=== PATIENT | female | born 1950 | race Caucasian/White ===

== ENCOUNTER 2018-01-31 18:50 | Emergency (ER) | payer BC, OTHER ==
[2018-01-31] MEDS ORDERED: PANTOPRAZOLE 40 MG INJ ONE (19:49)
[2018-01-31] MEDS ORDERED: ONDANSETRON 4 MG/2 ML VIAL ONE (19:49)
[2018-01-31 20:47] LABS: Absolute Lymphocytes (CBC) 1.8 K/uL (0.7-4.9); Absolute Monocytes 0.5 K/uL (0.1-1.3); Absolute Neutrophil 2.8 K/uL (1.8-8.0); Basophils % 0.5 % (0-1.3); Hematocrit 36.3 % (36.0-45.0); Lymphocytes % 33.2 % (15.3-44.8); MCH 27.3 pg (27.0-35.0); MCV 82.3 fL (80-100); MPV 7.5 fL (7.6-11.3); RBC Red Blood Cell Count 4.41 M/uL (3.86-4.86)
--- NOTE | 2018-01-31 21:05 | RAD REPORT ---
EXAM DESCRIPTION: [facility] Single View01/31/2018 8:58 pm CLINICAL HISTORY: sob COMPARISON: August 2017 FINDINGS: The lungs appear clear of acute infiltrate. The heart is normal size IMPRESSION: No acute abnormalities displayed
--- NOTE | 2018-01-31 21:10 | RAD REPORT ---
EXAM DESCRIPTION: US - Abdomen Exam Limited - 01/31/2018 8:59 pm CLINICAL HISTORY: Abdominal pain. COMPARISON: 2016 FINDINGS: The gallbladder wall is not thickened. A gallstone is not seen. The biliary tree is normal caliber. IMPRESSION: Unremarkable gallbladder ultrasound.
--- NOTE | 2018-01-31 21:14 | RAD REPORT ---
EXAM DESCRIPTION: CT - Head Brain Wo Cont - 01/31/2018 9:01 pm CLINICAL HISTORY: Dizziness for 4 days COMPARISON: October 2017 TECHNIQUE: Computed axial tomography of the head was obtained. IV contrast was not requested. All CT scans are performed using dose optimization technique as appropriate and may include automated exposure control or mA/KV adjustment according to patient size. FINDINGS: An intracranial bleed is not seen . The ventricles are normal in caliber. No extra-axial fluid collection is noted. A small low-density area within genu of the corpus callosum may represent an old small infarction. . Fluid within the sinuses/ mastoids is not seen. IMPRESSION: No acute intracranial abnormality is seen. If patient's symptoms persist MRI of the bra in would be recommended.
[2018-01-31] MEDS ORDERED: MECLIZINE HCL 12.5 MG TAB ONE (21:25)
[2018-01-31 21:46] LABS: Bilirubin Direct 0.1 mg/dL (0-0.2); Bilirubin Total 0.7 mg/dL (0.3-1.2); Magnesium 1.8 mg/dL (1.8-2.5); Potassium 4.6 mEq/L (3.6-5.0); Protein, Total 7.2 g/dL (6.0-8.3)
[2018-01-31 21:53] LABS: Urine Bacteria <20 /HPF (<20); Urine Culture Reflex Order REFLEXED; Urine RBC <5 /HPF (NONE SEEN)
[2018-01-31 21:53] LABS: Urine Blood TRACE (NEG); Urine Glucose NEGATIVE (NEG); Urine Protein NEGATIVE (NEG); Urine pH 5.5 (5.0-7.0)
--- NOTE | 2018-01-31 22:10 | EDPHYS ---
Physician Documentation [facility] Name: Catherine Figueroa Age: 67 yrs Sex: Female : 1950 Arrival Date: 01/31/2018 Time: 18:51 Bed 23 Private MD: ED Physician Alfredo Rosado HPI: 01/31 19:40 This 67 yrs old Female presents to ER via Ambulatory with complaints of cp Dizziness, Nausea/Vomiting, Shortness Of Breath. 19:40 The patient presents with lightheadedness. cp 19:40 Onset: The symptoms/episode began/occurred 3-4 days ago. Associated signs and symptoms: cp Pertinent positives: nausea, shortness of breath, vomiting, Pertinent negatives: abdominal pain, chest pain, focal weakness, headache, near-syncope, syncope. Severity of symptoms: in the emergency department the symptoms are unchanged despite home interventions. Patient's baseline: Neuro: alert and fully oriented, Motor: no deficits, Ambulation: walks without assistance, Speech: normal. Patient reports similar symptoms in past when diagnosed with low magnesemia . Historical: - Allergies: 19:16 Sulfa (Sulfonamide Antibiotics); aj - Home Meds: 19:16 atorvastatin 40 mg Oral tab 1 tab once daily [Active]; levothyroxine 125 mcg tab 1 tab aj once daily for Hypothyroidism [Active]; magnesium oxide 400 mg Oral cap twice a day [Active]; metoprolol tartrate 25 mg Oral tab 1 tab once daily for Hypertension [Active]; omeprazole 20 mg Oral cpDR 1 cap once daily [Active]; sertraline 100 mg Oral tab 1 tab once daily [Active]; valsartan 160 mg Oral tab 1 tab once daily [Active]; - PMHx: 19:16 Anxiety; Depression; GERD; High Cholesterol; Hypertension; Hypothyroidism; aj - PSHx: 19:16 Hysterectomy; Knee surgery; Breast Reduction; aj - Immunization history:: Adult Immunizations up to date. - Social history:: Smoking status: Patient/guardian denies using tobacco. ROS: 19:45 Constitutional: Negative for body aches, chills, fever, poor PO intake. cp 19:45 Eyes: Negative for injury, pain, redness, and discharge. cp 19:45 Cardiovascular: Negative for chest pain, edema, palpitations. 19:45 Respiratory: Positive for shortness of breath, Negative for cough, wheezing. 19:45 Abdomen/GI: Positive for nausea, vomiting, Negative for abdominal pain, diarrhea, constipation, black/tarry stool, rectal bleeding. 19:45 : Negative for urinary symptoms. 19:45 Neuro: Positive for dizziness, Negative for altered mental status, headache, syncope, near syncope, weakness. 19:45 All other systems are negative. Exam: 19:48 Constitutional: The patient appears in no acute distress, alert, awake, cp non-diaphoretic, non-toxic, well developed, well nourished. 19:48 Head/Face: Normocephalic, atraumatic. Eyes: Pupils equal round and reactive to light, cp extra-ocular motions intact. Lids and lashes normal. Conjunctiva and sclera are non-icteric and not injected. Cornea within normal limits. Periorbital areas with no swelling, redness, or edema. ENT: Nares patent. No nasal discharge, no septal abnormalities noted. Tympanic membranes are normal and external auditory canals are clear. Oropharynx with no redness, swelling, or masses, exudates, or evidence of obstruction, uvula midline. Mucous membranes moist. Neck: Trachea midline, no thyromegaly or masses palpated, and no cervical lymphadenopathy. Supple, full range of motion without nuchal rigidity, or vertebral point tenderness. No Meningismus. Chest/axilla: Normal chest wall appearance and motion. Nontender with no deformity. No lesions are appreciated. Cardiovascular: Regular rate and rhythm with a normal S1 and S2. No gallops, murmurs, or rubs. Normal PMI, no JVD. No pulse deficits. Respiratory: Lungs have equal breath sounds bilaterally, clear to auscultation and percussion. No rales, rhonchi or wheezes noted. No increased work of breathing, no retractions or nasal flaring. Abdomen/GI: Soft, non-tender, with normal bowel sounds. No distension or tympany. No guarding or rebound. No evidence of tenderness throughout. Skin: Warm, dry with normal turgor. Normal color with no rashes, no lesions, and no evidence of cellulitis. Neuro: Awake and alert, GCS 15, oriented to person, place, time, and situation. Cranial nerves II-XII grossly intact. Motor strength 5/5 in all extremities. Sensory grossly intact. Cerebellar exam normal. Normal gait. 21:52 ECG was reviewed by the Attending Physician. Vital Signs: 19:16 BP 132 / 81; Pulse 87; Resp 20; Temp 99.0; Pulse Ox 99% on R/A; Weight 83.91 kg; Height aj 5 ft. 1 in. (154.94 cm); Pain 6/10; 20:00 BP 139 / 69; Pulse 74; Resp 16; Pulse Ox 97% on R/A; lk1 21:00 BP 136 / 72; Pulse 77; Resp 16; Pulse Ox 99% on R/A; Pain 0/10; lk1 22:00 BP 129 / 67; Pulse 75; Resp 16; Pulse Ox 99% on R/A; Pain 0/10; lk1 19:16 Body Mass Index 34.96 (83.91 kg, 154.94 cm) aj MDM: 19:21 Patient medically screened. [facility] 22:05 Data reviewed: vital signs, nurses notes, lab test result(s), EKG, radiologic studies, cp CT scan, plain films, and as a result, I will discharge patient. 22:05 Test interpretation: by ED physician or midlevel provider: ECG, plain radiologic cp studies. 01/31 19:39 Order name: Amylase, Serum; Complete Time: 21:53 cp 01/31 19:39 Order name: Basic Metabolic Panel; Complete Time: 21:53 cp 01/31 21:53 Interpretation: Normal except: BUN 32; CRE 1.32; GFR 40. cp 01/31 19:39 Order name: CBC with Diff; Complete Time: 21:04 cp 01/31 21:04 Interpretation: Normal except: MPV 7.5; EOSINOPHIL % 6.0. cp 01/31 19:39 Order name: Creatinine for Radiology; Complete Time: 21:20 cp 01/31 21:21 Interpretation: Abnormal: CRE 1.27; GFR 42. cp 01/31 19:39 Order name: Hepatic Function; Complete Time: 21:53 cp 01/31 21:53 Interpretation: Normal except: ALK 141. cp 01/31 19:39 Order name: Lipase; Complete Time: 21:53 cp 01/31 21:54 Interpretation: Abnormal: LIP 14. cp 01/31 19:39 Order name: Urine Microscopic Only; Complete Time: 21:54 cp 01/31 21:54 Interpretation: Normal except: UWBC 5-10; SQEPI 5-10. cp 01/31 19:39 Order name: Magnesium; Complete Time: 21:53 cp 01/31 19:39 Order name: Troponin I; Complete Time: 21:20 cp 01/31 21:21 Interpretation: Reviewed. cp 01/31 19:41 Order name: US Abdomen Limited; Complete Time: 21:20 cp 01/31 21:21 Interpretation: Report reviewed. 01/31 19:41 Order name: XRAY Chest (1 view); Complete Time: 21:20 cp 01/31 21:56 Interpretation: Report review. 01/31 20:46 Order name: CT Head Brain wo Cont; Complete Time: 21:20 cp 01/31 21:21 Interpretation: Report reviewed. 01/31 21:41 Order name: Urine Dipstick--Ancillary (enter results); Complete Time: 21:54 em1 01/31 21:54 Interpretation: Normal except: UBLD TRACE; UESTR 1+. 01/31 21:55 Order name: Urine Culture [facility] 01/31 19:39 Order name: IV Saline Lock; Complete Time: 21:23 cp 01/31 19:39 Order name: Labs collected and sent; Complete Time: 21:23 cp 01/31 19:39 Order name: Urine Dipstick-Ancillary (obtain specimen); Complete Time: 21:39 cp 01/31 19:39 Order name: EKG; Complete Time: 20:06 01/31 19:39 Order name: EKG - Nurse/Tech; Complete Time: 23:01 cp EC:52 Rate is 74 beats/min. Rhythm is regular. WI interval is normal. QRS interval is normal. cp QT interval is normal. No ST changes noted. Interpreted by me. Reviewed by me. Administered Medications: 20:44 Drug: Zofran 4 mg Route: IVP; Site: left forearm; lk1 21:15 Follow up: Response: No adverse reaction; Marked relief of symptoms lk1 20:45 Drug: ProTONIX 40 mg Route: IVP; Site: left forearm; lk1 21:15 Follow up: Response: No adverse reaction; Marked relief of symptoms lk1 21:10 Drug: Meclizine 25 mg Route: PO; lk1 21:40 Follow up: Response: No adverse reaction; Marked relief of symptoms lk1 Disposition: 02/01 07:58 Co-signature as Attending Physician, Alfredo Rosado MD I agree with the assessment and [facility] plan of care. Disposition: 01/31/18 22:10 Discharged to Home. Impression: Nausea and vomiting, Dizziness. - Condition is Stable. - Discharge Instructions: Dizziness, Nausea and Vomiting. - Prescriptions for Meclizine 25 mg Oral Tablet - take 1 tablet by ORAL route every 8 hours As needed; 30 tablet. Pepcid 20 mg Oral Tablet - take 1 tablet by ORAL route every 12 hours for 10 days; 20 tablet. Zofran 4 mg Oral Tablet - take 1 tablet by ORAL route every 12 hours As needed; 20 tablet. - Medication Reconciliation Form, Thank You Letter, Antibiotic Education, Prescription Opioid Use, Work release form form. - Follow up: Private Physician; When: 1 - 2 days; Reason: Recheck today's complaints. - Problem is new. - Symptoms have improved. Signatures: Dispatcher [employer] Ina Block, RN Alfredo Atkinson MD MD cha Page, Corey, PA PA cp Kluge, Leah, RN RN lk1
--- NOTE | 2018-01-31 22:10 | ER ---
Nurse's Notes [facility] Emergency Department Name: Catherine Figueroa Age: 67 yrs Sex: Female : 1950 Arrival Date: 01/31/2018 Time: 18:51 Bed 23 Private MD: Diagnosis: Nausea and vomiting;Dizziness Presentation: 01/31 19:14 Presenting complaint: Patient states: N/V dizziness for 3-4 days. Patient states, "my aj magnesium is probably low, it usually is." Patient is drinking sprite and eating potato chips in triage. Transition of care: patient was not received from another setting of care. Onset of symptoms was January 28, 2018. Initial Sepsis Screen: Does the patient meet any 2 criteria? No. Patient's initial sepsis screen is negative. Does the patient have a suspected source of infection? No. Patient's initial sepsis screen is negative. Care prior to arrival: None. 19:14 Method Of Arrival: Ambulatory aj 19:14 Acuity: MARCELLA 3 aj Triage Assessment: 19:16 General: Appears in no apparent distress. comfortable, Behavior is calm, cooperative, aj appropriate for age. Pain: Complains of pain in face and scalp Pain currently is 5 out of 10 on a pain scale. Neuro: Level of Consciousness is awake, alert, obeys commands, Oriented to person, place, time, situation, Appropriate for age Reports dizziness, headache. Respiratory: Airway is patent Respiratory effort is even, unlabored, Respiratory pattern is regular, symmetrical. GI: Reports nausea, vomiting. Derm: Skin is intact, is healthy with good turgor, Skin is pink, warm \\T\\ dry. normal. Historical: - Allergies: 19:16 Sulfa (Sulfonamide Antibiotics); aj - Home Meds: 19:16 atorvastatin 40 mg Oral tab 1 tab once daily [Active]; levothyroxine 125 mcg tab 1 tab aj once daily for Hypothyroidism [Active]; magnesium oxide 400 mg Oral cap twice a day [Active]; metoprolol tartrate 25 mg Oral tab 1 tab once daily for Hypertension [Active]; omeprazole 20 mg Oral cpDR 1 cap once daily [Active]; sertraline 100 mg Oral tab 1 tab once daily [Active]; valsartan 160 mg Oral tab 1 tab once daily [Active]; - PMHx: 19:16 Anxiety; Depression; GERD; High Cholesterol; Hypertension; Hypothyroidism; aj - PSHx: 19:16 Hysterectomy; Knee surgery; Breast Reduction; aj - Immunization history:: Adult Immunizations up to date. - Social history:: Smoking status: Patient/guardian denies using tobacco. Screenin:55 Abuse screen: Denies threats or abuse. Denies injuries from another. Nutritional lk1 screening: No deficits noted. Tuberculosis screening: No symptoms or risk factors identified. Fall Risk Total Fernandez Fall Scale indicates High Risk Score (45 or more points). Fall prevention measures have been instituted. Side Rails Up X 2 Placed Close to Nursing Station Frequent Obs/Assessments Occuring As available patient and family educated on Fall Prevention Program and Strategies. Assessment: 20:00 General: Appears in no apparent distress. Behavior is calm, cooperative, appropriate lk1 for age. Pain: Denies pain. Neuro: Level of Consciousness is awake, alert, obeys commands, Oriented to person, place, time, situation, Moves all extremities. Full function Gait is steady, Speech is normal, Facial symmetry appears normal, Pupils are PERRLA. Neuro: Reports dizziness. Cardiovascular: Heart tones S1 S2 present Capillary refill is brisk Patient's skin is warm and dry. Respiratory: Airway is patent Respiratory effort is even, unlabored, Respiratory pattern is regular, symmetrical. GI: Abdomen is non-distended, Bowel sounds present X 4 quads. : No signs and/or symptoms were reported regarding the genitourinary system. EENT: No signs and/or symptoms were reported regarding the EENT system. Derm: No signs and/or symptoms reported regarding the dermatologic system. Musculoskeletal: No signs and/or symptoms reported regarding the musculoskeletal system. Vital Signs: 19:16 BP 132 / 81; Pulse 87; Resp 20; Temp 99.0; Pulse Ox 99% on R/A; Weight 83.91 kg; Height aj 5 ft. 1 in. (154.94 cm); Pain 6/10; 20:00 BP 139 / 69; Pulse 74; Resp 16; Pulse Ox 97% on R/A; lk1 21:00 BP 136 / 72; Pulse 77; Resp 16; Pulse Ox 99% on R/A; Pain 0/10; lk1 22:00 BP 129 / 67; Pulse 75; Resp 16; Pulse Ox 99% on R/A; Pain 0/10; lk1 19:16 Body Mass Index 34.96 (83.91 kg, 154.94 cm) ED Course: 18:51 Patient arrived in ED. as 19:15 Triage completed. aj 19:16 Arm band placed on left wrist. Patient placed in an exam room. aj 19:20 Alfredo Ledezma PA is PHCP. cp 19:20 Alfredo Rosado MD is Attending Physician. cp 19:47 Roseanne Anthony, ABILIO is Primary Nurse. lk1 20:37 Initial lab(s) drawn, by me, sent to lab. Inserted saline lock: 22 gauge in left wrist, dh3 using aseptic technique. Blood collected. 20:[address] via stretcher. vm2 20:58 XRAY Chest (1 view) In Process Unspecified. EDMS 21:00 US Abdomen Limited In Process Unspecified. EDMS 21:01 CT completed. Patient tolerated procedure well. Patient moved back from CT. vm2 21:01 Ultrasound completed. Patient tolerated well. aa4 21:01 CT Head Brain wo Cont In Process Unspecified. EDMS 22:07 EKG done, by ED staff, reviewed by Alfredo NUR. dh3 22:56 Patient has correct armband on for positive identification. Bed in low position. Call lk1 light in reach. Side rails up X 1. 22:59 No provider procedures requiring assistance completed. IV discontinued, intact, lk1 bleeding controlled, No redness/swelling at site. Pressure dressing applied. Administered Medications: 20:44 Drug: Zofran 4 mg Route: IVP; Site: left forearm; lk1 21:15 Follow up: Response: No adverse reaction; Marked relief of symptoms lk1 20:45 Drug: ProTONIX 40 mg Route: IVP; Site: left forearm; lk1 21:15 Follow up: Response: No adverse reaction; Marked relief of symptoms lk1 21:10 Drug: Meclizine 25 mg Route: PO; lk1 21:40 Follow up: Response: No adverse reaction; Marked relief of symptoms lk1 Outcome: 22:10 Discharge ordered by . cp 22:59 Discharged to home ambulatory. lk1 22:59 Condition: good 22:59 Discharge instructions given to patient, Instructed on discharge instructions, follow up and referral plans. medication usage, safety practices, Demonstrated understanding of instructions, follow-up care, medications, Prescriptions given X 3. 23:04 Patient left the ED. lk1 Signatures: Dispatcher [employer] EDIna Gallegos, Andressa Felton RN, Amanda aa4 Alfredo Ledezma PA PA cp Kluge, Leah, RN RN lk1 Freya Owens 2 Sandra Ortega 3
[2018-01-31 23:21] VITALS: TEMP 99
[2018-01-31 23:22] VITALS: O2SAT 99
[2018-01-31 23:24] VITALS: BP 129/67
--- NOTE | 2018-02-01 15:42 | EKG ---
Test Date: 2018-01-31 Test Time: 21:44:19 Conical Mixer: IVÁN MEASUREMENT RESULTS: Intervals: Rate: 74 MT: 158 QRSD: 76 QT: 372 QTc: 412 [place]: P: 57 MT: 158 QRS: 24 T: 19 INTERPRETIVE STATEMENTS: Normal sinus rhythm Normal ECG Compared to ECG 08/24/2017 21:55:08 No significant changes Electronically Signed On 02-01-18 15:37:55 CDT by Keyur Gaffney
== END 2018-01-31 23:04 | disposition home or self-care (01) ==
LOC: ER 18:50
DX: R11.2 Nausea with vomiting, unspecified (principal); I10 Essential (primary) hypertension; E78.00 Pure hypercholesterolemia, unspecified; E03.9 Hypothyroidism, unspecified; F41.9 Anxiety disorder, unspecified; F32.9 Major depressive disorder, single episode, unspecified; Z88.2 Allergy status to sulfonamides
CPT/HCPCS: 36415; 70450; 71045; 76705; 80048; 80076; 81003; 81015; 82150; 83690; 83735; 84484; 85025; 87086; 87088; 93005; 96374; 96375; 99284; C9113; J2405

== ENCOUNTER 2018-04-27 18:08 | Emergency (ER) | payer BC, OTHER ==
--- NOTE | 2018-04-27 20:07 | EDPHYS ---
Physician Documentation [facility] Name: Catherine Figueroa Age: 67 yrs Sex: Female : 1950 Arrival Date: 04/27/2018 Time: 18:11 Bed 6 Private MD: Lubna Solano H ED Physician Benji Godwin HPI: 04/27 19:05 This 67 yrs old Female presents to ER via Ambulatory with complaints of Ankle cp Injury. 19:05 The patient presents with an injury, pain, that is acute, swelling. The complaints cp affect the left ankle. 19:05 Onset: The symptoms/episode began/occurred last week. Context: stepped in hole while cp mowing grass. 19:05 Associated signs and symptoms: Pertinent negatives: calf tenderness, numbness, cp tingling, warmth, weakness. Historical: - Allergies: 18:16 Sulfa (Sulfonamide Antibiotics); jl7 - Home Meds: 18:17 atorvastatin 40 mg Oral tab 1 tab once daily [Active]; levothyroxine 125 mcg tab 1 tab jl7 once daily for Hypothyroidism [Active]; magnesium oxide 400 mg Oral cap twice a day [Active]; metoprolol tartrate 25 mg Oral tab 1 tab once daily for Hypertension [Active]; sertraline 100 mg Oral tab 1 tab once daily [Active]; valsartan 160 mg Oral tab 1 tab once daily [Active]; - PMHx: 18:16 Anxiety; Depression; GERD; High Cholesterol; Hypertension; Hypothyroidism; jl7 hypomagnesium; - PSHx: 18:16 Breast reduction; Hysterectomy; Knee surgery; jl7 - Immunization history:: Adult Immunizations up to date. - Social history:: Smoking status: Patient/guardian denies using tobacco. - Ebola Screening: : No symptoms or risks identified at this time. ROS: 19:08 Constitutional: Negative for body aches, chills, fever, poor PO intake. cp 19:08 MS/extremity: Positive for pain, swelling, tenderness, of the left lateral ankle, cp Negative for decreased range of motion, deformity, paresthesias. 19:08 Skin: Negative for cellulitis, rash. 19:08 All other systems are negative. Exam: 19:12 Constitutional: The patient appears in no acute distress, alert, awake, non-toxic, well cp developed, well nourished. 19:12 Head/Face: Normocephalic, atraumatic. cp 19:12 Eyes: Periorbital structures: appear normal, Conjunctiva: normal, no exudate, no injection, Lids and lashes: appear normal, bilaterally. 19:12 ENT: External ear(s): are unremarkable, Nose: is normal, Mouth: is normal, Posterior pharynx: is normal, airway is patent. 19:12 Chest/axilla: Inspection: normal. 19:12 Cardiovascular: Rate: normal. 19:12 Respiratory: the patient does not display signs of respiratory distress, Respirations: normal. 19:12 Abdomen/GI: Exam negative for discomfort, distension, guarding, Inspection: abdomen appears normal. 19:12 Back: pain, is absent, ROM is normal. 19:12 Musculoskeletal/extremity: ROM: limited passive range of motion due to pain, in the left ankle, Perfusion: the extremity is normally perfused throughout, Sensation intact. Joints: All joints are normal except the left lateral ankle displays painful range of motion, swelling, tenderness, Weight bearing: able to fully bear weight. 19:12 Skin: cellulitis, is not appreciated, no rash present. Vital Signs: 18:17 BP 133 / 60; Pulse 82; Resp 18 S; Temp 98(O); Pulse Ox 95% on R/A; Weight 83.91 kg (R); jl7 Height 5 ft. 1 in. (154.94 cm) (R); Pain 10/10; 19:32 BP 125 / 56; Pulse 77; Resp 18; Pulse Ox 98% on R/A; tl2 20:31 BP 139 / 67; Pulse 71; Resp 18; Pulse Ox 98% on R/A; tl2 18:17 Body Mass Index 34.96 (83.91 kg, 154.94 cm) jl7 Procedures: 20:10 Splinting: Splint applied to left ankle using walking boot. applied by nurse. Patient cp tolerated well. 20:10 Crutch training provided to patient and/or family. Return demonstration given. cp MDM: 18:41 Patient medically screened. cp 20:05 Data reviewed: vital signs, nurses notes, radiologic studies, plain films, and as a cp result, I will discharge patient. 20:05 Test interpretation: by ED physician or midlevel provider: plain radiologic studies. cp Counseling: I had a detailed discussion with the patient and/or guardian regarding: the historical points, exam findings, and any diagnostic results supporting the discharge/admit diagnosis, radiology results, to return to the emergency department if symptoms worsen or persist or if there are any questions or concerns that arise at home. Response to treatment: the patient's symptoms have mildly improved after treatment. 04/27 19:03 Order name: XRAY Ankle RIGHT 3 view cp 04/27 19:41 Order name: Walking boot; Complete Time: 20:18 cp 04/27 19:41 Order name: Crutches; Complete Time: 20:19 cp Administered Medications: No medications were administered Disposition: 21:00 Chart complete. cp 04/28 07:15 Co-signature as Attending Physician, Benji Godwin MD. rn Disposition: 04/27/18 20:06 Discharged to Home. Impression: Sprain of ankle - Left. - Condition is Stable. - Discharge Instructions: Ankle Sprain, Crutch Use. - Prescriptions for Diclofenac Sodium 75 mg Oral Tablet, Delayed Release (E.C.) - take 1 tablet by ORAL route 2 times per day; 20 tablet. - Medication Reconciliation Form, Thank You Letter, Antibiotic Education, Prescription Opioid Use, Work release form form. - Follow up: [facility] Pined[facility] MD; When: 2 - 3 days; Reason: Recheck today's complaints. - Problem is new. - Symptoms have improved. Signatures: Dispatcher [employer] EDBenji Browne MD MD rn Page, Corey, PA PA cp Rupinder Molina RN RN tl2 Aletha Cabrera RN RN jl7 Corrections: (The following items were deleted from the chart) 04/27 20:36 20:06 04/27/2018 20:06 Discharged to Home. Impression: Sprain of ankle - Left. tl2 Condition is Stable. Forms are Medication Reconciliation Form, Thank You Letter, Antibiotic Education, Prescription Opioid Use. Follow up: Vic Pineda; When: 2 - 3 days; Reason: Recheck today's complaints. Problem is new. Symptoms have improved. cp
--- NOTE | 2018-04-27 20:07 | ER ---
Nurse's Notes [facility] Name: Catherine Figueroa Age: 67 yrs Sex: Female : 1950 Arrival Date: 04/27/2018 Time: 18:11 Bed 6 Private MD: Lubna Solano H Diagnosis: Sprain of ankle-Left Presentation: 04/27 18:14 Presenting complaint: Patient states: C/o left ankle pain. "Last week when I was mowing jl7 I stepped in a hole. It's gotten worse and swollen and it's hard to walk on.". Transition of care: patient was not received from another setting of care. Onset of symptoms was April 20, 2018. Risk Assessment: Do you want to hurt yourself or someone else? Patient reports no desire to harm self or others. Initial Sepsis Screen: Does the patient meet any 2 criteria? No. Patient's initial sepsis screen is negative. Does the patient have a suspected source of infection? No. Patient's initial sepsis screen is negative. Care prior to arrival: None. 18:14 Method Of Arrival: Ambulatory [facility] 18:14 Acuity: MARCELLA 4 jl7 Triage Assessment: 18:17 General: Appears in no apparent distress. uncomfortable, Behavior is calm, cooperative, jl7 appropriate for age. Pain: Complains of pain in left lateral ankle and left Achilles Pain does not radiate. Pain currently is 10 out of 10 on a pain scale. Quality of pain is described as throbbing. Musculoskeletal: Range of motion: limited in left ankle. Historical: - Allergies: 18:16 Sulfa (Sulfonamide Antibiotics); jl7 - Home Meds: 18:17 atorvastatin 40 mg Oral tab 1 tab once daily [Active]; levothyroxine 125 mcg tab 1 tab jl7 once daily for Hypothyroidism [Active]; magnesium oxide 400 mg Oral cap twice a day [Active]; metoprolol tartrate 25 mg Oral tab 1 tab once daily for Hypertension [Active]; sertraline 100 mg Oral tab 1 tab once daily [Active]; valsartan 160 mg Oral tab 1 tab once daily [Active]; - PMHx: 18:16 Anxiety; Depression; GERD; High Cholesterol; Hypertension; Hypothyroidism; jl7 hypomagnesium; - PSHx: 18:16 Breast reduction; Hysterectomy; Knee surgery; jl7 - Immunization history:: Adult Immunizations up to date. - Social history:: Smoking status: Patient/guardian denies using tobacco. - Ebola Screening: : No symptoms or risks identified at this time. Screenin:22 Abuse screen: Denies threats or abuse. Nutritional screening: No deficits noted. tw2 Tuberculosis screening: No symptoms or risk factors identified. Fall Risk None identified. Assessment: 18:20 General: Appears in no apparent distress. tw2 18:21 Pain: Complains of pain in left ankle. Neuro: Level of Consciousness is awake, alert, tw2 obeys commands, Oriented to person, place, time, situation. Cardiovascular: Denies chest pain, shortness of breath, Patient's skin is warm and dry. Respiratory: Airway is patent Respiratory effort is even, unlabored, Respiratory pattern is regular, symmetrical. GI: Abdomen is round non-distended, obese. : No signs and/or symptoms were reported regarding the genitourinary system. EENT: No signs and/or symptoms were reported regarding the EENT system. Derm: No signs and/or symptoms reported regarding the dermatologic system. Musculoskeletal: Circulation, motion, and sensation intact. Swelling present in left ankle. 19:01 Reassessment: RECD REPORT FROM LOW KNOX. 67YO WF P/W LEFT ANKLE PAIN. PT REMAINS bp AMBULATORY. ORDERS PENDING. 19:22 Reassessment: PT AMBULATING WITH MINIMAL DIFFICULTY, XRAY COMPLETED, RESULTS AND DISPO bp PENDING. 20:31 Reassessment: Patient appears in no apparent distress at this time. Patient and/or tl2 family updated on plan of care and expected duration. Pain level reassessed. Patient is alert, oriented x 3, equal unlabored respirations, skin warm/dry/pink. Pt verbalized understanding of discharge instructions, need for follow up, prescription usage and crutch walking and walking boot fitting. Pt stated the boot felt comfortable and she was able to demonstrate correct walking technique. Vital Signs: 18:17 BP 133 / 60; Pulse 82; Resp 18 S; Temp 98(O); Pulse Ox 95% on R/A; Weight 83.91 kg (R); jl7 Height 5 ft. 1 in. (154.94 cm) (R); Pain 10/10; 19:32 BP 125 / 56; Pulse 77; Resp 18; Pulse Ox 98% on R/A; tl2 20:31 BP 139 / 67; Pulse 71; Resp 18; Pulse Ox 98% on R/A; tl2 18:17 Body Mass Index 34.96 (83.91 kg, 154.94 cm) jl7 ED Course: 18:11 Patient arrived in ED. mr 18:11 Lubna Solano DO is Private Physician. mr 18:15 Triage completed. jl7 18:17 Arm band placed on left wrist. jl7 18:19 Low Irving, RN is Primary Nurse. tw2 18:22 Bed in low position. Call light in reach. Pulse ox on. NIBP on. tw2 18:22 No provider procedures requiring assistance completed. tw2 18:41 Alfredo Ledezma PA is PHCP. cp 18:41 Benji Godwin MD is Attending Physician. cp 19:00 Report given to ABILIO Almonte. tw2 19:13 X-ray completed. Portable x-ray completed in exam room. Patient tolerated procedure bb2 well. 19:14 XRAY Ankle RIGHT 3 view In Process Unspecified. EDMS 20:06 Vic Pineda MD is Referral Physician. cp 20:31 Patient did not have IV access during this emergency room visit. tl2 Administered Medications: No medications were administered Outcome: 20:06 Discharge ordered by . cp 20:31 Discharged to home via wheelchair. tl2 20:31 Condition: stable 20:31 Discharge instructions given to patient, Instructed on discharge instructions, follow up and referral plans. medication usage, crutch walking, Demonstrated understanding of instructions, follow-up care, medications, crutch walking, Prescriptions given X 1. 20:36 Patient left the ED. tl2 Signatures: Dispatcher [employer] EDTN Nicci Treadwell mr Alfredo Ledezma PA PA cp Low Irving, RN RN tw2 Rupinder Molina RN RN tl2 Aletha Cabrera RN RN jl7 George Leung RN RN bp Bock, Brittany bb2 Corrections: (The following items were deleted from the chart) 18:31 18:14 Presenting complaint: Patient states: "Last week when I was mowing I stepped in a jl7 hole. It's gotten worse and swollen and it's hard to walk on." jl7
[2018-04-27 20:40] VITALS: TEMP 98
[2018-04-27 20:41] VITALS: O2SAT 98
[2018-04-27 20:42] VITALS: BP 139/67
--- NOTE | 2018-04-27 21:06 | RAD REPORT ---
EXAM DESCRIPTION: RAD - Ankle Right 3 View - 04/27/2018 7:17 pm CLINICAL HISTORY: Twisted ankle, persistent ankle pain COMPARISON: None. FINDINGS: No fracture, dislocation or periosteal reaction. No joint effusion seen. Slight narrowing of the tibiotalar joint space is present. Large plantar spur is present. There are small calcificatio ns within the Achilles tendon near the insertion. Marginal spurs are seen at the tibiotalar joint spa ce. Numerous degenerative cystic changes are seen in the distal fibula and medial malleolus. Very sydnee en or soft tissue calcifications are present. Numerous periarticular or intra-articular calcification s are present. This is most notable along the posterior margin of the tibiotalar joint space. Mild soft tissue swelling present. No foreign body. IMPRESSION: No fracture or acute bone process seen. 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 This would be unrelated to the acute event. Large plantar spur.
== END 2018-04-27 20:36 | disposition home or self-care (01) ==
LOC: ER 18:08
DX: S93.402A Sprain of unspecified ligament of left ankle, initial encounter (principal); W17.2XXA Fall into hole, initial encounter; Y93.H2 Activity, gardening and landscaping; Y92.007 Garden or yard of unspecified non-institutional (private) residence as the place of occurrence of the external cause; Z88.2 Allergy status to sulfonamides
CPT/HCPCS: 99284

== ENCOUNTER 2018-05-09 23:24 | Emergency (ER) | payer BC, OTHER ==
--- NOTE | 2018-05-10 00:12 | EDPHYS ---
Physician Documentation [facility] Name: Catherine Figueroa Age: 67 yrs Sex: Female : 1950 Arrival Date: 05/09/2018 Time: 23:32 Bed 5 Private MD: Lubna Solano H ED Physician Lei Reyna HPI: 05/10 00:46 This 67 yrs old Female presents to ER via Ambulatory with complaints of Foot pm1 Pain. 00:46 The patient presents with pain. The complaints affect the left foot. Context: The pm1 problem was sustained at home, resulted from an unknown cause, the patient can fully bear weight, the patient is able to ambulate. Onset: The symptoms/episode began/occurred 2 week(s) ago. Modifying factors: The symptoms are alleviated by nothing, the symptoms are aggravated by weight bearing, touching. Associated signs and symptoms: Pertinent negatives: fever, numbness, tingling. Severity of symptoms: in the emergency department the symptoms are unchanged. 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 Patient followed upon Monday and was diagnosed with possible cyst. Patient prescribed Augmentin and Cipro on Monday., was given a prescription for antibiotics. Historical: - Allergies: 05/09 23:47 Sulfa (Sulfonamide Antibiotics); ao - Home Meds: 23:47 atorvastatin 40 mg Oral tab 1 tab once daily [Active]; levothyroxine 125 mcg tab 1 tab ao once daily for Hypothyroidism [Active]; magnesium oxide 400 mg Oral cap twice a day [Active]; metoprolol tartrate 25 mg Oral tab 1 tab once daily for Hypertension [Active]; omeprazole 20 mg Oral cpDR 1 cap once daily [Active]; sertraline 100 mg Oral tab 1 tab once daily [Active]; valsartan 160 mg Oral tab 1 tab once daily [Active]; - PMHx: 23:47 Anxiety; Depression; GERD; High Cholesterol; Hypertension; hypomagnesium; ao Hypothyroidism; - PSHx: 23:47 None; ao - Immunization history:: Adult Immunizations unknown. - Social history:: Smoking status: Patient/guardian denies using tobacco, Patient/guardian denies using alcohol, street drugs. - Ebola Screening: : Patient negative for fever greater than or equal to 101.5 degrees Fahrenheit, and additional compatible Ebola Virus Disease symptoms Patient denies exposure to infectious person Patient denies travel to an Ebola-affected area in the 21 days before illness onset. ROS: 05/10 00:46 MS/extremity: Positive for pain, swelling, tenderness, of the lateral side of left foot.pm1 Constitutional: Negative for fever, chills, and weight loss, Neck: Negative for injury, pain, and swelling, Cardiovascular: Negative for chest pain, palpitations, and edema, Respiratory: Negative for shortness of breath, cough, wheezing, and pleuritic chest pain, Abdomen/GI: Negative for abdominal pain, nausea, vomiting, diarrhea, and constipation, Back: Negative for injury and pain, Skin: Negative for injury, rash, and discoloration, Neuro: Negative for headache, weakness, numbness, tingling, and seizure. Exam: 00:46 Constitutional: This is a well developed, well nourished patient who is awake, alert, pm1 and in no acute distress. Head/Face: Normocephalic, atraumatic. Neck: Trachea midline, no thyromegaly or masses palpated, and no cervical lymphadenopathy. Supple, full range of motion without nuchal rigidity, or vertebral point tenderness. No Meningismus. Chest/axilla: Normal chest wall appearance and motion. Nontender with no deformity. No lesions are appreciated. Cardiovascular: Regular rate and rhythm with a normal S1 and S2. No gallops, murmurs, or rubs. Normal PMI, no JVD. No pulse deficits. Respiratory: Lungs have equal breath sounds bilaterally, clear to auscultation and percussion. No rales, rhonchi or wheezes noted. No increased work of breathing, no retractions or nasal flaring. Abdomen/GI: Soft, non-tender, with normal bowel sounds. No distension or tympany. No guarding or rebound. No evidence of tenderness throughout. Back: No spinal tenderness. No costovertebral tenderness. Full range of motion. Skin: Warm, dry with normal turgor. Normal color with no rashes, no lesions, and no evidence of cellulitis. 00:46 Musculoskeletal/extremity: Extremities: grossly normal except: noted in the MTP of left fifth toe: swelling, tenderness, ROM: intact in all extremities, Circulation is intact in all extremities. Sensation intact. 00:46 Skin: Appearance: normal except for affected area, appearance of tophaceous gout to left fifth MTP and right first PIP. Vital Signs: 05/09 23:44 BP 155 / 72; Pulse 80; Resp 18; Temp 98.1(O); Pulse Ox 100% on R/A; Weight 82.55 kg ao (R); Height 5 ft. 2 in. (157.48 cm); Pain 8/10; 05/10 00:55 BP 156 / 86; Pulse 82; Resp 16; Pulse Ox 97% on R/A; ao 05/09 23:44 Body Mass Index 33.29 (82.55 kg, 157.48 cm) ao MDM: 05/09 23:39 Patient medically screened. pm1 23:49 Data reviewed: vital signs. Data interpreted: Pulse oximetry: on room air is 100 %. pm1 Interpretation: normal. 05/10 00:10 Counseling: I had a detailed discussion with the patient and/or guardian regarding: the pm1 historical points, exam findings, and any diagnostic results supporting the discharge/admit diagnosis, the need for outpatient follow up, to return to the emergency department if symptoms worsen or persist or if there are any questions or concerns that arise at home. Administered Medications: 00:37 Drug: Phenergan 25 mg Route: IM; Site: right gluteus; ao 00:57 Follow up: Response: No adverse reaction ao 00:38 Drug: [place] 5 mg-325 mg 1 tabs Route: PO; ao 00:56 Follow up: Response: No adverse reaction ao 00:38 Drug: SOLU-Medrol 125 mg Route: IM; Site: right gluteus; ao 00:56 Follow up: Response: No adverse reaction ao Disposition: 04:23 Co-signature as Attending Physician, Lei Reyna MD I agree with the assessment and ps1 plan of care. Disposition: 05/10/18 00:12 Discharged to Home. Impression: Tophaceous gout left foot. - Condition is Stable. - Discharge Instructions: Gout. - Prescriptions for Tylenol- Codeine #3 300-30 mg Oral Tablet - take 2 tablets by ORAL route every 6 hours As needed; 20 tablet. Medrol (Salo) 4 mg Oral Tablets, Dose Pack - take 1 tablet by ORAL route as directed - follow package instructions; 1 packet. promethazine 25 mg Oral Tablet - take 1 tablet by ORAL route every 6 hours As needed; 20 tablet. - Medication Reconciliation Form, Thank You Letter, Antibiotic Education, Prescription Opioid Use form. - Follow up: Emergency Department; When: As needed; Reason: Worsening of condition. Follow up: Private Physician; When: 2 - 3 days; Reason: Recheck today's complaints, Continuance of care, Re-evaluation by your physician. - Problem is new. - Symptoms have improved. - Notes: Continue taking the medication as directed by your doctor. Keep your appointment in two days. Signatures: Darian Johnson RN RN ao Maverick Whitten NP FIELD SERVICES ANALYST pm1 Lei Reyna MD MD ps1 Corrections: (The following items were deleted from the chart) 00:56 00:12 05/10/2018 00:12 Discharged to Home. Impression: Tophaceous gout left foot. ao Condition is Stable. Forms are Medication Reconciliation Form, Thank You Letter, Antibiotic Education, Prescription Opioid Use. Follow up: Emergency Department; When: As needed; Reason: Worsening of condition. Follow up: Private Physician; When: 2 - 3 days; Reason: Recheck today's complaints, Continuance of care, Re-evaluation by your physician. Problem is new. Symptoms have improved. pm1
--- NOTE | 2018-05-10 00:12 | ER ---
Nurse's Notes [facility] Name: Catherine Figueroa Age: 67 yrs Sex: Female : 1950 Arrival Date: 05/09/2018 Time: 23:32 Bed 5 Private MD: uLbna Solano H Diagnosis: Tophaceous gout left foot Presentation: 05/09 23:40 Presenting complaint: Patient states: "I was here two weeks ago with foot pain and was ao discharge home and follow up with the orthopedist. Now, I have a look like abscess in the left foot. The orthopedist thought it's gout then a spider bite." Patient reports pain 8/10 pain scale. Patient also reports nausea and vomiting. Transition of care: patient was not received from another setting of care. Onset of symptoms is unknown. Risk Assessment: Do you want to hurt yourself or someone else? Patient reports no desire to harm self or others. Initial Sepsis Screen: Does the patient meet any 2 criteria? No. Patient's initial sepsis screen is negative. Does the patient have a suspected source of infection? Yes: Skin breakdown/wound. Care prior to arrival: None. 23:40 Method Of Arrival: Ambulatory ao 23:40 Acuity: MARCELLA 3 ao Historical: - Allergies: 23:47 Sulfa (Sulfonamide Antibiotics); ao - Home Meds: 23:47 atorvastatin 40 mg Oral tab 1 tab once daily [Active]; levothyroxine 125 mcg tab 1 tab ao once daily for Hypothyroidism [Active]; magnesium oxide 400 mg Oral cap twice a day [Active]; metoprolol tartrate 25 mg Oral tab 1 tab once daily for Hypertension [Active]; omeprazole 20 mg Oral cpDR 1 cap once daily [Active]; sertraline 100 mg Oral tab 1 tab once daily [Active]; valsartan 160 mg Oral tab 1 tab once daily [Active]; - PMHx: 23:47 Anxiety; Depression; GERD; High Cholesterol; Hypertension; hypomagnesium; ao Hypothyroidism; - PSHx: 23:47 None; ao - Immunization history:: Adult Immunizations unknown. - Social history:: Smoking status: Patient/guardian denies using tobacco, Patient/guardian denies using alcohol, street drugs. - Ebola Screening: : Patient negative for fever greater than or equal to 101.5 degrees Fahrenheit, and additional compatible Ebola Virus Disease symptoms Patient denies exposure to infectious person Patient denies travel to an Ebola-affected area in the 21 days before illness onset. Screenin:48 Abuse screen: Denies threats or abuse. Denies injuries from another. Nutritional ao screening: No deficits noted. Tuberculosis screening: No symptoms or risk factors identified. Fall Risk None identified. Assessment: 23:48 General: Appears in no apparent distress. comfortable, Behavior is calm, cooperative, ao appropriate for age. Pain: Complains of pain in left foot Pain currently is 8 out of 10 on a pain scale. Neuro: Level of Consciousness is awake, alert, obeys commands, Oriented to person, place, time, situation, Appropriate for age Moves all extremities. Full function Speech is normal, Facial symmetry appears normal. Cardiovascular: Capillary refill < 3 seconds Patient's skin is warm and dry. Respiratory: Airway is patent Respiratory effort is even, unlabored, Respiratory pattern is regular, symmetrical. GI: Abdomen is non-distended. : No signs and/or symptoms were reported regarding the genitourinary system. EENT: Derm: Derm: Skin is pink, warm \\T\\ dry. normal, Skin temperature is warm. Musculoskeletal: Swelling present in left foot. Musculoskeletal: Abscess look like int he left foot. 05/10 00:55 Reassessment: DC instructions given to patient. Patient agree with the POC and to ao follow up with PCP. Vital Signs: 05/09 23:44 BP 155 / 72; Pulse 80; Resp 18; Temp 98.1(O); Pulse Ox 100% on R/A; Weight 82.55 kg ao (R); Height 5 ft. 2 in. (157.48 cm); Pain 8/10; 05/10 00:55 BP 156 / 86; Pulse 82; Resp 16; Pulse Ox 97% on R/A; ao 05/09 23:44 Body Mass Index 33.29 (82.55 kg, 157.48 cm) ao ED Course: 05/09 23:32 Patient arrived in ED. es 23:33 Lubna Solano DO is Private Physician. es 23:38 Maverick Whitten NP is PHCP. pm1 23:38 Lei Reyna MD is Attending Physician. pm1 23:40 Johnson, Darian, RN is Primary Nurse. ao 23:44 Triage completed. ao 23:47 Arm band placed on right wrist. Patient placed in an exam room, on a stretcher, on ao pulse oximetry, Patient notified of wait time. 23:50 Patient has correct armband on for positive identification. Placed in gown. Bed in low ao position. 08 00:55 No provider procedures requiring assistance completed. Patient did not have IV access ao during this emergency room visit. Administered Medications: 00:37 Drug: Phenergan 25 mg Route: IM; Site: right gluteus; ao 00:57 Follow up: Response: No adverse reaction ao 00:38 Drug: [place] 5 mg-325 mg 1 tabs Route: PO; ao 00:56 Follow up: Response: No adverse reaction ao 00:38 Drug: SOLU-Medrol 125 mg Route: IM; Site: right gluteus; ao 00:56 Follow up: Response: No adverse reaction ao Outcome: 00:12 Discharge ordered by MD. pm1 00:55 Discharged to home ambulatory. ao 00:55 Condition: stable 00:55 Discharge instructions given to patient, Instructed on discharge instructions, follow up and referral plans. Demonstrated understanding of instructions, follow-up care, medications, Prescriptions given X 3. 00:56 Patient left the ED. ao Signatures: Mia Webster Alex, RN RN Maverick Gibbs NP HOTEL CONTROLLER pm1
[2018-05-10] MEDS ORDERED: METHYLPREDNISOLONE 125 MG INJ ONE (00:29)
[2018-05-10] MEDS ORDERED: HYDROCODONE/APAP 5/325 MG TAB ONE (00:29)
[2018-05-10] MEDS ORDERED: PROMETHAZINE HCL 50 MG/ML AMP IM ONE (00:37)
[2018-05-10 01:01] VITALS: BP 155/72; TEMP 98.1; O2SAT 100
== END 2018-05-10 00:56 | disposition home or self-care (01) ==
LOC: ER 23:24
DX: M1A.9XX1 Chronic gout, unspecified, with tophus (tophi) (principal); M79.672 Pain in left foot; Z88.2 Allergy status to sulfonamides; E78.00 Pure hypercholesterolemia, unspecified; I10 Essential (primary) hypertension; E03.9 Hypothyroidism, unspecified; E83.42 Hypomagnesemia
CPT/HCPCS: 96372; 99283; J2550; J2930

== ENCOUNTER 2018-06-16 12:44 | Observation (INO) | payer BC, OTHER ==
[2018-06-16 15:24] LABS: Absolute Lymphocytes (CBC) 3.4 K/uL (0.7-4.9); Absolute Monocytes 0.9 K/uL (0.1-1.3); Absolute Neutrophil 5.2 K/uL (1.8-8.0); Basophils % 0.5 % (0-1.3); Eosinophils % 1.1 % (0-4.4); Hematocrit 34.8 % (36.0-45.0); Lymphocytes % 35.2 % (15.3-44.8); MCH 27.5 pg (27.0-35.0); MPV 7.6 fL (7.6-11.3); Monocytes % 9.2 % (3.3-12.3); RBC Red Blood Cell Count 4.14 M/uL (3.86-4.86)
[2018-06-16 15:32] LABS: Albumin 3.5 g/dL (3.4-5.0); Bilirubin Total 0.4 mg/dL (0.2-1.0); Protein, Total 7.4 g/dL (6.4-8.2)
--- NOTE | 2018-06-16 15:34 | RAD REPORT ---
EXAM DESCRIPTION: RAD - Foot Left 3 View - 06/16/2018 3:15 pm CLINICAL HISTORY: SWELLING COMPARISON: FOOT W OBLIQUES dated 05/27/2011 FINDINGS: Prominent erosive changes are seen centered at the first MTP joint. Sclerotic margins are noted of the erosions. This pattern is typical of gout. Soft tissue swelling is seen affecting the fo urth toe. Loss of joint space is seen involving the DIP joint of the fourth toe with small areas of e rosions suspected. This is also likely related to underlying gout. Prominent plantar calcaneal spur.
--- NOTE | 2018-06-16 15:59 | ER ---
Nurse's Notes [facility] Name: Catherine Figueroa Age: 68 yrs Sex: Female : 1950 Arrival Date: 06/16/2018 Time: 12:49 Bed 17 Private MD: Lubna Solano H Diagnosis: Cellulitis of left toe Presentation: 06/16 13:41 Presenting complaint: Patient states: Redness and swelling to the left 2nd toe for the aj1 past week. Patient states she was here 2 weeks ago for the same issue on the side of her foot and was diagnosed with gout. Denies fever. Transition of care: patient was not received from another setting of care. Onset of symptoms was June 11, 2018. Risk Assessment: Do you want to hurt yourself or someone else? Patient reports no desire to harm self or others. Initial Sepsis Screen: Does the patient meet any 2 criteria? No. Patient's initial sepsis screen is negative. Does the patient have a suspected source of infection? No. Patient's initial sepsis screen is negative. Care prior to arrival: None. 13:41 Method Of Arrival: Ambulatory aj1 13:41 Acuity: MARCELLA 4 aj1 Triage Assessment: 13:44 General: Appears in no apparent distress. uncomfortable, Behavior is calm, cooperative, aj1 appropriate for age. Pain: Complains of pain in left foot Pain currently is 8 out of 10 on a pain scale. Neuro: Level of Consciousness is awake, alert, obeys commands. Cardiovascular: Patient's skin is warm and dry. Respiratory: Airway is patent Respiratory effort is even, unlabored, Respiratory pattern is regular, symmetrical. Historical: - Allergies: 13:44 Sulfa (Sulfonamide Antibiotics); aj1 - Home Meds: 13:44 atorvastatin 40 mg Oral tab 1 tab once daily [Active]; levothyroxine 125 mcg tab 1 tab aj1 once daily for Hypothyroidism [Active]; magnesium oxide 400 mg Oral cap twice a day [Active]; metoprolol tartrate 25 mg Oral tab 1 tab once daily for Hypertension [Active]; omeprazole 20 mg Oral cpDR 1 cap once daily [Active]; sertraline 100 mg Oral tab 1 tab once daily [Active]; valsartan 160 mg Oral tab 1 tab once daily [Active]; - PMHx: 13:44 Anxiety; Depression; GERD; High Cholesterol; Hypertension; hypomagnesium; aj1 Hypothyroidism; - Immunization history:: Flu vaccine is not up to date. - Social history:: Smoking status: Patient/guardian denies using tobacco. - Ebola Screening: : Patient denies travel to an Ebola-affected area in the 21 days before illness onset. Screenin:06 Abuse screen: Denies threats or abuse. Nutritional screening: No deficits noted. em Tuberculosis screening: No symptoms or risk factors identified. Fall Risk None identified. Assessment: 14:45 General: Appears in no apparent distress. comfortable, Behavior is calm, cooperative. em General: Denies fever. Pain: Complains of pain in left fourth toe Pain currently is 6 out of 10 on a pain scale. Neuro: Level of Consciousness is awake, alert, obeys commands, Oriented to person, place, time, situation. Cardiovascular: Capillary refill < 3 seconds Patient's skin is warm and dry. Respiratory: Airway is patent Respiratory effort is even, unlabored, Respiratory pattern is regular, symmetrical. GI: Abdomen is flat, Patient currently denies nausea, vomiting. : No signs and/or symptoms were reported regarding the genitourinary system. EENT: No signs and/or symptoms were reported regarding the EENT system. Derm: Wound noted left fourth toe. Musculoskeletal: Range of motion: intact in all extremities. 15:50 Reassessment: Patient appears in no apparent distress at this time. Patient and/or em family updated on plan of care and expected duration. Pain level reassessed. Patient is alert, oriented x 3, equal unlabored respirations, skin warm/dry/pink. 16:40 Reassessment: Patient appears in no apparent distress at this time. Patient and/or em family updated on plan of care and expected duration. Pain level reassessed. Patient is alert, oriented x 3, equal unlabored respirations, skin warm/dry/pink. pt request some pain medication, provider notified, new medication orders received. 17:00 Reassessment: Patient appears in no apparent distress at this time. Patient and/or em family updated on plan of care and expected duration. Pain level reassessed. Patient is alert, oriented x 3, equal unlabored respirations, skin warm/dry/pink. called pharmacy to verify dosage of vancomycin, will prepare and deliver to the floor, floor notified of medication change. Vital Signs: 13:44 BP 167 / 70; Pulse 74; Resp 18; Temp 97.8; Pulse Ox 98% on R/A; Weight 81.65 kg (R); aj1 Height 5 ft. 1 in. (154.94 cm) (R); Pain 8/10; 14:43 BP 158 / 65; Pulse 71; Resp 18; Pulse Ox 99% on R/A; Pain 6/10; em 15:39 BP 171 / 82; Pulse 67; Resp 18; Pulse Ox 98% on R/A; em 16:34 BP 194 / 68; Pulse 63; Resp 18; Temp 97.8(O); Pulse Ox 100% on R/A; Pain 7/10; em 13:44 Body Mass Index 34.01 (81.65 kg, 154.94 cm) aj1 ED Course: 12:49 Patient arrived in ED. sb2 12:50 Lubna Solano DO is Private Physician. sb2 13:43 Triage completed. aj1 13:44 Arm band placed on Patient placed in waiting room. aj1 14:19 Hunter Jimenez LVN is Primary Nurse. em 14:33 Parviz Simon PA is PHCP. jmm 14:33 Benji Godwin MD is Attending Physician. jmm 15:07 Patient has correct armband on for positive identification. Bed in low position. Call em light in reach. 15:07 No provider procedures requiring assistance completed. Initial lab(s) drawn, by me, em sent to lab. Inserted saline lock: 20 gauge in right antecubital area, using aseptic technique. Blood collected. 15:15 Foot Left 3 View XRAY In Process Unspecified. EDMS 15:55 Renny Arzate MD is Hospitalizing Provider. jmm 17:05 Patient admitted, IV remains in place. em Administered Medications: 16:34 Drug: [place] 5 mg-325 mg 1 tabs Route: PO; em 17:06 Follow up: Response: No adverse reaction em 17:03 Not Given (will be adminstered by floor nurse): vancoMYCIN 1 grams IVPB once over 2 hrs iw Outcome: 15:58 Decision to Hospitalize by Provider. jmm 17:05 Admitted to Med/surg accompanied by tech, via wheelchair, room 202, with chart, Report em called to ABILIO Kern 17:05 Condition: good 17:05 Instructed on the need for admit, Demonstrated understanding of instructions. 17:09 Patient left the ED. em Signatures: Dispatcher [employer] Keri Tracy RN RN aj1 Parviz Simon PA PA jmm Munoz, Edgar, MANAGER BAR MANAGER BAR em Amalia Dockery sb2 Lory Kilpatrick RN iw
--- NOTE | 2018-06-16 15:59 | EDPHYS ---
Physician Documentation [facility] Name: Catherine Figueroa Age: 68 yrs Sex: Female : 1950 Arrival Date: 06/16/2018 Time: 12:49 Bed 17 Private MD: Lubna Solano H ED Physician Benji Godwin HPI: 06/16 14:42 This 68 yrs old Female presents to ER via Ambulatory with complaints of Foot jmm Pain. 14:42 The patient presents with pain, that is acute. Onset: The symptoms/episode jmm began/occurred gradually, 5 day(s) ago. Modifying factors: The symptoms are alleviated by nothing. the symptoms are aggravated by movement. Associated signs and symptoms: Pertinent negatives fever. This is a 68 year old female with a history of gout that presents to the ED with left 4th toe swelling worsening over the past 5 days denies fever. Complains of drainage. Historical: - Allergies: 13:44 Sulfa (Sulfonamide Antibiotics); aj1 - Home Meds: 13:44 atorvastatin 40 mg Oral tab 1 tab once daily [Active]; levothyroxine 125 mcg tab 1 tab aj1 once daily for Hypothyroidism [Active]; magnesium oxide 400 mg Oral cap twice a day [Active]; metoprolol tartrate 25 mg Oral tab 1 tab once daily for Hypertension [Active]; omeprazole 20 mg Oral cpDR 1 cap once daily [Active]; sertraline 100 mg Oral tab 1 tab once daily [Active]; valsartan 160 mg Oral tab 1 tab once daily [Active]; - PMHx: 13:44 Anxiety; Depression; GERD; High Cholesterol; Hypertension; hypomagnesium; aj1 Hypothyroidism; - Immunization history:: Flu vaccine is not up to date. - Social history:: Smoking status: Patient/guardian denies using tobacco. - Ebola Screening: : Patient denies travel to an Ebola-affected area in the 21 days before illness onset. ROS: 14:42 Constitutional: Negative for fever, chills, and weight loss, Cardiovascular: Negative jmm for chest pain, palpitations, and edema, Respiratory: Negative for shortness of breath, cough, wheezing, and pleuritic chest pain. 14:42 MS/extremity: Positive for pain, swelling. 14:42 Skin: Positive for erythema, swelling. 14:42 All other systems are negative. Exam: 14:51 Constitutional: This is a well developed, well nourished patient who is awake, alert, jmm and in no acute distress. Head/Face: atraumatic. Chest/axilla: Normal chest wall appearance and motion. Cardiovascular: Regular rate and rhythm. No edema appreciated Respiratory: Normal respirations, no respiratory distress appreciated 14:51 Skin: swelling with drainage noted to the left 4th toe. TTP. 14:51 Neuro: Orientation: is normal, Mentation: is normal. 14:51 Psych: Behavior/mood is pleasant, cooperative. Vital Signs: 13:44 BP 167 / 70; Pulse 74; Resp 18; Temp 97.8; Pulse Ox 98% on R/A; Weight 81.65 kg (R); aj1 Height 5 ft. 1 in. (154.94 cm) (R); Pain 8/10; 14:43 BP 158 / 65; Pulse 71; Resp 18; Pulse Ox 99% on R/A; Pain 6/10; em 15:39 BP 171 / 82; Pulse 67; Resp 18; Pulse Ox 98% on R/A; em 16:34 BP 194 / 68; Pulse 63; Resp 18; Temp 97.8(O); Pulse Ox 100% on R/A; Pain 7/10; em 13:44 Body Mass Index 34.01 (81.65 kg, 154.94 cm) aj1 MDM: 14:34 Patient medically screened. [facility] 14:45 Data reviewed: vital signs, nurses notes. [facility] 15:50 ED course: I discussed the patient with Dr. Arzate whom accepted admission. [facility] 15:50 Counseling: I had a detailed discussion with the patient and/or guardian regarding: the [facility] historical points, exam findings, and any diagnostic results supporting the discharge/admit diagnosis, lab results, radiology results, the need for further work-up and treatment in the hospital. 06/16 14:40 Order name: CBC with Diff; Complete Time: 15:38 [facility] 06/16 14:40 Order name: CMP; Complete Time: 15:33 [facility] 06/16 14:40 Order name: ESR; Complete Time: 15:38 [facility] 06/16 14:40 Order name: Foot Left 3 View XRAY; Complete Time: 15:35 [facility] 06/16 14:49 Order name: Wound Culture [facility] 06/16 14:40 Order name: Saline Lock; Complete Time: 15:08 [facility] Administered Medications: 16:34 Drug: [place] 5 mg-325 mg 1 tabs Route: PO; em 17:06 Follow up: Response: No adverse reaction em 17:03 Not Given (will be adminstered by floor nurse): vancoMYCIN 1 grams IVPB once over 2 hrs iw Disposition: 18:25 Co-signature as Attending Physician, Benji Godwin MD. rn Disposition: 06/16/18 15:58 Hospitalization ordered by Renny Arzate for Observation. Preliminary diagnosis is Cellulitis of left toe. - Bed requested for Telemetry/MedSurg (observation). - Status is Observation. em - Condition is Stable. - Problem is new. - Symptoms are unchanged. UTI on Admission? No Signatures: Dispatcher [employer] EDKeri London RN RN aj1 Parviz Simon PA PA [facility] Hunter Jimenez, ONLINE PROJECT MANAGER ONLINE PROJECT MANAGER em Benji Godwin MD MD rn Fitzgerald, Diane, RN RN df Williams, Irene RN iw Corrections: (The following items were deleted from the chart) 16:24 15:58 Hospitalization Ordered by Renny Arzate MD for Observation. Preliminary diagnosis df is Cellulitis of left toe. Bed requested for Telemetry/MedSurg (observation). Status is Observation. Condition is Stable. Problem is new. Symptoms are unchanged. UTI on Admission? No. [facility] 17:09 16:24 06/16/2018 15:58 Hospitalization Ordered by Renny Arzate MD for Observation. em Preliminary diagnosis is Cellulitis of left toe. Bed requested for Telemetry/MedSurg (observation). Status is Observation. Condition is Stable. Problem is new. Symptoms are unchanged. UTI on Admission? No. df
[2018-06-16] MEDS ORDERED: HYDROCODONE/APAP 5/325 MG TAB ONE (16:37)
[2018-06-16] MEDS ORDERED: ACETAMINOPHEN 500 MG TAB PO PRN (17:00)
[2018-06-16] MEDS ORDERED: VANCOMYCIN 0 GM/0 ML BAG ONE (17:01)
--- NOTE | 2018-06-16 17:10 | P.HP ---
Certification for Inpatient Patient admitted to: Observation With expected LOS: <2 Midnights Patient will require the following post-hospital care: None Practitioner: I am a practitioner with admitting privileges, knowledge of patient current condition, hospital course, and medical plan of care. Services: Services provided to patient in accordance with Admission requirements found in Title 42 Section 412.3 of the Code of Federal Regulations Patient History Date of Service: 06/16/18 Reason for admission: 4th toe infected History of Present Illness: 68 y/o female with h/o HTN, HPL, and Gout who presented to ER b/o redness left 4th toe for 5 days. She has no fever chills. She has no DM. She denies any injuries lately. She did have a h/o gout Allergies Sulfa (Sulfonamide Antibiotics) [Sulfa(Sulfonamide Antibiotics)] Allergy (Mild, Verified 04/10/17 00:43) Hives/Rash Home Medications: Levothyroxine [Synthroid*] 0.125 mg PO DAILY 04/17/16 Atorvastatin Calcium 40 mg PO BEDTIME #30 tablet 10/01/16 Magnesium Oxide [Magnesium] 400 mg PO BID 04/10/17 Metoprolol Tartrate 25 mg PO DAILY 04/10/17 Omeprazole 20 mg PO DAILY 04/10/17 Sertraline [Zoloft*] 100 mg PO DAILY 04/10/17 Valsartan 160 mg PO DAILY 04/10/17 Acyclovir Tab [Zovirax*] 400 mg PO Q6H #20 tablet 04/12/17 Pregabalin [Lyrica*] 75 mg PO BID #60 cap 04/12/17 Hydrocodone Bit/Acetaminophen [[place] 10-325 Tablet] 1 each PO Q6HP PRN #30 tablet 04/14/17 predniSONE [Deltasone] 20 mg PO DAILY #5 tab 04/14/17 - Past Medical/Surgical History Diabetic: No -: HTN -: Hypothyroidism -: Nephrolithiasis -: Sciatic nerve -: Heart murmur -: High Cholesterol -: Anxiety -: Depression -: Hysterectomy -: Partial hysterectomy -: Breast reduction -: Left knee scope - Family History Sister -: Diabetes Father -: Cancer Mother -: Heart disease Brother -: Hypertension - Social History Alcohol use: No CD- Drugs: No Caffeine use: Yes Review of Systems 10-point ROS is otherwise unremarkable Physical Examination - Physical Exam General: Alert, In no apparent distress HEENT: Atraumatic, PERRLA, Mucous membr. moist/pink, EOMI, Sclerae nonicteric Neck: Supple, 2+ carotid pulse no bruit, No LAD, Without JVD or thyroid abnormality Respiratory: Clear to auscultation bilaterally, Normal air movement Cardiovascular: Regular rate/rhythm, Normal S1 S2 Gastrointestinal: Normal bowel sounds, No tenderness Musculoskeletal: Swelling, Erythema, Tenderness Integumentary: No rashes Neurological: Normal gait, Normal speech, Normal strength at 5/5 x4 extr, Normal tone, Normal affect Lymphatics: No axilla or inguinal lymphadenopathy - Studies Laboratory Data (last 24 hrs) 06/16/18 15:00: Sodium 143, Potassium 4.0, BUN 31 H, Creatinine 1.50 H, Glucose 104, Total Bilirubin 0.4, AST 16, ALT 24, Alkaline Phosphatase 140 H 06/16/18 15:00: WBC 9.6, Hgb 11.4 L, Hct 34.8 L, Plt Count 256 Assessment and Plan - Problems (Diagnosis) (1) Gout Current Visit: Yes Status: Acute Qualifiers: Gout site: foot Gout etiology: idiopathic Chronicity: acute Laterality : left Qualified Code(s): M10.072 - Idiopathic gout, left ankle and foot (2) HTN (hypertension) Current Visit: No Status: Acute Qualifiers: Hypertension type: essential hypertension Qualified Code(s): I10 - Essential (primary) hypertension - Plan --Start IVF for renal impairm,ent --CT left foot r/o gout --Zosyn --Solu Medrol - Advance Directives Does patient have a Living Will: No Does patient have a Durable POA for Healthcare: No
[2018-06-16] MEDS: PIPER/TAZO/NS 3.375gm 3.375 GM/100 ML BAG IV SCH (17:34)
[2018-06-16] MEDS: NA CHLORIDE 0.9% 1,000 ML IV SCH ×2 (17:34→20:58)
[2018-06-16] MEDS: METHYLPREDNISOLONE 40 MG INJ IV SCH (17:35)
[2018-06-16] MEDS ORDERED: VANCOMYCIN 1.5 GM in NA CHLORIDE 0.9% 500 ML IVPB SCH ×2 (18:00→22:00)
[2018-06-16 18:03] VITALS: BMI 33.7
[2018-06-16] MEDS ORDERED: PNEUMOCOCCAL VACCINE 0.5 ML IMVAC ONE (19:00)
[2018-06-16] MEDS ORDERED: HYDRALAZINE HCL 20 MG/ML VIAL IV PRN (20:21)
[2018-06-16 20:26] LABS: Urine Appearance CLEAR; Urine Bilirubin NEGATIVE (NEG); Urine Blood NEGATIVE (NEG); Urine Color YELLOW; Urine Glucose NEGATIVE (NEG); Urine Protein NEGATIVE (NEG); Urine Urobilinogen 0.2 mg/dL (0.2-1.0)
[2018-06-16 20:31] LABS: Urine Microscopic Reflex NO UMIC
[2018-06-16] MEDS ORDERED: ATORVASTATIN 40 MG TAB PO SCH (21:00)
[2018-06-16] MEDS ORDERED: ENOXAPARIN 30 MG/0.3 ML SQ SCH (21:00)
--- NOTE | 2018-06-16 22:08 | RAD REPORT ---
EXAM DESCRIPTION: CT - Foot Left Wo Con - 06/16/2018 9:38 pm CLINICAL HISTORY: r/o gout Fourth toe infection COMPARISON: Foot Left 3 View dated 06/16/2018 FINDINGS: Soft tissue swelling is seen affecting the fourth toe. There is subcutaneous reticulation involving the tissue surrounding the fourth. Loss of joint space is seen involving the DIP and PIP manuel ints. Subtle erosions probably are present involving the DIP joint of the fourth toe along the planta r surface. A soft tissue tophus is not identified. IMPRESSION: Fourth toe findings are nonspecific, but favored to be related to gout given the small e rosions and loss of joint space at the DIP and PIP joints of the fourth toe. Cellulitis/soft tissue i nfection is a secondary less likely possibility. All CT scans are performed using dose optimization technique as appropriate and may include automated exposure control or mA/KV adjustment according to patient size.
[2018-06-17] MEDS: PIPER/TAZO/NS 3.375gm 3.375 GM/100 ML BAG IV SCH ×2 (01:27→08:38)
[2018-06-17 05:10] LABS: Albumin 3.3 g/dL (3.4-5.0); Bilirubin Total 0.4 mg/dL (0.2-1.0); Potassium 4.7 mmol/L (3.5-5.1); Protein, Total 7.3 g/dL (6.4-8.2)
[2018-06-17] MEDS ORDERED: LEVOTHYROXINE SOD 0.125 MG TAB PO SCH (07:30)
[2018-06-17] MEDS: METHYLPREDNISOLONE 40 MG INJ IV SCH (08:37)
[2018-06-17 08:39] VITALS: BP 168/74
[2018-06-17] MEDS ORDERED: IRBESARTAN 150 MG TAB PO SCH (09:00)
[2018-06-17] MEDS ORDERED: HOME MED 1 EA UNK (Magnesium Oxide [Magnesium] 400 MG) PO SCH (09:00)
[2018-06-17] MEDS ORDERED: SERTRALINE HCL 100 MG TAB PO SCH (09:00)
[2018-06-17 09:48] VITALS: O2SAT 98
[2018-06-17] MEDS ORDERED: MAGNESIUM OXIDE 400 MG TAB PO SCH (10:00)
[2018-06-17] MEDS ORDERED: EZETIMIBE 10 MG TAB PO SCH (10:00)
[2018-06-17 10:12] VITALS: TEMP 98.5
--- NOTE | 2018-06-18 14:12 | P.DS ---
Admission Date: 06/16/18 Discharge Date: 06/17/18 Disposition: ROUTINE DISCHARGE Discharge Condition: FAIR Reason for Admission: 4th toe infected - Problems (1) Gout Onset Date: 06/18/18 Status: Acute Qualifiers: Gout site: foot Gout etiology: idiopathic Chronicity: acute Laterality : left Qualified Code(s): M10.072 - Idiopathic gout, left ankle and foot (2) HTN (hypertension) Onset Date: 06/18/18 Status: Acute Qualifiers: Hypertension type: essential hypertension Qualified Code(s): I10 - Essential (primary) hypertension Brief History of Present Illness: 68 y/o female with h/o HTN, HPL, and Gout who presented to ER b/o redness left 4th toe for 5 days. She has no fever chills. She has no DM. She denies any injuries lately. She did have a h/o gout Hospital Course: she had gout attack based on T. She was given Solu Medrol with improvement. She is discharged on predisone 10 days. Vital Signs/Physical Exam: Temp Pulse Resp BP Pulse Ox 98.5 F 63 20 168/74 H 98 06/17/18 08:00 06/17/18 08:36 06/17/18 08:00 06/17/18 08:36 06/17/18 08:00 General: Alert, In no apparent distress HEENT: Atraumatic, PERRLA, EOMI Neck: Supple, JVD not distended Respiratory: Clear to auscultation bilaterally, Normal air movement Cardiovascular: Regular rate/rhythm, Normal S1 S2 Gastrointestinal: Normal bowel sounds, No tenderness Musculoskeletal: No tenderness Integumentary: No rashes Neurological: Normal speech, Normal tone, Normal affect Lymphatics: No axilla or inguinal lymphadenopathy Laboratory Data at Discharge: WBC 9.6 K/uL (4.3-10.9) 06/16/18 15:00 Hgb 11.4 g/dL (12.0-15.0) L 06/16/18 15:00 Hct 34.8 % (36.0-45.0) L 06/16/18 15:00 Plt Count 256 K/uL (152-406) 06/16/18 15:00 Sodium 139 mmol/L (136-145) 06/17/18 04:40 Potassium 4.7 mmol/L (3.5-5.1) 06/17/18 04:40 BUN 30 mg/dL (7-18) H 06/17/18 04:40 Creatinine 1.40 mg/dL (0.55-1.3) H 06/17/18 04:40 Glucose 163 mg/dL (74-106) H 06/17/18 04:40 Uric Acid 8.2 mg/dL (2.6-6.0) H 06/16/18 19:06 Total Bilirubin 0.4 mg/dL (0.2-1.0) 06/17/18 04:40 AST 14 U/L (15-37) L 06/17/18 04:40 ALT 23 U/L (12-78) 06/17/18 04:40 Alkaline Phosphatase 139 U/L (45-117) H 06/17/18 04:40 Home Medications: Levothyroxine [Synthroid*] 0.125 mg PO DAILY 04/17/16 Magnesium Oxide [Magnesium] 400 mg PO BID 04/10/17 Sertraline [Zoloft*] 100 mg PO DAILY 04/10/17 Atorvastatin Calcium 80 mg PO BEDTIME 06/16/18 Ezetimibe [Zetia] 10 mg PO DAILY 06/16/18 Irbesartan [Avapro] 150 mg PO DAILY 06/16/18 Doxycycline Hyclate 100 mg PO BID #20 capsule 06/17/18 Prednisone [Deltasone] 40 mg PO DAILY #20 tablet 06/17/18 New Medications: Doxycycline Hyclate 100 mg PO BID #20 capsule Prednisone [Deltasone] 40 mg PO DAILY #20 tablet Diet: Regular Activity: Ad liz Time spent managing pt's care (in minutes): 15
== END 2018-06-17 13:08 | disposition home or self-care (01) ==
LOC: ER 12:44 → ERHOLD 16:02 → 2ND 16:52
PROVIDERS: ADMIT Internal Medicine Hematology & Oncology; ATTEND Internal Medicine Hematology & Oncology
DX: M10.072 Idiopathic gout, left ankle and foot (principal); I10 Essential (primary) hypertension; E03.9 Hypothyroidism, unspecified; E78.5 Hyperlipidemia, unspecified; Z88.2 Allergy status to sulfonamides; F41.8 Other specified anxiety disorders; E83.42 Hypomagnesemia
CPT/HCPCS: 36415; 73700; 80053; 81003; 84550; 85025; 85652; 87070; 87077; 87186; 87205; 99285; G0378; J0360; J1650; J2543; J2920; J3370; J7030

== ENCOUNTER 2018-07-14 06:37 | Emergency (ER) | payer BC, OTHER ==
[2018-07-14] MEDS ORDERED: ALBUTEROL 2.5 MG/3 ML NEB SOL ONE (07:14)
[2018-07-14] MEDS ORDERED: IPRATROPIUM BROM 0.5MG/2.5ML ONE (07:14)
[2018-07-14] MEDS ORDERED: predniSONE 20 MG TAB ONE (07:15)
[2018-07-14 07:40] LABS: Absolute Lymphocytes (CBC) 2.1 K/uL (0.7-4.9); Absolute Monocytes 0.7 K/uL (0.1-1.3); Basophils % 0.4 % (0-1.3); Eosinophils % 4.2 % (0-4.4); Hematocrit 31.8 % (36.0-45.0); Lymphocytes % 34.8 % (15.3-44.8); MCV 82.6 fL (80-100); MPV 7.1 fL (7.6-11.3); Monocytes % 11.1 % (3.3-12.3); RBC Red Blood Cell Count 3.85 M/uL (3.86-4.86)
[2018-07-14 08:00] LABS: Albumin 3.5 g/dL (3.4-5.0); Bilirubin Direct 0.2 mg/dL (0-0.2); Bilirubin Total 0.7 mg/dL (0.2-1.0); Magnesium 1.7 mg/dL (1.8-2.4); Potassium 4.1 mmol/L (3.5-5.1); Protein, Total 7.4 g/dL (6.4-8.2)
[2018-07-14] MEDS ORDERED: MAGNESIUM SULFATE 1 gm IVPB 1 GM/100 ML BAG IV ONE (08:59)
--- NOTE | 2018-07-14 09:54 | RAD REPORT ---
EXAM DESCRIPTION: Charity Zavala (2 Views)07/14/2018 8:02 am CLINICAL HISTORY: Cough COMPARISON: January 2018 FINDINGS: The lungs appear clear of acute infiltrate. The heart is normal size IMPRESSION: No acute abnormalities displayed
--- NOTE | 2018-07-14 10:05 | ER ---
Nurse's Notes [facility] Name: Catherine Figueroa Age: 68 yrs Sex: Female : 1950 Arrival Date: 07/14/2018 Time: 06:39 Bed 13 Private MD: Diagnosis: Otitis media, unspecified, bilateral;Bronchitis, not specified as acute or chronic Presentation: 07/14 06:49 Presenting complaint: Patient states: she has had SOB, cough, back pain, wheezing, ear bb pain and a headache x 5 days at work this morning she also had cold sweats. Transition of care: patient was not received from another setting of care. Onset of symptoms was July 09, 2018. Risk Assessment: Do you want to hurt yourself or someone else? Patient reports no desire to harm self or others. Initial Sepsis Screen: Does the patient meet any 2 criteria? No. Patient's initial sepsis screen is negative. Does the patient have a suspected source of infection? No. Patient's initial sepsis screen is negative. Care prior to arrival: None. 06:49 Method Of Arrival: Ambulatory bb 06:49 Acuity: MARCELLA 3 bb Historical: - Allergies: 06:52 Sulfa (Sulfonamide Antibiotics); bb - Home Meds: 06:52 atorvastatin 40 mg Oral tab 1 tab once daily [Active]; levothyroxine 125 mcg tab 1 tab bb once daily for Hypothyroidism [Active]; magnesium oxide 400 mg Oral cap twice a day [Active]; metoprolol tartrate 25 mg Oral tab 1 tab once daily for Hypertension [Active]; omeprazole 20 mg Oral cpDR 1 cap once daily [Active]; sertraline 100 mg Oral tab 1 tab once daily [Active]; valsartan 160 mg Oral tab 1 tab once daily [Active]; - PMHx: 06:52 Anxiety; Depression; GERD; High Cholesterol; Hypertension; hypomagnesium; bb Hypothyroidism; - Immunization history:: Adult Immunizations up to date. - Social history:: Smoking status: Patient/guardian denies using tobacco, Patient/guardian denies using alcohol, street drugs. - Ebola Screening: : No symptoms or risks identified at this time. Screenin:08 Abuse screen: Denies threats or abuse. Nutritional screening: No deficits noted. aa5 Tuberculosis screening: No symptoms or risk factors identified. Fall Risk None identified. Assessment: 07:08 General: Appears uncomfortable, Behavior is calm, cooperative. Pain: Complains of pain aa5 in left subscapular area and right subscapular area, argelia ears, and forehead Pain does not radiate. Pain currently is 8 out of 10 on a pain scale. Quality of pain is described as aching, Pain began 5 days ago Is continuous. Neuro: Level of Consciousness is awake, alert, obeys commands, Oriented to person, place, time, situation. Cardiovascular: Heart tones S1 S2 present Rhythm is regular. Respiratory: Reports shortness of breath cough that is productive, with greenish sputum Airway is patent Respiratory effort is even, unlabored, Respiratory pattern is regular, symmetrical, Breath sounds with wheezes bilaterally. GI: Abdomen is round non-distended, Bowel sounds present X 4 quads. Abd is soft and non tender X 4 quads. : No signs and/or symptoms were reported regarding the genitourinary system. EENT: Reports pain in right ear and left ear. Derm: Skin is pink, warm \T\ dry. Musculoskeletal: Range of motion: intact in all extremities. 08:15 Reassessment: Patient and/or family updated on plan of care and expected duration. Pain aa5 level reassessed. Patient is alert, oriented x 3, equal unlabored respirations, skin warm/dry/pink. Patient states feeling better. Pain: Pain currently is 6 out of 10 on a pain scale. Respiratory: Breath sounds are clear bilaterally. 09:20 Reassessment: Patient and/or family updated on plan of care and expected duration. Pain aa5 level reassessed. Patient is alert, oriented x 3, equal unlabored respirations, skin warm/dry/pink. 09:20 Respiratory: mild wheezing auscultated bilaterally, 93% to 94% RA O2 sat, STEWARD DISHWASHER was aa5 notified. 09:58 Reassessment: Patient is alert, oriented x 3, equal unlabored respirations, skin aa5 warm/dry/pink. Respiratory: Breath sounds are clear bilaterally. 10:08 Reassessment: Patient is finishing magnesium infusion prior to discharge. aj1 10:09 Reassessment: Patient and/or family updated on plan of care and expected duration. Pain aj1 level reassessed. General: Appears in no apparent distress. uncomfortable, Behavior is calm, cooperative, appropriate for age. Neuro: Level of Consciousness is awake, alert, obeys commands. Cardiovascular: Patient's skin is warm and dry. Rhythm is sinus tachycardia. Respiratory: Airway is patent Respiratory effort is even, unlabored, Respiratory pattern is regular, symmetrical. GI: Abdomen is round non-distended. : No signs and/or symptoms were reported regarding the genitourinary system. EENT:. Derm: Skin is pink, warm \T\ dry. normal. Musculoskeletal: Circulation, motion, and sensation intact. Vital Signs: 06:52 BP 136 / 77; Pulse 112; Resp 20 S; Temp 98.5(O); Pulse Ox 99% on R/A; Weight 80.74 kg bb (R); Height 5 ft. 1 in. (154.94 cm) (R); Pain 8/10; 09:20 BP 123 / 52; Pulse 104; Resp 18; Pulse Ox 93% on R/A; aa5 10:00 Resp 16 S; Pulse Ox 97% on R/A; aa5 10:09 BP 136 / 57; Pulse 109; Resp 18; Pulse Ox 97% on R/A; aj1 06:52 Body Mass Index 33.63 (80.74 kg, 154.94 cm) ED Course: 06:39 Patient arrived in ED. ds1 06:51 Triage completed. bb 06:51 Maverick Whitten NP is PHCP. pm1 06:51 Kendrick Maciel MD is Attending Physician. pm1 06:52 Arm band placed on Patient placed in an exam room, on a stretcher, on pulse oximetry. bb 07:05 Yaquelin Langley, RN is Primary Nurse. aa5 07:08 Patient has correct armband on for positive identification. Placed in gown. Bed in low aa5 position. Call light in reach. Side rails up X2. vehicle monitor technician on. Pulse ox on. NIBP on. 07:21 Radiology exam delayed due to patient receiving breathing treatment at this time. 07:21 Initial lab(s) drawn, by me, sent to lab. First set of blood cultures drawn by me. 3 Inserted saline lock: 20 gauge in right antecubital area, using aseptic technique. Blood collected. 07:34 Flu and/or RSV swab sent to lab. Strep swab sent to lab. [facility] 07:57 Chest Pa And Lat (2 Views) XRAY In Process Unspecified. EDMS 08:28 No provider procedures requiring assistance completed. aa5 10:03 Report given to ABILIO Saavedra. aa5 11:04 IV discontinued, intact, bleeding controlled, No redness/swelling at site. Pressure hb dressing applied. Administered Medications: 07:07 Drug: Albuterol - atroVENT (3:1) (2.5 mg - 0.5 mg) 3 ml Route: Nebulizer; aa5 07:20 Follow up: Response: No adverse reaction aa5 07:07 Drug: predniSONE 60 mg Route: PO; aa5 08:15 Follow up: Response: No adverse reaction aa5 09:20 Drug: Magnesium Sulfate 1 grams Route: IVPB; Infused Over: 1 hrs; Site: right aa5 antecubital; 09:32 Drug: Xopenex 1.25 mg Route: Inhalation; aa5 09:58 Follow up: Response: No adverse reaction; Wheezing diminished aa5 10:08 Drug: Rocephin 1 grams Route: IV; Rate: calculated rate; Site: right antecubital; aj1 Outcome: 10:04 Discharge ordered by MD. pm1 11:00 Discharged to home ambulatory. hb 11:00 Condition: stable 11:00 Discharge instructions given to patient, Instructed on discharge instructions, follow up and referral plans. medication usage, Demonstrated understanding of instructions, follow-up care, medications, Prescriptions given X 4. 11:05 Patient left the ED. Signatures: Dispatcher [employer] EDPA Keri Arroyo RN RN aj1 Debbi Cervantes ds1 Yue Arroyo RN RN bb Calderon, Audri, RN RN aa5 Alyce Taveras Patrick, NP STEWARD D[employer]WASHER pm1 Marleen Hearn RN RN Sandra Ortega 3 Corrections: (The following items were deleted from the chart) 10:08 09:20 Reassessment: Patient and/or family updated on plan of care and expected aa5 duration. Pain level reassessed. Patient is alert, oriented x 3, equal unlabored respirations, skin warm/dry/pink. aa5
--- NOTE | 2018-07-14 10:05 | EDPHYS ---
Physician Documentation [facility] Name: Catherine Figueroa Age: 68 yrs Sex: Female : 1950 Arrival Date: 07/14/2018 Time: 06:39 Bed 13 Private MD: ED Physician Kendrick Maciel HPI: 07/14 08:00 This 68 yrs old Female presents to ER via Ambulatory with complaints of Back pm1 Pain, Wheezing > 1 Year, Ear Pain, Cough. 08:00 The patient or guardian reports cough, with productive sputum, that is yellow, pm1 wheezing, bilateral ear pain, and congestion. Onset: The symptoms/episode began/occurred 5 day(s) ago. Severity of symptoms: in the emergency department the symptoms are actually worse. Modifying factors: The symptoms are alleviated by nothing. Associated signs and symptoms: Pertinent positives: earache, rhinorrhea, sore throat, Pertinent negatives: chest pain, diarrhea, fever, nausea, vomiting. The patient has experienced similar episodes in the past, several times. The patient has not recently seen a physician, the patient's primary care provider is Dr. Solano. Historical: - Allergies: 06:52 Sulfa (Sulfonamide Antibiotics); bb - Home Meds: 06:52 atorvastatin 40 mg Oral tab 1 tab once daily [Active]; levothyroxine 125 mcg tab 1 tab bb once daily for Hypothyroidism [Active]; magnesium oxide 400 mg Oral cap twice a day [Active]; metoprolol tartrate 25 mg Oral tab 1 tab once daily for Hypertension [Active]; omeprazole 20 mg Oral cpDR 1 cap once daily [Active]; sertraline 100 mg Oral tab 1 tab once daily [Active]; valsartan 160 mg Oral tab 1 tab once daily [Active]; - PMHx: 06:52 Anxiety; Depression; GERD; High Cholesterol; Hypertension; hypomagnesium; bb Hypothyroidism; - Immunization history:: Adult Immunizations up to date. - Social history:: Smoking status: Patient/guardian denies using tobacco, Patient/guardian denies using alcohol, street drugs. - Ebola Screening: : No symptoms or risks identified at this time. ROS: 08:00 Constitutional: Negative for fever, chills, and weight loss, Eyes: Negative for injury, pm1 pain, redness, and discharge. 08:00 Neck: Negative for injury, pain, and swelling, Cardiovascular: Negative for chest pain, palpitations, and edema. 08:00 Abdomen/GI: Negative for abdominal pain, nausea, vomiting, diarrhea, and constipation, Back: Negative for injury and pain, : Negative for injury, bleeding, discharge, and swelling, MS/Extremity: Negative for injury and deformity, Skin: Negative for injury, rash, and discoloration, Neuro: Negative for headache, weakness, numbness, tingling, and seizure. 08:00 ENT: Positive for ear pain, nasal discharge, rhinorrhea, sinus congestion, sinus pain, sore throat, Negative for drainage from ear(s). 08:00 Respiratory: Positive for cough, shortness of breath, wheezing. Exam: 08:00 Constitutional: This is a well developed, well nourished patient who is awake, alert, pm1 and in no acute distress. Head/Face: Normocephalic, atraumatic. Eyes: Pupils equal round and reactive to light, extra-ocular motions intact. Lids and lashes normal. Conjunctiva and sclera are non-icteric and not injected. Cornea within normal limits. Periorbital areas with no swelling, redness, or edema. Neck: Trachea midline, no thyromegaly or masses palpated, and no cervical lymphadenopathy. Supple, full range of motion without nuchal rigidity, or vertebral point tenderness. No Meningismus. Chest/axilla: Normal chest wall appearance and motion. Nontender with no deformity. No lesions are appreciated. 08:00 Cardiovascular: Regular rate and rhythm with a normal S1 and S2. No gallops, murmurs, or rubs. Normal PMI, no JVD. No pulse deficits. 08:00 Abdomen/GI: Soft, non-tender, with normal bowel sounds. No distension or tympany. No guarding or rebound. No evidence of tenderness throughout. Back: No spinal tenderness. No costovertebral tenderness. Full range of motion. Skin: Warm, dry with normal turgor. Normal color with no rashes, no lesions, and no evidence of cellulitis. MS/ Extremity: Pulses equal, no cyanosis. Neurovascular intact. Full, normal range of motion. 08:00 ENT: External ear(s): are unremarkable, Ear canal(s): are normal, TM's: bulging, bilaterally, erythema, bilaterally, rupture, is not appreciated, bilaterally. 08:00 Respiratory: the patient does not display signs of respiratory distress, Respirations: normal, Breath sounds: rhonchi, are heard diffusely. 08:00 Neuro: Orientation: is normal, Motor: is normal, moves all fours, Sensation: is normal, no obvious gross deficits, Gait: is steady, at a normal pace, without difficulty. Vital Signs: 06:52 BP 136 / 77; Pulse 112; Resp 20 S; Temp 98.5(O); Pulse Ox 99% on R/A; Weight 80.74 kg bb (R); Height 5 ft. 1 in. (154.94 cm) (R); Pain 8/10; 09:20 BP 123 / 52; Pulse 104; Resp 18; Pulse Ox 93% on R/A; aa5 10:00 Resp 16 S; Pulse Ox 97% on R/A; aa5 10:09 BP 136 / 57; Pulse 109; Resp 18; Pulse Ox 97% on R/A; aj1 06:52 Body Mass Index 33.63 (80.74 kg, 154.94 cm) bb MDM: 06:51 Patient medically screened. pm1 10:00 Data interpreted: Pulse oximetry: on room air is 97 %. Interpretation: normal. pm1 10:03 Data reviewed: vital signs. Counseling: I had a detailed discussion with the patient pm1 and/or guardian regarding: the historical points, exam findings, and any diagnostic results supporting the discharge/admit diagnosis, lab results, radiology results, the need for outpatient follow up, to return to the emergency department if symptoms worsen or persist or if there are any questions or concerns that arise at home. 07/14 07:02 Order name: Basic Metabolic Panel; Complete Time: 08:26 pm1 07/14 07:02 Order name: CBC with Diff; Complete Time: 08:26 pm1 07/14 07:02 Order name: LFT's; Complete Time: 08:26 pm1 07/14 07:02 Order name: Magnesium; Complete Time: 08:26 pm1 07/14 07:02 Order name: Procalcitonin; Complete Time: 08:40 pm1 07/14 07:02 Order name: Lactate; Complete Time: 08:26 pm1 07/14 07:02 Order name: Chest Pa And Lat (2 Views) XRAY; Complete Time: 09:55 pm1 07/14 07:02 Order name: Blood Culture Adult (2) pm1 07/14 07:04 Order name: Flu; Complete Time: 08:26 pm1 07/14 07:04 Order name: Strep; Complete Time: 08:26 pm1 07/14 08:14 Order name: Throat Culture EDMS 07/14 09:08 Order name: Urine Dipstick--Ancillary (enter results) hb 07/14 09:09 Order name: Urine Dipstick-Ancillary EDMS 07/14 07:02 Order name: IV Saline Lock; Complete Time: 07:23 pm1 07/14 07:02 Order name: Labs collected and sent; Complete Time: 07:23 pm1 07/14 07:02 Order name: O2 Per Protocol; Complete Time: 07:23 pm1 07/14 07:02 Order name: O2 Sat Monitoring; Complete Time: 07:23 pm1 07/14 07:03 Order name: Urine Dipstick-Ancillary (obtain specimen); Complete Time: 09:09 pm1 Administered Medications: 07:07 Drug: Albuterol - atroVENT (3:1) (2.5 mg - 0.5 mg) 3 ml Route: Nebulizer; aa5 07:20 Follow up: Response: No adverse reaction aa5 07:07 Drug: predniSONE 60 mg Route: PO; aa5 08:15 Follow up: Response: No adverse reaction aa5 09:20 Drug: Magnesium Sulfate 1 grams Route: IVPB; Infused Over: 1 hrs; Site: right aa5 antecubital; 09:32 Drug: Xopenex 1.25 mg Route: Inhalation; aa5 09:58 Follow up: Response: No adverse reaction; Wheezing diminished aa5 10:08 Drug: Rocephin 1 grams Route: IV; Rate: calculated rate; Site: right antecubital; aj1 Disposition: 19:01 Co-signature as Attending Physician, Kendrick Maciel MD. pkl Disposition: 07/14/18 10:04 Discharged to Home. Impression: Bronchitis, not specified as acute or chronic, Otitis media, unspecified, bilateral. - Condition is Stable. - Discharge Instructions: Acute Bronchitis, Adult, Otitis Media, Adult, How to Use an Inhaler. - Prescriptions for Zithromax Z- Salo 250 mg Oral Tablet - take 1 tablet by ORAL route as directed for 5 days Day 1 - take two (2) tablets one time. Day 2, 3, 4 , 5 take one (1) tablet once daily.; 6 tablet. Medrol (Salo) 4 mg Oral Tablets, Dose Pack - take 1 tablet by ORAL route as directed - follow package instructions; 1 packet. Albuterol Sulfate 90 mcg/actuation - inhale 1-2 puff by INHALATION route every 4-6 hours; 1 Inhaler. Guaifenesin AC 10- 100 mg/5 mL Oral Liquid - take 10 milliliter by ORAL route every 4 hours As needed; 240 milliliter. Albuterol Sulfate 2.5 mg /3 mL (0.083 %) Inhalation Solution for Nebulization - inhale 1 unit by NEBULIZATION route every 8 hours As needed; 1 box. - Medication Reconciliation Form, Thank You Letter, Antibiotic Education, Prescription Opioid Use form. - Follow up: Emergency Department; When: As needed; Reason: Worsening of condition. Follow up: Private Physician; When: 2 - 3 days; Reason: Recheck today's complaints, Continuance of care, Re-evaluation by your physician. - Problem is new. - Symptoms have improved. Signatures: Dispatcher [employer] EDMS Keri Arroyo RN RN aj1 Kendrick Maciel MD MD pkl Yue Arroyo RN RN bb Yaquelin Langley RN RN aa5 Maverick Whitten NP DIRECTOR OF OUTSIDE SALES pm1 Marleen Hearn RN RN hb Corrections: (The following items were deleted from the chart) 11:05 10:04 07/14/2018 10:04 Discharged to Home. Impression: Bronchitis, not specified as hb acute or chronicOtitis media, unspecified, bilateral. Condition is Stable. Forms are Medication Reconciliation Form, Thank You Letter, Antibiotic Education, Prescription Opioid Use. Follow up: Emergency Department; When: As needed; Reason: Worsening of condition. Follow up: Private Physician; When: 2 - 3 days; Reason: Recheck today's complaints, Continuance of care, Re-evaluation by your physician. Problem is new. Symptoms have improved. pm1
[2018-07-14] MEDS ORDERED: CEFTRIAXONE/SWI 1gm 1 GM/10 ML SYR ONE (10:11)
[2018-07-14 11:09] VITALS: TEMP 98.5
[2018-07-14 11:11] VITALS: O2SAT 97
[2018-07-14 11:12] VITALS: BP 136/57
[2018-07-14 21:03] LABS: Urine Blood NEGATIVE (NEG); Urine Glucose NEGATIVE (NEG); Urine Protein NEGATIVE (NEG); Urine Specific Gravity 1.025 (1.005-1.030)
== END 2018-07-14 11:05 | disposition home or self-care (01) ==
LOC: ER 06:37
DX: H66.93 Otitis media, unspecified, bilateral (principal); J40 Bronchitis, not specified as acute or chronic; E03.9 Hypothyroidism, unspecified; I10 Essential (primary) hypertension; E78.00 Pure hypercholesterolemia, unspecified; K21.9 Gastro-esophageal reflux disease without esophagitis; F41.9 Anxiety disorder, unspecified; Z88.2 Allergy status to sulfonamides
CPT/HCPCS: 36415; 71046; 80048; 80076; 81003; 83605; 83735; 84145; 85025; 87040; 87070; 87081; 87804; 94640; 96374; 96375; 99285; J0696; J3475; J7512

== ENCOUNTER 2019-01-07 16:38 | Emergency (ER) | payer BC, OTHER ==
--- OUTSIDE RECORDS SUMMARY | 2019-01-07 16:40 | XMS REPORT ---
:1950 [facility] Address [address] [place] [address] Dr. [address] [place] [address] Care Team Providers Name Role Phone Unavailable Unavailable Unavailable Problems This patient has no known problems. Allergies, Adverse Reactions, Alerts This patient has no known allergies or adverse reactions. Medications This patient has no known medications.
--- NOTE | 2019-01-07 18:33 | ER ---
Nurse's Notes [facility] Name: Catherine Figueroa Age: 68 yrs Sex: Female : 1950 Arrival Date: 01/07/2019 Time: 16:41 Bed 26 Private MD: Lubna Solano H Diagnosis: Cellulitis of right lower limb;Cutaneous abscess of right lower limb Presentation: 01/07 16:51 Presenting complaint: Patient states: RLE abscess x 3 days. Denies fever/chills. sv Transition of care: patient was not received from another setting of care. Onset of symptoms was January 04, 2019. Care prior to arrival: None. 16:51 Method Of Arrival: Ambulatory sv 16:51 Acuity: MARCELLA 3 sv 19:05 Risk Assessment: Do you want to hurt yourself or someone else? Patient reports no ca1 desire to harm self or others. Initial Sepsis Screen: Does the patient meet any 2 criteria? No. Patient's initial sepsis screen is negative. Does the patient have a suspected source of infection? No. Patient's initial sepsis screen is negative. Triage Assessment: 16:52 General: Appears in no apparent distress. uncomfortable, well developed, Behavior is sv calm, cooperative, appropriate for age. Pain: Complains of pain in right leg Pain currently is 7 out of 10 on a pain scale. Neuro: Level of Consciousness is awake, alert, obeys commands, Oriented to person, place, time, situation, Gait is steady. Respiratory: Respiratory effort is even, unlabored, Respiratory pattern is regular, symmetrical. Derm: Abscess located on lateral aspect of right calf. Historical: - Allergies: 16:52 Sulfa (Sulfonamide Antibiotics); sv - Home Meds: 19:05 atorvastatin 40 mg Oral tab 1 tab once daily [Active]; levothyroxine 125 mcg tab 1 tab ca1 once daily for Hypothyroidism [Active]; metoprolol tartrate 25 mg Oral tab 1 tab once daily for Hypertension [Active]; magnesium oxide 400 mg Oral cap twice a day [Active]; omeprazole 20 mg Oral cpDR 1 cap once daily [Active]; sertraline 100 mg Oral tab 1 tab once daily [Active]; valsartan 160 mg Oral tab 1 tab once daily [Active]; - PMHx: 16:52 Anxiety; Depression; GERD; High Cholesterol; Hypertension; hypomagnesium; sv Hypothyroidism; - Immunization history:: Flu vaccine status is unknown. - Social history:: The patient lives at home, Smoking status: unknown. - Ebola Screening: : No symptoms or risks identified at this time. Screenin:03 Abuse screen: Denies threats or abuse. Denies injuries from another. Nutritional ca1 screening: No deficits noted. Tuberculosis screening: No symptoms or risk factors identified. Fall Risk None identified. Assessment: 19:01 General: Appears in no apparent distress. comfortable, Behavior is calm, cooperative. ca1 Pain: Complains of pain in lateral aspect of right calf and right leg Pain does not radiate. Pain currently is 2 out of 10 on a pain scale. Quality of pain is described as aching, Pain began gradually, 2-3 days ago. Is intermittent. Neuro: Level of Consciousness is awake, alert, obeys commands, Oriented to person, place, time, situation. Cardiovascular: Capillary refill < 3 seconds Patient's skin is warm and dry. Respiratory: Airway is patent Respiratory effort is even, unlabored, Respiratory pattern is regular, symmetrical. GI: No signs and/or symptoms were reported involving the gastrointestinal system. : No deficits noted. EENT: No signs and/or symptoms were reported regarding the EENT system. Derm: Skin has lesions on right leg Skin is Wound noted right leg Abscess located on right leg. Musculoskeletal: Circulation, motion, and sensation intact. Capillary refill < 3 seconds. Vital Signs: 16:52 BP 148 / 62; Pulse 86; Resp 18; Temp 97.8; Pulse Ox 97% ; Height 5 ft. 1 in. (154.94 sv cm); Pain 7/10; 19:00 BP 144 / 78; Pulse 70; Resp 18; Pulse Ox 100% on R/A; Pain 0/10; ca1 ED Course: 16:41 Patient arrived in ED. mr 16:42 Lubna Solano DO is Private Physician. mr 16:52 Triage completed. sv 16:52 Arm band placed on. sv 18:11 Doni Ruiz MD is Attending Physician. gs 18:35 Fermín Robbins, ABILIO is Primary Nurse. mg2 19:03 No provider procedures requiring assistance completed. Patient did not have IV access ca1 during this emergency room visit. 19:06 Patient has correct armband on for positive identification. ca1 Administered Medications: 18:47 Drug: Clindamycin 600 mg Route: PO; ca1 18:48 Follow up: Response: No adverse reaction; Medication administered at discharge. mg2 Outcome: 18:33 Discharge ordered by . gs 19:04 Discharged to home ambulatory. ca1 19:04 Condition: stable 19:04 Discharge instructions given to patient, Instructed on discharge instructions, follow up and referral plans. medication usage, Demonstrated understanding of instructions, follow-up care, medications, Prescriptions given X 2. 19:06 Patient left the ED. ca1 Signatures: Helena Gerardo, RN RN Lorin Treadwell Gregory, MD MD gs Gardose, Michele, RN RN mg2 Judy Dave RN RN ca1
--- NOTE | 2019-01-07 18:33 | EDPHYS ---
Physician Documentation [facility] Name: Catherine Figueroa Age: 68 yrs Sex: Female : 1950 Arrival Date: 01/07/2019 Time: 16:41 Bed 26 Private MD: Lubna Solano H ED Physician Doni Ruiz HPI: 01/07 18:23 This 68 yrs old Female presents to ER via Ambulatory with complaints of gs Abscess. 18:23 The patient presents with an abscess of the right berg, The patient presents with gs cellulitis of the right berg. Description: The affected area is small, confluent, erythematous. Onset: The symptoms/episode began/occurred 5 day(s) ago. Associated signs and symptoms: Pertinent negatives: fever. Modifying factors: the symptoms are aggravated by touching. Severity of symptoms: At their worst the symptoms were moderate, in the emergency department the symptoms are unchanged. The patient has experienced similar episodes in the past, a few times. Historical: - Allergies: 16:52 Sulfa (Sulfonamide Antibiotics); sv - Home Meds: 19:05 atorvastatin 40 mg Oral tab 1 tab once daily [Active]; levothyroxine 125 mcg tab 1 tab ca1 once daily for Hypothyroidism [Active]; metoprolol tartrate 25 mg Oral tab 1 tab once daily for Hypertension [Active]; magnesium oxide 400 mg Oral cap twice a day [Active]; omeprazole 20 mg Oral cpDR 1 cap once daily [Active]; sertraline 100 mg Oral tab 1 tab once daily [Active]; valsartan 160 mg Oral tab 1 tab once daily [Active]; - PMHx: 16:52 Anxiety; Depression; GERD; High Cholesterol; Hypertension; hypomagnesium; sv Hypothyroidism; - Immunization history:: Flu vaccine status is unknown. - Social history:: The patient lives at home, Smoking status: unknown. - Ebola Screening: : No symptoms or risks identified at this time. ROS: 18:23 All other systems are negative. gs Exam: 18:23 Cardiovascular: Regular rate and rhythm with a normal S1 and S2. No gallops, murmurs, gs or rubs. Normal PMI, no JVD. No pulse deficits. Respiratory: Lungs have equal breath sounds bilaterally, clear to auscultation and percussion. No rales, rhonchi or wheezes noted. No increased work of breathing, no retractions or nasal flaring. Abdomen/GI: Soft, non-tender, with normal bowel sounds. No distension or tympany. No guarding or rebound. No evidence of tenderness throughout. Back: No spinal tenderness. No costovertebral tenderness. Full range of motion. MS/ Extremity: Pulses equal, no cyanosis. Neurovascular intact. Full, normal range of motion. Neuro: Awake and alert, GCS 15, oriented to person, place, time, and situation. Cranial nerves II-XII grossly intact. Motor strength 5/5 in all extremities. Sensory grossly intact. Cerebellar exam normal. Normal gait. 18:23 Constitutional: The patient appears alert, awake. 18:23 Skin: abscess, that is small, with fluctuance, that is mild, with induration, with pointing, that is obvious, cellulitis, that is mild. Vital Signs: 16:52 BP 148 / 62; Pulse 86; Resp 18; Temp 97.8; Pulse Ox 97% ; Height 5 ft. 1 in. (154.94 sv cm); Pain 7/10; 19:00 BP 144 / 78; Pulse 70; Resp 18; Pulse Ox 100% on R/A; Pain 0/10; ca1 Procedures: 18:23 I \T\ D: Incision and drainage was performed for an abscess of the right lateral aspect gs of right calf Prepped with Betadine, Incised with 18gu needle unroofed. Drained small amount the patient tolerated the procedure well. MDM: 18:19 Patient medically screened. gs 18:23 Differential diagnosis: abscess, cellulitis, insect bite. Data reviewed: vital signs, gs nurses notes. Counseling: I had a detailed discussion with the patient and/or guardian regarding: the historical points, exam findings, and any diagnostic results supporting the discharge/admit diagnosis, the need for outpatient follow up. Response to treatment: the patient's symptoms have mildly improved after treatment, and as a result, I will discharge patient. Administered Medications: 18:47 Drug: Clindamycin 600 mg Route: PO; ca1 18:48 Follow up: Response: No adverse reaction; Medication administered at discharge. mg2 Disposition: 01/07/19 18:33 Discharged to Home. Impression: Cellulitis of right lower limb, Cutaneous abscess of right lower limb. - Condition is Stable. - Discharge Instructions: Cellulitis, Adult. - Prescriptions for Bactroban 2 % Topical Ointment - Apply to affected area 1 application by TOPICAL route every 12 hours; 30 gram. Clindamycin HCl 300 mg Oral Capsule - take 1 capsule by ORAL route every 8 hours for 7 days; 21 capsule. - Medication Reconciliation Form, Thank You Letter, Antibiotic Education, Prescription Opioid Use form. - Follow up: Private Physician; When: 2 - 3 days; Reason: Re-evaluation by your physician. Signatures: Helena Gerardo RN RN Doni Ruiz MD MD Acob, ABILIO Kim RN ca1 Fermín Robbins RN mg2 Corrections: (The following items were deleted from the chart) 19:06 18:33 01/07/2019 18:33 Discharged to Home. Impression: Cellulitis of right lower limb; ca1 Cutaneous abscess of right lower limb. Condition is Stable. Forms are Medication Reconciliation Form, Thank You Letter, Antibiotic Education, Prescription Opioid Use. Follow up: Private Physician; When: 2 - 3 days; Reason: Re-evaluation by your physician.
[2019-01-07] MEDS ORDERED: CLINDAMYCIN HCL 150 MG CAP ONE (18:49)
[2019-01-07 19:32] VITALS: TEMP 97.8
[2019-01-07 19:33] VITALS: BP 144/78; O2SAT 100
== END 2019-01-07 19:06 | disposition home or self-care (01) ==
LOC: ER 16:38
PROC: 0J9N0ZZ Drainage of Right Lower Leg Subcutaneous Tissue and Fascia, Open Approach (ICD-10-PCS; principal; 2019-01-07)
DX: L02.415 Cutaneous abscess of right lower limb (principal); L03.115 Cellulitis of right lower limb; F41.9 Anxiety disorder, unspecified; F32.9 Major depressive disorder, single episode, unspecified; K21.9 Gastro-esophageal reflux disease without esophagitis; E78.00 Pure hypercholesterolemia, unspecified; I10 Essential (primary) hypertension; E03.9 Hypothyroidism, unspecified; Z88.2 Allergy status to sulfonamides
CPT/HCPCS: 99283

== ENCOUNTER 2019-07-01 15:18 | Emergency (ER) | payer BC, OTHER ==
--- OUTSIDE RECORDS SUMMARY | 2019-07-01 15:21 | XMS REPORT ---
:1950 [facility] Address [address] [place] [address] [address] [place] [address] Care Team Providers Name Role Phone Unavailable Unavailable Unavailable Problems This patient has no known problems. Allergies, Adverse Reactions, Alerts This patient has no known allergies or adverse reactions. Medications This patient has no known medications.
--- OUTSIDE RECORDS SUMMARY | 2019-07-01 15:22 | XMS REPORT | Summary of Care ---
:1950 Author Organization [facility] Address [address] [place] [address] Care Team Providers Name Role Phone Lubna Solano Primary Care Provider Reason for Referral Radiology Services (Routine) Status Reason Specialty Diagnoses / Referred By Referred To Procedures Contact Contact New Request Diagnostic Diagnoses Right foot pain Steve Duke Radiology Procedures XR FOOT <3 VW RIGHT Amilcar MD [address] [place] [address] Reason for Visit Reason Comments Toe Pain Right toe has a big mass Auth/Cert Status Reason Specialty Diagnoses / Referred By Referred To Procedures Contact Contact Clinical Medical Diagnoses MASS ON RIGHT TOE Adc Lab Laboratory Procedures CBC BMP [address] [place] [address] Encounter Details Date Type Department Care Team Description 05/31/2019 Office Visit [facility] Orthopaedic Steve Duke Right foot pain Surgery- Sang Fitzgerald MD (Primary Dx) [address] [employer] [facility] [place] [address] [place], [place] [phone] [address] Allergies Active Allergy Reactions Severity Noted Date Comments Sulfa (Sulfonamide Antibiotics) Rash 04/26/2017 documented as of this encounter (statuses as of 05/31/2019) Medications Medication Sig Dispensed Refills Start Date End Date Status acetaminophen-codeine TK 1 T PO BID 0 04/07/2017 Active 300-30 mg tablet acyclovir 400 mg tablet TK 1 T PO Q 6 H 1 04/12/2017 Active HYDROcodone-acetaminophe TK 1 T PO Q 6 H 0 04/14/2017 Active n 10-325 mg tablet PRN P MAGOX 400 mg tablet TK 1 T PO BID 5 03/20/2017 Active methocarbamol 500 mg TAKE 2 TABLET PO 0 04/04/2017 Active tablet Q 6 HOURS PRN FOR MUSCLE SPASMS omeprazole 20 mg capsule TK 1 C PO QD AC 3 02/13/2017 Active SERTraline 100 mg tablet TK 1 T PO BID 5 02/13/2017 Active LEVOTHYROXINE SODIUM Take by mouth. 0 Active (LEVOTHYROXINE ORAL) atorvastatin 80 mg TK 1 T PO QD 3 12/23/2017 Active tablet ezetimibe 10 mg tablet TK 1 T PO QD 3 02/06/2018 Active gabapentin 600 mg tablet TK 1 T PO BID 1 02/06/2018 Active valsartan 40 mg tablet TK 1 T PO QD 5 12/31/2017 Active documented as of this encounter (statuses as of 05/31/2019) Active Problems Problem Noted Date Left hip pain 04/26/2017 documented as of this encounter (statuses as of 05/31/2019) Social History Tobacco Use Types Packs/Day Years Used Date Never Smoker Smokeless Tobacco: Never Used Sex Assigned at Date Recorded Not on file Job Start Date Occupation Industry Not on file Not on file Not on file Travel History Travel Start Travel End No recent travel history available. documented as of this encounter Last Filed Vital Signs Vital Sign Reading Time Taken Comments Blood Pressure 152/70 05/31/2019 10:45 AM CDT Pulse 82 05/31/2019 10:45 AM CDT Temperature - - Respiratory Rate 18 05/31/2019 10:45 AM CDT Oxygen Saturation - - Inhaled Oxygen Concentration - - Weight 83.9 kg (185 lb) 05/31/2019 10:45 AM CDT Height 154.9 cm (5' 1") 05/31/2019 10:45 AM CDT Body Mass Index 34.96 05/31/2019 10:45 AM CDT documented in this encounter Progress Notes Steve Duke MD - 05/31/2019 10:30 AM CDT Catherine Figueroa is a 68 year old female Chief Complaint Patient presents with Toe Pain Right toe has a big mass Vitals: 05/31/19 1045 BP: (!) 152/70 BP Location: Left arm Patient Position: Sitting BP CUFF SIZE: Adult Medium Pulse: 82 Resp: 18 Weight: 83.9 kg (185 lb) Height: 61" (154.9 cm) [id number] [place] - [address] [employer] [address] [employer] Patient presents with mass on right big toe All Vitals taken, allergies and all medications reviewed, fall risk assessed. Pain level 05/18. SWEETIE SADLER MA 05/31/2019 10:50 AM Catherine Figueroa is a 68 year old female. Foot Pain This is a chronic problem. The current episode started more than 1 year ago. The problem occurs constantly. The problem has been rapidly worsening. Associated symptoms include joint swelling. The symptoms are aggravated by walking and standing. She has tried immobilization, relaxation, position changes , rest, walking and acetaminophen for the symptoms. The treatment provided no relief. Allergies Catherine is allergic to sulfa (sulfonamide antibiotics). Medications Outpatient Medications Prior to Visit Medication Sig Dispense Refill atorvastatin 80 mg tablet TK 1 T PO QD 3 ezetimibe 10 mg tablet TK 1 T PO QD 3 gabapentin 600 mg tablet TK 1 T PO BID 1 valsartan 40 mg tablet TK 1 T PO QD 5 acetaminophen-codeine 300-30 mg tablet TK 1 T PO BID 0 acyclovir 400 mg tablet TK 1 T PO Q 6 H 1 HYDROcodone-acetaminophen 10-325 mg tablet TK 1 T PO Q 6 H PRN P 0 LEVOTHYROXINE SODIUM (LEVOTHYROXINE ORAL) Take by mouth. MAGOX 400 mg tablet TK 1 T PO BID 5 methocarbamol 500 mg tablet TAKE 2 TABLET PO Q 6 HOURS PRN FOR MUSCLE SPASMS 0 omeprazole 20 mg capsule TK 1 C PO QD AC 3 SERTraline 100 mg tablet TK 1 T PO BID 5 No facility-administered medications prior to visit. Histories Past Medical History: Diagnosis Date Depression Esophageal reflux Hypertension Thyroid disease Past Surgical History: Procedure Laterality Date COSMETIC SURGERY HYSTERECTOMY Social History Socioeconomic History Marital status: Spouse name: Not on file Number of children: Not on file Years of education: Not on file Highest education level: Not on file Occupational History Not on file Social Needs Financial resource strain: Not on file Food insecurity: Worry: Not on file Inability: Not on file Transportation needs: Medical: Not on file Non-medical: Not on file Tobacco Use Smoking status: Never Smoker Smokeless tobacco: Never Used Substance and Sexual Activity Alcohol use: Not on file Drug use: Not on file Sexual activity: Not on file Lifestyle Physical activity: Days per week: Not on file Minutes per session: Not on file Stress: Not on file Relationships Social connections: Talks on phone: Not on file Gets together: Not on file Attends restorationism service: Not on file Active member of club or organization: Not on file Attends meetings of clubs or organizations: Not on file Relationship status: Not on file Intimate partner violence: Fear of current or ex partner: Not on file Emotionally abused: Not on file Physically abused: Not on file Forced sexual activity: Not on file Other Topics Concern Not on file Social History Narrative Not on file Family History Problem Relation Age of Onset Heart Mother Cancer Father Review of Systems Constitutional: Negative. HENT: Negative. Eyes: Negative. Respiratory: Negative. Breasts: Negative. Cardiovascular: Negative. Gastrointestinal: Negative. Genitourinary: Negative. Musculoskeletal: Positive for joint swelling. Skin: Negative. Neurological: Negative. Psychiatric/Behavioral: Negative. Endocrine: Endocrine negative Vital Signs BP (!) 152/70 (BP Location: Left arm, Patient Position: Sitting, BP CUFF SIZE: Adult Medium) | Pulse 82 | Resp 18 | Ht 61" (154.9 cm) | Wt 83.9 kg (185 lb ) | BMI 34.96 kg/m Physical Exam Musculoskeletal: Right foot: There is decreased range of motion, tenderness, bony tenderness , swelling and deformity. Feet: General: Well-developed well-nourished oriented to person place and time HEENT normocephalic atraumatic atraumatic pupils equal round reactive to light extraocular muscles intact Cervical thoracic and lumbar spine without focal deficit normal kyphosis and lordosis Chest clear to auscultation and percussion Cardiovascular regular rate and rhythm without gallop rub or murmur soft without organomegaly Normal bowel sounds Neurologic: Focal myotome or dermatomal deficits Vascular: Intact symmetrical bilateral upper and lower extremities Skin without stasis varicosities or breakdown Extremities without cyanosis clubbing or edema Lymphatics no peripheral lymphedema Psych normal mood and affect. Neurovascular function is intact. To include brisk capillary refill warm pink skin active motor function and sensory function intact. Nursing note and vitals reviewed. Assessment/Plan Diagnosis right great toe gouty atrophie Plan will plane for a Right toe mass [facility] [place] I have discussed the patient's physical exam and reviewed their x-rays/ imaging/results with them in detail. Discussed surgery at great lengths regarding risks and benefits. Explained as with any procedure there may be pain, damage to nerve and vascular structures, fat embolism, need for additional surgery, failure of procedure to relieve pain. We spoke of recovery time, expected outcome, possible restrictions and anticipation return to work date as well as possible rehabilitation if needed or required after the surgery. All questions have been answered. Condition and plans were discussed with patient, who expressed understanding and is agreeable to theplan. documented in this encounter Plan of Treatment Name Type Priority Associated Diagnoses Date/Time XR FOOT <3 VW RIGHT IMAGING Routine Right foot pain 05/31/2019 11:06 AM CDT Name Type Priority Associated Diagnoses Order Schedule XR FOOT <3 VW RIGHT IMAGING Routine Right foot pain Expected: 05/31/2019, Expires: 05/31/2020 Health Maintenance Due Date Last Done Comments HEPATITIS C (HCV) SCREEN 1950 DTaP,Tdap,and Td Vaccines (1 - Tdap) 1968 MAMMOGRAM 1989 COLONOSCOPY 1999 Zoster Recombinant Vaccine (SHINGRIX) (1 of 2) 1999 Medicare Wellness Visit 2014 Osteoporosis Screening 2014 PNEUMOCOCCAL VACCINES 65+ (1 of 2 - PCV13) 2014 INFLUENZA VACCINE (#1) 2019 documented as of this encounter Results Not on filedocumented in this encounter Visit Diagnoses Diagnosis Right foot pain - Primary Pain in limb documented in this encounter Insurance Payer Benefit Plan / Subscriber ID Effective Phone Address Type Group Dates BCBS OF BCBS [id number] 2017-Pres [phone] Medicare [facility] ent [id number] [place] [address] MEDICARE MEDICARE PART A xxxxxxxxxxx 2014-Pres [phone] [address] Medicare & B ent [phone] [id number] LIUDMIL[place] JESUS [phone] documented as of this encounter
--- OUTSIDE RECORDS SUMMARY | 2019-07-01 15:22 | XMS REPORT | Summary of Care ---
:1950 Author Organization [facility] Address [address] [place] [address] Care Team Providers Name Role Phone Lubna Solano Primary Care Provider Reason for Visit Auth/Cert Status Reason Specialty Diagnoses / Referred By Referred To Procedures Contact Contact Clinical Medical Diagnoses MASS ON RIGHT TOE Adc Lab Laboratory Procedures CBC BMP [address] [facility] [address] [place] [address] Encounter Details Date Type Department Care Team Description 05/31/2019 Hospital Encounter [facility] Steve Duke Arrived [place] [facility] [address] [facility] [place] [address] [address] [phone] [place] [address] Allergies Active Allergy Reactions Severity Noted Date Comments Sulfa (Sulfonamide Antibiotics) Rash 04/26/2017 documented as of this encounter (statuses as of 06/01/2019) Medications Medication Sig Dispensed Refills Start Date [...] as of this encounter (statuses as of 06/01/2019) Active Problems Problem Noted Date Mass of right foot, Great Toe 05/31/2019 Left hip pain 04/26/2017 documented as of this encounter (statuses as of 06/01/2019) Social History Tobacco Use Types Packs/Day Years Used Date Never Smoker Smokeless Tobacco: Never Used Sex Assigned at Date Recorded Not on file Job Start Date Occupation Industry Not on file Not on file Not on file Travel History Travel Start Travel End No recent travel history available. documented as of this encounter Last Filed Vital Signs Not on filedocumented in this encounter Plan of Treatment Health Maintenance Due Date Last Done Comments HEPATITIS C (HCV) SCREEN 1950 DTaP,Tdap,and Td Vaccines (1 - Tdap) 1968 MAMMOGRAM 1989 COLONOSCOPY 1999 Zoster Recombinant Vaccine (SHINGRIX) (1 of 2) 1999 Medicare Wellness Visit 2014 Osteoporosis Screening 2014 PNEUMOCOCCAL VACCINES 65+ (1 of 2 - PCV13) 2014 INFLUENZA VACCINE (#1) 2019 documented as of this encounter Procedures Procedure Name Priority Date/Time Associated Diagnosis Comments XR CHEST 2 VW Routine 05/31/2019 12:58 PM Preop examination Results for this CDT procedure are in the results section. documented in this encounter Results XR CHEST 2 VW (05/31/2019 12:58 PM CDT) Specimen Impressions Performed At PACS/VR/DOSE 1.No acute cardiopulmonary abnormality. Narrative Performed At * * * * * * * * ORIGINAL REPORT * * * * * * * * PACS/VR/DOSE EXAM: XR CHEST 2 VW COMPARISON: None available HISTORY: Preop examination FINDINGS: Lines/Tubes: None. Lungs: The lungs are clear. No pleural effusion or pneumothorax is identified. Heart/Mediastinum: The cardiomediastinal silhouette is normal for technique. Bones: No acute osseous abnormality is seen. Procedure Note [facility], Radiant Results Inft User - 05/31/2019 1:24 PM CDT * * * * * * * * ORIGINAL REPORT * * * * * * * * EXAM: XR CHEST 2 VW COMPARISON: None available HISTORY: Preop examination FINDINGS: Lines/Tubes: None. Lungs: The lungs are clear. No pleural effusion or pneumothorax is identified. Heart/Mediastinum: The cardiomediastinal silhouette is normal for technique. Bones: No acute osseous abnormality is seen. IMPRESSION 1. No acute cardiopulmonary abnormality. Performing Organization Address City/State/Zipcode Phone Number PACS/VR/DOSE documented in this encounter Visit Diagnoses Diagnosis Preop examination Preoperative examination, unspecified documented in this encounter Insurance Payer Benefit Plan / Subscriber ID Effective Phone Address Type Group Dates BCBS OF BCBS [id number] 2017-Pres [phone] Medicare [place] [employer] ent [phone] [place] [address] MEDICARE MEDICARE PART A xxxxxxxxxxx 2014-Pres [phone] [address] Medicare & B ent [phone] [id number] [place]AR[place]IL[place] [phone] documented as of this encounter
--- OUTSIDE RECORDS SUMMARY | 2019-07-01 15:22 | XMS REPORT | Summary of Care ---
:1950 Author Organization [facility] Address [address] [place] [address] Care Team Providers Name Role Phone Pcp, Patient Does Not Have A Primary Care Provider Reason for Visit Reason Comments LAB WORK Auth/Cert Status Reason Specialty Diagnoses / Referred By Referred To Procedures Contact Contact Clinical Medical Diagnoses MASS ON RIGHT TOE [facility] Lab Laboratory Procedures [address] [place] [address] Encounter Details Date Type Department Care Team Description 05/31/2019 Engineer Internship Visit [facility] Steve Duke MD [address] [facility] [place] [address] Preop testing Phlebotomy 1, [facility] Lab (Primary Dx) Lab-[address] [place] [address] Allergies Active Allergy Reactions Severity Noted Date [...] filedocumented in this encounter Plan of Treatment Date Type Specialty Care Team Description 05/31/2019 Hospital Encounter Radiology Steve Duke MD Arrived Count [facility] the [facility] [place] [address] Name Type Priority Associated Diagnoses Date/Time CBC WITH DIFF LAB Routine Preop testing 05/31/2019 12:42 PM CDT BASIC METABOLIC PANEL (NA, LAB Routine Preop testing 05/31/2019 12:42 PM CDT K, CL, CO2, GLUCOSE, BUN, CREATININE, CA) CBC WITH DIFFERENTIAL LAB Routine Preop testing 05/31/2019 12:42 PM CDT Health Maintenance Due Date Last Done Comments [...] filedocumented in this encounter Visit Diagnoses Diagnosis Preop testing - Primary Preoperative examination, unspecified documented in this encounter Insurance Payer Benefit Plan / Subscriber ID Effective Phone Address Type Group Dates BCBS OF BCBS [id number] 2017-Pres [phone] Medicare [place] [employer] ent [phone] [place] [address] MEDICARE MEDICARE PART A xxxxxxxxxxx 2014-Pres [phone] [address] Medicare & B ent [phone] [id number] LIUDMIL[place] JESUS [id number] documented as of this encounter
--- OUTSIDE RECORDS SUMMARY | 2019-07-01 15:22 | XMS REPORT | Summary of Care ---
:1950 Author Organization [facility] Address [address] [place] [address] Care Team Providers Name Role Phone Lubna Solano Primary Care Provider Reason for Referral Radiology Services (Routine) Status Reason Specialty Diagnoses / Referred By Referred To Procedures Contact Contact New Request Diagnostic Diagnoses Right foot pain Steve Duke Radiology Procedures XR FOOT <3 VW RIGHT Amilcar MD [address] [place] [address] Reason for Visit Reason Comments Toe Pain Right toe has a big mass Auth/Cert Status Reason Specialty Diagnoses / Referred By Referred To Procedures Contact Contact Clinical Medical Diagnoses MASS ON RIGHT TOE [facility] Lab Laboratory Procedures CBC BMP [address] [facility] [address] [place] [address] Encounter Details Date Type Department Care Team Description 05/31/2019 Office Visit [facility] Orthopaedic Steve Duke Right foot pain Surgery- Sang Fitzgerald MD (Primary Dx) [address] [facility] [facility] [place] [address] [place], [place] [phone] Allergies Active Allergy Reactions Severity Noted [...] kg (185 lb) Height: 61" (154.9 cm) [id number] - [place] - [address] [employer] [address] [employer] Patient presents with mass on right big [...] file Gets together: Not on file Attends sabianism service: Not on file Active member of [...] [facility] [place] I have discussed the patient's physical exam [...] Address Type Group Dates BCBS OF BCBS [id number] 2017-Pres [phone] Medicare [facility] ent [id number] [place] [address] MEDICARE MEDICARE PART A xxxxxxxxxxx 2014-Pres [phone] [address] Medicare & B ent [id number] LIUDMIL[place] JESUS [phone] documented as of this encounter
--- OUTSIDE RECORDS SUMMARY | 2019-07-01 15:22 | XMS REPORT | Summary of Care ---
:1950 Author Organization [facility] Address [address] [place] [address] Care Team Providers Name Role Phone Lubna Solano Primary Care Provider Reason for Referral Radiology Services (Routine) Status Reason Specialty Diagnoses / Referred By Referred To Procedures Contact Contact New Request Diagnostic Diagnoses Right foot pain Steve Duke Radiology Procedures XR FOOT <3 VW RIGHT Amilcar MD [address] [place] [address] Reason for Visit Reason Comments Toe Pain Right toe has a big mass Auth/Cert Status Reason Specialty Diagnoses / Referred By Referred To Procedures Contact Contact Clinical Medical Diagnoses MASS ON RIGHT TOE Adc Lab Laboratory Procedures CBC BMP [address] [facility] [address] [place] [address] Encounter Details Date Type Department Care Team Description 05/31/2019 Office Visit [facility] Orthopaedic Steve Duke Right foot pain Surgery- Sang Fitzgerald MD (Primary Dx) [address] [facility] [place] [address] [place] [phone] [address] Allergies Active Allergy Reactions Severity Noted [...] kg (185 lb) Height: 61" (154.9 cm) [id number] - [place] - [address] [employer] Patient presents with mass on right big [...] file Gets together: Not on file Attends synagogue service: Not on file Active member of [...] reviewed. Assessment/Plan Diagnosis right great toe gouty Tophi Plan will plane for [facility] Right [facility] I have discussed the patient's physical exam [...] Address Type Group Dates BCBS OF BCBS [id number] 2017-Pres [phone] [address] Medicare [place] TRADITIONAL ent [id number] [place] [address] MEDICARE MEDICARE PART A xxxxxxxxxxx 2014-Pres [phone] [address] Medicare & B ent [id number] [id number] LIUDMILA JESUS [phone] documented as of this encounter
--- OUTSIDE RECORDS SUMMARY | 2019-07-01 15:22 | XMS REPORT | Summary of Care ---
:1950 Author Organization [facility] Address [address] [place] [address] Care Team Providers Name Role Phone Lubna Solano Primary Care Provider Reason for Visit Auth/Cert Status Reason Specialty Diagnoses / Referred By Referred To Procedures Contact Contact Clinical Medical Diagnoses MASS ON RIGHT TOE Adc Lab Laboratory Procedures CBC BMP [address] [facility] [address] [place] [address] Encounter Details Date Type Department Care Team Description 05/31/2019 Hospital [facility] Rad[facility] [address] [place] [address] [place] [address] [place] [address] [place], [place] [phone] Allergies Active Allergy Reactions Severity Noted Date [...] filedocumented in this encounter Plan of Treatment Name Type Priority Associated Diagnoses Date/Time XR FOOT <3 VW RIGHT IMAGING Routine Right foot pain 05/31/2019 11:06 AM CDT Name Type Priority Associated Diagnoses Order Schedule XR FOOT <3 VW RIGHT IMAGING Routine Right foot pain 1 Occurrences starting 05/31/2019 until 05/31/2019 Health Maintenance Due Date Last Done Comments [...] Procedure Name Priority Date/Time Associated Diagnosis Comments NOTICE OF PRIVACY Routine 05/31/2019 12:07 PM PRACTICES CDT CONSENT/REFUSAL FOR Routine 05/31/2019 12:07 PM DIAGNOSIS AND TREATMENT CDT ASSIGNMENT OF BENEFITS Routine 05/31/2019 12:06 PM CDT documented in this encounter Results Not on filedocumented in this encounter Visit Diagnoses Diagnosis Right foot pain Pain in limb documented in this encounter Insurance Payer Benefit Plan / Subscriber ID Effective Phone Address Type Group Dates BCBS OF BCBS [id number] 2017-Pres [phone] [address] Medicare [place] TRADITIONAL ent [id number] [id number] [place] [address] MEDICARE MEDICARE PART A xxxxxxxxxxx 2014-Pres [phone] [address] Medicare & B ent [id number] LIUDMIL[place] JESUS [phone] documented as of this encounter
--- OUTSIDE RECORDS SUMMARY | 2019-07-01 15:22 | XMS REPORT | Summary of Care ---
:1950 Author Organization [facility] Address [address] [place] [address] Care Team Providers Name Role Phone Lubna Solano Primary Care Provider Reason for Visit Auth/Cert Status Reason Specialty Diagnoses / Referred By Referred To Procedures Contact Contact Clinical Medical Diagnoses MASS ON RIGHT TOE [facility] Lab Laboratory Procedures CBC [facility] [address] [facility] [address] [place] [address] Encounter Details Date Type Department Care Team Description 05/31/2019 Hospital Encounter [facility] Steve Duke MD [address] [place] [address] [place] [address] [facility] [address] [facility] [address] [place] [address] Allergies Active Allergy Reactions Severity Noted [...] Procedure Name Priority Date/Time Associated Diagnosis Comments EKG-12 LEAD Routine 05/31/2019 1:13 PM CDT documented in this encounter Results Not on filedocumented in this encounter Insurance Payer Benefit Plan / Subscriber ID Effective Phone Address Type Group Dates BCBS OF BCBS [id number] 2017-Pres [phone] Medicare [place] TRADITIONAL ent [id number] [place] [address] MEDICARE MEDICARE PART A xxxxxxxxxxx 2014-Pres [phone] [address] Medicare & B ent [id number] LIUDMILA JESUS [phone] documented as of this encounter
--- OUTSIDE RECORDS SUMMARY | 2019-07-01 15:23 | XMS REPORT | Summary of Care ---
:1950 Author Organization [facility] Address [address] [place] [address] Care Team Providers Name Role Phone Lubna Solano Primary Care Provider Encounter Details Date Type Department Care Team Description 06/19/2019 Letter (Out) [facility] Orthopaedic Issac Acosta, PAC Surgery- [place] [address], [place] [address] [place], [place] [phone] Allergies Active Allergy Reactions Severity Noted Date Comments Sulfa (Sulfonamide Antibiotics) Rash 04/26/2017 documented as of this encounter (statuses as of 06/20/2019) Medications Medication Sig Dispensed Refills Start Date [...] as of this encounter (statuses as of 06/20/2019) Active Problems Problem Noted Date Mass of right foot, Great Toe 05/31/2019 Left hip pain 04/26/2017 documented as of this encounter (statuses as of 06/20/2019) Social History Tobacco Use Types Packs/Day Years [...] ID Effective Phone Address Type Group Dates MEDICARE MEDICARE PART A xxxxxxxxxxx 2014-Pres [phone] [address] Medicare & B ent [id number] LIUDMIL[place] JESUS [id number] BCBS OF BCBS [id number] 2017-Pres [phone] [address] Medicare [place] TRADITIONAL ent [id number] [place] [address] documented as of this encounter
--- OUTSIDE RECORDS SUMMARY | 2019-07-01 15:23 | XMS REPORT | Summary of Care ---
:1950 Author Organization [facility] Address [address] [place] [address] Care Team Providers Name Role Phone Lubna Solano Primary Care Provider Reason for Visit Reason Comments Follow-up Dressing coming apart DOS:06/05/2019 Encounter Details Date Type Department Care Team Description 06/07/2019 Office Visit [facility] Orthopaedic Issac Acosta S, Right foot pain Surgery- [place] PAC (Primary Dx) [address], [address] [place] [address] [place], [place] [phone] Allergies Active Allergy Reactions Severity Noted Date Comments Sulfa (Sulfonamide Antibiotics) Rash 04/26/2017 documented as of this encounter (statuses as of 06/07/2019) Medications Medication Sig Dispensed Refills Start Date [...] as of this encounter (statuses as of 06/07/2019) Active Problems Problem Noted Date Mass of right foot, Great Toe 05/31/2019 Left hip pain 04/26/2017 documented as of this encounter (statuses as of 06/07/2019) Social History Tobacco Use Types Packs/Day Years [...] Sign Reading Time Taken Comments Blood Pressure 145/71 06/07/2019 10:14 AM CDT Pulse 73 06/07/2019 10:14 AM CDT Temperature - - Respiratory Rate 18 06/07/2019 10:14 AM CDT Oxygen Saturation - - Inhaled Oxygen Concentration - - Weight 83.9 kg (185 lb) 06/07/2019 10:14 AM CDT Height 154.9 cm (5' 1") 06/07/2019 10:14 AM CDT Body Mass Index 34.96 06/07/2019 10:14 AM CDT documented in this encounter Patient Instructions Patient InstructionsIssac Acosta PAC - 06/07/2019 10:15 AM CDT documented in this encounter Progress Notes Issac Acosta PAC - 06/07/2019 10:15 AM CDT Catherine Figueroa is a 68 year old female Chief Complaint Patient presents with Follow-up Dressing coming apart DOS:06/05/2019 Vitals: 06/07/19 1014 BP: (!) 145/71 BP Location: Left arm Patient Position: Sitting BP CUFF SIZE: Adult Large Pulse: 73 Resp: 18 Weight: 83.9 kg (185 lb) Height: 61" (154.9 cm) [facility] [id number] [place], [place] - [address] AT [facility] All Vitals taken, allergies and all medications reviewed, fall risk assessed. Pain level 0/10. SWEETIE SADLER MA 06/07/2019 10:20 AM Catherine Figueroa is a 68 year old female. Here for dressing check her Tom wrap was coming undone on her splint Allergies Catherine is allergic to sulfa (sulfonamide [...] file Gets together: Not on file Attends taoism service: Not on file Active member of [...] Psychiatric/Behavioral: Negative. Endocrine: Endocrine negative Vital Signs Ht 61" (154.9 cm) | Wt 83.9 kg (185 lb) | BMI 34.96 kg/m Physical Exam Pulmonary/Chest: Rales: then used to soak tape to hold the Tom wrap's in place so they would not slip she should leave her dressings intact and follow-up at the 2 week postop appointment. Dressings intact the Tom wrap was loosened Assessment/Plan I applied applied a 2 inch Tom wrap to cover her toe reinforcing the dressings that were there documented in this encounter Plan of Treatment Date Type Specialty Care Team Description 06/19/2019 Office Visit Orthopedic Surgery Issac Acosta PAC [address] [place] [address] Health Maintenance Due Date Last Done Comments [...] Address Type Group Dates BCBS OF BCBS [id number] 2017-Pres [phone] [address] Medicare [place] TRADITIONAL ent [id number] [place] [address] MEDICARE MEDICARE PART A xxxxxxxxxxx 2014-Pres [phone] [address] Medicare & B ent [id number] LIUDMILA JESUS [phone] documented as of this encounter
--- OUTSIDE RECORDS SUMMARY | 2019-07-01 15:23 | XMS REPORT | Summary of Care ---
:1950 Author Organization [facility] Address [address] [place] [address] Care Team Providers Name Role Phone Lubna Solano Primary Care Provider Reason for Visit Reason Comments Follow-up surgery right toe Toe Pain right Encounter Details Date Type Department Care Team Description 06/19/2019 Office Visit [facility] Orthopaedic Issac Acosta S, Right foot pain Surgery- [place] PAC (Primary Dx) [address], [address] [place] [address] [place] [phone] Allergies Active Allergy Reactions Severity Noted Date Comments Sulfa (Sulfonamide Antibiotics) Rash 04/26/2017 documented as of this encounter (statuses as of 06/19/2019) Medications Medication Sig Dispensed Refills Start Date [...] as of this encounter (statuses as of 06/19/2019) Active Problems Problem Noted Date Mass of right foot, Great Toe 05/31/2019 Left hip pain 04/26/2017 documented as of this encounter (statuses as of 06/19/2019) Social History Tobacco Use Types Packs/Day Years [...] Sign Reading Time Taken Comments Blood Pressure 128/66 06/19/2019 2:13 PM CDT Pulse 86 06/19/2019 2:13 PM CDT Temperature - - Respiratory Rate 18 06/19/2019 2:13 PM CDT Oxygen Saturation 93% 06/19/2019 2:13 PM CDT Inhaled Oxygen Concentration - - Weight - - Height - - Body Mass Index - - documented in this encounter Progress Notes Issac Acosta S, PAC - 06/19/2019 1:45 PM CDT Cc: Chief Complaint Patient presents with Follow-up surgery right toe Toe Pain right Catherine Figueroa is a 69 year old female. 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 Gastrointestinal: Negative. Genitourinary: Negative. Musculoskeletal: Negative. Skin: Negative. Neurological: Negative. Psychiatric/Behavioral: Negative. 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 Medicare & B ent [id number] LIUDMILA JESUS [phone] documented as of this encounter"
--- OUTSIDE RECORDS SUMMARY | 2019-07-01 15:23 | XMS REPORT | Summary of Care ---
:1950 Author Organization [facility] Address [address] [place] [address] Care Team Providers Name Role Phone Lubna Solano Primary Care Provider Reason for Visit Reason Comments Follow-up surgery right toe Toe Pain right Encounter Details Date Type Department Care Team Description 06/19/2019 Office Visit [facility] Orthopaedic Issac Acosta S, Right foot pain Surgery- [place] PAC (Primary Dx) [address], [address] [place] [address] [place] [phone] Allergies Active Allergy Reactions Severity Noted [...] file Gets together: Not on file Attends anabaptist service: Not on file Active member of [...] Address Type Group Dates BCBS OF BCBS [id number] 2017-Pres [phone] [address] Medicare [place] TRADITIONAL ent [id number] [place] [address] MEDICARE MEDICARE PART A xxxxxxxxxxx 2014-Pres [phone] [address] Medicare & B ent [id number] LIUDMILA JESUS [phone] documented as of this encounter"
--- OUTSIDE RECORDS SUMMARY | 2019-07-01 15:23 | XMS REPORT | Summary of Care ---
:1950 Author Organization [facility] Address [address] [place] [address] Care Team Providers Name Role Phone Lubna Solano Primary Care Provider Reason for Visit Reason Comments Follow-up Dressing coming apart DOS:06/05/2019 Encounter Details Date Type Department Care Team Description 06/07/2019 Office Visit [facility] Orthopaedic Issac Acosta S, Right foot pain Surgery- [place] PAC (Primary Dx) [address], [address] [place] [address] [place], [place] [phone] Allergies Active Allergy Reactions Severity Noted Date [...] kg (185 lb) Height: 61" (154.9 cm) [id number] [place], [place] - [address] [facility] All Vitals taken, allergies and all medications [...] file Gets together: Not on file Attends nondenominational service: Not on file Active member of [...] Office Visit Orthopedic Surgery Issac Acosta PAC [address] [place] [address] Health Maintenance Due Date Last Done [...] Address Type Group Dates BCBS OF BCBS [id number] 2017-Pres [phone] [address] Medicare [place] TRADITIONAL ent [id number] [place] [address] MEDICARE MEDICARE PART A xxxxxxxxxxx 2014-Pres [phone] [address] Medicare & B ent [id number] LIUDMILA JESUS [phone] documented as of this encounter
--- OUTSIDE RECORDS SUMMARY | 2019-07-01 15:23 | XMS REPORT | Summary of Care ---
:1950 Author Organization [facility] Address [address] [place] [address] Care Team Providers Name Role Phone Lubna Solano Primary Care Provider Reason for Visit Reason Comments Follow-up Dressing coming apart DOS:06/05/2019 Encounter Details Date Type Department Care Team Description 06/07/2019 Office Visit [facility] Orthopaedic Issac Acosta S, Right foot pain Surgery- [place] PAC (Primary Dx) [address], [address] [place] [address] [place] [phone] Allergies Active Allergy Reactions Severity Noted Date [...] kg (185 lb) Height: 61" (154.9 cm) [facility] #[id number] [place], [place] - [address] AT [facility] All Vitals taken, allergies and all medications [...] file Gets together: Not on file Attends yazidi service: Not on file Active member of [...] Office Visit Orthopedic Surgery Issac Acosta PAC [address] [place] [phone] Health Maintenance Due Date Last Done [...] Address Type Group Dates BCBS OF BCBS [id number] 2017-Pres [phone] [address] Medicare [place] TRADITIONAL ent [id number] [place] [address] MEDICARE MEDICARE PART A xxxxxxxxxxx 2014-Pres [phone] [address] Medicare & B ent [id number] LIUDMILA JESUS [phone] documented as of this encounter
[2019-07-01] MEDS ORDERED: MORPHINE 4 MG/ML SYR ONE (15:53)
[2019-07-01] MEDS ORDERED: NA CHLORIDE 0.9% 1,000 ML ONE ×2 (15:54→17:46)
[2019-07-01] MEDS ORDERED: ONDANSETRON 4 MG/2 ML VIAL ONE (15:54)
[2019-07-01] MEDS ORDERED: CEFTRIAXONE/SWI 1gm 1 GM/10 ML SYR ONE (15:54)
[2019-07-01] MEDS ORDERED: KETOROLAC 30 MG/ML INJ ONE (15:54)
--- NOTE | 2019-07-01 16:22 | RAD REPORT ---
EXAM DESCRIPTION: CT - Stone Protocol - 07/01/2019 4:00 pm CLINICAL HISTORY: Abdominal pain. Left flank pain COMPARISON: 2015 TECHNIQUE: Computed axial tomography of the abdomen pelvis was obtained without oral or IV contrast. Lack of IV and oral contrast limits evaluation of solid organs, bowel, and vessels. Coronal reformat timothy images were obtained and reviewed. All CT scans are performed using dose optimization technique as appropriate and may include automated exposure control or mA/KV adjustment according to patient size. FINDINGS: Small bilateral renal calculi. Cortical renal thinning. Mild left hydronephrosis with ill- defined fluid in the perirenal space. A 1 millimeter calculus distal left ureter The liver, spleen, and adrenals appear grossly normal. Atrophic pancreas There is no evidence of diverticulitis. The appendix appears normal IMPRESSION: 1 millimeter calculus distal left ureter with mild left hydronephrosis
[2019-07-01 16:25] LABS: Absolute Lymphocytes (CBC) 1.5 K/uL (0.7-4.9); Basophils % 0.4 % (0-1.3); Hematocrit 33.4 % (36.0-45.0); Lymphocytes % 31.5 % (15.3-44.8); MPV 7.8 fL (7.6-11.3); RBC Red Blood Cell Count 3.98 M/uL (3.86-4.86)
[2019-07-01 16:34] LABS: Urine Blood TRACE (NEG); Urine Glucose NEGATIVE (NEG); Urine Protein NEGATIVE (NEG)
[2019-07-01 16:45] LABS: Albumin 3.7 g/dL (3.4-5.0); Bilirubin Direct 0.2 mg/dL (0-0.2); Bilirubin Total 0.5 mg/dL (0.2-1.0); Potassium 4.6 mmol/L (3.5-5.1); Protein, Total 7.3 g/dL (6.4-8.2)
--- NOTE | 2019-07-01 16:53 | ER ---
Nurse's Notes [facility] Name: Catherine Figueroa Age: 69 yrs Sex: Female : 1950 Arrival Date: 07/01/2019 Time: 15:21 Bed 13 Private MD: Lubna Solano H Diagnosis: Dysuria;Hydronephrosis with renal and ureteral calculous obstruction-1 mm left uvj;Urinary tract infection, site not specified Presentation: 07/01 15:29 Presenting complaint: Patient states: LEFT FLANK PAIN RADIATING TO LEFT GROIN. bp Transition of care: patient was not received from another setting of care. Onset of symptoms was July 01, 2019. Risk Assessment: Do you want to hurt yourself or someone else? Patient reports no desire to harm self or others. Initial Sepsis Screen: Does the patient meet any 2 criteria? No. Patient's initial sepsis screen is negative. Does the patient have a suspected source of infection? No. Patient's initial sepsis screen is negative. Care prior to arrival: None. 15:29 Method Of Arrival: Ambulatory bp 15:29 Acuity: MARCELLA 3 bp Historical: - Allergies: 15:31 Sulfa (Sulfonamide Antibiotics); bp - Home Meds: 15:31 atorvastatin 40 mg Oral tab 1 tab once daily [Active]; levothyroxine 125 mcg tab 1 tab bp once daily for Hypothyroidism [Active]; magnesium oxide 400 mg Oral cap twice a day [Active]; metoprolol tartrate 25 mg Oral tab 1 tab once daily for Hypertension [Active]; valsartan 160 mg Oral tab 1 tab once daily [Active]; sertraline 100 mg Oral tab 1 tab once daily [Active]; omeprazole 20 mg Oral cpDR 1 cap once daily [Active]; - PMHx: 15:31 Anxiety; Depression; GERD; High Cholesterol; Hypertension; hypomagnesium; bp Hypothyroidism; Kidney stones; - Immunization history:: Adult Immunizations. - Social history:: Smoking status: Patient uses tobacco products, unknown amount. - Ebola Screening: : No symptoms or risks identified at this time. - Family history:: not pertinent. Screenin:11 Abuse screen: Denies threats or abuse. Denies injuries from another. Nutritional ph screening: No deficits noted. Tuberculosis screening: No symptoms or risk factors identified. Fall Risk None identified. Assessment: 16:12 General: Appears in no apparent distress. uncomfortable, Behavior is cooperative, ph appropriate for age, restless, Denies fever. Pain: Complains of pain in left low back Pain radiates to left lower quadrant and anterior aspect of left lateral abdomen and posterior aspect of left lateral abdomen and suprapubic area. Neuro: Level of Consciousness is awake, alert, obeys commands, Oriented to person, place, time, situation. Cardiovascular: Capillary refill < 3 seconds in bilateral fingers. Respiratory: Airway is patent Respiratory effort is even, unlabored. GI: Bowel sounds present X 4 quads. Abd is soft X 4 quads Reports lower abdominal pain, nausea, vomiting. : Reports pain in left in suprapubic area flank(s), in lower back. Derm: Skin is intact, Skin is pink, warm \T\ dry. Musculoskeletal: Circulation, motion, and sensation intact. Range of motion: intact in all extremities. 17:35 Reassessment: Patient appears in no apparent distress at this time. Patient and/or ph family updated on plan of care and expected duration. Pain level reassessed. Patient is alert, oriented x 3, equal unlabored respirations, skin warm/dry/pink. D/C pending completion of IV fluids, pt resting quietly, denies pain or nausea at this time. 18:39 Reassessment: Patient appears in no apparent distress at this time. Patient and/or ph family updated on plan of care and expected duration. Pain level reassessed. Patient is alert, oriented x 3, equal unlabored respirations, skin warm/dry/pink. Pt resting comfortably, d/c pending completion of IV fluids, approx 300 mL remaining in bag. 19:29 Reassessment: Patient appears in no apparent distress at this time. received awake rr5 conscious and coherent not distress, denies any pain. IV fluid consumed and terminated discharge instruction given and explained without complaints made. Vital Signs: 15:31 BP 191 / 74; Pulse 96; Resp 20; Temp 97.6; Pulse Ox 97% ; Weight 83.91 kg; Height 5 ft. bp 1 in. (154.94 cm); 16:30 BP 150 / 71; Pulse 72; Resp 18; Pulse Ox 96% on R/A; ph 17:58 BP 155 / 69; Pulse 65; Resp 18; Pulse Ox 96% on R/A; ph 18:40 BP 160 / 72; Pulse 68; Resp 18; Pulse Ox 98% on R/A; ph 19:15 BP 139 / 85; Pulse 79; Resp 20; Temp 98; Pulse Ox 100% ; Pain 0/10; rr5 15:31 Body Mass Index 34.96 (83.91 kg, 154.94 cm) bp ED Course: 13:55 Initial lab(s) drawn, by me, sent to lab. Urine collected: clean catch specimen, clear. ph Inserted saline lock: 22 gauge in left antecubital area, using aseptic technique. Blood collected. 15:21 Patient arrived in ED. mr 15:21 Lubna Solano DO is Private Physician. mr 15:29 Triage completed. bp 15:31 Arm band placed on. bp 15:32 Olga Hamilton, RN is Primary Nurse. ph 15:32 Alfredo Rosado MD is Attending Physician. hrariett 16:04 CT Stone Protocol In Process Unspecified. EDMS 16:11 Patient has correct armband on for positive identification. Bed in low position. Call ph light in reach. Side rails up X 1. Pulse ox on. NIBP on. Door closed. Noise minimized. Warm blanket given. 16:52 Lubna Solano DO is Referral Physician. harriett 16:52 Yen العلي MD is Referral Physician. harriett 17:59 No provider procedures requiring assistance completed. ph 19:30 IV discontinued, intact, bleeding controlled, No redness/swelling at site. Pressure rr5 dressing applied. Administered Medications: 13:58 Drug: Zofran 4 mg Route: IVP; Site: left antecubital; ph 16:29 Follow up: Response: No adverse reaction; Nausea is decreased ph 14:00 Drug: TORadol 30 mg Route: IVP; Site: left antecubital; ph 16:28 Follow up: Response: No adverse reaction; Pain is decreased ph 14:01 Drug: morphine 4 mg {Note: RASS 1.} Route: IVP; Site: right antecubital; ph 16:28 Follow up: Response: No adverse reaction; Pain is decreased; RASS: Alert and Calm (0) ph 16:27 Drug: NS 0.9% 1000 ml Route: IV; Rate: 1 bolus; Site: left antecubital; ph 17:30 Follow up: Response: No adverse reaction; IV Status: Completed infusion; IV Intake: ph 1000ml 16:28 Drug: Rocephin 1 grams Route: IV; Rate: per protocol; Site: left antecubital; ph 16:29 Follow up: Response: No adverse reaction; IV Status: Completed infusion ph 17:35 Drug: NS 0.9% 1000 ml Route: IV; Rate: 1 bolus; Site: left antecubital; ph 19:15 Follow up: Response: No adverse reaction; IV Status: Completed infusion; IV Intake: rr5 1000ml 17:35 Drug: Mucomyst - Acetylcysteine 600 mg Route: PO; ph 19:08 Follow up: Response: No adverse reaction ph Intake: 17:30 IV: 1000ml; Total: 1000ml. ph 19:15 IV: 1000ml; Total: 2000ml. rr5 Outcome: 16:52 Discharge ordered by . harriett 19:30 Discharged to home ambulatory. rr5 19:30 Condition: stable 19:30 Discharge instructions given to patient, Instructed on discharge instructions, follow up and referral plans. medication usage, Demonstrated understanding of instructions, follow-up care, medications, Prescriptions given X 4. 19:36 Patient left the ED. rr5 Signatures: Dispatcher [employer] EDMS Alfredo Rosado MD MD cha Rivera, Lorin Olga Fontaine, George Manuel RN, ph, ABILIO RN Zeb Quiroz RN RN rr5
--- NOTE | 2019-07-01 16:53 | EDPHYS ---
Physician Documentation [facility] Name: Catherine Figueroa Age: 69 yrs Sex: Female : 1950 Arrival Date: 07/01/2019 Time: 15:21 Bed 13 Private MD: Lubna Solano H ED Physician Alfredo Rosado HPI: 07/01 15:41 This 69 yrs old Female presents to ER via Ambulatory with complaints of harriett Possible Kidney Stone. 15:41 The patient presents with abdominal pain in the left upper quadrant, in the left lower harriett quadrant. Onset: The symptoms/episode began/occurred this morning, today. The patient presents with pain that is acute, with no known mechanism of injury. The symptoms are located in the low back, left low back and left mid back. Onset: The symptoms/episode began/occurred 2 day(s) ago. The pain does not radiate. Associated signs and symptoms: The patient has no apparent associated signs or symptoms. Historical: - Allergies: 15:31 Sulfa (Sulfonamide Antibiotics); bp - Home Meds: 15:31 atorvastatin 40 mg Oral tab 1 tab once daily [Active]; levothyroxine 125 mcg tab 1 tab bp once daily for Hypothyroidism [Active]; magnesium oxide 400 mg Oral cap twice a day [Active]; metoprolol tartrate 25 mg Oral tab 1 tab once daily for Hypertension [Active]; valsartan 160 mg Oral tab 1 tab once daily [Active]; sertraline 100 mg Oral tab 1 tab once daily [Active]; omeprazole 20 mg Oral cpDR 1 cap once daily [Active]; - PMHx: 15:31 Anxiety; Depression; GERD; High Cholesterol; Hypertension; hypomagnesium; bp Hypothyroidism; Kidney stones; - Immunization history:: Adult Immunizations. - Social history:: Smoking status: Patient uses tobacco products, unknown amount. - Ebola Screening: : No symptoms or risks identified at this time. - Family history:: not pertinent. ROS: 15:41 Constitutional: Negative for fever, chills, and weight loss, Eyes: Negative for injury, harriett pain, redness, and discharge, ENT: Negative for injury, pain, and discharge, Neck: Negative for injury, pain, and swelling, Cardiovascular: Negative for chest pain, palpitations, and edema, Respiratory: Negative for shortness of breath, cough, wheezing, and pleuritic chest pain, : Negative for injury, bleeding, discharge, and swelling, MS/Extremity: Negative for injury and deformity, Skin: Negative for injury, rash, and discoloration, Neuro: Negative for headache, weakness, numbness, tingling, and seizure, Psych: Negative for depression, anxiety, suicide ideation, homicidal ideation, and hallucinations, Allergy/Immunology: Negative for hives, rash, and allergies, Endocrine: Negative for neck swelling, polydipsia, polyuria, polyphagia, and marked weight changes, Hematologic/Lymphatic: Negative for swollen nodes, abnormal bleeding, and unusual bruising. 15:41 Abdomen/GI: Positive for abdominal pain, of the suprapubic area, posterior aspect of left lateral abdomen, anterior aspect of left lateral abdomen, left upper quadrant and left lower quadrant. 15:41 Back: Positive for flank pain, on the left. Exam: 15:41 Constitutional: This is a well developed, well nourished patient who is awake, alert, harriett and in no acute distress. Head/Face: Normocephalic, atraumatic. Eyes: Pupils equal round and reactive to light, extra-ocular motions intact. Lids and lashes normal. Conjunctiva and sclera are non-icteric and not injected. Cornea within normal limits. Periorbital areas with no swelling, redness, or edema. ENT: Nares patent. No nasal discharge, no septal abnormalities noted. Tympanic membranes are normal and external auditory canals are clear. Oropharynx with no redness, swelling, or masses, exudates, or evidence of obstruction, uvula midline. Mucous membranes moist. Neck: Trachea midline, no thyromegaly or masses palpated, and no cervical lymphadenopathy. Supple, full range of motion without nuchal rigidity, or vertebral point tenderness. No Meningismus. Chest/axilla: Normal chest wall appearance and motion. Nontender with no deformity. No lesions are appreciated. Cardiovascular: Regular rate and rhythm with a normal S1 and S2. No gallops, murmurs, or rubs. Normal PMI, no JVD. No pulse deficits. Respiratory: Lungs have equal breath sounds bilaterally, clear to auscultation and percussion. No rales, rhonchi or wheezes noted. No increased work of breathing, no retractions or nasal flaring. Female : Normal external genitalia. Skin: Warm, dry with normal turgor. Normal color with no rashes, no lesions, and no evidence of cellulitis. MS/ Extremity: Pulses equal, no cyanosis. Neurovascular intact. Full, normal range of motion. Neuro: Awake and alert, GCS 15, oriented to person, place, time, and situation. Cranial nerves II-XII grossly intact. Motor strength 5/5 in all extremities. Sensory grossly intact. Cerebellar exam normal. Normal gait. Psych: Awake, alert, with orientation to person, place and time. Behavior, mood, and affect are within normal limits. 15:41 Abdomen/GI: Inspection: abdomen appears normal, Bowel sounds: normal, Palpation: mild abdominal tenderness, in the posterior aspect of right lateral abdomen, anterior aspect of right lateral abdomen and left lower quadrant. 15:41 Back: pain, is absent, ROM is normal, painless, normal spinal alignment noted, CVA tenderness, that is mild, is noted on the left, muscle spasm, is not present. Vital Signs: 15:31 BP 191 / 74; Pulse 96; Resp 20; Temp 97.6; Pulse Ox 97% ; Weight 83.91 kg; Height 5 ft. bp 1 in. (154.94 cm); 16:30 BP 150 / 71; Pulse 72; Resp 18; Pulse Ox 96% on R/A; ph 17:58 BP 155 / 69; Pulse 65; Resp 18; Pulse Ox 96% on R/A; ph 18:40 BP 160 / 72; Pulse 68; Resp 18; Pulse Ox 98% on R/A; ph 19:15 BP 139 / 85; Pulse 79; Resp 20; Temp 98; Pulse Ox 100% ; Pain 0/10; rr5 15:31 Body Mass Index 34.96 (83.91 kg, 154.94 cm) bp MDM: 15:32 Patient medically screened. [facility] 15:45 Data reviewed: vital signs, nurses notes, lab test result(s), radiologic studies, CT harriett scan. 07/01 15:41 Order name: Basic Metabolic Panel; Complete Time: 16:50 [facility] 07/01 15:41 Order name: CBC with Diff; Complete Time: 16:50 [facility] 07/01 15:41 Order name: Creatinine for Radiology; Complete Time: 16:50 [facility] 07/01 15:41 Order name: Hepatic Function; Complete Time: 16:50 [facility] 07/01 15:41 Order name: Lipase; Complete Time: 16:50 [facility] 07/01 15:41 Order name: Urine Culture [facility] 07/01 15:41 Order name: CT Stone Protocol; Complete Time: 16:50 [facility] 07/01 16:12 Order name: Urine Dipstick--Ancillary (enter results); Complete Time: 16:50 07/01 15:41 Order name: IV Saline Lock; Complete Time: 16:10 [facility] 07/01 15:41 Order name: Labs collected and sent; Complete Time: 16:10 [facility] 07/01 15:41 Order name: Urine Dipstick-Ancillary (obtain specimen); Complete Time: 16:10 [facility] Administered Medications: 13:58 Drug: Zofran 4 mg Route: IVP; Site: left antecubital; ph 16:29 Follow up: Response: No adverse reaction; Nausea is decreased ph 14:00 Drug: TORadol 30 mg Route: IVP; Site: left antecubital; ph 16:28 Follow up: Response: No adverse reaction; Pain is decreased ph 14:01 Drug: morphine 4 mg {Note: RASS 1.} Route: IVP; Site: right antecubital; ph 16:28 Follow up: Response: No adverse reaction; Pain is decreased; RASS: Alert and Calm (0) ph 16:27 Drug: NS 0.9% 1000 ml Route: IV; Rate: 1 bolus; Site: left antecubital; ph 17:30 Follow up: Response: No adverse reaction; IV Status: Completed infusion; IV Intake: ph 1000ml 16:28 Drug: Rocephin 1 grams Route: IV; Rate: per protocol; Site: left antecubital; ph 16:29 Follow up: Response: No adverse reaction; IV Status: Completed infusion ph 17:35 Drug: NS 0.9% 1000 ml Route: IV; Rate: 1 bolus; Site: left antecubital; ph 19:15 Follow up: Response: No adverse reaction; IV Status: Completed infusion; IV Intake: rr5 1000ml 17:35 Drug: Mucomyst - Acetylcysteine 600 mg Route: PO; ph 19:08 Follow up: Response: No adverse reaction ph Disposition: 07/01/19 16:52 Discharged to Home. Impression: Dysuria, Hydronephrosis with renal and ureteral calculous obstruction - 1 mm left uvj, Urinary tract infection, site not specified. - Condition is Stable. - Discharge Instructions: Dysuria, Kidney Stones, Urinary Tract Infection, Adult, Kidney Stones, [id number], Urinary Tract Infection, Adult, [id number], Hydronephrosis, Dietary Guidelines to Help Prevent Kidney Stones. - Prescriptions for Tylenol- Codeine #3 300-30 mg Oral Tablet - take 2 tablet by ORAL route every 6 hours As needed; 30 tablet. Flomax 0.4 mg Oral Capsule, Sust. Release 24 hr - take 1 capsule by ORAL route once daily 1/2 hour following the same meal each day; 20 capsule. Cipro 500 mg Oral Tablet - take 1 tablet by ORAL route every 12 hours for 7 days; 14 tablet. Zofran 4 mg Oral Tablet - take 1 tablet by ORAL route every 12 hours As needed; 20 tablet. - Medication Reconciliation Form, Thank You Letter, Antibiotic Education, Prescription Opioid Use form. - Follow up: Lubna Solano; When: 2 - 3 days; Reason: Recheck today's complaints, Continuance of care, Re-evaluation by your physician. Follow up: Yen العلي; When: 2 - 3 days; Reason: Recheck today's complaints, Re-evaluation by your physician. - Problem is new. - Symptoms have improved. Signatures: Dispatcher [employer] EDMS Alfredo Rosado MD MD cha Hall, Patricia, RN RN George Sanchez, RN RN Zeb Quiroz RN RN rr5 Corrections: (The following items were deleted from the chart) 16:54 16:52 07/01/2019 16:52 Discharged to Home. Impression: Dysuria; Hydronephrosis with harriett renal and ureteral calculous obstruction - 1 mm left uvj. Condition is Stable. Discharge Instructions: Dysuria. Prescriptions for Tylenol-Codeine #3 300-30 mg Oral Tablet - take 2 tablet by ORAL route every 6 hours As needed; 30 tablet, Flomax 0.4 mg Oral Capsule, Sust. Release 24 hr - take 1 capsule by ORAL route once daily 1/2 hour following the same meal each day; 20 capsule, Cipro 500 mg Oral Tablet - take 1 tablet by ORAL route every 12 hours for 7 days; 14 tablet. and Forms are Medication Reconciliation Form, Thank You Letter, Antibiotic Education, Prescription Opioid Use. Follow up: DanielleGera Solano; When: 2 - 3 days; Reason: Recheck today's complaints, Continuance of care, Re-evaluation by your physician. Follow up: Yen العلي; When: 2 - 3 days; Reason: Recheck today's complaints, Re-evaluation by your physician. Problem is new. Symptoms have improved. harriett 19:36 16:54 07/01/2019 16:52 Discharged to Home. Impression: Dysuria; Hydronephrosis with rr5 renal and ureteral calculous obstruction - 1 mm left uvj; Urinary tract infection, site not specified. Condition is Stable. Discharge Instructions: Dysuria, Kidney Stones, Kidney Stones, [id number], Hydronephrosis, Dietary Guidelines to Help Prevent Kidney Stones. Prescriptions for Tylenol-Codeine #3 300-30 mg Oral Tablet - take 2 tablet by ORAL route every 6 hours As needed; 30 tablet, Flomax 0.4 mg Oral Capsule, Sust. Release 24 hr - take 1 capsule by ORAL route once daily 1/2 hour following the same meal each day; 20 capsule, Cipro 500 mg Oral Tablet - take 1 tablet by ORAL route every 12 hours for 7 days; 14 tablet, Zofran 4 mg Oral Tablet - take 1 tablet by ORAL route every 12 hours As needed; 20 tablet. and Forms are Medication Reconciliation Form, Thank You Letter, Antibiotic Education, Prescription Opioid Use. Follow up: DanielleGera Solano; When: 2 - 3 days; Reason: Recheck today's complaints, Continuance of care, Re-evaluation by your physician. Follow up: Yen العلي; When: 2 - 3 days; Reason: Recheck today's complaints, Re-evaluation by your physician. Problem is new. Symptoms have improved. harriett
[2019-07-01] MEDS ORDERED: ACETYLCYST 6,000 MG/30 ML VIAL ONE (17:46)
[2019-07-01 20:15] VITALS: BP 139/85; TEMP 98; O2SAT 100
== END 2019-07-01 19:36 | disposition home or self-care (01) ==
LOC: ER 15:18
DX: N13.2 Hydronephrosis with renal and ureteral calculous obstruction (principal); N39.0 Urinary tract infection, site not specified; Z72.0 Tobacco use
CPT/HCPCS: 87088; 85025; 87086; 80048; 36415; 80076; 81003; 83690; 76377; 74176; 99284; J0696; J7030 ×2; J2405; 96361; 96365; 96375

== ENCOUNTER 2019-07-16 06:50 | Emergency (ER) | payer BC, OTHER ==
[2019-07-16] MEDS ORDERED: TETRACAINE HCL 0.5% 4ML OPTH ONE (07:26)
[2019-07-16] MEDS ORDERED: FLUORESCEIN SODIUM 1 MG/WRAP ONE ×2 (07:26→07:34)
[2019-07-16] MEDS ORDERED: TETANUS & DIPHTHERIA TOX,ADULT 0.5 ML VIAL ONE (07:27)
[2019-07-16] MEDS ORDERED: NA CHLORIDE 0.9% 1,000 ML ONE (07:38)
[2019-07-16] MEDS ORDERED: HYDROCODONE/APAP 10/325 TAB ONE (07:55)
[2019-07-16] MEDS ORDERED: TOBRAMYCIN SULF 0.3% OPTH OINT ONE (07:59)
--- NOTE | 2019-07-16 08:53 | EDPHYS ---
Physician Documentation [facility] Name: Catherine Figueroa Age: 69 yrs Sex: Female : 1950 Arrival Date: 07/16/2019 Time: 06:52 Bed 20 Private MD: Lubna Solano H ED Physician Doni Ruiz HPI: 07/16 07:35 This 69 yrs old Female presents to ER via Ambulatory with complaints of Eye pm1 Pain. 07:35 The patient is experiencing pain, to both eyes, caused by possibly by ear piercing pm1 cleaning solution. Onset: The symptoms/episode began/occurred yesterday. Duration: the symptoms are continuous. Alleviated by removing contact lens from left eye. Associated signs and symptoms: Pertinent negatives: chills, fever, headache. Patient wears soft contacts. Severity of symptoms: in the emergency department the symptoms are worse. The patient has not experienced similar symptoms in the past. The patient has not recently seen a physician. Patient believes that she might have gotten the bottle for her contacts and a cleaning solution for ear piercing cleaning solution mixed up. When she put her contacts in her eyes yesterday evening, it started stinging. She removed an intact contact from her left eye after 1.5 hours of putting them. She removed it at arrival to work. Patient still has her contact in her right eye now. Historical: - Allergies: 07:09 Sulfa (Sulfonamide Antibiotics); ss - PMHx: 07:09 Anxiety; Depression; GERD; Hypertension; High Cholesterol; hypomagnesium; ss Hypothyroidism; Kidney stones; - Immunization history:: Adult Immunizations up to date. - Social history:: Smoking status: Patient/guardian denies using tobacco. - Ebola Screening: : Patient denies exposure to infectious person Patient denies travel to an Ebola-affected area in the 21 days before illness onset. ROS: 07:35 Constitutional: Negative for fever, chills, and weight loss. pm1 07:35 ENT: Negative for injury, pain, and discharge, Neck: Negative for injury, pain, and swelling, Cardiovascular: Negative for chest pain, palpitations, and edema, Respiratory: Negative for shortness of breath, cough, wheezing, and pleuritic chest pain, Skin: Negative for injury, rash, and discoloration, Neuro: Negative for headache, weakness, numbness, tingling, and seizure. 07:35 Eyes: Positive for pain, of the right eye and left eye. 07:35 All other systems are negative. Exam: 08:00 Constitutional: This is a well developed, well nourished patient who is awake, alert, pm1 and in no acute distress. Head/Face: Normocephalic, atraumatic. 08:00 ENT: Nares patent. No nasal discharge, no septal abnormalities noted. Tympanic membranes are normal and external auditory canals are clear. Oropharynx with no redness, swelling, or masses, exudates, or evidence of obstruction, uvula midline. Mucous membranes moist. Neck: Trachea midline, no thyromegaly or masses palpated, and no cervical lymphadenopathy. Supple, full range of motion without nuchal rigidity, or vertebral point tenderness. No Meningismus. Chest/axilla: Normal chest wall appearance and motion. Nontender with no deformity. No lesions are appreciated. Cardiovascular: Regular rate and rhythm with a normal S1 and S2. No gallops, murmurs, or rubs. Normal PMI, no JVD. No pulse deficits. Respiratory: Lungs have equal breath sounds bilaterally, clear to auscultation and percussion. No rales, rhonchi or wheezes noted. No increased work of breathing, no retractions or nasal flaring. Back: No spinal tenderness. No costovertebral tenderness. Full range of motion. Skin: Warm, dry with normal turgor. Normal color with no rashes, no lesions, and no evidence of cellulitis. MS/ Extremity: Pulses equal, no cyanosis. Neurovascular intact. Full, normal range of motion. 08:00 Eyes: Periorbital structures: appear normal, no cellulitis, no swelling, Pupils: equal, round, and reactive to light and accomodation, Extraocular movements: intact throughout, Conjunctiva: chemosis, that is mild, in left eye, injected right eye. Corneas: abrasion, on the right, superficial covering whole right cornea. Left cornea without any abrasion, foreign body, is not appreciated, a fluorescein strip employed to appreciate the findings, Lids and lashes: appear normal. 08:00 Neuro: Orientation: is normal, Motor: moves all fours. Vital Signs: 07:09 BP 210 / 71; Pulse 77; Resp 20; Temp 97.8(TE); Pulse Ox 98% on R/A; Weight 83.91 kg; ss Height 5 ft. 1 in. (154.94 cm); Pain 10; 08:25 BP 188 / 89; Pulse 87; Resp 18; Pulse Ox 100% on R/A; ph 09:46 BP 178 / 86; Pulse 86; Resp 18; Temp 97.9; Pulse Ox 99% ; ph 07:09 Body Mass Index 34.96 (83.91 kg, 154.94 cm) ss MDM: 07:12 Patient medically screened. pm1 08:50 Data reviewed: vital signs. Data interpreted: Pulse oximetry: on room air is 100 %. pm1 Interpretation: normal. Counseling: I had a detailed discussion with the patient and/or guardian regarding: the historical points, exam findings, and any diagnostic results supporting the discharge/admit diagnosis, the need for outpatient follow up, an opthalmologist, to return to the emergency department if symptoms worsen or persist or if there are any questions or concerns that arise at home. 07/16 07:16 Order name: Eye Tray; Complete Time: 07:56 pm1 07/16 07:16 Order name: Fluoresene Opth strip; Complete Time: 07:56 pm1 07/16 07:34 Order name: Misc. 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 Exp: ph 02/19/2021. Lot #: [id number]. } Route: IM; Site: right deltoid; 09:42 Follow up: Response: No adverse reaction ph 08:11 Drug: Tobramycin Ointment (0.3 %) 1 application Route: Ophthalmic; Site: both eyes; ph 09:42 Follow up: Response: No adverse reaction ph Disposition: 07/16/19 08:52 Discharged to Home. Impression: Injury of conjunctiva and corneal abrasion without foreign body, right eye. - Condition is Stable. - Discharge Instructions: Corneal Abrasion. - Prescriptions for Tobrex 0.3 % Ophthalmic ointment - apply to both eyes 0.5 inch ribbon by OPHTHALMIC route every 4 hours for 7 days; 1 tube. Tylenol- Codeine #3 300-30 mg Oral Tablet - take 2 tablets by ORAL route every 6 hours As needed; 12 tablet. - Work release form, Medication Reconciliation Form, Thank You Letter, Antibiotic Education, Prescription Opioid Use form. - Follow up: Emergency Department; When: As needed; Reason: Worsening of condition. Follow up: Ace Cabrera MD; When: 1 - 2 days; Reason: Recheck today's complaints, Continuance of care, Re-evaluation by your physician. Follow up: Twin Cabrera MD; When: 1 - 2 days; Reason: Recheck today's complaints, Continuance of care, Re-evaluation by your physician. Follow up: Alda Patel MD; When: 1 - 2 days; Reason: Recheck today's complaints, Continuance of care, Re-evaluation by your physician. - Problem is new. - Symptoms have improved. Addendum: 07/18/2019 17:23 Co-signature as Attending Physician, Doni Ruiz MD. g s Signatures: Rhianna Walker RN RN Olga Hamilton RN RN Maverick Whitten, [employer] ARCHITECT pm1 Doni Ruiz MD MD Corrections: (The following items were deleted from the chart) 07/16 09:47 08:52 07/16/2019 08:52 Discharged to Home. Impression: Injury of conjunctiva and ph corneal abrasion without foreign body, right eye. Condition is Stable. Forms are Medication Reconciliation Form, Thank You Letter, Antibiotic Education, Prescription Opioid Use. Follow up: Emergency Department; When: As needed; Reason: Worsening of condition. Follow up: Ace Cabrera; When: 1 - 2 days; Reason: Recheck today's complaints, Continuance of care, Re-evaluation by your physician. Follow up: Twin Cabrera; When: 1 - 2 days; Reason: Recheck today's complaints, Continuance of care, Re-evaluation by your physician. Follow up: Alda Patel; When: 1 - 2 days; Reason: Recheck today's complaints, Continuance of care, Re-evaluation by your physician. Problem is new. Symptoms have improved. pm1
--- NOTE | 2019-07-16 08:53 | ER ---
Nurse's Notes [facility] Name: Catherine Figueroa Age: 69 yrs Sex: Female : 1950 Arrival Date: 07/16/2019 Time: 06:52 Bed 20 Private MD: Lubna Solano H Diagnosis: Injury of conjunctiva and corneal abrasion without foreign body, right eye Presentation: 07/16 07:06 Presenting complaint: Patient states: "I think I used by ear cleaning solution for my ss contacts yesterday instead of my contact solution. My eyes are burning so bad, but I had to work all night because they were short handed." Patient reports that she was able to remove the contact from her R eye, but believes the L one is stuck even after she rinsed her eyes. Transition of care: patient was not received from another setting of care. Mechanism of Injury: No Mechanism of Injury. The patient denies any loss of vision. Onset of symptoms was July 15, 2019. Risk Assessment: Do you want to hurt yourself or someone else? Patient reports no desire to harm self or others. Initial Sepsis Screen: Does the patient meet any 2 criteria? No. Patient's initial sepsis screen is negative. Does the patient have a suspected source of infection? No. Patient's initial sepsis screen is negative. Care prior to arrival: None. 07:06 Acuity: MARCELLA 2 ss 07:06 Method Of Arrival: Ambulatory ss Historical: - Allergies: 07:09 Sulfa (Sulfonamide Antibiotics); ss - PMHx: 07:09 Anxiety; Depression; GERD; Hypertension; High Cholesterol; hypomagnesium; ss Hypothyroidism; Kidney stones; - Immunization history:: Adult Immunizations up to date. - Social history:: Smoking status: Patient/guardian denies using tobacco. - Ebola Screening: : Patient denies exposure to infectious person Patient denies travel to an Ebola-affected area in the 21 days before illness onset. Screenin:24 Abuse screen: Denies threats or abuse. Denies injuries from another. Nutritional ph screening: No deficits noted. Tuberculosis screening: No symptoms or risk factors identified. Fall Risk None identified. Assessment: 07:30 General: Appears in no apparent distress. uncomfortable, well groomed, Behavior is ph cooperative, appropriate for age. Pain: Complains of pain in right eye and left eye. Neuro: Level of Consciousness is awake, alert, obeys commands, Oriented to person, place, time, situation. Cardiovascular: Capillary refill < 3 seconds in bilateral fingers Patient's skin is warm and dry. Respiratory: Airway is patent Respiratory effort is even, unlabored, Respiratory pattern is regular, symmetrical. EENT: Eyes are tearing on right eye and left eye Sclera/Cornea are reddened in right eye and left eye w/ abrasion noted on right eye. Derm: Skin is intact, is healthy with good turgor, Skin is pink, warm \\T\\ dry. Musculoskeletal: Circulation, motion, and sensation intact. Range of motion: intact in all extremities. 09:25 Reassessment: Patient appears in no apparent distress at this time. Patient and/or ph family updated on plan of care and expected duration. Pain level reassessed. Patient is alert, oriented x 3, equal unlabored respirations, skin warm/dry/pink. Awaiting daughter for ride home, pt resting quietly w/ lights off in room. Vital Signs: 07:09 BP 210 / 71; Pulse 77; Resp 20; Temp 97.8(TE); Pulse Ox 98% on R/A; Weight 83.91 kg; ss Height 5 ft. 1 in. (154.94 cm); Pain 10/10; 08:25 BP 188 / 89; Pulse 87; Resp 18; Pulse Ox 100% on R/A; ph 09:46 BP 178 / 86; Pulse 86; Resp 18; Temp 97.9; Pulse Ox 99% ; ph 07:09 Body Mass Index 34.96 (83.91 kg, 154.94 cm) ED Course: 06:52 Patient arrived in ED. mr 06:52 Lubna Solano DO is Private Physician. mr 07:08 Triage completed. ss 07:09 Arm band placed on left wrist. ss 07:11 Maverick Whitten NP is PHCP. pm1 07:11 Doni Ruiz MD is Attending Physician. pm1 07:21 Olga Hamilton RN is Primary Nurse. ph 07:45 Assist provider with eye exam of both eyes. using fluorescein stain, Performed by Maverick Whitten NP Patient tolerated well. 07:55 Patient did not have IV access during this emergency room visit. Eye irrigation of both ph eyes w/ Santos lens with 500 ml per eye normal saline, Patient tolerated well. 08:22 Patient has correct armband on for positive identification. Bed in low position. Call ph light in reach. Side rails up X 1. Pulse ox on. NIBP on. Door closed. Noise minimized. Lights dimmed. Warm blanket given. 08:51 Ace Cabrera MD is Referral Physician. pm1 08:51 Twin Cabrera MD is Referral Physician. pm1 08:51 Alda Patel MD is Referral Physician. 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 Exp: ph 02/19/2021. Lot #: [id number]. } Route: IM; Site: right deltoid; 09:42 Follow up: Response: No adverse reaction ph 08:11 Drug: Tobramycin Ointment (0.3 %) 1 application Route: Ophthalmic; Site: both eyes; ph 09:42 Follow up: Response: No adverse reaction ph Outcome: 08:52 Discharge ordered by MD. pm1 09:46 Discharged to home ambulatory, with family. ph 09:46 Condition: good 09:46 Discharge instructions given to patient, family, Instructed on discharge instructions, follow up and referral plans. medication usage, Demonstrated understanding of Prescriptions given X 2. 09:47 Patient left the ED. ph Signatures: Lorin Treadwell Shelby, RN RN Olga Hamilton RN RN ph Maverick Whitten, [employer] SUPER[employer] TYPE [employer]GR[employer]HY pm1 Corrections: (The following items were deleted from the chart) 09:45 09:25 Reassessment: Patient appears in no apparent distress at this time. Patient ph and/or family updated on plan of care and expected duration. Pain level reassessed. Patient is alert, oriented x 3, equal unlabored respirations, skin warm/dry/pink. ph
[2019-07-16 09:56] VITALS: BP 178/86; TEMP 97.9; O2SAT 99
== END 2019-07-16 09:47 | disposition home or self-care (01) ==
LOC: ER 06:50
DX: S05.01XA Injury of conjunctiva and corneal abrasion without foreign body, right eye, initial encounter (principal); X58.XXXA Exposure to other specified factors, initial encounter; Y93.89 Activity, other specified; Y92.9 Unspecified place or not applicable; Z88.2 Allergy status to sulfonamides; Z23 Encounter for immunization
CPT/HCPCS: 90471; 90714; 99284; J7040

== ENCOUNTER 2019-07-17 14:37 | Emergency (ER) | payer BC, OTHER ==
[2019-07-17] MEDS ORDERED: FOLIC ACID 5 MG/ML VIAL ONE (15:58)
[2019-07-17] MEDS ORDERED: NA CHLORIDE 0.9% 1,000 ML ONE (15:58)
[2019-07-17 16:03] LABS: Absolute Lymphocytes (CBC) 1.5 K/uL (0.7-4.9); Basophils % 0.4 % (0-1.3); Hematocrit 34.6 % (36.0-45.0); Lymphocytes % 21.2 % (15.3-44.8); MPV 7.8 fL (7.6-11.3)
[2019-07-17 16:05] LABS: Protime INR 1.01
--- NOTE | 2019-07-17 16:10 | RAD REPORT ---
EXAM DESCRIPTION: CT - Head Brain Wo Cont - 07/17/2019 3:57 pm CLINICAL HISTORY: Headache COMPARISON: None. TECHNIQUE: Computed axial tomography of the head was obtained. IV contrast was not requested. All CT scans are performed using dose optimization technique as appropriate and may include automated exposure control or mA/KV adjustment according to patient size. FINDINGS: An intracranial bleed is not seen . The ventricles are normal in caliber. Fluid within the sinuses/ mastoids is not seen. IMPRESSION: No acute intracranial abnormality is seen. If patient's symptoms persist MRI of the bra in would be recommended.
[2019-07-17 16:19] LABS: ALT/SGPT 21 U/L (12-78); AST/SGOT 12 U/L (15-37); Albumin 3.7 g/dL (3.4-5.0); Alkaline Phosphatase 128 U/L (45-117); BUN Blood Urea Nitrogen 27 mg/dL (7-18); Bicarbonate 25 mmol/L (21-32); Bilirubin Direct 0.1 mg/dL (0-0.2); Bilirubin Total 0.5 mg/dL (0.2-1.0); Glucose Level 101 mg/dL (74-106); Magnesium 1.6 mg/dL (1.8-2.4); NT PRO-BNP 521 pg/mL (<125); Potassium 4.3 mmol/L (3.5-5.1); Protein, Total 7.4 g/dL (6.4-8.2); Sodium Level 141 mmol/L (136-145); Troponin (Emerg Dept Use Only) < 0.02 ng/mL (0.0-0.045)
--- NOTE | 2019-07-17 17:14 | RAD REPORT ---
EXAM DESCRIPTION: MRI - Brain Wo Cont - 07/17/2019 5:01 pm CLINICAL HISTORY: TIA COMPARISON: July 17, [address] TECHNIQUE: Axial, sagittal, and coronal magnetic images of the brain were obtained. Contrast was not requested FINDINGS: Mild signal within periventricular white matter likely ischemic changes secondary to small vessel disease Diffusion-weighted/ADC mapping does not reveal evidence of acute infarction. The ventricles are normal caliber. An extra-axial fluid collection is not present The sinuses and mastoids are clear. IMPRESSION: No acute abnormality displayed
--- NOTE | 2019-07-17 17:21 | RAD REPORT ---
EXAM DESCRIPTION: [facility]ity Single View07/17/2019 4:18 pm CLINICAL HISTORY: cough COMPARISON: 2018 FINDINGS: The lungs appear clear of acute infiltrate. The heart is normal size IMPRESSION: No acute abnormalities displayed
--- NOTE | 2019-07-17 18:21 | ER ---
Nurse's Notes [facility] Name: Catherine Figueroa Age: 69 yrs Sex: Female : 1950 Arrival Date: 07/17/2019 Time: 14:39 Bed 28 Private MD: Diagnosis: Weakness;Ocular pain, bilateral;Headache;Hypomagnesemia;Unspecified kidney failure;Urinary tract infection, site not specified Presentation: 07/17 14:43 Presenting complaint: EMS states: patient was here yesterday for eye problem. patient rv mistakenly put contact solution in the ear and had a corneal abrasion. sent home and advised to follow up with an eye doctor. today patient went to Dr Ashford, they put fluorescein and amniotic membrane. the patient suddenly develops headache, nausea and vomiting, and right sided numbness. patient is extremely photophobic. has a history of TIA. right side numbness got better upon arrival. Transition of care: patient was not received from another setting of care. Onset of symptoms was July 17, 2019 at 14:30. Risk Assessment: Do you want to hurt yourself or someone else? Patient reports no desire to harm self or others. Initial Sepsis Screen: Does the patient meet any 2 criteria? No. Patient's initial sepsis screen is negative. Does the patient have a suspected source of infection? No. Patient's initial sepsis screen is negative. Care prior to arrival: None. 14:43 Method Of Arrival: EMS: [facility] rv 14:43 Acuity: MARCELLA 3 rv Historical: - Allergies: 14:51 Sulfa (Sulfonamide Antibiotics); rv - Home Meds: 14:51 atorvastatin 40 mg Oral tab 1 tab once daily [Active]; levothyroxine 125 mcg tab 1 tab rv once daily for Hypothyroidism [Active]; magnesium oxide 400 mg Oral cap twice a day [Active]; metoprolol tartrate 25 mg Oral tab 1 tab once daily for Hypertension [Active]; omeprazole 20 mg Oral cpDR 1 cap once daily [Active]; sertraline 100 mg Oral tab 1 tab once daily [Active]; valsartan 160 mg Oral tab 1 tab once daily [Active]; - PMHx: 14:51 Anxiety; Depression; GERD; High Cholesterol; Hypertension; hypomagnesium; rv Hypothyroidism; Kidney stones; - PSHx: 14:51 Hysterectomy; rv - Immunization history:: Adult Immunizations up to date. - Social history:: Smoking status: Patient/guardian denies using tobacco, never smoked. - Ebola Screening: : No symptoms or risks identified at this time. - Family history:: not pertinent. Screenin:55 Abuse screen: Denies threats or abuse. Denies injuries from another. Nutritional rv screening: No deficits noted. Tuberculosis screening: No symptoms or risk factors identified. Fall Risk None identified. Assessment: 14:52 General: Appears in no apparent distress. uncomfortable, Behavior is calm, cooperative. rv Pain: Complains of pain in head. Neuro: Level of Consciousness is awake, alert, obeys commands, Oriented to person, place, time, situation. Cardiovascular: Patient's skin is warm and dry. Respiratory: Airway is patent. GI: No signs and/or symptoms were reported involving the gastrointestinal system. : No signs and/or symptoms were reported regarding the genitourinary system. EENT: Reports photophobia unable to assess because the patient is unable to open eyes from recent procedure.. Derm: Skin is intact. Musculoskeletal: No signs and/or symptoms reported regarding the musculoskeletal system. Vital Signs: 14:48 BP 136 / 49; Pulse 60; Resp 15; Temp 98.1; Pulse Ox 95% ; Weight 83.91 kg; Height 5 ft. rv 1 in. (154.94 cm) (R); 15:30 BP 125 / 53; Pulse 64; Resp 16 S; Pulse Ox 98% on R/A; ca1 16:30 BP 127 / 56; Pulse 66; Resp 14; Pulse Ox 96% on R/A; rv 17:30 BP 124 / 51; Pulse 66; Resp 16; Pulse Ox 97% on R/A; rv 18:30 BP 131 / 50; Pulse 61; Resp 15; Pulse Ox 97% on R/A; rv 19:30 BP 135 / 56; Pulse 69; Resp 16; Pulse Ox 97% on R/A; rv 14:48 Body Mass Index 34.96 (83.91 kg, 154.94 cm) rv NIH Stroke Scale Scores: 18:16 NIHSS Score: 0 harriett ED Course: 14:39 Patient arrived in ED. bd 14:40 Chapincito Denney RN is Primary Nurse. rv 14:48 Triage completed. rv 14:52 Alfredo Rosado MD is Attending Physician. harriett 14:56 Patient has correct armband on for positive identification. Bed in low position. Call rv light in reach. Side rails up X 1. Pulse ox on. NIBP on. 15:01 Maintain EMS IV. Dressing intact. Good blood return noted. Site clean \T\ dry. Gauge \T\ rv site: g20 right wrist. Dressings: Eye patch X 1 right eye. 15:55 CT Head Brain wo Cont In Process Unspecified. EDMS 15:59 EKG done, by psychiatric technician. reviewed by Alfredo Rosado MD. sm3 16:18 XRAY Chest (1 view) In Process Unspecified. EDMS 16:48 Brain Wo Cont In Process Unspecified. EDMS 17:00 Patient placed in the treatment room, on a stretcher, on pulse oximetry. rv 18:23 Ace Cabrera MD is Referral Physician. harriett 18:25 Urine Culture Sent. bd 19:37 No provider procedures requiring assistance completed. IV discontinued, intact, rv bleeding controlled, No redness/swelling at site. Pressure dressing applied. Administered Medications: 17:07 Drug: foLIC Acid 1 mg Route: IVPB; Site: right wrist; rv 19:34 Follow up: IV Status: Completed infusion rv 17:08 Drug: NS 0.9% 1000 ml Route: IV; Rate: 1 bolus; Site: right wrist; rv 19:34 Follow up: IV Status: Completed infusion rv 18:30 Drug: Magnesium Sulfate 1 grams Route: IVPB; Infused Over: 1 hrs; Site: right wrist; rv 19:35 Follow up: IV Status: Completed infusion rv 19:15 Drug: Aspirin 81 mg Route: PO; rv 19:35 Follow up: Response: No adverse reaction rv 19:15 Drug: Rocephin 1 grams Route: IV; Rate: per protocol; Site: right wrist; rv 19:35 Follow up: IV Status: Completed infusion rv Outcome: 18:20 Discharge ordered by . harriett 19:37 Discharged to home ambulatory, with family. rv 19:37 Condition: good 19:37 Discharge instructions given to patient, family, Instructed on discharge instructions, follow up and referral plans. medication usage, Demonstrated understanding of instructions, follow-up care, medications, Prescriptions given X 1. 19:38 Patient left the ED. rv NIH Stroke Scale - NIH Stroke Score Date: 07/17/2019 Time: 18:16 Total Score = 0 1a. Level of Consciousness (LOC) - 0(Alert) 1b. Level of Consciousness (LOC) (Year \T\ Age) - 0(Both) 1c. LOC Commands (Open \T\ Closes Eyes/Technical Support Intern) - 0(Both) 2. Best Gaze (Lateral Gaze Paresis) - 0(Normal) 3. Visual Field Loss - 0(No visual loss) 4. Facial Palsy - 0(Normal) 5a. Left Arm: Motor (10-second hold) - 0(No drift) 5b. Right Arm: Motor (10-second hold) - 0(No drift) 6a. Left Leg: Motor (5-second hold - always test supine) - 0(No drift) 6b. Right Leg: Motor (5-second hold - always test supine) - 0(No drift) 7. Limb Ataxia (finger/nose \T\ heel/berg - test with eyes open) - 0(Absent) 8. Sensory Loss (pinprick arms/legs/face) - 0(Normal) 9. Best Language: Aphasia (description/naming/reading) - 0(No aphasia) 10. Dysarthria (speech clarity - read or repeat words) - 0(Normal) 11. Extinction and Inattention (visual/tactile/auditory/spatial/personal) - 0(No abnormality) Initials: harriett Signatures: Dispatcher [employer] EDVelia Zamudio Corey, MD MD cha Montes, Beba sm3 Chapincito Denney RN RN rv AcobJudy RN RN ca1 Corrections: (The following items were deleted from the chart) 16:24 16:22 BP 125 / 53; Pulse 64bpm; Resp 16bpm; Spontaneous; Pulse Ox 98% RA; ca1 ca1
--- NOTE | 2019-07-17 18:21 | EDPHYS ---
Physician Documentation [facility] Name: Catherine Figueroa Age: 69 yrs Sex: Female : 1950 Arrival Date: 07/17/2019 Time: 14:39 Bed 28 Private MD: ED Physician Alfredo Rosado HPI: 07/17 18:15 This 69 yrs old Female presents to ER via EMS with complaints of Eye Problem. harriett 18:15 The patient is experiencing burning. harriett Historical: - Allergies: 14:51 Sulfa (Sulfonamide Antibiotics); rv - Home Meds: 14:51 atorvastatin 40 mg Oral tab 1 tab once daily [Active]; levothyroxine 125 mcg tab 1 tab rv once daily for Hypothyroidism [Active]; magnesium oxide 400 mg Oral cap twice a day [Active]; metoprolol tartrate 25 mg Oral tab 1 tab once daily for Hypertension [Active]; omeprazole 20 mg Oral cpDR 1 cap once daily [Active]; sertraline 100 mg Oral tab 1 tab once daily [Active]; valsartan 160 mg Oral tab 1 tab once daily [Active]; - PMHx: 14:51 Anxiety; Depression; GERD; High Cholesterol; Hypertension; hypomagnesium; rv Hypothyroidism; Kidney stones; - PSHx: 14:51 Hysterectomy; rv - Immunization history:: Adult Immunizations up to date. - Social history:: Smoking status: Patient/guardian denies using tobacco, never smoked. - Ebola Screening: : No symptoms or risks identified at this time. - Family history:: not pertinent. ROS: 18:16 Constitutional: Negative for fever, chills, and weight loss, Eyes: Negative for injury, harriett pain, redness, and discharge, ENT: Negative for injury, pain, and discharge, Neck: Negative for injury, pain, and swelling, Cardiovascular: Negative for chest pain, palpitations, and edema, Respiratory: Negative for shortness of breath, cough, wheezing, and pleuritic chest pain, Abdomen/GI: Negative for abdominal pain, nausea, vomiting, diarrhea, and constipation, Back: Negative for injury and pain, : Negative for injury, bleeding, discharge, and swelling, MS/Extremity: Negative for injury and deformity, Skin: Negative for injury, rash, and discoloration, Psych: Negative for depression, anxiety, suicide ideation, homicidal ideation, and hallucinations, Allergy/Immunology: Negative for hives, rash, and allergies, Endocrine: Negative for neck swelling, polydipsia, polyuria, polyphagia, and marked weight changes, Hematologic/Lymphatic: Negative for swollen nodes, abnormal bleeding, and unusual bruising. 18:16 Neuro: Positive for headache, numbness, weakness, of the face, right arm and right leg. Exam: 18:16 Radiologist reports: neg harriett 18:16 Constitutional: This is a well developed, well nourished patient who is awake, alert, and in no acute distress. Head/Face: Normocephalic, atraumatic. Eyes: Pupils equal round and reactive to light, extra-ocular motions intact. Lids and lashes normal. Conjunctiva and sclera are non-icteric and not injected. Cornea within normal limits. Periorbital areas with no swelling, redness, or edema. ENT: Nares patent. No nasal discharge, no septal abnormalities noted. Tympanic membranes are normal and external auditory canals are clear. Oropharynx with no redness, swelling, or masses, exudates, or evidence of obstruction, uvula midline. Mucous membranes moist. Neck: Trachea midline, no thyromegaly or masses palpated, and no cervical lymphadenopathy. Supple, full range of motion without nuchal rigidity, or vertebral point tenderness. No Meningismus. Chest/axilla: Normal chest wall appearance and motion. Nontender with no deformity. No lesions are appreciated. Cardiovascular: Regular rate and rhythm with a normal S1 and S2. No gallops, murmurs, or rubs. Normal PMI, no JVD. No pulse deficits. Respiratory: Lungs have equal breath sounds bilaterally, clear to auscultation and percussion. No rales, rhonchi or wheezes noted. No increased work of breathing, no retractions or nasal flaring. Abdomen/GI: Soft, non-tender, with normal bowel sounds. No distension or tympany. No guarding or rebound. No evidence of tenderness throughout. Back: No spinal tenderness. No costovertebral tenderness. Full range of motion. Female : Normal external genitalia. Skin: Warm, dry with normal turgor. Normal color with no rashes, no lesions, and no evidence of cellulitis. MS/ Extremity: Pulses equal, no cyanosis. Neurovascular intact. Full, normal range of motion. Neuro: Awake and alert, GCS 15, oriented to person, place, time, and situation. Cranial nerves II-XII grossly intact. Motor strength 5/5 in all extremities. Sensory grossly intact. Cerebellar exam normal. Normal gait. Psych: Awake, alert, with orientation to person, place and time. Behavior, mood, and affect are within normal limits. Vital Signs: 14:48 BP 136 / 49; Pulse 60; Resp 15; Temp 98.1; Pulse Ox 95% ; Weight 83.91 kg; Height 5 ft. rv 1 in. (154.94 cm) (R); 15:30 BP 125 / 53; Pulse 64; Resp 16 S; Pulse Ox 98% on R/A; ca1 16:30 BP 127 / 56; Pulse 66; Resp 14; Pulse Ox 96% on R/A; rv 17:30 BP 124 / 51; Pulse 66; Resp 16; Pulse Ox 97% on R/A; rv 18:30 BP 131 / 50; Pulse 61; Resp 15; Pulse Ox 97% on R/A; rv 19:30 BP 135 / 56; Pulse 69; Resp 16; Pulse Ox 97% on R/A; rv 14:48 Body Mass Index 34.96 (83.91 kg, 154.94 cm) rv NIH Stroke Scale Scores: 18:16 NIHSS Score: 0 harriett MDM: 14:52 Patient medically screened. harriett 18:19 Data reviewed: vital signs, nurses notes, lab test result(s), EKG, radiologic studies, harriett CT scan, MRI, plain films. 07/17 15:36 Order name: Basic Metabolic Panel; Complete Time: 18:13 [facility] 07/17 15:36 Order name: CBC with Diff; Complete Time: 18:13 [facility] 07/17 15:36 Order name: LFT's; Complete Time: 18:13 [facility] 07/17 15:36 Order name: Magnesium; Complete Time: 18:13 [facility] 07/17 15:36 Order name: NT PRO-BNP; Complete Time: 18:13 [facility] 07/17 15:36 Order name: PT-INR; Complete Time: 18:13 [facility] 07/17 15:36 Order name: Troponin (emerg Dept Use Only); Complete Time: 18:13 [facility] 07/17 15:36 Order name: XRAY Chest (1 view); Complete Time: 18:13 [facility] 07/17 15:36 Order name: CT Head Brain wo Cont; Complete Time: 18:13 [facility] 07/17 15:36 Order name: Urine Culture [facility] 07/17 16:48 Order name: Brain Wo Cont; Complete Time: 18:13 EDMS 07/17 18:28 Order name: Urine Dipstick--Ancillary (enter results) 07/17 15:36 Order name: EKG; Complete Time: 15:37 [facility] 07/17 15:36 Order name: Cardiac monitoring; Complete Time: 16:22 [facility] 07/17 15:36 Order name: EKG - Nurse/Tech; Complete Time: 16:22 [facility] 07/17 15:36 Order name: IV Saline Lock; Complete Time: 16:22 [facility] 07/17 15:36 Order name: Labs collected and sent; Complete Time: 16:22 [facility] 07/17 15:36 Order name: O2 Per Protocol; Complete Time: 16:22 [facility] 07/17 15:36 Order name: O2 Sat Monitoring; Complete Time: 16:22 [facility] 07/17 15:36 Order name: Urine Dipstick-Ancillary (obtain specimen); Complete Time: 18:25 [facility] Administered Medications: 17:07 Drug: foLIC Acid 1 mg Route: IVPB; Site: right wrist; rv 19:34 Follow up: IV Status: Completed infusion rv 17:08 Drug: NS 0.9% 1000 ml Route: IV; Rate: 1 bolus; Site: right wrist; rv 19:34 Follow up: IV Status: Completed infusion rv 18:30 Drug: Magnesium Sulfate 1 grams Route: IVPB; Infused Over: 1 hrs; Site: right wrist; rv 19:35 Follow up: IV Status: Completed infusion rv 19:15 Drug: Aspirin 81 mg Route: PO; rv 19:35 Follow up: Response: No adverse reaction rv 19:15 Drug: Rocephin 1 grams Route: IV; Rate: per protocol; Site: right wrist; rv 19:35 Follow up: IV Status: Completed infusion rv Disposition: 07/17/19 18:20 Discharged to Home. Impression: Weakness, Ocular pain, bilateral, Headache, Hypomagnesemia, Unspecified kidney failure, Urinary tract infection, site not specified. - Condition is Stable. - Discharge Instructions: General Headache Without Cause, Hypomagnesemia, Syncope, Weakness, Syncope, Dmev-hv-Rcsf, Weakness, Bjot-pk-Ietp, Aspirin and Your Heart, General Headache Without Cause, Ncds-ev-[id number], Vasovagal Syncope, Adult. - Prescriptions for Tylenol- Codeine #3 300-30 mg Oral Tablet - take 2 tablets by ORAL route every 6 hours As needed; 20 tablet. - Medication Reconciliation Form, Thank You Letter, Antibiotic Education, Prescription Opioid Use form. - Follow up: Private Physician; When: 2 - 3 days; Reason: Recheck today's complaints, Continuance of care, Re-evaluation by your physician. Follow up: Ace Cabrera MD; When: 1 - 2 days; Reason: Recheck today's complaints, Continuance of care, Re-evaluation by your physician. - Problem is new. - Symptoms have improved. NIH Stroke Scale - NIH Stroke Score Date: 07/17/2019 Time: 18:16 Total Score = 0 1a. Level of Consciousness (LOC) - 0(Alert) 1b. Level of Consciousness (LOC) (Year \T\ Age) - 0(Both) 1c. LOC Commands (Open \T\ Closes Eyes/Lime Mixer Tender) - 0(Both) 2. Best Gaze (Lateral Gaze Paresis) - 0(Normal) 3. Visual Field Loss - 0(No visual loss) 4. Facial Palsy - 0(Normal) 5a. Left Arm: Motor (10-second hold) - 0(No drift) 5b. Right Arm: Motor (10-second hold) - 0(No drift) 6a. Left Leg: Motor (5-second hold - always test supine) - 0(No drift) 6b. Right Leg: Motor (5-second hold - always test supine) - 0(No drift) 7. Limb Ataxia (finger/nose \T\ heel/berg - test with eyes open) - 0(Absent) 8. Sensory Loss (pinprick arms/legs/face) - 0(Normal) 9. Best Language: Aphasia (description/naming/reading) - 0(No aphasia) 10. Dysarthria (speech clarity - read or repeat words) - 0(Normal) 11. Extinction and Inattention (visual/tactile/auditory/spatial/personal) - 0(No abnormality) Initials: harriett Signatures: Dispatcher [employer] Alfredo Jean MD MD cha Vicente, Ronaldo RN RN rv Corrections: (The following items were deleted from the chart) 16:48 15:37 MR STROKE PROTOCOL+MRI.RAD.BRZ ordered. [facility] EDMT 18:23 18:20 07/17/2019 18:20 Discharged to Home. Impression: Weakness; Ocular pain, harriett bilateral; Headache; Hypomagnesemia; Unspecified kidney failure. Condition is Stable. Forms are Medication Reconciliation Form, Thank You Letter, Antibiotic Education, Prescription Opioid Use. Follow up: Private Physician; When: 2 - 3 days; Reason: Recheck today's complaints, Continuance of care, Re-evaluation by your physician. Problem is new. Symptoms have improved. harriett 18:26 18:23 07/17/2019 18:20 Discharged to Home. Impression: Weakness; Ocular pain, harriett bilateral; Headache; Hypomagnesemia; Unspecified kidney failure. Condition is Stable. Discharge Instructions: General Headache Without Cause, Hypomagnesemia, Syncope, Weakness, Syncope, Dqdr-mh-Bgzi, Weakness, Zevs-oi-Xjvt, Aspirin and Your Heart, General Headache Without Cause, Rgqd-he-Utsd, Vasovagal Syncope, Adult. Forms are Medication Reconciliation Form, Thank You Letter, Antibiotic Education, Prescription Opioid Use. Follow up: Private Physician; When: 2 - 3 days; Reason: Recheck today's complaints, Continuance of care, Re-evaluation by your physician. Follow up: Ace Cabrera; When: 1 - 2 days; Reason: Recheck today's complaints, Continuance of care, Re-evaluation by your physician. Problem is new. Symptoms have improved. harriett 19:38 18:26 07/17/2019 18:20 Discharged to Home. Impression: Weakness; Ocular pain, rv bilateral; Headache; Hypomagnesemia; Unspecified kidney failure; Urinary tract infection, site not specified. Condition is Stable. Discharge Instructions: General Headache Without Cause, Hypomagnesemia, Syncope, Weakness, Syncope, Xpgg-kt-Olsn, Weakness, Xjim-xa-Igfj, Aspirin and Your Heart, General Headache Without Cause, Pmxf-xw-Bneo, Vasovagal Syncope, Adult. Prescriptions for Tylenol-Codeine #3 300-30 mg Oral Tablet - take 2 tablets by ORAL route every 6 hours As needed; 20 tablet. and Forms are Medication Reconciliation Form, Thank You Letter, Antibiotic Education, Prescription Opioid Use. Follow up: Private Physician; When: 2 - 3 days; Reason: Recheck today's complaints, Continuance of care, Re-evaluation by your physician. Follow up: Ace Cabrera; When: 1 - 2 days; Reason: Recheck today's complaints, Continuance of care, Re-evaluation by your physician. Problem is new. Symptoms have improved. harriett
[2019-07-17] MEDS ORDERED: MAGNESIUM SULFATE 1 gm IVPB 1 GM/100 ML BAG IV ONE (18:24)
--- NOTE | 2019-07-17 18:25 | EKG ---
Test Date: 2019-07-17 Test Time: 15:42:27 Ammunition Specialist: MARCOS MEASUREMENT RESULTS: Intervals: Rate: 59 AZ: 146 QRSD: 76 QT: 402 QTc: 397 [place]: P: 53 AZ: 146 QRS: 34 T: 10 INTERPRETIVE STATEMENTS: Sinus bradycardia Low voltage QRS Borderline ECG Compared to ECG 01/31/2018 21:44:19 Low QRS voltage now present Sinus rhythm no longer present Electronically Signed On 07-17-19 18:24:21 CDT by Haroon Anna
[2019-07-17] MEDS ORDERED: ASPIRIN 81 MG CHEWABLE TABLET ONE (19:14)
[2019-07-17] MEDS ORDERED: CEFTRIAXONE/SWI 1gm 1 GM/10 ML SYR ONE (19:14)
[2019-07-17 19:39] LABS: Urine Blood NEGATIVE (NEG); Urine Glucose NEGATIVE (NEG); Urine Specific Gravity 1.015 (1.005-1.030)
[2019-07-17 19:40] LABS: Urine Protein NEGATIVE (NEG); Urine pH 5.5 (5.0-7.0)
[2019-07-17 20:05] VITALS: TEMP 98.1
[2019-07-17 20:08] VITALS: O2SAT 97
[2019-07-17 20:10] VITALS: BP 135/56
== END 2019-07-17 19:38 | disposition home or self-care (01) ==
LOC: ER 14:37
DX: R51 Headache (principal); R53.1 Weakness; N39.0 Urinary tract infection, site not specified; E83.42 Hypomagnesemia; N19 Unspecified kidney failure; I10 Essential (primary) hypertension; F41.9 Anxiety disorder, unspecified; F32.9 Major depressive disorder, single episode, unspecified; E03.9 Hypothyroidism, unspecified; E78.00 Pure hypercholesterolemia, unspecified; Z88.2 Allergy status to sulfonamides
CPT/HCPCS: 93005; 87088; 85025; 87086; 80048; 36415; 83735; 85610; 80076; 81003; 84484; 83880; 70450; 71045; 70551; J3475; J0696; J7030; 96365; 96367; 99284

== ENCOUNTER 2019-10-29 12:25 | Emergency (ER) | payer BC, OTHER ==
--- OUTSIDE RECORDS SUMMARY | 2019-10-29 12:28 | XMS REPORT ---
:1950 Author Organization [facility] Address [address] [place] [address] Dr. Cervantes [address] [place] [id number] Care Team Providers Name Role Phone Unavailable Unavailable Unavailable Problems This patient has no known problems. Allergies, Adverse Reactions, Alerts This patient has no known allergies or adverse reactions. Medications This patient has no known medications.
[2019-10-29 13:14] LABS: Absolute Lymphocytes (CBC) 1.5 K/uL (0.7-4.9); Basophils % 0.5 % (0-1.3); Hematocrit 32.1 % (36.0-45.0); Lymphocytes % 34.4 % (15.3-44.8); MPV 7.7 fL (7.6-11.3); RBC Red Blood Cell Count 3.81 M/uL (3.86-4.86)
[2019-10-29 13:28] LABS: Albumin 3.5 g/dL (3.4-5.0); Bilirubin Total 0.3 mg/dL (0.2-1.0); Potassium 4.6 mmol/L (3.5-5.1); Protein, Total 6.8 g/dL (6.4-8.2)
--- NOTE | 2019-10-29 13:45 | EDPHYS ---
Physician Documentation [facility] Name: Catherine Figueroa Age: 69 yrs Sex: Female : 1950 Arrival Date: 10/29/2019 Time: 12:28 Bed 20 Private MD: Lubna Solano H ED Physician Yash Paul HPI: 10/29 13:09 This 69 yrs old Female presents to ER via Ambulatory with complaints of ma2 Abnormal Lab Results, Weakness. 13:09 Onset: The symptoms/episode began/occurred gradually, 3 week(s) ago. Associated signs ma2 and symptoms: Pertinent negatives: dizziness, nausea, paresthesias, near-syncope, visual field changes, loss of vision. Severity of symptoms: At their worst the symptoms were very mild in the emergency department the symptoms have improved. The patient has experienced similar episodes in the past. Historical: - Allergies: 12:31 Sulfa (Sulfonamide Antibiotics); sv - PMHx: 12:31 Anxiety; Depression; GERD; High Cholesterol; Hypertension; hypomagnesium; sv Hypothyroidism; Kidney stones; - PSHx: 12:31 Hysterectomy; sv - Immunization history:: Adult Immunizations up to date. - Social history:: Patient/guardian denies using alcohol, street drugs, The patient lives with family, Smoking status: Patient denies any tobacco usage or history of. - Family history:: not pertinent. - Ebola Screening: : Patient negative for fever greater than or equal to 101.5 degrees Fahrenheit, and additional compatible Ebola Virus Disease symptoms Patient denies exposure to infectious person Patient denies travel to an Ebola-affected area in the 21 days before illness onset No symptoms or risks identified at this time. ROS: 13:09 Constitutional: Negative for fever, chills, and weight loss. ma2 13:09 All other systems are negative. Exam: 13:09 Constitutional: This is a well developed, well nourished patient who is awake, alert, ma2 and in no acute distress. Chest/axilla: Normal chest wall appearance and motion. Nontender with no deformity. No lesions are appreciated. Cardiovascular: Regular rate and rhythm with a normal S1 and S2. No gallops, murmurs, or rubs. Normal PMI, no JVD. No pulse deficits. Respiratory: Lungs have equal breath sounds bilaterally, clear to auscultation and percussion. No rales, rhonchi or wheezes noted. No increased work of breathing, no retractions or nasal flaring. Abdomen/GI: Soft, non-tender, with normal bowel sounds. No distension or tympany. No guarding or rebound. No evidence of tenderness throughout. Back: No spinal tenderness. No costovertebral tenderness. Full range of motion. Neuro: Awake and alert, GCS 15, oriented to person, place, time, and situation. Cranial nerves II-XII grossly intact. Motor strength 5/5 in all extremities. Sensory grossly intact. Cerebellar exam normal. Normal gait. Vital Signs: 12:31 BP 143 / 69; Pulse 81; Resp 22; Temp 97.8; Pulse Ox 98% ; Weight 86.18 kg; Height 5 ft. sv 1 in. (154.94 cm); 13:30 BP 160 / 69; Pulse 78; Resp 18 S; Pulse Ox 100% on R/A; ca1 14:35 BP 140 / 63; Pulse 75; Resp 19 S; Pulse Ox 99% on R/A; ca1 15:22 BP 151 / 64; Pulse 74; Resp 19 S; Pulse Ox 100% on R/A; ca1 12:31 Body Mass Index 35.90 (86.18 kg, 154.94 cm) sv MDM: 12:39 Patient medically screened. [facility] 13:44 Data reviewed: vital signs, nurses notes. Counseling: I had a detailed discussion with ma the patient and/or guardian regarding: the historical points, exam findings, and any diagnostic results supporting the discharge/admit diagnosis, the presence of at least one elevated blood pressure reading (>120/80) during this emergency department visit, the need for outpatient follow up. Response to treatment: the patient's symptoms have markedly improved after treatment. 10/29 12:40 Order name: CMP; Complete Time: 13:43 [facility] 10/29 12:40 Order name: CBC with Diff; Complete Time: 13:43 [facility] 10/29 12:51 Order name: Magnesium; Complete Time: 13:43 [facility] 10/29 15:19 Order name: EKG Electrocardiogram EDMS Administered Medications: 13:12 Drug: Clindamycin 300 mg Route: PO; ca1 14:17 Follow up: Response: No adverse reaction sg 14:15 Not Given (other intervention used): Magnesium Sulfate 2 grams IM once 14:15 Drug: Magnesium Sulfate 2 grams Route: IVPB; Infused Over: 2 hrs; Site: right sg antecubital; 15:13 Follow up: Response: No adverse reaction; IV Status: Completed infusion ca1 Disposition: 10/29/19 13:44 Discharged to Home. Impression: Hypomagnesemia. - Condition is Stable. - Discharge Instructions: Hypomagnesemia. - Prescriptions for Clindamycin HCl 300 mg Oral Capsule - take 1 capsule by ORAL route every 6 hours for 10 days; 40 capsule. - Medication Reconciliation Form, Thank You Letter, Antibiotic Education, Prescription Opioid Use form. - Follow up: Private Physician; When: Tomorrow; Reason: Continuance of care. Signatures: Dispatcher [employer] Helena Paulson RN ABILIO Antoine Hopkins RN RN sg Rhianna Walker RN RN Yash Paul MD MD ma2 Judy Dave RN RN ca1 Corrections: (The following items were deleted from the chart) 15:25 13:44 10/29/2019 13:44 Discharged to Home. Impression: Hypomagnesemia. Condition is ca1 Stable. Prescriptions for Clindamycin HCl 300 mg Oral Capsule - take 1 capsule by ORAL route every 6 hours for 10 days; 40 capsule. and Forms are Medication Reconciliation Form, Thank You Letter, Antibiotic Education, Prescription Opioid Use. Follow up: Private Physician; When: Tomorrow; Reason: Continuance of care. maUrszula
--- NOTE | 2019-10-29 13:45 | ER ---
Nurse's Notes [facility] Name: Catherine Figueroa Age: 69 yrs Sex: Female : 1950 Arrival Date: 10/29/2019 Time: 12:28 Bed 20 Private MD: Lubna Solano H Diagnosis: Hypomagnesemia Presentation: 10/29 12:29 Presenting complaint: Patient states: was called and told her potassium may be low. c/o sv generalized weakness. Transition of care: patient was not received from another setting of care. 12:29 Method Of Arrival: Ambulatory sv 12:31 Onset of symptoms was October 29, 2019. Care prior to arrival: None. sv 12:31 Acuity: MARCELLA 3 sv 14:00 Risk Assessment: Do you want to hurt yourself or someone else? Patient reports no ca1 desire to harm self or others. 14:00 Initial Sepsis Screen: Does the patient meet any 2 criteria? No. Patient's initial ca1 sepsis screen is negative. Does the patient have a suspected source of infection? No. Patient's initial sepsis screen is negative. Historical: - Allergies: 12:31 Sulfa (Sulfonamide Antibiotics); sv - PMHx: 12:31 Anxiety; Depression; GERD; High Cholesterol; Hypertension; hypomagnesium; sv Hypothyroidism; Kidney stones; - PSHx: 12:31 Hysterectomy; sv - Immunization history:: Adult Immunizations up to date. - Social history:: Patient/guardian denies using alcohol, street drugs, The patient lives with family, Smoking status: Patient denies any tobacco usage or history of. - Family history:: not pertinent. - Ebola Screening: : Patient negative for fever greater than or equal to 101.5 degrees Fahrenheit, and additional compatible Ebola Virus Disease symptoms Patient denies exposure to infectious person Patient denies travel to an Ebola-affected area in the 21 days before illness onset No symptoms or risks identified at this time. Screenin:42 Abuse screen: Denies threats or abuse. Denies injuries from another. Nutritional ss screening: No deficits noted. Tuberculosis screening: Never had TB. Fall Risk None identified. Assessment: 13:42 General: Appears in no apparent distress. comfortable, Behavior is calm, cooperative. ss General: Reports fatigue. Neuro: Level of Consciousness is awake, alert, obeys commands, Oriented to person, place, time, situation. Cardiovascular: Capillary refill < 3 seconds is brisk in bilateral fingers. Respiratory: Airway is patent Respiratory effort is even, unlabored, Respiratory pattern is regular, symmetrical. : No signs and/or symptoms were reported regarding the genitourinary system. EENT: No signs and/or symptoms were reported regarding the EENT system. Derm: Skin is intact, is healthy with good turgor, Skin is dry, Skin is pink, warm \T\ dry. normal. Musculoskeletal: Circulation, motion, and sensation intact. Range of motion: intact in all extremities, Swelling absent. 14:19 Reassessment: Patient appears in no apparent distress at this time. IV magnesium sg infusing prior to DC to home, approx dc time one hr, pt stated understanding. 15:23 Reassessment: Patient appears in no apparent distress at this time. Patient is alert, ca1 oriented x 3, equal unlabored respirations, skin warm/dry/pink. Vital Signs: 12:31 BP 143 / 69; Pulse 81; Resp 22; Temp 97.8; Pulse Ox 98% ; Weight 86.18 kg; Height 5 ft. sv 1 in. (154.94 cm); 13:30 BP 160 / 69; Pulse 78; Resp 18 S; Pulse Ox 100% on R/A; ca1 14:35 BP 140 / 63; Pulse 75; Resp 19 S; Pulse Ox 99% on R/A; ca1 15:22 BP 151 / 64; Pulse 74; Resp 19 S; Pulse Ox 100% on R/A; ca1 12:31 Body Mass Index 35.90 (86.18 kg, 154.94 cm) sv ED Course: 12:28 Patient arrived in ED. as 12:28 Lubna Solano DO is Private Physician. as 12:29 Arm band placed on. sv 12:31 Triage completed. sv 12:39 Yash Paul MD is Attending Physician. ma2 12:46 Rhianna Walker, ABILIO is Primary Nurse. ss 13:07 Initial lab(s) drawn, by me, sent to lab. Inserted saline lock:. kj1 13:42 Patient has correct armband on for positive identification. Bed in low position. Call ss light in reach. 15:25 No provider procedures requiring assistance completed. IV discontinued, intact, ca1 bleeding controlled, No redness/swelling at site. Pressure dressing applied. Administered Medications: 13:12 Drug: Clindamycin 300 mg Route: PO; ca1 14:17 Follow up: Response: No adverse reaction sg 14:15 Not Given (other intervention used): Magnesium Sulfate 2 grams IM once ss 14:15 Drug: Magnesium Sulfate 2 grams Route: IVPB; Infused Over: 2 hrs; Site: right sg antecubital; 15:13 Follow up: Response: No adverse reaction; IV Status: Completed infusion ca1 Outcome: 13:44 Discharge ordered by MD. malik 15:25 Discharged to home ambulatory, with family. ca1 15:25 Condition: stable 15:25 Discharge instructions given to patient, Instructed on discharge instructions, follow up and referral plans. medication usage, Demonstrated understanding of instructions, follow-up care, medications, Prescriptions given X 1. 15:25 Patient left the ED. ca1 Signatures: Helena Gerardo RN RN Antoine Hopkins RN RN Andressa Mcguire Shelby, RN RN Yash Paul MD MD ma2 Acob, Cheryl, RN RN ca1 Tracy Rutherford1 Corrections: (The following items were deleted from the chart) 13:46 13:44 No provider procedures requiring assistance completed. [facility] 13:46 13:44 Patient did not have IV access during this emergency room visit. [facility]
[2019-10-29] MEDS ORDERED: Magnesium Sulfate 2gm IVPB 2 G/50 ML BAG IV ONE (13:59)
[2019-10-29 21:07] VITALS: TEMP 97.8
[2019-10-29 21:23] VITALS: BP 151/64; O2SAT 100
--- NOTE | 2019-10-30 06:37 | EKG ---
Test Date: 2019-10-29 Test Time: 12:41:07 Vice President Of Human Resources: FUNMILAYO MEASUREMENT RESULTS: Intervals: Rate: 77 UT: 146 QRSD: 70 QT: 358 QTc: 405 [place]: P: 65 UT: 146 QRS: 55 T: 34 INTERPRETIVE STATEMENTS: Normal sinus rhythm Low voltage QRS Borderline ECG Compared to ECG 07/17/2019 15:42:27 Sinus bradycardia no longer present Electronically Signed On 10-30-19 06:36:25 FREIGHT RATE ANALYST by Haroon Anna
== END 2019-10-29 15:25 | disposition home or self-care (01) ==
LOC: ER 12:25
DX: E83.42 Hypomagnesemia (principal); Z88.2 Allergy status to sulfonamides
CPT/HCPCS: 96365; 93005; 85025; 36415; 83735; 80053; 99284; J3475

== ENCOUNTER 2020-03-16 15:11 | Emergency (ER) | payer BC, OTHER ==
--- OUTSIDE RECORDS SUMMARY | 2020-03-16 18:15 | XMS REPORT | Summary of Care ---
:1950 Author Organization [facility] Address [address] [place] [address] Care Team Providers Name Role Phone Lubna Solano Primary Care Provider Reason for Referral Radiology Services (Routine) Status Reason Specialty Diagnoses / Referred By Referred To Procedures Contact Contact New Request Diagnostic Diagnoses Right foot pain Issac Acosta, Radiology Procedures XR FOOT <3 VW RIGHT PAC [address] [place] [address] Reason for Visit Reason Comments New Evaluation Foot Pain right big toe injury no imag es Encounter Details Date Type Department Care Team Description 02/28/2020 Office Visit [facility] Orthopaedic Issac Acosta, R ight foot pain Surgery- [place] PAC (Primary Dx) [address], [address] [place] [address] [place] [address] [place], [place] [phone] Allergies Active Allergy Reactions Severity Noted Date Comments Sulfa (Sulfonamide Antibiotics) Rash 7 documented as of this encounter (statuses as of 02/28/2020) Medications Medication Sig Dispensed Refills Start Date End Date Status acetaminophen-codeine TK 1 T PO BID 0 04/07/2017 Active 300-30 mg tablet acyclovir 400 mg tablet TK 1 T PO Q 6 H 1 04/12/2017 Active HYDROcodone-acetaminophe TK 1 T PO Q 6 H 0 7 Active n 10-325 mg tablet PRN P MAGOX 400 mg tablet TK 1 T PO BID 5 03/20/2017 Active methocarbamol 500 mg TAKE 2 TABLET PO 0 04/04/2017 Active tablet Q 6 HOURS PRN FOR MUSCLE SPASMS omeprazole 20 mg capsule TK 1 C PO QD AC 3 7 Active SERTraline 100 mg tablet TK 1 [...] 1 T PO QD 5 12/31/2017 Active CLINDAMYCIN HCL ORAL Take by mouth. 0 Active diclofenac 75 mg EC Take 1 tablet by 60 tablet 1 11/08/2019 Active tabletIndications: Pain mouth 2 (two) in both knees, times daily with unspecified chronicity meals. methylPREDNISolone Take 21 tablets 1 Each 0 02/28/2020 Active (MEDROL, HELDER,) 4 mg by mouth tabletsIndications: SEE-INSTRUCTIONS Right foot pain . follow package directions documented as of this encounter (statuses as of 02/28/2020) Active Problems Problem Noted Date Mass of right foot, Great Toe 05/31/2019 Left hip pain 04/26/2017 documented as of this encounter (statuses as of 02/28/2020) Social History Tobacco Use Types Packs/Day Years [...] Sign Reading Time Taken Comments Blood Pressure 171/93 02/28/2020 9:53 AM CDT Pulse 88 02/28/2020 9:53 AM CDT Temperature 37 C (98.6 F) 02/28/2020 9:49 AM CDT Respiratory Rate - - Oxygen Saturation - - Inhaled Oxygen Concentration - - Weight 86.2 kg (190 lb) 02/28/2020 9:49 AM CDT Height 154.9 cm (5' 1") 02/28/2020 9:49 AM CDT Body Mass Index 35.9 02/28/2020 9:49 AM CDT documented in this encounter Progress Notes Issac Acosta, PAC - 02/28/2020 9:30 AM CDT Cc: Chief Complaint Patient presents with New Evaluation Foot Pain right big toe injury no images Catherine Figueroa is a 69 year old female. Right foot she has pain in her first metatarsal phalangeal joint she had surgery for removal of gouty tophus in 2019 she has noticed some swelling, the pain was severe enough to keep her up all night 10 over 10. Stubbed her toe on the footboard of her bed. Allergies Catherine is allergic to sulfa (sulfonamide antibiotics). Medications Outpatient Medications Prior to Visit Medication Sig Dispense Refill CLINDAMYCIN HCL ORAL Take by mouth. diclofenac 75 mg EC tablet Take 1 tablet by mouth 2 (two) times daily with meals. 60 tablet 1 atorvastatin 80 mg tablet TK 1 T [...] file Gets together: Not on file Attends taoist service: Not on file Active member of [...] Signs Ht 61" (154.9 cm) | Wt 86.2 kg (190 lb) | BMI 35.90 kg/m Physical Exam Musculoskeletal: Physical Exam Constitutional: oriented to person, place, and time. appears well-developed and well-nourished. HENT: Head: Normocephalic and atraumatic. Right Ear: External ear normal. Left Ear: External ear normal. Eyes: Conjunctivae are normal. Neck: Normal range of motion. No strabismus Neck supple. Cardiovascular: Normal rate and regular rhythm. Pulmonary/Chest: Normal respiratory rate equal chest rise and fall in no apparent distress Abdominal: Abdomen nondistended nontender Neurological: alert and oriented to person, place, and time. No asymmetry Skin: Skin is warm and dry. Psychiatric: normal mood and affect. behavior is normal. Judgment and thought content normal. Nursing note and vitals reviewed. Right foot great toe she has an incision in the midline over the interphalangeal joint where she hadher gouty tophus removed, the tophus is reaccumulating she has a mass on her dorsal toe that is 1.5 x 2 cm and another one that is 2 x 2 cm. Her pain from this injury is occurring at the Assessment/Plan Diagnosis 1. 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 We will, down this exacerbation with a Medrol Dosepak, Limited walking until the pain resolves documented in this encounter Plan of Treatment Health Maintenance Due Date Last Done Comments HEPATITIS C (HCV) SCREEN 1950 DTaP,Tdap,and Td Vaccines (1 - Tdap) 1960 Breast Cancer Screening (MAMMOGRAM) 1989 COLONOSCOPY 1999 Zoster Recombinant Vaccine (SHINGRIX) (1 of 2) 1999 Medicare Wellness Visit 2014 Osteoporosis Screening 2014 PNEUMOCOCCAL VACCINES 65+ (1 of 2 - PCV13) 2014 INFLUENZA VACCINE (Season Ended) 2020 documented as of this encounter Results XR FOOT <3 VW RIGHT (02/28/2020 9:51 AM CDT) Specimen Narrative Performed At This result has an attachment that is no t available. She has degenerative changes in her interphalangeal joint and her first PACS metatarsal phalangeal joint the tophus are visible on x-ray no acute fracture or dislocation Performing Organization Address [facility] Phone Number [facility] documented in this encounter Visit Diagnoses Diagnosis Right foot pain - Primary Pain in limb documented in this encounter Insurance Payer Benefit Plan / Subscriber ID Effective Phone Address T ype Group Dates BCBS OF BCBS [id number] 2017-Pres [phone] [facility] TRADITIONAL ent [id number] [id number] [place] [address] MEDICARE MEDICARE PART A xxxxxxxxxxx 2014-Pres [phone] P. O. [employer] X Medicare & B ent [id number] LIUDMILA JESUS [id number] documented as of this encounter
--- OUTSIDE RECORDS SUMMARY | 2020-03-16 18:15 | XMS REPORT | Continuity of Care Document ---
:1950 Author Organization [facility] t Address [address] [place] [address] Care Team Providers Name Role Phone Art Steve Attending Clinician Problems This patient has no known problems. Allergies, Adverse Reactions, Alerts This patient has no known allergies or adverse reactions. Medications This patient has no known medications. Procedures This patient has no known procedures. Encounters Start End Encounter Admission Attending Care Care Encounter Source Date/Time Date/Time Type Type Clinicians Facility Department ID 2020-02-28 2020-02-28 Hospital [facility] [id number] 09:51:00 23:59:00 Encounter [facility] [id number] Surgical [id number] Specialti [id number] es [address] 2020-02-28 2020-02-28 Office [facility] [id number] 09:38:42 09:53:42 Visit [facility] [id number] Surgical [id number] Specialti [id number] es [address] [place] Results This patient has no known results.
--- OUTSIDE RECORDS SUMMARY | 2020-03-16 18:15 | XMS REPORT | Summary of Care ---
:1950 Author Organization [facility] Address [address] [place] [address] Care Team Providers Name Role Phone Lubna Solano Primary Care Provider Reason for Referral Radiology Services (Routine) Status Reason Specialty Diagnoses / Referred By Referred To Procedures Contact Contact New Request Diagnostic Diagnoses Right foot pain Issac Acosta, Radiology Procedures XR FOOT <3 VW RIGHT PAC [address] [place] [address] Reason for Visit Reason Comments New Evaluation Foot Pain right big toe injury no imag es Encounter Details Date Type Department Care Team Description 02/28/2020 Office Visit [facility] Orthopaedic Issac Acosta, R ight foot pain Surgery- [place] PAC (Primary Dx) [address], [address] [place] [address] [place] [address] [address] [place], [place] [phone] Allergies Active Allergy Reactions Severity Noted [...] file Gets together: Not on file Attends confucianism service: Not on file Active member of [...] acute fracture or dislocation Performing Organization Address City/State/[facility] Mex[facility]ode Phone Number PACS documented in this encounter Visit Diagnoses Diagnosis Right foot pain - Primary Pain in limb documented in this encounter Insurance Payer Benefit Plan / Subscriber ID Effective Phone Address T ype Group Dates BCBS OF BCBS [id number] 2017-Pres [phone] O [facility] TRADITIONAL ent [id number] [place] [address] MEDICARE MEDICARE PART A xxxxxxxxxxx 2014-Pres [phone] P. O. DEY[employer] X Medicare & B ent [id number] LIUDMILA JESUS [id number] documented as of this encounter
--- OUTSIDE RECORDS SUMMARY | 2020-03-16 18:16 | XMS REPORT | Summary of Care ---
:1950 Author Organization [facility] Address [address] [place] [address] Care Team Providers Name Role Phone Lubna Solano Primary Care Provider Encounter Details Date Type Department Care Team Description 02/28/2020 Hospital Encounter [facility] Issac Acosta [facility] Orthopedics - PAC Radiology [address] [place] [address] [place], [place] [phone] Allergies Active Allergy Reactions Severity Noted Date Comments Sulfa (Sulfonamide Antibiotics) Rash 7 documented as of this encounter (statuses as of 02/29/2020) Medications Medication Sig Dispensed Refills Start Date [...] as of this encounter (statuses as of 02/29/2020) Active Problems Problem Noted Date Mass of right foot, Great Toe 05/31/2019 Left hip pain 04/26/2017 documented as of this encounter (statuses as of 02/29/2020) Social History Tobacco Use Types Packs/Day Years Used Date Never Smoker Smokeless Tobacco: Never Used Sex Assigned at Date Recorded Not on file Job Start Date Occupation Industry Not on file Not on file Not on file Travel History Travel Start Travel End No recent travel history available. COVID-19 Exposure Response Date Recorded In the last month, have you been in contact with No / Unsure 02/28/2020 10:13 AM CDT someone who was confirmed or suspected to have Coronavirus / COVID-19? documented as of this encounter Last Filed [...] Ended) 2020 documented as of this encounter Procedures Procedure Name Priority Date/Time Associated Diagnosis Comme nts XR FOOT <3 VW RIGHT Routine 02/28/2020 9:51 AM Right foot justin n Results for this CDT procedure are i n the results section. documented in this encounter Results XR FOOT <3 VW RIGHT (02/28/2020 9:51 AM CDT) Specimen Narrative Performed At This result has an attachment that is no t available. She has degenerative changes in her interphalangeal joint and her first PACS metatarsal phalangeal joint the tophus are visible on x-ray no acute fracture or dislocation Performing Organization Address City/State/Zipcode Phone Number PACS documented in this encounter Visit Diagnoses Diagnosis Right foot pain Pain in limb documented in this encounter Insurance Payer Benefit Plan / Subscriber ID Effective Phone Address T ype Group Dates BCBS OF BCBS [id number] 2017-Pres [phone] [facility] TRADITIONAL ent [id number] [place] [address] MEDICARE MEDICARE PART A xxxxxxxxxxx 2014-Pres [phone] P. [address]. DEY[employer] X Medicare & B ent [id number] LIUDMILA JESUS [id number] documented as of this encounter
[2020-03-16 19:24] LABS: Absolute Lymphocytes (CBC) 2.3 K/uL (0.7-4.9); Basophils % 0.7 % (0-1.3); Hematocrit 36.9 % (36.0-45.0); Lymphocytes % 35.8 % (15.3-44.8); MPV 7.8 fL (7.6-11.3); RBC Red Blood Cell Count 4.33 M/uL (3.86-4.86)
[2020-03-16 19:39] LABS: ALT/SGPT 27 U/L (12-78); AST/SGOT 20 U/L (15-37); Albumin 3.9 g/dL (3.4-5.0); Alkaline Phosphatase 131 U/L (45-117); BUN Blood Urea Nitrogen 34 mg/dL (7-18); Bicarbonate 24 mmol/L (21-32); Bilirubin Direct < 0.1 mg/dL (0-0.2); Bilirubin Total 0.4 mg/dL (0.2-1.0); Glucose Level 117 mg/dL (74-106); Lipase 60 U/L (73-393); Potassium 4.9 mmol/L (3.5-5.1); Protein, Total 7.8 g/dL (6.4-8.2); Sodium Level 138 mmol/L (136-145)
[2020-03-16] MEDS ORDERED: MORPHINE 4 MG/ML SYR ONE (19:41)
[2020-03-16] MEDS ORDERED: ONDANSETRON 4 MG/2 ML VIAL ONE (19:41)
--- NOTE | 2020-03-16 19:52 | RAD REPORT ---
EXAM DESCRIPTION: CT - Abdomen Pelvis Wo Contrast - 03/16/2020 7:37 pm CLINICAL HISTORY: Abdominal pain COMPARISON: 2019 TECHNIQUE: Computed axial tomography of the abdomen and pelvis was obtained. IV and oral contrast we re not requested. All CT scans are performed using dose optimization technique as appropriate and may include automated exposure control or mA/KV adjustment according to patient size. FINDINGS: The evaluation of solid organs, vessels and bowel is limited secondary to the lack of con trast administration. Small bilateral renal calculi. No hydronephrosis. Cortical thinning likely secondary to prior inflamm ation. Hysterectomy. The liver, spleen, and adrenals appear grossly normal. Atrophic pancreas There is no evidence of diverticulitis. The appendix appears normal 27 millimeter complex cystic structure right ovary unchanged Spondylosis L4-5 resulting in spinal stenosis IMPRESSION: Small nonobstructing renal calculi 27 millimeter complex cystic structure right ovary unchanged likely benign follow-up ultrasound in 1 year recommended
--- NOTE | 2020-03-16 20:25 | RAD REPORT ---
EXAM DESCRIPTION: US - Abdomen Exam Limited - 03/16/2020 8:03 pm CLINICAL HISTORY: Abdominal pain. COMPARISON: 2018 FINDINGS: The gallbladder wall is not thickened. A gallstone is not seen. The biliary tree is normal caliber. IMPRESSION: Unremarkable gallbladder ultrasound.
--- NOTE | 2020-03-16 21:59 | ER ---
Nurse's Notes [facility] Name: Catherine Figueroa Age: 69 yrs Sex: Female : 1950 Arrival Date: 03/16/2020 Time: 15:12 Bed 23 Private MD: Lubna Solano H Diagnosis: Abdominal Pain Presentation: 03/16 15:32 Chief complaint: Patient states: upper abd pain x years. Pt states the pain is getting ss worse and now she is lightheaded and weak. Coronavirus screen: Proceed with normal triage. Patient denies a cough. Patient denies shortness of breath or difficulty breathing. Patient denies measured and/or subjective temperature greater than 100.4F prior to today's visit. Patient denies travel on a cruise ship or to a country the [facility] currently lists as an affected area. Patient denies contact with known and/or suspected case of COVID-19. Ebola Screen: Patient denies exposure to infectious person. Patient denies travel to an Ebola-affected area in the 21 days before illness onset. Initial Sepsis Screen: Does the patient meet any 2 criteria? No. Patient's initial sepsis screen is negative. Does the patient have a suspected source of infection? No. Patient's initial sepsis screen is negative. Risk Assessment: Do you want to hurt yourself or someone else? Patient reports no desire to harm self or others. Onset of symptoms is unknown. 15:32 Method Of Arrival: Ambulatory 15:32 Acuity: MARCELLA 3 ss Triage Assessment: 18:30 General: Appears in no apparent distress. ls4 19:50 General: Behavior is calm, cooperative. Pain: Complains of pain in left upper quadrant ls4 and right upper quadrant and epigastric area. Neuro: No deficits noted. Respiratory: No deficits noted. GI: Abdomen is non-distended, obese, Bowel sounds present X 4 quads. Abd is soft and non tender X 4 quads. Reports VOMITING EVERY MORNING FOR THE LAST YEAR. Derm: Skin is pink, warm \T\ dry. Skin temperature is. Musculoskeletal: No deficits noted. No signs and/or symptoms reported regarding the musculoskeletal system. Historical: - Allergies: 15:33 Sulfa (Sulfonamide Antibiotics); ss - PMHx: 15:33 Anxiety; Hypertension; High Cholesterol; GERD; Depression; hypomagnesium; Kidney ss stones; Hypothyroidism; - PSHx: 15:33 Hysterectomy; ss - Immunization history:: Adult Immunizations up to date. Screenin:30 Abuse screen: Denies threats or abuse. Denies injuries from another. Nutritional ls4 screening: No deficits noted. Tuberculosis screening: No symptoms or risk factors identified. Fall Risk None identified. Assessment: 20:08 Reassessment: Patient appears in no apparent distress at this time. Patient and/or ls4 family updated on plan of care and expected duration. Pain level reassessed. Patient is alert, oriented x 3, equal unlabored respirations, skin warm/dry/pink. 20:48 Reassessment: Patient appears in no apparent distress at this time. Patient and/or ls4 family updated on plan of care and expected duration. Pain level reassessed. Patient is alert, oriented x 3, equal unlabored respirations, skin warm/dry/pink. 22:04 Reassessment: Patient appears in no apparent distress at this time. Patient and/or ls4 family updated on plan of care and expected duration. Pain level reassessed. Patient is alert, oriented x 3, equal unlabored respirations, skin warm/dry/pink. Vital Signs: 15:32 BP 142 / 70; Pulse 86; Resp 18; Temp 98.2(TE); Weight 86.18 kg; Height 5 ft. 1 in. ss (154.94 cm); Pain 8/10; 18:30 BP 126 / 54; Pulse 62; Resp 18; Temp 98.2; Pulse Ox 99% on R/A; Pain 7/10; ls4 20:47 BP 137 / 54; Pulse 60; Resp 16; Pulse Ox 99% on R/A; Pain 0/10; ls4 22:04 BP 128 / 60; Pulse 61; Resp 19; Pulse Ox 99% on R/A; Pain 2/10; ls4 15:32 Body Mass Index 35.90 (86.18 kg, 154.94 cm) Vitals: 22:04 Cardiac Rhythm Assessment Regular Sinus rhythm. ls4 ED Course: 15:12 Patient arrived in ED. as 15:13 Lubna Solano DO is Private Physician. as 15:33 Triage completed. ss 15:33 Arm band placed on right wrist. ss 18:29 Ny Rolle, RN is Primary Nurse. ls4 18:30 No apparent distress. ls4 18:30 Patient has correct armband on for positive identification. Bed in low position. Call ls4 light in reach. Side rails up X 1. Warm blanket given. Verbal reassurance given. 18:30 No provider procedures requiring assistance completed. ls4 18:40 Mariano Blakely MD is Attending Physician. [facility] 18:59 Attending Physician role handed off by Mariano Blakely MD [facility] 18:59 Jayden Olivia MD is Attending Physician. 7 19:15 Initial lab(s) drawn, by ia, sent to lab. Inserted saline lock: 20 gauge in right ls4 antecubital area, using aseptic technique. Blood collected. 19:35 Abdomen In Process Unspecified. EDMS 19:56 Magnesium Sent. ls4 20:03 US Abdomen Limited In Process Unspecified. EDMS 22:37 IV discontinued, intact, bleeding controlled, No redness/swelling at site. Pressure ls4 dressing applied. Administered Medications: 19:22 Drug: Zofran (Ondansetron) 4 mg Route: IVP; Site: right antecubital; ls4 20:01 Follow up: Response: No adverse reaction; Marked relief of symptoms ls4 19:22 Drug: morphine 4 mg Route: IVP; Site: right antecubital; ls4 20:01 Follow up: Response: No adverse reaction; Marked relief of symptoms ls4 Outcome: 21:58 Discharge ordered by . [email or web address] 22:04 Discharged to home ambulatory. ls4 22:04 Condition: stable 22:04 Discharge instructions given to patient, Instructed on discharge instructions, follow up and referral plans. medication usage, safety practices, Demonstrated understanding of instructions, follow-up care, medications, pt has ride home from friend 22:38 Patient left the ED. ls4 Signatures: Dispatcher [employer] EDMS Mariano Blakely MD MD kdr Martinez, Amelia as Smirch, Shelby, RN RN ss Stewart, Lisa, RN RN ls4 Jayden Olivia MD MD [facility]
--- NOTE | 2020-03-16 21:59 | EDPHYS ---
Physician Documentation [facility] Name: Catherine Figueroa Age: 69 yrs Sex: Female : 1950 Arrival Date: 03/16/2020 Time: 15:12 Bed 23 Private MD: Lubna Solano H ED Physician Jayden Olivia HPI: 03/16 19:18 This 69 yrs old Female presents to ER via Ambulatory with complaints of mh7 Epigastric Pain, . 19:18 The patient presents with abdominal pain in the upper abdomen. Onset: The mh7 symptoms/episode began/occurred 3 day(s) ago. The symptoms do not radiate. Associated signs and symptoms: Pertinent positives:. 19:19 Associated signs and symptoms: Pertinent positives: nausea, vomiting, and diarrhea, mh7 Pertinent negatives: anorexia, blood in stools, chest pain, constipation, dysuria, fever, headache, hematuria, palpitations, shortness of breath, vaginal discharge, vomiting blood. Associated signs and symptoms: Pertinent positives:. The symptoms are described as intermittent, vague, waxing/waning. Modifying factors: The symptoms are alleviated by nothing, the symptoms are aggravated by food. Severity of pain: At its worst the pain was moderate today, in the emergency department the pain has improved moderately. The patient has experienced similar episodes in the past, chronically. Historical: - Allergies: 15:33 Sulfa (Sulfonamide Antibiotics); ss - PMHx: 15:33 Anxiety; Hypertension; High Cholesterol; GERD; Depression; hypomagnesium; Kidney ss stones; Hypothyroidism; - PSHx: 15:33 Hysterectomy; ss - Immunization history:: Adult Immunizations up to date. ROS: 19:19 Constitutional: Negative for fever, chills, and weight loss, Eyes: Negative for injury, mh7 pain, redness, and discharge, ENT: Negative for injury, pain, and discharge, Neck: Negative for injury, pain, and swelling, Cardiovascular: Negative for chest pain, palpitations, and edema, Respiratory: Negative for shortness of breath, cough, wheezing, and pleuritic chest pain, Back: Negative for injury and pain, : Negative for injury, bleeding, discharge, and swelling, MS/Extremity: Negative for injury and deformity, Skin: Negative for injury, rash, and discoloration. 19:19 Psych: Negative for depression, anxiety, suicide ideation, homicidal ideation, and hallucinations. 19:19 Neuro: Positive for generalized weakness. Exam: 19:19 Constitutional: This is a well developed, well nourished patient who is awake, alert, mh7 and in no acute distress. Head/Face: Normocephalic, atraumatic. Eyes: Pupils equal round and reactive to light, extra-ocular motions intact. Lids and lashes normal. Conjunctiva and sclera are non-icteric and not injected. Cornea within normal limits. Periorbital areas with no swelling, redness, or edema. Neck: Trachea midline, no thyromegaly or masses palpated, and no cervical lymphadenopathy. Supple, full range of motion without nuchal rigidity, or vertebral point tenderness. No Meningismus. Chest/axilla: Normal chest wall appearance and motion. Nontender with no deformity. No lesions are appreciated. Cardiovascular: Regular rate and rhythm with a normal S1 and S2. No gallops, murmurs, or rubs. Normal PMI, no JVD. No pulse deficits. Respiratory: Lungs have equal breath sounds bilaterally, clear to auscultation and percussion. No rales, rhonchi or wheezes noted. No increased work of breathing, no retractions or nasal flaring. 19:19 Back: No spinal tenderness. No costovertebral tenderness. Full range of motion. Skin: Warm, dry with normal turgor. Normal color with no rashes, no lesions, and no evidence of cellulitis. MS/ Extremity: Pulses equal, no cyanosis. Neurovascular intact. Full, normal range of motion. Neuro: Awake and alert, GCS 15, oriented to person, place, time, and situation. Cranial nerves II-XII grossly intact. Motor strength 5/5 in all extremities. Sensory grossly intact. Cerebellar exam normal. Normal gait. Psych: Awake, alert, with orientation to person, place and time. Behavior, mood, and affect are within normal limits. 19:19 Abdomen/GI: Inspection: abdomen appears normal, Bowel sounds: normal, in all quadrants, Palpation: moderate abdominal tenderness, in the epigastric area, right upper quadrant and left upper quadrant, Rectal exam: the exam is deferred, because of patient request, Indicators: McBurney's point is not tender, Good's sign is negative, Rovsing's sign is negative, Obturator sign is negative, Psoas sign is negative, Liver: no appreciated palpable abnormalities, Hernia: not appreciated. 03/17 02:14 ECG was reviewed by the Attending Physician. [facility] Vital Signs: 03/16 15:32 BP 142 / 70; Pulse 86; Resp 18; Temp 98.2(TE); Weight 86.18 kg; Height 5 ft. 1 in. ss (154.94 cm); Pain 8/10; 18:30 BP 126 / 54; Pulse 62; Resp 18; Temp 98.2; Pulse Ox 99% on R/A; Pain 7/10; ls4 20:47 BP 137 / 54; Pulse 60; Resp 16; Pulse Ox 99% on R/A; Pain 0/10; ls4 22:04 BP 128 / 60; Pulse 61; Resp 19; Pulse Ox 99% on R/A; Pain 2/10; ls4 15:32 Body Mass Index 35.90 (86.18 kg, 154.94 cm) ss MDM: 19:13 Patient medically screened. [facility] 21:56 Differential diagnosis: AAA, bowel obstruction, cholecystitis, Cholelithiasis, mh7 diverticulitis, gastritis, gastroesophageal reflux disease, Mesenteric ischemia or infarction, myocardia ischemia or infarction, non-specific abd pain, pancreatitis, Peptic Ulcer Disease, Perf. Duodenal Ulcer, Pyelonephritis, Ureterolithiasis, urinary tract infection. Data reviewed: vital signs, nurses notes, EMS record, old medical records, lab test result(s), cardiac enzymes, CBC, electrolytes, urinalysis, EKG, radiologic studies, CT scan, ultrasound. Counseling: I had a detailed discussion with the patient and/or guardian regarding: the historical points, exam findings, and any diagnostic results supporting the discharge/admit diagnosis, the presence of at least one elevated blood pressure reading (>120/80) during this emergency department visit, lab results, radiology results, the need for outpatient follow up, to return to the emergency department if symptoms worsen or persist or if there are any questions or concerns that arise at home. 03/17 02:15 Data interpreted: gambling monitor: rate is 61 beats/min, rhythm is normal sinus rhythm, 7 regular, Interpretation: normal rate, normal rhythm, Pulse oximetry: on room air is 99 %. Interpretation: normal. Response to treatment: the patient's symptoms have resolved after treatment, the patient's blood pressure is in an acceptable range, mental status has returned to baseline, the patient no longer shows bradycardia, the patient is not short of breath, the patient is not tachycardic, the patient's pain is gone, the patient's temperature has normalized. 03/16 18:52 Order name: Basic Metabolic Panel; Complete Time: 20:15 kdr 03/16 18:52 Order name: CBC with Diff; Complete Time: 20:15 kdr 03/16 18:52 Order name: Hepatic Function; Complete Time: 20:15 kdr 03/16 18:52 Order name: Lipase; Complete Time: 20:15 kdr 03/16 19:10 Order name: Magnesium 7 03/16 19:11 Order name: Magnesium; Complete Time: 20:56 EDMS 03/16 18:52 Order name: IV Saline Lock; Complete Time: 19:57 kdr 03/16 18:53 Order name: US Abdomen Limited; Complete Time: 20:56 [facility] 03/16 19:16 Order name: Abdomen ; Complete Time: 20:15 EDMS 08 19:30 Order name: CREATININE WHOLE BLOOD; Complete Time: 20:15 EDMS 08 20:58 Order name: Troponin (emerg Dept Use Only); Complete Time: 21:48 7 03/16 18:52 Order name: Labs collected and sent; Complete Time: 19:57 kdr 08 20:58 Order name: EKG - Nurse/Tech; Complete Time: 21:44 mh7 EC:14 Rate is 60 beats/min. Rhythm is regular, Normal Sinus Rhythm. QRS [place] is Normal. [place] mh7 interval is normal. QRS interval is normal. QT interval is normal. No Q waves. T waves are Normal. No ST changes noted. Administered Medications: 03/16 19:22 Drug: Zofran (Ondansetron) 4 mg Route: IVP; Site: right antecubital; ls4 20:01 Follow up: Response: No adverse reaction; Marked relief of symptoms ls4 19:22 Drug: morphine 4 mg Route: IVP; Site: right antecubital; ls4 20:01 Follow up: Response: No adverse reaction; Marked relief of symptoms ls4 Disposition: 03/16/20 21:58 Discharged to Home. Impression: Abdominal Pain. - Condition is Stable. - Discharge Instructions: Abdominal Pain, Adult, [id number]-[id number]. - Prescriptions for Zofran ODT 4 mg Oral tablet,disintegrating - place 1 tablet by TRANSLINGUAL route every 8 hours for 2 days; 6 tablet. Bentyl 20 mg Oral Tablet - take 1 tablet by ORAL route every 6 hours As needed; 20 tablet. Pepcid 20 mg Oral Tablet - take 1 tablet by ORAL route every 12 hours for 5 days; 10 tablet. - Medication Reconciliation Form, Thank You Letter, Antibiotic Education, Prescription Opioid Use form. - Follow up: Private Physician; When: 1 - 2 days; Reason: Worsening of condition, Recheck today's complaints, Re-evaluation by your physician. - Problem is chronic. - Symptoms have improved. Signatures: Dispatcher [employer] [facility] Mariano Blakely MD MD kdr Rhianna Walker RN RN ss Ny Rolle RN RN ls4 Jayden Olivia MD MD 7 Corrections: (The following items were deleted from the chart) 19:16 18:54 Abdomen Pelvis W Con+CT.RAD.BRZ ordered. [facility] 22:38 21:58 03/16/2020 21:58 Discharged to Home. Impression: Abdominal Pain. Condition is ls4 Stable. Forms are Medication Reconciliation Form, Thank You Letter, Antibiotic Education, Prescription Opioid Use. Follow up: Private Physician; When: 1 - 2 days; Reason: Worsening of condition, Recheck today's complaints, Re-evaluation by your physician. Problem is chronic. Symptoms have improved. 7
[2020-03-16 22:53] VITALS: TEMP 98.2; O2SAT 99
[2020-03-16 22:57] VITALS: BP 128/60
--- NOTE | 2020-03-17 11:45 | EKG ---
Test Date: 2020-03-16 Test Time: 21:40:12 Fur Dry Cleaner: ILA MEASUREMENT RESULTS: Intervals: Rate: 60 [place]: 158 QRSD: 78 QT: 388 QTc: 388 Industry: P: 66 [place]: 158 QRS: 46 T: 31 INTERPRETIVE STATEMENTS: Normal sinus rhythm Normal ECG Compared to ECG 10/29/2019 12:41:07 No significant changes Electronically Signed On 03-17-20 11:43:11 CDT by Keyur Gaffney
== END 2020-03-16 22:38 | disposition home or self-care (01) ==
LOC: ER 15:11
DX: R10.13 Epigastric pain (principal); R53.1 Weakness; I10 Essential (primary) hypertension; Z88.2 Allergy status to sulfonamides
CPT/HCPCS: 93005; 85025; 80048; 36415; 83735; 82565; 80076; 84484; 83690; 74176; 76705; 96375; 96374; 99284; J2405

== ENCOUNTER 2020-06-03 06:36 | Inpatient (IN) | payer BC, OTHER ==
--- OUTSIDE RECORDS SUMMARY | 2020-06-03 06:39 | XMS REPORT | Continuity of Care Document ---
:1950 Author Organization [facility] t Address [address] [place] [address] Care Team Providers Name Role Phone Srikanth WAGNER, L Attending Clinician Problems This patient has no known problems. Allergies, Adverse Reactions, Alerts This patient has no known allergies or adverse reactions. Medications This patient has no known medications. Procedures This patient has no known procedures. Encounters Start End Encounter Admission Attending Care Care Encounter Source Date/Time Date/Time Type Type Clinicians Facility Department ID 2019-11-08 2020-03-23 Office YEIMI Duke [id number] 10:19:22 13:04:36 Visit [facility] [id number] Surgical [id number] [facility] [id number] [address] Results This patient has no known results.
--- OUTSIDE RECORDS SUMMARY | 2020-06-03 06:39 | XMS REPORT | Summary of Care ---
:1950 Author Organization [facility] Address [address] [place] [id number] Care Team Providers Name Role Phone Lubna Solano Primary Care Provider Reason for Referral Radiology Services (Routine) Status Reason Specialty Diagnoses / Referred By Referred To Procedures Contact Contact New Request Diagnostic Diagnoses Pain in both knees, unspecified chronicity Steve Duke Radiology Procedures XR KNEE 3 VW BILATERAL MD Amil[address] [place] [place] [address] Radiology Services (Routine) Status Reason Specialty Diagnoses / Referred By Referred To Procedures Contact Contact New Request Diagnostic Diagnoses Pain in both knees, unspecified chronicity Steve Duke Radiology Procedures XR KNEE 3 VW BILATERAL MD Amil[address] [place] [address] Reason for Visit Reason Comments Follow-up Knee Pain Bi. Encounter Details Date Type Department Care Team Description 11/08/2019 Office Visit [facility] Orthopaedic Steve Duke P ain in both knees, Surgery- Sang Fitzgerald MD unspecified chronicity [address] (Primary Dx) [address] [place] [address] [place], [place] [phone] Allergies Active Allergy Reactions Severity Noted Date Comments Sulfa (Sulfonamide Antibiotics) Rash 7 documented as of this encounter (statuses as of 03/23/2020) Medications Medication Sig Dispensed Refills Start Date [...] knees, times daily with unspecified chronicity meals. Hospital, Clinic, or Ordered Dose Route Frequency Start Date End D ate Status Other Facility Administered Medication triamcinolone 80 mg Intra-articu ONCE 11/08/2019 11/08/2019 E nded acetonide (KENALOG) injection 80 mg documented as of this encounter (statuses as of 03/23/2020) Active Problems Problem Noted Date Mass of right foot, Great Toe 05/31/2019 Left hip pain 04/26/2017 documented as of this encounter (statuses as of 03/23/2020) Social History Tobacco Use Types Packs/Day Years [...] Sign Reading Time Taken Comments Blood Pressure 145/84 11/08/2019 10:38 AM [employer] Pulse 66 11/08/2019 10:38 AM [employer] Temperature - - Respiratory Rate - - Oxygen Saturation - - Inhaled Oxygen Concentration - - Weight 86.2 kg (190 lb) 11/08/2019 10:34 AM [employer] Height 154.9 cm (5' 1") 11/08/2019 10:34 AM [employer] Body Mass Index 35.9 11/08/2019 10:34 AM [employer] documented in this encounter Progress Notes Steve Duke MD - 11/08/2019 10:15 AM CST Cc: Chief Complaint Patient presents with Follow-up Knee Pain Bi. FOLLOW-UP Bi. Knee pain, X years. Came in wbat, no dme for assistance. progressively getting worse with time. No recent films. No specific injury. Has had surgery in the past with Dr. Duke. Pain level 5/10. Allie Cid 11/08/2019 10:38 AM Catherine Figueroa is a 69 year old female. Knee Pain The incident occurred more than 1 week ago. The incident occurred at home. There was no injury mechanism. The pain is present in the left knee and right knee. The quality of the pain is described as aching, burning and stabbing. The pain is at a severity of 8/10. The pain is moderate. The pain has been worsening since onset. Associated symptoms include an inability to bear weight. The symptoms are aggravated by movement and weight bearing. She has tried non-weight bearing, heat, ice and acetaminophen for the symptoms. The treatment provided no relief. Allergies Catherine is allergic to sulfa (sulfonamide antibiotics). Medications Outpatient Medications Prior to Visit Medication Sig Dispense Refill CLINDAMYCIN HCL ORAL Take by mouth. atorvastatin 80 mg tablet TK 1 T [...] file Gets together: Not on file Attends christian service: Not on file Active member of [...] Endocrine: Endocrine negative Vital Signs BP (!) 160/69 | Pulse 84 | Ht 61" (154.9 cm) | Wt 86.2 kg (190 lb) | BMI 35.90 kg/m Physical Exam Musculoskeletal: General: Well-developed well-nourished oriented to person place [...] intact. Nursing note and vitals reviewed. Assessment/Plan Diagnosis: Bilateral knee DJD Plan:Patient's knee(s) is/are wearing out and will eventually need a total knee replacement but willtake preventative measures prior to discussing surgery. Will take this in a stepwise fashion first beginning with NSAIDs. Next would be a cortisone injection. A cortisone injection will only help with the inflammatory response. Cortisone injections will be given no less than 3 months in a 3 year time frame. Hymalecular weight hylaronic acid injection series would follow cortisone injections. If the response is well to the cortisone this is usually an indication of how one will respond to Hymalecular weight hylaronic injections. These injections are given once weekly to the affected knee for 3 weeks. This can give at least 6 months of relief in 3 out of 4 people. If these steps do not help the last option would be to have a total knee replacement. The Rehab department will reach out to discuss making an appointment for an informational session called Total Replacement Boot Camp. This does not mean you are ready for a total knee replacement, it's simply preparation should you eventually decide to have/need a joint replacement. Patient received an ultrasound guided injection of 1cc kenalog and 4cc lidocaine to each knee. The knee was examined and the knee was marked with the needle In the middle of the lateral joint line justlateral to the patellar tendon the knee was then prepped 3 times with Betadine in a Bullseye fashionand then once with alcohol allowing it to soak at least 20 seconds. Ultrasound guidance was used to direct the needle posterior to the fat pad and an injection was administered of 1 cc Kenalog with 4 cc 1% lidocaine without epinephrine without resistance. The skin was cleansed with alcohol and then dried with a sterile 4 x 4 and a sterile Band-Aid was applied patient tolerated procedure without difficulty. Diclofenac prn documented in this encounter Plan of Treatment Health Maintenance Due Date Last Done Comments HEPATITIS C (HCV) SCREEN 1950 DTaP,Tdap,and Td Vaccines (1 - Tdap) 1960 Breast Cancer Screening (MAMMOGRAM) 1989 COLONOSCOPY 1999 Zoster Recombinant Vaccine (SHINGRIX) (1 of 2) 1999 Medicare Wellness Visit 2014 Osteoporosis Screening 2014 PNEUMOCOCCAL VACCINES 65+ (1 of 2 - PCV13) 2014 Depression Screening 06/07/2020 06/07/2019 INFLUENZA VACCINE (Season Ended) 2020 documented as of this encounter Results XR KNEE 3 VW BILATERAL (11/08/2019 10:42 AM [employer]) Specimen Narrative Performed At This result has an attachment that is no t available. No dislocations PACS Performing Organization Address [facility] Phone Number PACS XR KNEE 3 VW BILATERAL (11/08/2019 10:38 AM [employer]) Specimen Narrative Performed At This result has an attachment that is no t available. djd PACS Performing Organization Address [facility] Phone Number PACS documented in this encounter Visit Diagnoses Diagnosis Pain in both knees, unspecified chronici ty - Primary documented in this encounter Administered Medications Medication Order MAR Action Action Date Dose Rate Site triamcinolone acetonide Given 11/08/2019 11:36 AM 80 mg Both Knees (KENALOG) injection 80 mg [employer] 80 mg, Intra-articular, ONCE, 1 dose, Mon11/08/19 at 1245, Routine documented in this encounter Insurance Payer Benefit Plan / Subscriber ID Effective Phone Address T ype Group Dates BCBS OF BCBS [id number] 2017-Pres [phone] O [facility] TRADITIONAL ent [phone] [place] [address] MEDICARE MEDICARE PART A xxxxxxxxxxx 2014-Pres [phone] P. O. DEYSI X Medicare & B ent [id number] [place] JESUS [phone] documented as of this encounter
[2020-06-03] MEDS ORDERED: HYDRALAZINE HCL 20 MG/ML VIAL ONE (07:19)
[2020-06-03 07:31] LABS: Absolute Lymphocytes (CBC) 2.4 K/uL (0.7-4.9); Basophils % 0.5 % (0-1.3); Hematocrit 34.9 % (36.0-45.0); Lymphocytes % 38.2 % (15.3-44.8); MPV 7.5 fL (7.6-11.3); RBC Red Blood Cell Count 4.19 M/uL (3.86-4.86)
[2020-06-03 07:39] LABS: Protime INR 0.91
[2020-06-03 07:50] LABS: ALT/SGPT 24 U/L (12-78); AST/SGOT 17 U/L (15-37); Alkaline Phosphatase 146 U/L (45-117); BUN Blood Urea Nitrogen 26 mg/dL (7-18); Bicarbonate 24 mmol/L (21-32); Bilirubin Direct < 0.1 mg/dL (0-0.2); Bilirubin Total 0.4 mg/dL (0.2-1.0); Glucose Level 87 mg/dL (74-106); Magnesium 1.5 mg/dL (1.8-2.4); NT PRO-BNP 653 pg/mL (<125); Potassium 4.3 mmol/L (3.5-5.1); Protein, Total 8.2 g/dL (6.4-8.2); Sodium Level 141 mmol/L (136-145); Troponin (Emerg Dept Use Only) < 0.02 ng/mL (0.0-0.045)
[2020-06-03] MEDS ORDERED: FUROSEMIDE 40 MG/4 ML VIAL ONE (08:12)
[2020-06-03] MEDS ORDERED: Magnesium Sulfate 2gm IVPB 2 G/50 ML BAG IV ONE (08:12)
--- NOTE | 2020-06-03 08:13 | RAD REPORT ---
EXAM DESCRIPTION: RAD - Chest Single View - 06/03/2020 7:31 am CLINICAL HISTORY: SOB COMPARISON: Portable July 2009 TECHNIQUE: AP portable chest image was obtained 06/03/2020 7:31 am . FINDINGS: Exam has significant limitation due to shallow inspiration, film artifacts and large body habitus. No focal mass or consolidation. Vasculature and lung markings are mildly prominent. Differen tial is not substantial from prior study. A minimal failure or volume overload could be masked. Heart and vasculature are normal. No measurable pleural effusion and no pneumothorax. No acute bony abnorm ality seen. No acute aortic findings suspected. IMPRESSION: Exam has significant limitation as detailed. Mild failure or volume overload could be masked. No focal consolidation identified.
--- NOTE | 2020-06-03 08:54 | RAD REPORT ---
EXAM DESCRIPTION: CT - Chest For Pe Angio - 06/03/2020 8:43 am CLINICAL HISTORY: Dyspnea;Chest pain COMPARISON: Thorax Wo Con dated 09/30/2016; Chest Single View dated 06/03/2020 TECHNIQUE: Dynamically enhanced 3 mm thick images of the chest were obtained during administration o f approximately 150mL Isovue 370 IV contrast. Coronal and oblique MIP reconstruction images were gene rated and reviewed. Exam utilizes a protocol to evaluate the pulmonary arterial tree. All CT scans are performed using dose optimization technique as appropriate and may include automated exposure control or mA/KV adjustment according to patient size. FINDINGS: No pulmonary emboli are identified. The aorta as imaged shows no acute or suspicious finding. No pericardial thickening or effusion. No focal infiltrate or suspicious mass lesion. A left lower lobe 6 mm nodule has not changed since . Motion degradation in the lower lung sanchez limits the examination. A mild interstitial edema or infiltrate is certainly possible. No endobronchial lesion. No pleural effusion or pleural thickening. No mediastinal or hilar suspicious masses. No chest wall masses or abnormal axillary lymphadenopathy. IMPRESSION: No pulmonary emboli identified. No focal mass or consolidation. Interstitial pattern is prominent - suspicious for a mild edema or in terstitial infiltrate.
--- NOTE | 2020-06-03 09:15 | EDPHYS ---
Physician Documentation [facility] Name: Catherine Figueroa Age: 69 yrs Sex: Female : 1950 Arrival Date: 06/03/2020 Time: 06:39 Bed 8 Private MD: Lubna Solano H ED Physician Jayden Olivia HPI: 06/03 07:49 This 69 yrs old Female presents to ER via Ambulatory with complaints of jr8 Breathing Difficulty, Nausea, Dizziness, FATIGUE. 07:49 The patient has shortness of breath at rest. Onset: The symptoms/episode began/occurred jr8 gradually, 3 week(s) ago, and became worse and became persistent. Duration: The symptoms are continuous. The patient's shortness of breath is aggravated by exertion, supine position. Associated signs and symptoms: Pertinent positives: dizziness, palpitations. Severity of symptoms: At their worst the symptoms were moderate in the emergency department the symptoms are unchanged. The patient has not experienced similar symptoms in the past. The patient has not recently seen a physician. 07:49 Patient stated that she has history of HTN that has not been well controlled lately. jr8 Stated that she has been experiencing increased shortness of breath. 3 pillow orthopnea at night time and worse with exertion . Historical: - Allergies: 06:52 Sulfa (Sulfonamide Antibiotics); mt2 - Home Meds: 06:52 atorvastatin 40 mg Oral tab 1 tab once daily for Hyperlipidemia [Active]; valsartan 160 mt2 mg Oral tab 1 tab once daily for Hypertension [Active]; levothyroxine 125 mcg tab 1 tab once daily for Hypothyroidism [Active]; magnesium oxide 400 mg Oral cap twice a day [Active]; metoprolol tartrate 25 mg Oral tab 1 tab once daily for Hypertension [Active]; omeprazole 20 mg Oral cpDR 1 cap once daily [Active]; sertraline 100 mg Oral tab 1 tab once daily [Active]; - PMHx: 06:52 Anxiety; Depression; GERD; High Cholesterol; Hypertension; hypomagnesium; mt2 Hypothyroidism; Kidney stones; - PSHx: 06:52 Hysterectomy; mt2 - Immunization history:: Adult Immunizations up to date. - Social history:: Smoking status: Patient denies any tobacco usage or history of. ROS: 07:49 Eyes: Negative for injury, pain, redness, and discharge, ENT: Negative for injury, jr8 pain, and discharge, Neck: Negative for injury, pain, and swelling, Abdomen/GI: Negative for abdominal pain, nausea, vomiting, diarrhea, and constipation, Back: Negative for injury and pain, MS/Extremity: Negative for injury and deformity, Skin: Negative for injury, rash, and discoloration. 07:49 Cardiovascular: Positive for edema, palpitations. 07:49 Respiratory: Positive for dyspnea on exertion, orthopnea, shortness of breath. 07:49 Neuro: Positive for dizziness. Exam: 07:49 Eyes: Pupils equal round and reactive to light, extra-ocular motions intact. Lids and jr8 lashes normal. Conjunctiva and sclera are non-icteric and not injected. Cornea within normal limits. Periorbital areas with no swelling, redness, or edema. ENT: Nares patent. No nasal discharge, no septal abnormalities noted. Tympanic membranes are normal and external auditory canals are clear. Oropharynx with no redness, swelling, or masses, exudates, or evidence of obstruction, uvula midline. Mucous membranes moist. Neck: Trachea midline, no thyromegaly or masses palpated, and no cervical lymphadenopathy. Supple, full range of motion without nuchal rigidity, or vertebral point tenderness. No Meningismus. Cardiovascular: Regular rate and rhythm with a normal S1 and S2. No gallops, murmurs, or rubs. Normal PMI, no JVD. No pulse deficits. Abdomen/GI: Soft, non-tender, with normal bowel sounds. No distension or tympany. No guarding or rebound. No evidence of tenderness throughout. Back: No spinal tenderness. No costovertebral tenderness. Full range of motion. Skin: Warm, dry with normal turgor. Normal color with no rashes, no lesions, and no evidence of cellulitis. MS/ Extremity: Pulses equal, no cyanosis. Neurovascular intact. Full, normal range of motion. Neuro: Awake and alert, GCS 15, oriented to person, place, time, and situation. Cranial nerves II-XII grossly intact. Motor strength 5/5 in all extremities. Sensory grossly intact. Cerebellar exam normal. Normal gait. 07:49 Respiratory: mild respiratory distress is noted, Respirations: tachypnea, that is mild, Breath sounds: are clear throughout. 07:49 ECG was reviewed by the Attending Physician. [facility] Vital Signs: 06:52 BP 222 / 75; Pulse 78; Resp 26; Temp 98.2(O); Pulse Ox 100% on R/A; Weight 86.18 kg; vc Height 5 ft. 1 in. (154.94 cm); 07:15 BP 212 / 88; Pulse 75; Resp 24; Pulse Ox 100% ; bp 07:30 BP 162 / 67; Pulse 75; Resp 21; Pulse Ox 99% ; bp 08:00 BP 172 / 65; Pulse 71; Resp 20; Pulse Ox 100% ; bp 09:30 BP 175 / 59; Pulse 66; Resp 17; Pulse Ox 99% ; bp 10:30 BP 190 / 60; Pulse 74; Resp 18; Pulse Ox 100% ; bp 11:30 BP 186 / 76; Pulse 74; Resp 17; Pulse Ox 99% ; bp 13:30 BP 160 / 65; Pulse 85; Resp 16; Temp 98.2; Pulse Ox 99% ; bp 06:52 Body Mass Index 35.90 (86.18 kg, 154.94 cm) vc MDM: 06:42 Patient medically screened. [facility] 09:11 Data reviewed: vital signs, nurses notes, lab test result(s), EKG, radiologic studies, [facility] CT scan, plain films. Data interpreted: Pulse oximetry: on room air is 100 %. Interpretation: normal. Counseling: I had a detailed discussion with the patient and/or guardian regarding: the historical points, exam findings, and any diagnostic results supporting the discharge/admit diagnosis, lab results, radiology results, the need for further work-up and treatment in the hospital. 09:11 Differential diagnosis: Anemia Anxiety Reaction CHF exacerbation, Chronic Obstructive jr8 Pulmonary Disease Myocardial Infarction pneumonia, Psychogenic pulmonary edema, Pulmonary Embolism Unstable Angina. 06/03 07:03 Order name: Basic Metabolic Panel; Complete Time: 07:53 06/03 07:03 Order name: CBC with Diff; Complete Time: 07:41 06/03 07:03 Order name: LFT's; Complete Time: 07:53 06/03 07:03 Order name: Magnesium; Complete Time: 07:53 06/03 07:03 Order name: NT PRO-BNP; Complete Time: 07:53 06/03 07:03 Order name: PT-INR; Complete Time: 07:43 8 06/03 07:03 Order name: Troponin (emerg Dept Use Only); Complete Time: 07:53 8 06/03 07:04 Order name: DD; Complete Time: 07:43 jr8 06/03 09:51 Order name: CBC with Automated Diff EDMS 06/03 09:51 Order name: CBC with Automated Diff EDMS 06/03 09:51 Order name: Comprehensive Metabolic Panel EDMS 06/03 09:51 Order name: Comprehensive Metabolic Panel EDMS 06/03 09:51 Order name: Magnesium EDMS 06/03 09:51 Order name: Magnesium EDMS 06/03 06:51 Order name: Chest Single View XRAY; Complete Time: 08:39 mt2 06/03 07:42 Order name: CT Chest For PE Angio; Complete Time: 09:01 jr8 06/03 09:51 Order name: Echo with Doppler EDMS 06/03 09:51 Order name: NT PRO-BNP EDMS 06/03 09:51 Order name: NT PRO-BNP EDMS 06/03 09:51 Order name: Phosphorus EDMS 06/03 09:51 Order name: Phosphorus EDMS 06/03 09:51 Order name: Troponin I EDMS 06/03 09:51 Order name: Troponin I EDMS 06/03 09:51 Order name: Troponin I EDMS 06/03 11:18 Order name: COVID-19 8 06/03 11:51 Order name: CORONAVIRUS EDMS 06/03 13:05 Order name: SARS-COV-2 RT PCR; Complete Time: 13:05 EDMS 06/03 07:03 Order name: EKG; Complete Time: 07:04 06/03 07:03 Order name: Cardiac monitoring; Complete Time: 07:07 06/03 07:03 Order name: EKG - Nurse/Tech; Complete Time: 07:06 06/03 07:03 Order name: IV Saline Lock; Complete Time: 07:30 06/03 07:03 Order name: Labs collected and sent; Complete Time: 07:30 06/03 07:03 Order name: O2 Per Protocol; Complete Time: 07:12 06/03 07:03 Order name: O2 Sat Monitoring; Complete Time: 07:12 06/03 09:51 Order name: CONS Physician Consult EDMS 06/03 09:51 Order name: Heart Healthy EDOR EC:49 Rate is 81 beats/min. Rhythm is regular, Normal Sinus Rhythm. QRS Armstrong is Normal. DC jr8 interval is normal at 152 msec. QRS interval is normal at 74 msec. QT interval is normal at 420 msec. No Q waves. T waves are Inverted in lead III. No ST changes noted. Clinical impression: NSR w/ Non-specific ST/T Changes. Interpreted by me. Reviewed by me. Administered Medications: 07:15 Drug: hydrALAZINE 10 mg Route: IV; Rate: calculated rate; Site: right antecubital; bp 07:43 CANCELLED (Physician Discretion): hydrALAZINE 10 mg IV at calculated rate once jr8 07:50 Drug: Lasix 40 mg Route: IVP; Site: right antecubital; bp 12:14 Follow up: Response: No adverse reaction bp 07:55 Drug: Magnesium Sulfate 2 grams Route: IVPB; Infused Over: 2 hrs; Site: right bp antecubital; Disposition: 06/04 06:43 Co-signature as Attending Physician, Jayden Olivia MD. 7 Disposition: 06/03/20 09:15 Hospitalization ordered by Yash Reynaga for Observation. Preliminary diagnosis are Acute diastolic (congestive) heart failure, Hypertensive Emergency . - Bed requested for Telemetry/MedSurg (observation). - Status is Observation. bp - Condition is Stable. - Problem is new. - Symptoms have improved. Signatures: Dispatcher [employer] [facility] Clarissa Antony RN RN kl Calderon, Audri, RN RN aa5 Antoni Tolentino PA PA jr8 George Leung RN RN bp Holmes, Maurice, MD MD 7 Myesha Del Valle RN RN mt2 Corrections: (The following items were deleted from the chart) 06/03 07:43 07:37 hydrALAZINE 10 mg IV at calculated rate once ordered. jr8 jr8 09:34 09:15 Hospitalization Ordered by Zeb Godwin MD for Observation. Preliminary jr8 diagnosis is Acute diastolic (congestive) heart failure; Hypertensive Emergency . Bed requested for Telemetry/MedSurg (observation). Status is Observation. Condition is Stable. Problem is new. Symptoms have improved. jr8 13:40 09:34 06/03/2020 09:15 Hospitalization Ordered by Yash Reynaga MD for Observation. aa5 Preliminary diagnosis is Acute diastolic (congestive) heart failure; Hypertensive Emergency . Bed requested for Telemetry/MedSurg (observation). Status is Observation. Condition is Stable. Problem is new. Symptoms have improved. jr8 13:42 13:40 06/03/2020 09:15 Hospitalization Ordered by Yash Reynaga MD for Observation. kl Preliminary diagnosis is Acute diastolic (congestive) heart failure; Hypertensive Emergency . Bed requested for Telemetry/MedSurg (observation). Status is Observation. Condition is Stable. Problem is new. Symptoms have improved. aa5 14:40 13:42 06/03/2020 09:15 Hospitalization Ordered by Yash Reynaga MD for Observation. bp Preliminary diagnosis is Acute diastolic (congestive) heart failure; Hypertensive Emergency . Bed requested for Telemetry/MedSurg (observation). Status is Observation. Condition is Stable. Problem is new. Symptoms have improved. kl
--- NOTE | 2020-06-03 09:15 | ER ---
Nurse's Notes [facility] Name: Catherine Figueroa Age: 69 yrs Sex: Female : 1950 Arrival Date: 06/03/2020 Time: 06:39 Bed 8 Private MD: Lubna Solano H Diagnosis: Acute diastolic (congestive) heart failure;Hypertensive Emergency Presentation: 06/03 06:52 Chief complaint: Patient states: "For the last three weeks I have been short of breath, vc with headaches and my blood pressure has been high. 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 Can ya'll check me for it?". Coronavirus screen: difficulty breathing, headache, shortness of breath, Client presents with at least one sign or symptom that may indicate coronavirus-19. Standard/surgical mask placed on the client. Provider contacted for isolation considerations. Ebola Screen: No symptoms or risks identified at this time. Initial Sepsis Screen: Does the patient meet any 2 criteria? No. Patient's initial sepsis screen is negative. Does the patient have a suspected source of infection? No. Patient's initial sepsis screen is negative. Risk Assessment: Do you want to hurt yourself or someone else? Patient reports no desire to harm self or others. Onset of symptoms is unknown. 06:52 Method Of Arrival: Ambulatory vc 06:52 Acuity: MARCELLA 3 vc Triage Assessment: 06:56 Respiratory: Reports shortness of breath on exertion. mt2 06:57 General: Appears distressed, Behavior is agitated. Respiratory: Onset: The mt2 symptoms/episode began/occurred gradually. Respiratory: the patient has moderate shortness of breath. 07:08 Pain: Complains of pain in generalized. mt2 Historical: - Allergies: 06:52 Sulfa (Sulfonamide Antibiotics); mt2 - Home Meds: 06:52 atorvastatin 40 mg Oral tab 1 tab once daily for Hyperlipidemia [Active]; valsartan 160 mt2 mg Oral tab 1 tab once daily for Hypertension [Active]; levothyroxine 125 mcg tab 1 tab once daily for Hypothyroidism [Active]; magnesium oxide 400 mg Oral cap twice a day [Active]; metoprolol tartrate 25 mg Oral tab 1 tab once daily for Hypertension [Active]; omeprazole 20 mg Oral cpDR 1 cap once daily [Active]; sertraline 100 mg Oral tab 1 tab once daily [Active]; - PMHx: 06:52 Anxiety; Depression; GERD; High Cholesterol; Hypertension; hypomagnesium; mt2 Hypothyroidism; Kidney stones; - PSHx: 06:52 Hysterectomy; mt2 - Immunization history:: Adult Immunizations up to date. - Social history:: Smoking status: Patient denies any tobacco usage or history of. Screenin:55 Abuse screen: Denies threats or abuse. Nutritional screening: On. Tuberculosis mt2 screening: No symptoms or risk factors identified. Fall Risk None identified. Assessment: 06:56 General: Appears distressed, uncomfortable, Behavior is agitated. Cardiovascular: mt2 Rhythm is regular. Respiratory: Airway is patent Respiratory effort is labored, Breath sounds with wheezes. GI: No deficits noted. GI: Reports nausea. : No deficits noted. EENT: No deficits noted. Derm: No deficits noted. Musculoskeletal: No deficits noted. 07:15 Reassessment: RECD REPORT FROM MYESHA KNOX. 69YO WF P/W SOB x3 DAYS. ALL CURRENT ORDERS bp IN PROCESS. 08:35 Reassessment: PT TO CT. bp 09:30 Reassessment: ADMIT INITIATED. VS STABLE ON MONITOR. bp 11:30 Reassessment: PT SLEEPING. BED ASSIGNMENT PENDING. bp 13:30 Reassessment: DR MONTOYA AT B/S FOR CARDIO C/S. ADMIT IN PROCESS. bp Vital Signs: 06:52 BP 222 / 75; Pulse 78; Resp 26; Temp 98.2(O); Pulse Ox 100% on R/A; Weight 86.18 kg; vc Height 5 ft. 1 in. (154.94 cm); 07:15 BP 212 / 88; Pulse 75; Resp 24; Pulse Ox 100% ; bp 07:30 BP 162 / 67; Pulse 75; Resp 21; Pulse Ox 99% ; bp 08:00 BP 172 / 65; Pulse 71; Resp 20; Pulse Ox 100% ; bp 09:30 BP 175 / 59; Pulse 66; Resp 17; Pulse Ox 99% ; bp 10:30 BP 190 / 60; Pulse 74; Resp 18; Pulse Ox 100% ; bp 11:30 BP 186 / 76; Pulse 74; Resp 17; Pulse Ox 99% ; bp 13:30 BP 160 / 65; Pulse 85; Resp 16; Temp 98.2; Pulse Ox 99% ; bp 06:52 Body Mass Index 35.90 (86.18 kg, 154.94 cm) vc ED Course: 06:39 Patient arrived in ED. es 06:40 Lubna Solano DO is Private Physician. es 06:42 Antoni Tolentino PA is PHCP. jr8 06:42 Jayden Olivia MD is Attending Physician. jr8 06:50 Myesha Del Valle RN is Primary Nurse. mt2 06:55 Triage completed. vc 06:56 Patient has correct armband on for positive identification. Call light in reach. Side mt2 rails up X 1. 06:57 Arm band placed on. mt2 07:07 EKG done, by ED staff, reviewed by Benji Godwin MD. mh5 07:15 Inserted saline lock: 20 gauge in right antecubital area, using aseptic technique. bp Blood collected. 07:31 Chest Single View XRAY In Process Unspecified. EDMS 08:43 CT Chest For PE Angio In Process Unspecified. EDMS 09:14 Zeb Godwin MD is Hospitalizing Provider. jr8 09:34 Yash Reynaga MD is Hospitalizing Provider. jr8 10:15 Primary Nurse role handed off by Myesha Del Valle RN bp 10:15 George Leung, ABILIO is Primary Nurse. bp 13:41 No provider procedures requiring assistance completed. Patient admitted, IV remains in bp place. Administered Medications: 07:15 Drug: hydrALAZINE 10 mg Route: IV; Rate: calculated rate; Site: right antecubital; bp 07:43 CANCELLED (Physician Discretion): hydrALAZINE 10 mg IV at calculated rate once jr8 07:50 Drug: Lasix 40 mg Route: IVP; Site: right antecubital; bp 12:14 Follow up: Response: No adverse reaction bp 07:55 Drug: Magnesium Sulfate 2 grams Route: IVPB; Infused Over: 2 hrs; Site: right bp antecubital; Outcome: 09:15 Decision to Hospitalize by Provider. jr8 13:41 Condition: stable bp 13:41 Instructed on the need for admit. 14:39 Admitted to Med/surg accompanied by tech, via wheelchair, room 231, with chart, Report bp called to YOAN KNOX 14:40 Patient left the ED. bp Signatures: Dispatcher [employer] Mia Peterson Josh, PA PA 8 Nicci Mcguire [facility] George Leung RN RN bp Barbara Dhaliwal RN RN vc Myesha Del Valle RN RN mt2
[2020-06-03] MEDS ORDERED: ONDANSETRON 4 MG/2 ML VIAL IV PRN (09:44)
[2020-06-03 15:41] VITALS: BMI 35.2
[2020-06-03] MEDS: FUROSEMIDE 20 MG/ 2ML VIAL IV SCH (16:34)
[2020-06-03] MEDS: ACETAMINOPHEN 500 MG TAB PO PRN (16:41)
--- NOTE | 2020-06-03 16:52 | RAD REPORT ---
EXAM DESCRIPTION: US - Renal Ultrasound-Complete - 06/03/2020 4:25 pm CLINICAL HISTORY: . Chronic renal disease COMPARISON: None. FINDINGS: The right kidney measures 9 cm with mildly increased echotexture. The left kidney measures 9 cm with mildly increased echotexture. Tiny nonobstructing bilateral renal calculi 3.2 centimeter isoechoic structure mid pole left kidney Hydronephrosis is not seen. No gross abnormality of bladder IMPRESSION: Tiny nonobstructing bilateral renal calculi paragraphs mildly increased renal echotextur e consistent with parenchymal disease 3.2 centimeter isoechoic structure mid pole left kidney probably a lobulation. A mass is consid ered less likely. Followup ultrasound in 3 months recommended for re-evaluation
[2020-06-03] MEDS ORDERED: PNEUMOCOCCAL VACCINE 0.5 ML IMVAC ONE (17:00)
[2020-06-03 17:45] LABS: Urine Appearance CLEAR; Urine Bilirubin NEGATIVE (NEG); Urine Blood NEGATIVE (NEG); Urine Color YELLOW; Urine Glucose NEGATIVE (NEG); Urine Protein NEGATIVE (NEG); Urine Specific Gravity 1.025 (1.005-1.030); Urine Urobilinogen 0.2 mg/dL (0.2-1.0)
[2020-06-03 17:50] LABS: Urine Microscopic Reflex ORDER UMIC; Urine Protein/Creatinine Ratio 0.16 ratio (<0.15)
[2020-06-03 18:04] LABS: Urine Bacteria NONE SEEN /HPF (<20); Urine Culture Reflex Order REFLEXED; Urine RBC <5 /HPF (NONE SEEN)
--- NOTE | 2020-06-03 20:30 | CON ---
Date of Consultation: 06/03/2020 Additional Consulting Physician: Yash Reynaga MD/ER nurse practitioner, Antoni. Reason For Consultation: Elevated BUN and creatinine, contrast exposure, fluid overload. History Of Present Illness: This is a pleasant 69-year-old female with significant past medical hist ory of hypertension; pulmonary hypertension; chronic kidney disease, baseline creatinine 1.5, GFR of 32 back in March to 2019; nephrolithiasis, last episode back in 1989; hyperlipidemia. The patient cam e to the hospital complaining of some shortness of breath in the last couple of week, increasing with increased leg swelling. The patient upon arrival to the hospital CT angio was done to rule out PE, which was negative. Upon arrival, creatinine 1.5. For that reason, we have been consulted. The pat ient apparently taking ibuprofen 1 tablet 800 mg every other day for the last 2 weeks. The patient d enied taking any other antibiotic. The patient had nocturia, on her medication by us, and apparently on irbesartan. Past Medical History: Includes, 1.Hyperlipidemia. 2.Hypertension. 3.Pulmonary hypertension. 4.Chronic kidney disease, baseline creatinine 1.5, GFR 32 back in March 2020. Medications: Home medication includes; 1.Sertraline. 2.Prednisone. 3.Magnesium. 4.Levothyroxine. 5.Irbesartan. 6.Zetia. 7.Doxycycline. 8.Atorvastatin. Current medications in the hospital include; 1.Lasix 20 every 8 hours. 2.Lovenox. 3.Metoprolol. 4.KCl. 5.Zofran. Social History: Lives with family. Denies smoking. Denies drinking. Denies drugs abuse. Allergies: SULFA. Past Surgical History: Includes toe surgery, knee surgery. Review of Systems: Head and Neck: No red eye. No ear pain. GI: No nausea, no vomiting. : No polyuria. No dysuria. Has nocturia. 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 Respiratory: Has shortness of breath. CARDIOVASCULAR: Has orthopnea. Endocrine: No polydipsia. Skin: No rash. Neuro: Has neck pain. Musculoskeletal: Low back pain. Physical Examination: Vital Signs: When I saw the patient, blood pressure 113/78, pulse of 88. Chest: Crackles on the base bilateral. Heart: S1, S2. Systolic murmur. Abdomen: Soft, nontender. Extremities: Trace edema. Neurologic: Alert and oriented x3. Nonfocal. Laboratory Data: WBC 6.2, H and H 11.6/34.9. Sodium 141, potassium 4.3, bicarb 24, BUN 26, creatini ne 1.6, calcium 9.5. Assessment And Plan: 1.Chronic kidney disease, stage 3B, secondary to hypertension, nephrosclerosis/cardiorenal with acut e kidney injury secondary to nonsteroidal use superimposed with contrast induced over volume. I agre e with the diuresis. Keep holding ARB for the time being and we will monitor the patient closely. I am going to go ahead and send for PTH, vitamin D, and ultrasound to evaluate the chronicity of the d isease and we will follow up. 2.Hypertension. With the presence of acute kidney injury exposure to contrast, hold the ARB. We wi ll continue diuresis. 3.Over volume. We will try to establish better volume control with the diuresis. 4.Nephrolithiasis, asymptomatic. We will follow up renal ultrasound. Thank you, LIUDMILA Torrez, for allowing us to participate in the care of your patient. Time spent 65 minutes. JENNIFER Voice ID: [id number] Report ID: [id number]
[2020-06-03] MEDS: METOPROLOL TAR 25 MG TAB PO SCH (21:57)
[2020-06-04] MEDS: FUROSEMIDE 20 MG/ 2ML VIAL IV SCH ×3 (00:12→16:14)
--- NOTE | 2020-06-04 02:37 | CON ---
Date of Consultation: 06/03/[address] Reynaga on 06/03/2020. I saw the patient on 06/03/2020. Reason For Consultation: Congestive heart failure. History Of Present Illness: Ms. Figueroa is a 69-year-old woman with history of depression, anxiety, g astroesophageal reflux disease, hypertension, dyslipidemia, hypothyroidism, and hypomagnesemia, who c diandra in with shortness of breath, dizziness, fatigue, and nausea and was found to have mild congestive heart failure by chest x-ray and CT angiogram. She has some renal insufficiency with a creatinine o f 1.62. D-dimer was 931. BNP was 653. Magnesium was 1.5. She denied palpitations or syncope. Den ied fever or chills or nausea or vomiting or diaphoresis. She denied any chest pain. Past Medical History: As stated above. Allergies: SULFA. Review of Systems: Negative. Social History: Negative. Family History: Noncontributory. Medications: At home include Lipitor, magnesium, Zetia, Deltasone, Avapro, Synthroid, and Zoloft. Physical Examination: General: She was pleasant, feeling much better, diuresing. No acute distress. Vital Signs: Stable. Afebrile. Sinus rhythm. HEENT: Negative. Neck: Supple with no bruit. Chest: Reveals rales, both bases. Cardiac: Revealed a regular rhythm and rate with no murmurs, gallops, or rubs. Abdomen: Benign. Extremities: Revealed 1+ edema. Skin: Dry and intact. Neurological: She was nonfocal. Pulses were present distally bilaterally. Diagnostic Data: Stated earlier. Impression And Plan: 1.Acute congestive heart failure, most likely diastolic. Echocardiogram is pending. 2.Hypomagnesemia, needs to be supplemented. 3.Renal insufficiency, stage 3. We need to follow that. 4.Elevated D-dimer and BNP secondary to congestive heart failure. 5.Hypertension, well controlled. 6.Dyslipidemia. 7.Hypothyroidism. 8.Anxiety and depression. 9.Gastroesophageal reflux disease. Ms. Figueroa is on appropriate therapy. She is on CARLITO inhibitors. She is on Lipitor. She is now on L asix and metoprolol and I think we need to continue all that regimen. I will see what her echocardio gram shows. She should go home on a beta-marnie and Lasix in addition to her medication. She needs to have frequent blood work to check on her creatinine. I will make arrangements for her to see me in the office. I think she does need an outpatient workup including a Lexiscan in the near future. I will make arrangements for that as an outpatient. Meanwhile, while she is in the hospital, I will continue to follow her. TARIQ/MANGO Voice ID: [id number] Report ID: [id number]
[2020-06-04 04:38] LABS: Absolute Lymphocytes (CBC) 1.6 K/uL (0.7-4.9); Basophils % 0.4 % (0-1.3); Hematocrit 34.8 % (36.0-45.0); Lymphocytes % 28.5 % (15.3-44.8); MPV 8.1 fL (7.6-11.3); RBC Red Blood Cell Count 4.23 M/uL (3.86-4.86)
[2020-06-04 05:03] LABS: Albumin 3.9 g/dL (3.4-5.0); Bilirubin Total 0.5 mg/dL (0.2-1.0); Phosphorus 3.7 mg/dL (2.5-4.9); Potassium 4.9 mmol/L (3.5-5.1); Protein, Total 7.8 g/dL (6.4-8.2); Thyroid Stimulating Hormone 0.918 uIU/mL (0.360-3.740)
[2020-06-04] MEDS: METOPROLOL TAR 25 MG TAB PO SCH ×2 (08:32→20:03)
[2020-06-04] MEDS: POTASSIUM 25 MEQ EFFERV TAB PO SCH (08:32)
[2020-06-04] MEDS: ACETAMINOPHEN 500 MG TAB PO PRN ×2 (08:40→16:19)
[2020-06-04] MEDS ORDERED: ENOXAPARIN 40 MG/0.4 ML SQ SCH (09:00)
--- NOTE | 2020-06-04 10:10 | PN ---
Date of Progress Note: 06/04/2020 Subjective: Ms. Figueroa was seen on 06/03/2020 for acute congestive heart failure, most likely diasto lic. Echocardiogram is still pending. She also has renal insufficiency. Her last creatinine was 1. 79, has been followed. This is up from yesterday. She had low magnesium that has been supplemented. Elevated D-dimer secondary to congestive heart failure. She also has a history of congestive heart failure and dyslipidemia, both of those are well controlled. Objective: Vital Signs: Today, her blood pressure is 140/71. Her O2 saturation on room air is 95%. Medications: Her present regimen includes Lasix, metoprolol, Lovenox. Assessment And Plan: Again, we will see what the echo shows before making decision on other therapy. She may be a poor candidate for CARLITO inhibitors because of her creatinine. She does have an elevate d PTH that needs to be addressed. We will continue to follow her. TARIQ/MANGO Voice ID: [id number] Report ID: [id number]
--- NOTE | 2020-06-04 10:10 | P.HP ---
Certification for Inpatient Patient admitted to: Inpatient With expected LOS: >2 Midnights Patient will require the following post-hospital care: None Practitioner: I am a practitioner with admitting privileges, knowledge of patient current condition, hospital course, and medical plan of care. Services: Services provided to patient in accordance with Admission requirements found in Title 42 Section 412.3 of the Code of Federal Regulations Patient History Date of Service: 06/03/20 Reason for admission: Acute CHF exacerbation; acute renal insufficiency History of Present Illness: Patient is a 69-year-old female came to the hospital with difficulty breathing. Patient blood pressure was poorly controlled and she was having some chest discomfort. She has been feeling weak over the last few days. She had orthopnea and PND. She got short of breath just from walking a few feet. She came into the ER for further evaluation. In the ER she was also found have worsening renal insufficiency. She will be admitted to the hospital for further evaluation. Allergies Sulfa (Sulfonamide Antibiotics) [Sulfa(Sulfonamide Antibiotics)] Allergy (Mild, Verified 04/10/17 00:43) Hives/Rash Home Medications: Atorvastatin Calcium [Lipitor] 80 mg PO BEDTIME 06/03/20 Ezetimibe [Zetia] 10 mg PO BEDTIME 06/03/20 Gabapentin 1 cap PO BID 06/03/20 Ibuprofen 800 mg PO BID 06/03/20 Irbesartan 150 mg PO DAILY 06/03/20 LORazepam [Lorazepam] 1.5 tab PO DAILY PRN 06/03/20 Levothyroxine [Synthroid] 125 mcg PO [id number] 06/03/20 Sertraline [Zoloft] 100 mg PO BID 06/03/20 - Past Medical/Surgical History Has patient received pneumonia vaccine in the past: No Diabetic: No -: HTN -: Hypothyroidism -: Nephrolithiasis -: Sciatic nerve -: Heart murmur -: High Cholesterol -: Anxiety -: Depression -: Gout -: Herniated disc -: 3 buldging disc -: Toe surgery -: Partial hysterectomy -: Breast reduction -: Left knee scope - Family History Sister Medical History: Diabetes Father Medical History: Cancer Mother Medical History: Heart disease Brother Medical History: Hypertension - Social History Smoking Status: Never smoker Alcohol use: No CD- Drugs: No Caffeine use: Yes Place of Residence: Home Review of Systems 10-point ROS is otherwise unremarkable Physical Examination - Vital Signs Temperature: 97.5 F Blood Pressure: 140/71 Pulse: 67 Respirations: 16 Pulse Ox (%): 98 - Physical Exam General: Alert, In no apparent distress, Oriented x3 HEENT: Atraumatic, PERRLA, Mucous membr. moist/pink, EOMI, Sclerae nonicteric Neck: Supple, 2+ carotid pulse no bruit, JVD distended Respiratory: Crackles/rales, Expiratory wheezes Cardiovascular: Regular rate/rhythm, Normal S1 S2, Systolic murmur Gastrointestinal: Normal bowel sounds, Soft and benign, Non-distended, No tenderness Musculoskeletal: No clubbing, No tenderness, Swelling Integumentary: No rashes Neurological: Normal gait, Normal speech, Normal strength at 5/5 x4 extr, Normal tone, Sensation intact, Cranial nerves 3-12 intact, Normal affect Lymphatics: No axilla or inguinal lymphadenopathy Assessment & Plan - Problems (Diagnosis) (1) Acute diastolic CHF (congestive heart failure), NYHA class 2 Current Visit: Yes Status: Acute (2) Acute kidney injury Current Visit: Yes Status: Acute (3) Dyspnea Onset Date: 04/18/16 Current Visit: No Status: Acute (4) HTN (hypertension) Onset Date: 06/18/18 Current Visit: No Status: Acute Qualifiers: - Plan 1. Echocardiogram 2. Cardiology and Renal consultation 3. We will start patient on a Beta marnie 4. Renal ultrasound 5. Aggressive diuresis 6. Strict I's and O's 7. Repeat CXR 8. Daily weights 9. Education regarding diet and treatment of congestive heart failure Discharge Plan: Home Plan to discharge in: Greater than 2 days - Advance Directives Does patient have a Living Will: No Does patient have a Durable POA for Healthcare: No - Code Status/Comfort Care Code Status Assessed: Yes Code Status: Full Code Critical Care: No Time Spent Managing PTS Care (In Minutes): 40
--- NOTE | 2020-06-04 13:26 | ECHO ---
HEIGHT: 5 ft 1 in WEIGHT: 189 lb 1.6 oz DATE OF STUDY: 06/04/[address]: Yash Reynaga MD 2-DIMENSIONAL: YES M.MODE: YES DOPPLER: YES COLOR FLOW: YES TDS: NO PORTABLE: NO DEFINITY: NO BUBBLE STUDY: NO DIAGNOSIS: CONGESTIVE HEART FAILURE CARDIAC HISTORY: CATHERIZATION: YES SURGERY: NO PROSTHETIC VALVE: NO PACEMAKER: NO MEASUREMENTS (cm) DIASTOLIC (NORMALS) SYSTOLIC (NORMALS) IVSd 1.0 (0.6-1.2) LA Diam 2.7 (1.9-4.0) LVEF 68% LVIDd 4.0 (3.5-5.7) LVIDs 2.5 (2.0-3.5) %FS 38% LVPWd 1.1 (0.6-1.2) Ao Diam 2.5 (2.0-3.7) 2 DIMENSIONAL ASSESSMENT: RIGHT ATRIUM: NORMAL LEFT ATRIUM: NORMAL RIGHT VENTRICLE: NORMAL LEFT VENTRICLE: NORMAL TRICUSPID VALVE: MITRAL VALVE: NORMAL PULMONIC VALVE: NORMAL AORTIC VALVE: MILD CALCIFICATION PERICARDIAL EFFUSION: NONE AORTIC ROOT: NORMAL LEFT VENTRICULAR WALL MOTION: NORMAL DOPPLER/COLOR FLOW: NORMAL COMMENTS: NORMAL LEFT VENTRICULAR EJECTION FRACTION 55-60% WITH NORMAL WALL MOTION. MILD TRICUSPID REGURGITATION. AORTIC VALVE MILD CALCIFICATION WITH NO AORTIC STENOSIS. GRADE I DIASTOLIC DYSFUNCTION. TECHNOLOGIST: Moshe SALAS
[2020-06-04] MEDS ORDERED: CALCITROL 0.25 MCG CAP PO SCH (14:00)
[2020-06-04] MEDS ORDERED: LORAZEPAM PO PRN (15:26)
[2020-06-04] MEDS ORDERED: LORAZEPAM 1 MG TABLET PO PRN (15:52)
--- NOTE | 2020-06-04 17:26 | PN ---
Date of Progress Note: 06/04/2020 Subjective: The patient is doing better. No shortness of breath. Patient had CT angio yesterday fo r ruling out PE. Patient was started on diuresis. Physical Examination: Vital Signs: Blood pressure 140/71, pulse of 67, afebrile, on room air of 98%. Chest: Clear to auscultation. Heart: S1, S2 regular. Abdomen: Soft, nontender. Extremities: Trace edema. Neurologic: Alert, no focality. Laboratory Data: WBC 5.6, H and H 11.7/34.8. Sodium 140, potassium 4.9, bicarb 27, BUN 32, creatini ne 1.7, GFR of 28, calcium of 10, phosphorus 3.7. BNP 500, PTH 561. PC ratio 0.1. Current Medications: Include: 1.Lovenox. 2.Metoprolol. 3.Lasix 20 t.i.d. 4.Zofran. 5.KCl. Assessment And Plan: 1.Chronic kidney disease, normal size kidney, proteinuric, nephrotic 06/17. Again looked to me normal volume. I am going to change the Lasix to oral 40 mg daily and we will monitor another 24 hour to e valuate if there is any contrast and use acute kidney injury. 2.Hypertension, controlled, optimal, continue current medication. 3.Hypercalcemia, marginal in the presence of secondary hyperparathyroidism. I am going to go ahead and start the patient on calcitriol and we will follow up the patient. 4.Questionable of renal mass, possible fatty lobulation. We will follow up ultrasound in 3-6 months as outpatient. 5.Coronary artery disease by Cardiology. ALEXIS/MANGO Voice ID: [id number] Report ID: [id number]
[2020-06-04] MEDS: SERTRALINE HCL 100 MG TAB PO SCH (20:03)
[2020-06-04] MEDS: GABAPENTIN 300 MG CAP PO SCH (20:03)
[2020-06-04] MEDS: ATORVASTATIN 80 MG TAB PO SCH (20:03)
[2020-06-04] MEDS ORDERED: GABAPENTIN PO SCH (21:00)
[2020-06-05] MEDS: FUROSEMIDE 20 MG/ 2ML VIAL IV SCH ×2 (00:10→08:56)
[2020-06-05] MEDS: LEVOTHYROXINE SOD 0.125 MG TAB PO SCH (05:25)
[2020-06-05 06:23] LABS: Albumin 3.5 g/dL (3.4-5.0); Phosphorus 3.1 mg/dL (2.5-4.9); Potassium 4.4 mmol/L (3.5-5.1)
[2020-06-05] MEDS: METOPROLOL TAR 25 MG TAB PO SCH ×2 (08:54→21:25)
[2020-06-05] MEDS: GABAPENTIN 300 MG CAP PO SCH ×2 (08:55→21:26)
[2020-06-05] MEDS: SERTRALINE HCL 100 MG TAB PO SCH ×2 (08:55→21:26)
[2020-06-05] MEDS: ENOXAPARIN 30 MG/0.3 ML SQ SCH (08:56)
[2020-06-05] MEDS: POTASSIUM 25 MEQ EFFERV TAB PO SCH (08:56)
[2020-06-05] MEDS ORDERED: IRBESARTAN 150 MG TAB PO SCH (09:00)
[2020-06-05] MEDS ORDERED: FUROSEMIDE 40 MG TABLET PO SCH (09:00)
--- NOTE | 2020-06-05 11:23 | P.PN ---
Subjective Date of Service: 06/05/20 Chief Complaint: Acute CHF exacerbation; acute renal insufficiency Pt with CKD Cr ~1.5, admitted ith SOB , was taking NSAID, recived IV contrast , pt also is on Irbesartan today Cr trending up , will change lasix to PO and dc Irbesartan still have SOB will rrpt CXR today Physical exam general: AAOX3, mild disress obese Neck; Supple, No elevated JVD hear: RRR, normal S1,2 no murmur or rub Chest: CTAB, no rlaes or wheezes Abdomen: Soft , Nt Extremities No edema or ulcer Assessment And Plan: AJ on CKD III baseline Cr ~1.5 possibly due to CONTRAST +/- overduresis and ARB will will change lasix to PO and dc Irbesartan renal dose meds HTN BP cpntrolled fluid overload now euvolemic will reduce lasix Questionable of renal mass, possible fatty lobulation. We will follow up ultrasound in 3-6 months as outpatient. Coronary artery disease by Cardiology. Physical Examination - Vital Signs Temperature: 98.5 F Blood Pressure: 117/58 Pulse: 66 Respirations: 15 Pulse Ox (%): 92
--- NOTE | 2020-06-05 12:18 | RAD REPORT ---
EXAM DESCRIPTION: RAD - Chest Pa And Lat (2 Views) - 06/05/2020 11:31 am CLINICAL HISTORY: SOB COMPARISON: Portable June 03, CT chest June 03 TECHNIQUE: Frontal and lateral views of the chest were obtained. FINDINGS: The lungs are underinflated. No significant failure or volume overload. Very minimal failu re or volume overload would still be possible. No evidence for progression of an abnormality since . No focal mass or consolidation. Heart size is normal and central vasculature is within nor mal limits. No pleural effusion or pneumothorax seen. No acute bony finding noted. No aortic abnor mality. IMPRESSION: No new or progressive lung parenchymal process identifiable. Overall vasculature and lung markings are improved. A minimal amount of residual failure or volume ov erload could be present.
[2020-06-05] MEDS ORDERED: LEVALBUTEROL 1.25 MG/3 ML NEB NEB ONE (16:00)
[2020-06-05] MEDS ORDERED: METHYLPREDNISOLONE 125 MG INJ IV ONE (16:00)
[2020-06-05 18:11] LABS: Potassium 4.8 mmol/L (3.5-5.1)
[2020-06-05] MEDS: ATORVASTATIN 80 MG TAB PO SCH (21:25)
--- NOTE | 2020-06-05 23:23 | PN ---
Date of Progress Note: 06/05/2020 Ms. Figueroa came in with acute congestive heart failure. Echocardiogram, which was done yesterday ning wed an ejection fraction of 68% with normal wall motion. Aortic sclerosis without any stenosis and g rade 1 diastolic dysfunction. She is on beta-marnie. She is on Lasix. She is on Lovenox. She is on Lipitor, Synthroid. She is getting potassium. Not really a candidate for CARLITO inhibitors or ARBs. I think she would do well with beta blockade, Lasix, fluid restriction, and salt restrictions. Her last vital signs were stable and normal. Her last O2 saturation is 96% on room air. Her last creat inine unfortunately is elevated at 2.37. Nephrology continues to follow. It may be reasonable once her creatinine improves and when she goes home for her to have another stress test as an outpatient. TARIQ/MANGO Voice ID: [id number] Report ID: [id number]
--- NOTE | 2020-06-06 00:12 | P.PN ---
Subjective Date of Service: 06/04/20 CONTINUE TO DIURESE PATIENT. CONTINUE WITH IV LASIX. PATIENT DOES TELL ME THAT SHE HAD A HISTORY OF ASTHMA. WILL GO AHEAD AND GIVE HER NEBS AND STEROIDS AND SEE IF THAT HELPS HER. SHE HAS BEEN DIURESING QUITE EFFECTIVELY BUT SHE STATES HER RESPIRATORY STATUS IS NOT THAT MUCH BETTER. IS THIS MAY BE MORE RELATED TO REACTIVE AIRWAY. WILL MONITOR HER CLOSELY AND SHE WILL PROBABLY NEED OUTPATIENT PULMONARY FOLLOW UP FOR PULMONARY FUNCTION TESTING. Review of Systems 10-point ROS is otherwise unremarkable Physical Examination - Vital Signs Temperature: 97.6 F Blood Pressure: 126/57 Pulse: 62 Respirations: 16 Pulse Ox (%): 97 - Physical Exam General: Alert, In no apparent distress, Oriented x3 Respiratory: Diminished, Crackles/rales, Expiratory wheezes Cardiovascular: Regular rate/rhythm, Normal S1 S2, No murmurs Gastrointestinal: Normal bowel sounds, Soft and benign, Non-distended, No tenderness Musculoskeletal: No clubbing, No swelling, No tenderness Neurological: Normal speech, Normal strength at 5/5 x4 extr, Sensation intact, Cranial nerves 3-12 intact Lymphatics: No axilla or inguinal lymphadenopathy - Studies Medications List Reviewed: Yes Assessment & Plan - Problems (Diagnosis) (1) Acute diastolic CHF (congestive heart failure), NYHA class 2 Current Visit: Yes Status: Acute (2) Acute kidney injury Current Visit: Yes Status: Acute (3) Dyspnea Onset Date: 04/18/16 Current Visit: No Status: Acute (4) HTN (hypertension) Onset Date: 06/18/18 Current Visit: No Status: Acute Qualifiers: - Plan 1. Echocardiogram is pending at this time 2. Cardiology and Renal consultation is appreciated 3. continue low-dose beta-marnie 4. Renal ultrasound pending 5. Aggressive diuresis 6. Strict I's and O's 7. Repeat CXR 8. Daily weights 9. may need to try an albuterol inhaler or nebulizer treatment along with steroids to see if this would benefit patient 10. Education regarding diet and treatment of congestive heart failure Discharge Plan: Home Plan to discharge in: Greater than 2 days - Advance Directives Does patient have a Living Will: No Does patient have a Durable POA for Healthcare: No - Code Status/Comfort Care Code Status: Full Code Critical Care: No Time Spent Managing PTS Care (In Minutes): 30
--- NOTE | 2020-06-06 00:17 | P.PN ---
Subjective Date of Service: 06/05/20 we were contemplating discharging patient home. However, renal function continues to worsen. Concern for contrast induced nephropathy. Will monitor renal function in the morning as well. Also start albuterol nebs and IV steroids to see if he will benefit patient's pulmonary status. She says she has had a questionable history of asthma or reactive airway disease and she has used inhalers in the past and that helped. Review of Systems 10-point ROS is otherwise unremarkable Physical Examination - Vital Signs Temperature: 97.6 F Blood Pressure: 126/57 Pulse: 62 Respirations: 16 Pulse Ox (%): 97 - Physical Exam General: Alert, In no apparent distress, Oriented x3 Respiratory: Diminished, Expiratory wheezes Cardiovascular: Regular rate/rhythm, Normal S1 S2, No murmurs Gastrointestinal: Normal bowel sounds, Soft and benign, Non-distended, No tenderness Musculoskeletal: No clubbing, No swelling, No tenderness Neurological: Normal speech, Normal tone - Studies Medications List Reviewed: Yes Assessment & Plan - Problems (Diagnosis) (1) Acute diastolic CHF (congestive heart failure), NYHA class 2 Current Visit: Yes Status: Acute (2) Acute kidney injury Current Visit: Yes Status: Acute (3) Dyspnea Onset Date: 04/18/16 Current Visit: No Status: Acute (4) HTN (hypertension) Onset Date: 06/18/18 Current Visit: No Status: Acute Qualifiers: (5) Asthma Current Visit: Yes Status: Acute - Plan 1. Echocardiogram revealed diastolic dysfunction. Continue with gentle diuresing but at this time will hold because I think patient was over diuresed. Also monitor renal function for contrast induced nephropathy. 2. Cardiology and Renal consultation is appreciated 3. continue low-dose beta-marnie 4. Renal ultrasound revealed 3.2 centimeter isoechoic structure mid pole left kidney probably a lobulation; continue with outpatient follow-up 5. hold diuretics 6. monitor I's and O's 7. Repeat CXR 8. Daily weights 9. Started albuterol inhaler/nebulizer treatment along with steroids to see if this would benefit patient; patient states she felt much better after this. Discharge her home with nebulizers and steroids at discharge. 10. Education regarding diet and treatment of congestive heart failure Discharge Plan: Home Plan to discharge in: Greater than 2 days - Advance Directives Does patient have a Living Will: No Does patient have a Durable POA for Healthcare: No - Code Status/Comfort Care Code Status: Full Code Critical Care: No Time Spent Managing PTS Care (In Minutes): 30
[2020-06-06] MEDS: LEVOTHYROXINE SOD 0.125 MG TAB PO SCH (05:14)
[2020-06-06 06:13] LABS: Absolute Lymphocytes (CBC) 0.9 K/uL (0.7-4.9); Basophils % 0.2 % (0-1.3); Hematocrit 33.2 % (36.0-45.0); Lymphocytes % 12.2 % (15.3-44.8); MPV 8.2 fL (7.6-11.3); RBC Red Blood Cell Count 4.01 M/uL (3.86-4.86)
[2020-06-06 07:24] LABS: Albumin 3.7 g/dL (3.4-5.0); Phosphorus 1.8 mg/dL (2.5-4.9)
[2020-06-06 07:26] LABS: Potassium 6.1 mmol/L (3.5-5.1)
[2020-06-06] MEDS ORDERED: FUROSEMIDE 40 MG TABLET PO SCH ×2 (09:00)
[2020-06-06] MEDS: ENOXAPARIN 30 MG/0.3 ML SQ SCH (09:00)
[2020-06-06] MEDS: GABAPENTIN 300 MG CAP PO SCH (09:43)
[2020-06-06] MEDS: SERTRALINE HCL 100 MG TAB PO SCH (09:43)
[2020-06-06] MEDS: METOPROLOL TAR 25 MG TAB PO SCH (09:43)
[2020-06-06 10:18] LABS: Blood Morphology Comment NOT SEEN (NOT SEEN); Platelet Estimate ADEQ; Urine White Blood Cell Casts OK
--- NOTE | 2020-06-06 10:40 | P.DS ---
Admission Date: 06/03/20 Discharge Date: 06/06/20 Primary Care Provider: Dr. Solano; Nephrology-Dr. Arias Disposition: ROUTINE DISCHARGE Discharge Condition: GOOD Reason for Admission: Acute CHF exacerbation; acute renal insufficiency Consultations: Nephrology-Dr. Arias Procedures: ECHO: EF 68% LEFT VENTRICULAR WALL MOTION: NORMAL DOPPLER/COLOR FLOW: NORMAL COMMENTS: NORMAL LEFT VENTRICULAR EJECTION FRACTION 55-60% WITH NORMAL WALL MOTION. MILD TRICUSPID REGURGITATION. AORTIC VALVE MILD CALCIFICATION WITH NO AORTIC STENOSIS. GRADE I DIASTOLIC DYSFUNCTION. CT scan: FINDINGS: No pulmonary emboli are identified. The aorta as imaged shows no acute or suspicious finding. No pericardial t hickening or effusion. No focal infiltrate or suspicious mass lesion. A left lower lobe 6 mm nodule has not changed since 2016. Motion degradation in the lower lung sanchez limits the examination. A mild interstitial edema or infiltrate is certainly possible. No endobronchial lesion. No pleural effusion or pleural thickening. No mediastinal or hilar suspicious masses. No chest wall masses or abnormal axillary lymphadenopathy. IMPRESSION: No pulmonary emboli identified. No focal mass or consolidation. Interstitial pattern is prominent - suspicious for a mild edema or interstitial infiltrate. Medical problem list: Dyspnea secondary to acute on chronic diastolic CHF Acute on chronic renal failure stage 2 likely related to medication-Arb and/or IV contrast exposure Hypertension Hyperlipidemia Hypothyroidism Brief History of Present Illness: 69-year-old female with history of hypertension, hyperlipidemia, chronic renal disease. Patient presented with shortness of breath. Patient found to have acute on chronic renal failure stage 2. Patient admitted for further evaluation and treatment. Arb inhibitor was held. Hospital Course: Patient presented with shortness of breath. This was related to acute on chronic diastolic CHF. Patient was admitted for further evaluation and treatment. Patient had CT scan to rule out pulmonary embolism. Cardiology was consulted. Patient received diuresis. Ejection fraction 68% noted. Shortness of breath resolved. Patient also found to have acute on chronic renal failure stage 2. This was likely related to medication-Arb inhibitor and/or IV contrast exposure peer nephrology was consulted to address this. At discharge, CHF now stable. At discharge she will continue with a 1500 cc per day fluid restriction and low-salt diet. Recommend to monitor her weight daily. If her weight increases by more than 5 lb she is to contact her PCP for further recommendation and possible adjustment in medication. At discharge patient will continue with Lasix 40 mg daily. Medication can be further adjusted by cardiology or nephrology. Recommend recheck lab-BMP in 1 week to monitor progress. Recommend follow up with cardiology in 1 week to monitor her progress. Patient would benefit with outpatient cardiac evaluation once her renal function improves. As mentioned above patient presented with acute on chronic renal failure stage 2. This is likely related to medication-Arb inhibitor and/or IV contrast exposure. Patient was monitored closely. Renal function now stable. Potassium slightly elevated at discharge. At discharge patient will continue with Lasix 40 mg daily. Recommend to hold potassium supplementation and Arb inhibitor. Recommend no future nonsteroidal anti-inflammatories. Future medications may need to be renally dosed and monitored.. Recommend to recheck lab-BMP in 1 week to monitor her progress. Recommend follow up with nephrology in 1 week to further address. Patient with hypertension. As stated above medications have been adjusted and change. Patient will no longer take Arb inhibitor-irbesartan. This has been changed to metoprolol 25 mg 1 pill twice daily. Recommend to monitor blood pressure daily. Recommend blood pressure less 150/80. Further adjustment can be done by her PCP. Patient with hyperlipidemia. At discharge patient will continue with Zetia 10 mg daily and Lipitor 80 mg daily. Patient with hypothyroidism. At discharge patient will continue with levothyroxine 125 mcg daily. Patient with depression with anxiety. At discharge she will continue with Zoloft 1 mg 1 pill twice daily. Patient with chronic pain. At discharge she may continue with gabapentin as directed. Patient may have underlying COPD. Recommend follow up with pulmonology as an outpatient to further address. Patient may benefit with outpatient pulmonary function test to further evaluate. Vital Signs/Physical Exam: Temp Pulse Resp BP Pulse Ox 97.8 F 66 15 142/67 H 93 06/06/20 08:00 06/06/20 09:43 06/06/20 08:00 06/06/20 09:43 06/06/20 08:00 General: Alert, In no apparent distress, Oriented x3, Cooperative HEENT: Atraumatic Neck: Supple Respiratory: Clear to auscultation bilaterally, Normal air movement Cardiovascular: Normal pulses, Regular rate/rhythm Gastrointestinal: Normal bowel sounds, Soft and benign, Non-distended Neurological: Normal speech, Normal strength at 5/5 x4 extr, Normal tone, Normal affect Laboratory Data at Discharge: WBC 7.5 K/uL (4.3-10.9) D 06/06/20 05:45 Hgb 11.2 g/dL (12.0-15.0) L 06/06/20 05:45 Hct 33.2 % (36.0-45.0) L 06/06/20 05:45 Plt Count 179 K/uL (152-406) 06/06/20 05:45 PT 10.7 SECONDS (9.5-12.5) 06/03/20 07:15 INR 0.91 06/03/20 07:15 Sodium 136 mmol/L (136-145) 06/06/20 05:45 Sodium Cancelled 06/06/20 05:45 Potassium 5.5 mmol/L (3.5-5.1) H 06/06/20 08:04 BUN 60 mg/dL (7-18) H 06/06/20 05:45 BUN Cancelled 06/06/20 05:45 Creatinine 2.10 mg/dL (0.55-1.3) H 06/06/20 05:45 Creatinine Cancelled 06/06/20 05:45 Glucose 127 mg/dL (74-106) H 06/06/20 05:45 Glucose Cancelled 06/06/20 05:45 Phosphorus 1.8 mg/dL (2.5-4.9) L 06/06/20 05:45 Magnesium 2.0 mg/dL (1.8-2.4) 06/04/20 03:45 Total Bilirubin 0.5 mg/dL (0.2-1.0) 06/04/20 03:45 AST 16 U/L (15-37) 06/04/20 03:45 ALT 26 U/L (12-78) 06/04/20 03:45 Alkaline Phosphatase 140 U/L (45-117) H 06/04/20 03:45 Troponin I < 0.02 ng/mL (0.0-0.045) 06/04/20 00:15 Home Medications: Atorvastatin Calcium [Lipitor] 80 mg PO BEDTIME 06/03/20 Ezetimibe [Zetia*] 10 mg PO BEDTIME 06/03/20 Gabapentin 1 cap PO BID 06/03/20 LORazepam [Lorazepam] 1.5 tab PO DAILY PRN 06/03/20 Levothyroxine [Synthroid*] 125 mcg PO [id number] 06/03/20 Sertraline [Zoloft*] 100 mg PO BID 06/03/20 Albuterol Inhaler [Ventolin Inhaler*] 2 puff IH Q6H PRN #1 hfa.aer.ad 06/05/20 Calcitrol [Rocaltrol*] 0.5 mcg PO Q48H #30 cap 06/05/20 Furosemide [Lasix*] 40 mg PO DAILY #30 tab 06/05/20 Levalbuterol HCl [Xopenex] 1.25 mg NEB Q6HP PRN #60 amp 06/05/20 Metoprolol Tartrate [Lopressor*] 25 mg PO BID #60 tab 06/05/20 Nebulizer [Aeroneb Go Nebulizer] 1 each MC Q6HP PRN #1 each 06/05/20 New Medications: Nebulizer [Aeroneb Go Nebulizer] 1 each MC Q6HP PRN #1 each PRN Reason: nebulizer Furosemide [Lasix*] 40 mg PO DAILY #30 tab Metoprolol Tartrate [Lopressor*] 25 mg PO BID #60 tab Calcitrol [Rocaltrol*] 0.5 mcg PO Q48H #30 cap Albuterol Inhaler [Ventolin Inhaler*] 2 puff IH Q6H PRN #1 hfa.aer.ad PRN Reason: Shortness Of Breath Levalbuterol HCl [Xopenex] 1.25 mg NEB Q6HP PRN #60 amp PRN Reason: dyspnea Patient Discharge Instructions: 1. Recommend follow up with PCP in 1 week to follow up this hospitalization. 2. Patient presented with shortness of breath. This was related to acute on chronic diastolic CHF. Patient was admitted for further evaluation and treatment. Patient had CT scan to rule out pulmonary embolism. Cardiology was consulted. Patient received diuresis. Ejection fraction 68% noted. Shortness of breath resolved. Patient also found to have acute on chronic renal failure stage 2. This was likely related to medication- Arb inhibitor and/or IV contrast exposure peer nephrology was consulted to address this. At discharge, CHF now stable. At discharge she will continue with a 1500 cc per day fluid restriction and low-salt diet. Recommend to monitor her weight daily. If her weight increases by more than 5 lb she is to contact her PCP for further recommendation and possible adjustment in medication. At discharge patient will continue with Lasix 40 mg daily. Medication can be further adjusted by cardiology or nephrology. Recommend recheck lab-BMP in 1 week to monitor progress. Recommend follow up with cardiology in 1 week to monitor her progress. Patient would benefit with outpatient cardiac evaluation once her renal function improves. 3. As men tioned above patient presented with acute on chronic renal failure stage 2. This is likely related to medication-Arb inhibitor and/or IV contrast exposure. Patient was monitored closely. Renal function now stable. Potassium slightly elevated at discharge. At discharge patient will continue with Lasix 40 mg daily. Recommend to hold potassium supplementation and Arb inhibitor. Recommend no future nonsteroidal anti-inflammatories. Future medications may need to be renally dosed and monitored.. Recommend to recheck lab-BMP in 1 week to monitor her progress. Recommend follow up with nephrology in 1 week to further address. 4. Patient with hypertension. As stated above medications have been adjusted and change. Patient will no longer take Arb inhibitor- irbesartan. This has been changed to metoprolol 25 mg 1 pill twice daily. Recommend to monitor blood pressure daily. Recommend blood pressure less 150/80. Further adjustment can be done by her PCP. 5. Patient with hyperlipidemia. At discharge patient will continue with Zetia 10 mg daily and Lipitor 80 mg daily. 6. Patient with hypothyroidism. At discharge patient will continue with levothyroxine 125 mcg daily. 7. Patient with depression with anxiety. At discharge she will continue with Zoloft 1 mg 1 pill twice daily. 8. Patient with chronic pain. At discharge she may continue with gabapentin as directed. 9. Patient may have underlying COPD. Recommend follow up with pulmonology for pulmonary function test to further evaluate. Diet: AHA Activity: Fall precautions Time spent managing pt's care (in minutes): 55
[2020-06-06 12:42] VITALS: O2SAT 93
[2020-06-06 14:48] VITALS: BP 139/64; TEMP 97.4
--- NOTE | 2020-06-06 23:39 | PN ---
Date of Progress Note: 06/06/2020 Chief Complaint: Acute kidney injury on chronic kidney disease. Creatinine level is improving. Subjective: The patient has history of chronic kidney disease stage 3. Baseline creatinine level 1. 5. The patient received IV contrast. Also, she was on angiotensin receptor marnie, which was taken off. Review of Systems: Denies PND or orthopnea. Physical Examination: Lungs: Diminished breath sounds at bases. Heart: S1, S2. Abdomen: Soft, benign. Extremities: No edema. Impression And Plan: 1.Acute kidney injury on chronic kidney disease stage 3, possible prerenal azotemia. Continue adequ ate hydration. Possibly due to contrast, the patient developed some renal instability with acute kid deborah injury. The patient was taking Lasix and was on angiotensin receptor marnie with likely cause o f prerenal azotemia. Monitor renal function. 2.Hypertension. Blood pressure controlled. Fluid overload resolved. Reduce Lasix. Adjust dose ac cordingly. EB/MODL Voice ID: [id number] Report ID: [id number]
[2020-06-09 16:08] LABS: Vitamin D 1,25-Dihydroxy Total 48 pg/mL (18-72); Vitamin D,1,25-OH2, D2 <8 pg/mL
[2020-06-10 00:11] LABS: Albumin, (SPE) 4.2 g/dL (3.8-4.8); Alpha-1-Globulins 0.3 g/dL (0.2-0.3); Alpha-2-Globulins 0.8 g/dL (0.5-0.9); INTERPRETATION REPORT
== END 2020-06-06 12:47 | disposition home or self-care (01) | DRG 291 ==
LOC: ER 06:36 → ERHOLD 09:45 → 2ND 14:00
PROVIDERS: ADMIT Hospitalist; ATTEND Family Medicine
DX: I13.0 Hypertensive heart and chronic kidney disease with heart failure and stage 1 through stage 4 chronic kidney disease, or unspecified chronic kidney disease (principal); I50.33 Acute on chronic diastolic (congestive) heart failure; N17.9 Acute kidney failure, unspecified; N18.3 Chronic kidney disease, stage 3 (moderate); E03.9 Hypothyroidism, unspecified; E78.00 Pure hypercholesterolemia, unspecified; K21.9 Gastro-esophageal reflux disease without esophagitis; F41.9 Anxiety disorder, unspecified; F32.9 Major depressive disorder, single episode, unspecified; E83.42 Hypomagnesemia; Z11.59 Encounter for screening for other viral diseases
CPT/HCPCS: 36415; 71045; 71046; 71275; 76770; 80048; 80053; 80069; 80076; 81003; 81015; 82570; 82652; 83735; 83880; 83970; 84132; 84156; 84165; 84443; 84484; 85025; 85379; 85610; 87086; 87088; 90471; 90670; 93005; 93306; 94640; 96374; 96375; 99285; J0360; J1650; J1940; J2930; J3475; Q9967; U0003

== ENCOUNTER 2020-07-24 12:20 | Day surgery (SDC) | payer OTHER, BC ==
--- OUTSIDE RECORDS SUMMARY | 2020-07-24 12:23 | XMS REPORT | Continuity of Care Document ---
:1950 Author Organization [facility] t Address [address] [place] [address] Care Team Providers Name Role Phone Srikanth WAGNER L Attending Clinician Problems This patient has no known problems. Allergies, Adverse Reactions, Alerts This patient has no known allergies or adverse reactions. Medications This patient has no known medications. Procedures This patient has no known procedures. Encounters Start End Encounter Admission Attending Care Care Encounter Source Date/Time Date/Time Type Type Clinicians Facility Department ID 2019-11-08 2020-03-23 Office YEIMI [facility] [id number] 10:19:22 13:04:36 Visit [facility] [id number] Surgical [id number] Specialti [id number] [address] [place] Results This patient has no known results.
[2020-07-24] MEDS ORDERED: Ringers Lactate 1,000 ML IV ONE (13:22)
[2020-07-24 13:53] VITALS: TEMP 97; O2SAT 99
[2020-07-24] MEDS ORDERED: propofoL 200 MG/20 ML VIAL IV ONE ×2 (15:56→17:04)
[2020-07-24] MEDS ORDERED: LIDOCAINE 1% MPF 5 ML VIAL ONE (15:56)
[2020-07-24] MEDS ORDERED: ROCURONIUM 50 MG/5 ML VIAL IV ONE (15:56)
[2020-07-24] MEDS ORDERED: FENTANYL CITR 100 MCG/2 ML ONE ×2 (15:56→17:02)
[2020-07-24] MEDS ORDERED: MIDAZOLAM HCL 2 MG/2 ML INJ ONE ×2 (15:56→17:02)
[2020-07-24] MEDS ORDERED: CEFAZOLIN/SWI 1gm 1 GM/10 ML SYR ONE (17:05)
--- NOTE | 2020-07-24 17:22 | P.BOP ---
Preoperative diagnosis: celulitis, abscess, necrotic wound 4x3cm left first toe, gout history Postoperative diagnosis: same Primary procedure: Excisional debridement necrotic wound left first toe with abcess drainage Estimated blood loss: <5cc Specimen: cult, tissue Findings: see dicta Anesthesia: MAC Complications: None Transferred to: Recovery Room Condition: Good
[2020-07-24] MEDS ORDERED: ONDANSETRON 4 MG/2 ML VIAL ONE (17:58)
[2020-07-24 18:49] VITALS: BP 144/71
--- NOTE | 2020-07-25 01:08 | OP ---
Date of Procedure: 07/24/2020 Surgeon: Alirio Mcguire MD Preoperative Diagnoses: Cellulitis, abscess, necrotic wound 4 x 3 cm left first toe and foot, and al so history of gout. Postoperative Diagnoses: Cellulitis, abscess, necrotic wound 4 x 3 cm left first toe and foot, and a lso history of gout. Procedure: Excisional debridement of necrotic wound left first toe/foot with abscess drainage. Anesthesia: MAC plus local. Indications: This is the case of a 70-year-old patient, who came to us with an infected foot ulcer w ith cellulitis extending into the distal foot area. The patient has history of gout, is trying to co ntrol that with her primary doctor. She has been on antibiotics for a week already, but is getting w orse, still purulent discharge. She was explained the need for surgical debridement of necrotic area with drainage of an abscess with benefits, alternatives, and risks including, but not limited to inf ection, bleeding, damage to adjacent structures, anesthesia complication, nonhealing wound, NH, and e molly . She also understands this may not relieve the symptoms. She might need more than one fe gical invention. She stated that this all began when she stepped on to a small metal object. She cl aimed that object was completely removed, not retained. It was just a clip on the carpet that is sti ll there. She understands the importance of not doing barefoot walking. She has history of gout. S he is following up with the primary doctor and they are trying to control that, since all those facto rs make this wound become necrotic and infected. She also has a history of renal insufficiency. She has been followed by a renal doctor before. We are still seeing that the creatinine elevated and al so potassium elevated, although it is chronic. I have still encouraged her to as soon as possible fo llow it up with her primary doctor and her renal doctor. She understands she will require wound care and she may need more than one surgical intervention. She understood and signed a consent. Procedure In Detail: The patient was brought to the operating room and placed in supine position. A nesthesia was done without complication. Left foot was prepped and draped in a sterile fashion. A t mariaa-out was called. We proceeded then to inject local anesthetic followed by sharp debridement of th e skin. Necrotic tissue was removed. Loculations were explored. They travel into the proximal toe area into the distal foot. Loculations were explored and opened. Irrigation was done. Cultures wer e done and then after that, the area was packed with wet-to-dry dressing. The patient tolerated the procedure well. The patient was sent to recovery in stable condition. Disposition: Home. Wet-to-dry dressing daily. Medications: Tylenol No. 3 q.4 hours p.r.n. pain, normal saline. She is already taking her antibiot ics. MINA/MANGO Voice ID: [id number] Report ID: [id number]
== END 2020-07-24 18:55 | disposition home or self-care (01) ==
LOC: OR 12:20
PROVIDERS: ATTEND Surgery
PROC: 0JBR0ZZ Excision of Left Foot Subcutaneous Tissue and Fascia, Open Approach (ICD-10-PCS; principal; 2020-07-24 13:45)
DX: L03.116 Cellulitis of left lower limb (principal); L02.612 Cutaneous abscess of left foot; M10.9 Gout, unspecified; Z20.828 Contact with and (suspected) exposure to other viral communicable diseases
CPT/HCPCS: 87070; 36415; 87205; 88312; 84132; 88304; 87075; 11042; U0002; J2704; J2250; J3010; J0690; J7120; J2405; 93005

== ENCOUNTER 2020-08-26 15:42 | Observation (INO) | payer BC, OTHER ==
--- OUTSIDE RECORDS SUMMARY | 2020-08-26 15:44 | XMS REPORT | Continuity of Care Document ---
:1950 Author Organization [facility] t Address [address] [place] [address] Care Team Providers Name Role Phone Srikanth [...] Department ID 2019-11-08 2020-03-23 Office YEIMI [facility] [id number] 10:19:22 13:04:36 Visit [facility] [id number] Surgical [id number] Specialti [id number] [address] [place] Results This patient has no known results.
--- NOTE | 2020-08-26 17:00 | RAD REPORT ---
EXAM DESCRIPTION: CT - Abdomen Pelvis Wo Contrast - 08/26/2020 4:30 pm CLINICAL HISTORY: Abdominal pain vomiting COMPARISON: March 2020 TECHNIQUE: Computed axial tomography of the abdomen and pelvis was obtained. IV and oral contrast we re not requested. All CT scans are performed using dose optimization technique as appropriate and may include automated exposure control or mA/KV adjustment according to patient size. FINDINGS: The evaluation of solid organs, vessels and bowel is limited secondary to the lack of con trast administration. Small bilateral renal calculi. No hydronephrosis. Cortical thinning likely secondary to prior inflamm ation. Hysterectomy. The liver, spleen, and adrenals appear grossly normal. Atrophic pancreas There is no evidence of diverticulitis. The appendix appears normal 27 millimeter complex cystic structure right ovary unchanged. 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 Follow-up ultrasound in 1 year shan mmended
[2020-08-26] MEDS ORDERED: NA CHLORIDE 0.9% 500 ML ONE (17:13)
--- NOTE | 2020-08-26 17:13 | RAD REPORT ---
EXAM DESCRIPTION: Charity Single View08/26/2020 4:41 pm CLINICAL HISTORY: Shortness breath COMPARISON: July 2020 FINDINGS: The lungs appear clear of acute infiltrate. The heart is borderline enlarged IMPRESSION: No acute abnormalities displayed
[2020-08-26 17:20] LABS: Basophils % 0.6 % (0-1.3); Hematocrit 31.3 % (36.0-45.0); Lymphocytes % 16.6 % (15.3-44.8); MPV 7.3 fL (7.6-11.3); RBC Red Blood Cell Count 3.88 M/uL (3.86-4.86)
[2020-08-26 17:37] LABS: BUN Blood Urea Nitrogen 27 mg/dL (7-18); Bicarbonate 27 mmol/L (21-32); Glucose Level 114 mg/dL (74-106); Potassium 4.1 mmol/L (3.5-5.1); Sodium Level 138 mmol/L (136-145); Troponin (Emerg Dept Use Only) < 0.02 ng/mL (0.0-0.045)
--- NOTE | 2020-08-26 18:31 | ER ---
Nurse's Notes [facility] Name: Catherine Figueroa Age: 70 yrs Sex: Female : 1950 Arrival Date: 08/26/2020 Time: 15:55 Bed 4 Private MD: Diagnosis: Dehydration;Urinary tract infection, site not specified;Hypercalcemia;Delirium due to known physiological condition Presentation: 08/26 15:57 Chief complaint: EMS states: N/V x 2 days. Coronavirus screen: Client denies travel out [facility] of the [place] in the last 14 days. nausea, vomiting. Client presents with at least one sign or symptom that may indicate coronavirus-19. Standard/surgical mask placed on the client. Provider contacted for isolation considerations. Ebola Screen: No symptoms or risks identified at this time. Initial Sepsis Screen: Does the patient meet any 2 criteria? No. Patient's initial sepsis screen is negative. Does the patient have a suspected source of infection? No. Patient's initial sepsis screen is negative. Risk Assessment: Do you want to hurt yourself or someone else? Patient reports no desire to harm self or others. Onset of symptoms was August 24, 2020. Care prior to arrival: None. Transition of care: patient was not received from another setting of care. 15:57 Method Of Arrival: EMS: [facility] 15:57 Acuity: MARCELLA 3 jl7 Triage Assessment: 15:55 General: Appears in no apparent distress. uncomfortable, Behavior is calm, cooperative, jl7 appropriate for age. Pain: Denies pain. Neuro: Level of Consciousness is awake, alert, obeys commands, Oriented to person, place, time, situation. Cardiovascular: Patient's skin is warm and dry. Respiratory: Airway is patent Respiratory effort is even, unlabored, Respiratory pattern is regular, symmetrical. Derm: Skin is pink, warm \T\ dry. Historical: - Allergies: 16:05 Sulfa (Sulfonamide Antibiotics); jl7 - Home Meds: 18:32 allopurinol 100 mg Oral tab 1 tab once daily [Active]; ezetimibe oral oral [Active]; jl7 sertraline 100 mg Oral tab 1 tab once daily [Active]; magnesium oxide 400 mg Oral cap twice a day [Active]; - PMHx: 16:05 Anxiety; Depression; GERD; High Cholesterol; Hypertension; hypomagnesium; jl7 Hypothyroidism; Kidney stones; - Immunization history:: Adult Immunizations up to date. - Social history:: Smoking status: Patient denies any tobacco usage or history of. - Family history:: not pertinent. - Hospitalizations: : No recent hospitalization is reported. Screenin:15 Abuse screen: Denies threats or abuse. Nutritional screening: No deficits noted. tw2 Tuberculosis screening: No symptoms or risk factors identified. Fall Risk Secondary diagnosis (15 points) impaired mobility. Assessment: 16:00 General: See triage assessment. jl7 17:10 Reassessment: COVID-19 swab sent to lab. 7 18:20 Reassessment: Dr. Godwin at bedside discussing results and POC. [facility] 18:41 Reassessment: Patient appears in no apparent distress at this time. No changes from [facility] previously documented assessment. Patient and/or family updated on plan of care and expected duration. Pain level reassessed. Patient is alert, oriented x 3, equal unlabored respirations, skin warm/dry/pink. 20:02 General: Appears in no apparent distress. Behavior is appropriate for age. Pain: Denies ea pain. Neuro: Level of Consciousness is awake, alert, obeys commands, Oriented to person, place, time, situation. Respiratory: Airway is patent Respiratory effort is even, unlabored, Respiratory pattern is regular, symmetrical. Derm: Skin is pink, warm \T\ dry. 21:00 Reassessment: Patient appears in no apparent distress at this time. Patient is alert, rr5 oriented x 3, equal unlabored respirations, skin warm/dry/pink. 22:00 Reassessment: Patient appears in no apparent distress at this time. resting eyes closed rr5 breathing spontaneously at room air. 23:24 Reassessment: Patient and/or family updated on plan of care and expected duration. Pain ea level reassessed. Patient is alert, oriented x 3, equal unlabored respirations, skin warm/dry/pink. Awaiting on room assignment. 23:55 Reassessment: Patient appears in no apparent distress at this time. Patient is alert, rr5 oriented x 3, equal unlabored respirations, skin warm/dry/pink. transfer to room 201, awake alert vital signs hemodynamically stable, no complaints made. Vital Signs: 15:57 BP 105 / 92; Pulse 79; Resp 15; Temp 98.5; Pulse Ox 100% ; Weight 86.18 kg; jl7 18:00 BP 161 / 70; Pulse 77; Resp 15; Pulse Ox 100% ; jl7 19:14 BP 148 / 65; Pulse 74; Resp 19; Pulse Ox 99% ; rr5 20:00 BP 159 / 71; Pulse 71; Resp 18; Pulse Ox 98% ; ea 20:00 BP 150 / 85; Pulse 72; Resp 19; Pulse Ox 99% ; ea ED Course: 15:55 Patient arrived in ED. jl7 15:55 Bed in low position. Call light in reach. Side rails up X2. quality assurance monitor body on. Pulse tw2 ox on. NIBP on. 16:00 Benji Godwin MD is Attending Physician. rn 16:04 Triage completed. jl7 16:05 Arm band placed on right wrist. jl7 16:11 Allyn Irving RN is Primary Nurse. tw2 16:31 CT Abd/Pelvis - Without Contrast In Process Unspecified. EDMS 16:41 XRAY Chest (1 view) In Process Unspecified. EDMS 16:57 Initial lab(s) drawn, by nd, sent to lab. EKG done, by ED staff, reviewed by Benji Godwin MD. Inserted saline lock: 20 gauge in right wrist, using aseptic technique. Blood collected. 16:58 Primary Nurse role handed off by Allyn Irving RN jl7 16:58 Aletha Cabrera RN is Primary Nurse. jl7 18:00 Straight cath inserted, using sterile technique, 16 Fr. Specimen obtained. Returned jl7 cloudy urine. Patient tolerated poorly. 18:29 Cayetano Velasco is Hospitalizing Provider. rn 20:02 No provider procedures requiring assistance completed. Patient admitted, IV remains in ea place. 22:18 Primary Nurse role handed off by Aletha Cabrera RN 23:37 Zeb Gavin RN is Primary Nurse. rr5 Administered Medications: 17:05 Drug: NS 0.9% 500 ml Route: IV; Rate: bolus; Site: right wrist; jl7 18:21 Follow up: Response: No adverse reaction; IV Status: Completed infusion; IV Intake: jl7 500ml 18:48 Drug: Rocephin 1 grams Route: IV; Rate: calculated rate; Site: right wrist; jl7 18:51 Follow up: Response: No adverse reaction; IV Status: Completed infusion jl7 Intake: 18:21 IV: 500ml; Total: 500ml. jl7 Outcome: 18:30 Decision to Hospitalize by Provider. rn 20:02 Instructed on the need for admit. solitario 23:40 Admitted to Med/surg accompanied by nurse, via stretcher, room 201, with chart, Report rr5 called to [facility] 23:40 Condition: stable 23:53 Patient left the ED. rr5 Signatures: Dispatcher [employer] EDMS Helena Gerardo, RN RN Benji Stokes MD MD rn Wise, Tara, RN RN tw2 Aletha Cabrera RN RN jl7 Carolina Limon RN Zeb Roblero ea RN RN rr5 Corrections: (The following items were deleted from the chart) 18:51 18:51 Rocephin 1 grams IV at calculated rate in right wrist jl7 jl7
--- NOTE | 2020-08-26 18:31 | EDPHYS ---
Physician Documentation [facility] Name: Catherine Figueroa Age: 70 yrs Sex: Female : 1950 Arrival Date: 08/26/2020 Time: 15:55 Bed 4 Private MD: ED Physician Benji Godwin HPI: 08/26 16:33 This 70 yrs old Female presents to ER via EMS with complaints of rn nausea/vomiting/diarrhea. 16:33 The patient presents to the emergency department with nausea, vomiting, diarrhea. rn Onset: The symptoms/episode began/occurred 2 day(s) ago. Possible causes: unknown. The symptoms are aggravated by nothing. The symptoms are alleviated by nothing. Associated signs and symptoms: Pertinent positives: diarrhea, nausea, vomiting, Pertinent negatives: fever, GI bleeding. Severity of symptoms: At their worst the symptoms were mild in the emergency department the symptoms are unchanged. The patient has not experienced similar symptoms in the past. The patient has been recently seen by a physician:. Reports 2 days of nausea/vomiting/diarrhea, generalized weakness. Reports recent surgery for gout left great toe, and given "medication for gout". Not sure if side effect of meds, but reports vomiting today. No headache. Reports had brief sob earlier, no chest pain. . Historical: - Allergies: 16:05 Sulfa (Sulfonamide Antibiotics); jl7 - Home Meds: 18:32 allopurinol 100 mg Oral tab 1 tab once daily [Active]; ezetimibe oral oral [Active]; jl7 sertraline 100 mg Oral tab 1 tab once daily [Active]; magnesium oxide 400 mg Oral cap twice a day [Active]; - PMHx: 16:05 Anxiety; Depression; GERD; High Cholesterol; Hypertension; hypomagnesium; jl7 Hypothyroidism; Kidney stones; - Immunization history:: Adult Immunizations up to date. - Social history:: Smoking status: Patient denies any tobacco usage or history of. - Family history:: not pertinent. - Hospitalizations: : No recent hospitalization is reported. ROS: 16:33 Constitutional: Negative for fever, chills, and weight loss, Eyes: Negative for injury, rn pain, redness, and discharge, Cardiovascular: Negative for chest pain, palpitations, and edema, Respiratory: Negative for shortness of breath, cough, wheezing, and pleuritic chest pain, Abdomen/GI: + nausea/vomiting/diarrhea Back: Negative for injury and pain, MS/Extremity: Negative for injury and deformity, Skin: Negative for injury, rash, and discoloration, Neuro: Negative for headache, numbness, tingling, and seizure. Exam: 16:33 Constitutional: This is a well developed, well nourished patient who is awake, alert, rn and in no acute distress, seems anxious Head/Face: Normocephalic, atraumatic. ENT: dry MM Neck: Trachea midline, no masses palpated, and no cervical lymphadenopathy. Supple, full range of motion without nuchal rigidity, or vertebral point tenderness. No Meningismus. Cardiovascular: Regular rate and rhythm. No pulse deficits. Respiratory: Speaking full sentences. No increased work of breathing, no retractions or nasal flaring. Abdomen/GI: soft, non-tender, non-distended Skin: Warm, dry MS/ Extremity: Pulses equal, no cyanosis. Left great toe with post operative changes and dressing. Right great toe with erythema and swelling, consistent with gout. Neuro: Awake and alert, GCS 15 Vital Signs: 15:57 BP 105 / 92; Pulse 79; Resp 15; Temp 98.5; Pulse Ox 100% ; Weight 86.18 kg; jl7 18:00 BP 161 / 70; Pulse 77; Resp 15; Pulse Ox 100% ; jl7 19:14 BP 148 / 65; Pulse 74; Resp 19; Pulse Ox 99% ; rr5 20:00 BP 159 / 71; Pulse 71; Resp 18; Pulse Ox 98% ; ea 20:00 BP 150 / 85; Pulse 72; Resp 19; Pulse Ox 99% ; ea MDM: 16:00 Patient medically screened. rn 18:27 Differential diagnosis: gastritis, cholecystitis, pancreatitis, appendicitis, rn diverticulitis, viral gastroenteritis, gastroenteritis, GOUT, acute renal failure, hypercalcemia, dehydration. Data reviewed: vital signs, nurses notes, lab test result(s), radiologic studies, CT scan, plain films, and as a result, I will admit patient. Counseling: I had a detailed discussion with the patient and/or guardian regarding: the historical points, exam findings, and any diagnostic results supporting the discharge/admit diagnosis, lab results, radiology results, the need for further work-up and treatment in the hospital. Response to treatment: the patient's symptoms have mildly improved after treatment, and as a result, I will admit patient. Admission orders: after a detailed discussion of the patient's condition and case, the admit orders are written by me. ED course: Pt's daughter arrived, reports hallucinating, confused, and not drinking. Admitted to hospitalist service for UTI, hypercalcemia, and worsening renal function. 08/26 16:10 Order name: CBC with Diff; Complete Time: 18:00 rn 08/26 16:10 Order name: Basic Metabolic Panel; Complete Time: 18:19 rn 08/26 16:11 Order name: Troponin (emerg Dept Use Only); Complete Time: 18:19 rn 08/26 16:11 Order name: Procalcitonin; Complete Time: 18:19 rn 08/26 16:11 Order name: Flu; Complete Time: 22:28 rn 08/26 16:11 Order name: COVID-19 rn 08/26 16:10 Order name: CT Abd/Pelvis - Without Contrast; Complete Time: 17:17 08/26 16:10 Order name: XRAY Chest (1 view); Complete Time: 17:17 08/26 18:14 Order name: Urine Microscopic Only; Complete Time: 22:28 iw 08/26 18:18 Order name: Urine Dipstick--Ancillary (enter results); Complete Time: 22:28 bd 08/26 18:27 Order name: Urine Culture 08/26 22:03 Order name: SARS-COV-2 RT PCR; Complete Time: 22:28 EDCA 08/26 16:10 Order name: IV Start; Complete Time: 16:57 rn 08/26 16:10 Order name: EKG; Complete Time: 16:11 08/26 16:10 Order name: EKG - Nurse/Tech; Complete Time: 16:57 rn 08/26 18:20 Order name: Straight Cath; Complete Time: 18:20 jl7 08/26 19:14 Order name: CONS Physician Consult EDMS Administered Medications: 17:05 Drug: NS 0.9% 500 ml Route: IV; Rate: bolus; Site: right wrist; jl7 18:21 Follow up: Response: No adverse reaction; IV Status: Completed infusion; IV Intake: jl7 500ml 18:48 Drug: Rocephin 1 grams Route: IV; Rate: calculated rate; Site: right wrist; jl7 18:51 Follow up: Response: No adverse reaction; IV Status: Completed infusion jl7 Disposition: 08/26/20 18:30 Hospitalization ordered by Cayetano Velasco for Inpatient Admission. Preliminary diagnosis are Dehydration, Urinary tract infection, site not specified, Hypercalcemia, Delirium due to known physiological condition. - Bed requested for Telemetry/MedSurg (Inpatient). - Status is Inpatient Admission. rr5 - Condition is Stable. - Problem is an ongoing problem. - Symptoms have worsened. Signatures: Dispatcher [employer] EDMS Clarissa Antony RN RN kl Benji Godwin MD MD rn Roszak, Josh, PA PA jr8 Aletha Cabrera RN RN jl7 Zeb Gavin RN RN rr5 Corrections: (The following items were deleted from the chart) 23:34 18:30 Hospitalization Ordered by Cayetano Velasco for Inpatient Admission. Preliminary diagnosis is Dehydration; Urinary tract infection, site not specified; Hypercalcemia; Delirium due to known physiological condition. Bed requested for Telemetry/MedSurg (Inpatient). Status is Inpatient Admission. Condition is Stable. Problem is an ongoing problem. Symptoms have worsened. rn 23:53 23:34 08/26/2020 18:30 Hospitalization Ordered by Cayetano Velasco for Inpatient rr5 Admission. Preliminary diagnosis is Dehydration; Urinary tract infection, site not specified; Hypercalcemia; Delirium due to known physiological condition. Bed requested for Telemetry/MedSurg (Inpatient). Status is Inpatient Admission. Condition is Stable. Problem is an ongoing problem. Symptoms have worsened. kl
[2020-08-26] MEDS ORDERED: CEFTRIAXONE/SWI 1gm 1 GM/10 ML SYR ONE (18:57)
[2020-08-26 19:18] LABS: Urine Bacteria 20-50 /HPF (<20); Urine Culture Reflex Order REFLEXED
[2020-08-26 20:12] LABS: Urine Blood TRACE (NEG); Urine Glucose NEGATIVE (NEG); Urine Protein TRACE (NEG); Urine Specific Gravity 1.015 (1.005-1.030); Urine pH 8.5 (5.0-7.0)
[2020-08-26] MEDS ORDERED: ONDANSETRON 4 MG/2 ML VIAL IV PRN (23:46)
[2020-08-27] MEDS: NA CHLORIDE 0.9% 1,000 ML IV SCH ×3 (00:16→19:46)
[2020-08-27 00:21] VITALS: BMI 32.5
[2020-08-27 01:50] VITALS: O2SAT 98
--- NOTE | 2020-08-27 02:01 | P.HP ---
Certification for Inpatient Patient admitted to: Observation With expected LOS: <2 Midnights Patient will require the following post-hospital care: None Practitioner: I am a practitioner with admitting privileges, knowledge of patient current condition, hospital course, and medical plan of care. Services: Services provided to patient in accordance with Admission requirements found in Title 42 Section 412.3 of the Code of Federal Regulations <Danny Tolentino - Last Filed: 08/27/20 01:55> Patient History Date of Service: 08/27/20 Primary Care Provider: Dr. Solano Reason for admission: UTI, Acute on chronic kidney failure, AMS History of Present Illness: This is a 70-year-old female with a history of anxiety, depression, GERD, hyperlipidemia, hypertension, title magnesium me a, hypothyroidism, gout, CKD that presented to the emergency room after family was concerned that patient started to have nausea vomiting diarrhea and now altered mentation at home for the last couple of days. Patient family stated that she recently had a surgery on her left great toe for gouty tophi. Was given medication for gout but stopped taking it because it was not settling right on her stomach. Patient found to have decreased renal function on labs with mild elevation in calcium and a urinary tract infection. After being treated in the emergency room patient stated that she is feeling much better. Patient currently without altered mentation. Home medications list reviewed: Yes - Past Medical/Surgical History Has patient received pneumonia vaccine in the past: Yes Diabetic: No -: HTN -: Hypothyroidism -: Nephrolithiasis -: Sciatic nerve -: Heart murmur -: High Cholesterol -: Anxiety -: Depression -: Gout -: Herniated disc -: 3 buldging disc -: Toe surgery -: Partial hysterectomy -: Breast reduction -: Left knee scope - Family History Family History: Reviewed- Non-Contributory - Family History Sister -: Diabetes Father -: Cancer Mother -: Heart disease Brother -: Hypertension - Social History Smoking Status: Never smoker Smoking therapy provided: No Alcohol use: No CD- Drugs: No Caffeine use: Yes Place of Residence: Home <Danny Tolentino - Last Filed: 08/27/20 01:55> Date of Service: 08/27/20 <phyllis anne - Last Filed: 08/27/20 17:42> Allergies Sulfa (Sulfonamide Antibiotics) [Sulfa(Sulfonamide Antibiotics)] Allergy (Mild, Verified 08/27/20 00:21) Hives/Rash Home Medications: Acetaminophen [Tylenol Extra Strength] 1 tab PO Q4H PRN 08/27/20 Allopurinol 100 mg PO DAILY 08/27/20 Ezetimibe 10 mg PO DAILY 08/27/20 Gabapentin 600 mg PO BID 08/27/20 LORazepam [Lorazepam] 2 mg PO BEDTIME 08/27/20 Magnesium Oxide [Mag 0X*] 1 tab PO DAILY 08/27/20 Sertraline [Zoloft*] 100 mg PO BID 08/27/20 Review of Systems General: Weakness, Malaise Eyes: Unremarkable ENT: Unremarkable Respiratory: Unremarkable Cardiovascular: Unremarkable Gastrointestinal: Nausea, Vomiting, Diarrhea Genitourinary: Dysuria Musculoskeletal: Unremarkable Integumentary: Unremarkable Neurological: As per HPI Lymphatics: Unremarkable <WhitseanDanny - Last Filed: 08/27/20 01:55> Physical Examination - Vital Signs Temperature: 98.0 F Blood Pressure: 163/70 Pulse: 67 Respirations: 16 Pulse Ox (%): 98 - Physical Exam General: Alert, In no apparent distress, Oriented x3 HEENT: PERRLA, Mucous membr. moist/pink, EOMI Neck: Supple, 2+ carotid pulse no bruit, JVD not distended Respiratory: Clear to auscultation bilaterally, Normal air movement Cardiovascular: No edema, Normal pulses, Regular rate/rhythm, Normal S1 S2, No gallops, No rubs, No murmurs Capillary refill: <2 Seconds Gastrointestinal: Normal bowel sounds, Soft and benign, Non-distended, No ascites, No tenderness, No masses, No rebound, No guarding Musculoskeletal: Other (Patient has gouty tophi with mild erythema noted to the right great toe) Integumentary: No rashes, No breakdown, No significant lesion, No warmth, No cyanosis Neurological: Normal speech, Normal strength at 5/5 x4 extr, Normal tone, Sensation intact, Cranial nerves 3-12 intact, Normal affect - Studies Laboratory Data (last 24 hrs) 08/26/20 16:49: Sodium 138, Potassium 4.1, BUN 27 H, Creatinine 1.99 H, Glucose 114 H 08/26/20 16:49: WBC 5.9, Hgb 10.2 L, Hct 31.3 L, Plt Count 289 Microbiology Data (last 24 hrs): 08/26/20 17:04 Nasopharnyx Influenza Type A Antigen Screen - Final 08/26/20 17:04 Nasopharnyx Influenza Type B Antigen Screen - Final <Danny Tolentino - Last Filed: 08/27/20 01:55> - Studies Laboratory Data (last 24 hrs) 08/26/20 16:49: Sodium 138, Potassium 4.1, BUN 27 H, Creatinine 1.99 H, Glucose 114 H Microbiology Data (last 24 hrs): 08/26/20 17:04 Nasopharnyx Influenza Type A Antigen Screen - Final 08/26/20 17:04 Nasopharnyx Influenza Type B Antigen Screen - Final <phyllis anne - Last Filed: 08/27/20 17:42> Assessment and Plan - Problems (Diagnosis) (1) CKD (chronic kidney disease) Current Visit: Yes Status: Chronic Qualifiers: Chronic kidney disease stage: stage 4 (severe) Qualified Code(s): N18.4 - Chronic kidney disease, stage 4 (severe) (2) Hypercalcemia Current Visit: Yes Status: Acute Plan: Patient has mild hypercalcemia noted on labs. Patient has a history of CKD with worsening of renal function. Patient most likely has hypercalcemia secondary to chronic kidney disease. Patient will be hydrated for the next 24 hr and will have a labs redrawn to see if correction of sodium is present. Nephrology has also been consulted and parathyroid, thyroid, vitamin-D levels have been drawn as well (3) Urinary tract infection Current Visit: Yes Status: Acute Plan: Patient with acute urinary tract infection. Patient started on Rocephin in the emergency room and we will continue this antibiotic until cultures come back with sensitivity. Patient will also be hydrated for urinary tract infection will monitor to ensure the patient does not become septic. Qualifiers: Urinary tract infection type: acute cystitis Hematuria presence: with hematuria Qualified Code(s): N30.01 - Acute cystitis with hematuria (4) Altered mental status Current Visit: Yes Status: Acute Plan: Patient with transient altered mentation most likely secondary to urinary tract infection which is now being treated with antibiotics. Will continue to monitor patient's mental status for the time being. Qualifiers: Altered mental status type: transient alteration of awareness Qualified Code(s): R40.4 - Transient alteration of awareness (5) Acute kidney injury Current Visit: No Status: Acute Plan: Patient with acute decreased and renal function. Most likely secondary to mild dehydration and urinary tract infection. Patient will be hydrated antibiotics have been started. Nephrology has been consulted for change in renal function. We will continue to monitor renal function in urinary output. (6) HTN (hypertension) Onset Date: 06/18/18 Current Visit: No Status: Chronic Plan: Patient with chronic essential hypertension. Patient will be given blood pressure medicines as needed to control blood pressure if it goes above 160 systolic per 110 diastolic. Qualifiers: Hypertension type: essential hypertension - Plan Plan will be to get patient home within 24 hr. Will continue to hydrate treat patient with antibiotics. Nephrology has been consulted and lesbian drawn for the hypercalcemia and mild decrease in renal function. Labs pending for in the morning to assess wound we need to adjust her medications or not. We will await consult for nephrology for further renal adjustment. Discharge Plan: Home Plan to discharge in: 24 Hours - Advance Directives Does patient have a Living Will: No Does patient have a Durable POA for Healthcare: No - Code Status/Comfort Care Code Status Assessed: No Critical Care: No Time Spent Managing Pts Care (In Minutes): 60 <Danny Tolentino - Last Filed: 08/27/20 01:55> Physician Review: Patient Assessed, Agree with Above Assessment and Plan Physician Review Additional Text: UTI Gouty tophi AJ Plan: IV hydration IV Rocephin Follow urine culture Nephrology consult. <phyllis anne - Last Filed: 08/27/20 17:42>
[2020-08-27 06:04] LABS: Absolute Lymphocytes (CBC) 1.1 K/uL (0.7-4.9); Basophils % 0.5 % (0-1.3); Hematocrit 27.2 % (36.0-45.0); Lymphocytes % 22.6 % (15.3-44.8); MPV 6.9 fL (7.6-11.3); RBC Red Blood Cell Count 3.41 M/uL (3.86-4.86)
[2020-08-27 06:31] LABS: Potassium 3.8 mmol/L (3.5-5.1); Thyroid Stimulating Hormone 0.79 uIU/mL (0.360-3.740); Uric Acid 9.9 mg/dL (2.6-6.0)
[2020-08-27] MEDS ORDERED: CEFTRIAXONE 1 GM/NS 50 ML 1 GM/50 ML BAG IV SCH (07:00)
--- NOTE | 2020-08-27 07:43 | P.CNS ---
Date of Consult: 08/27/20 Reason for Consult: AJ Requesting Physician: Danny Tolentino Primary Care Provider: Dr. Solano Chief Complaint: UTI, Acute on chronic kidney failure, AMS History of Present Illness: This is a 70-year-old female with a history of anxiety, depression, GERD, hyperlipidemia, hypertension, title magnesium me a, hypothyroidism, gout, CKD that presented to the emergency room after family was concerned that patient s tarted to have nausea vomiting diarrhea and now altered mentation at home for the last couple of days. Patient family stated that she recently had a surgery on her left great toe for gouty tophi. Was given medication for gout but stopped taking it because it was not settling right on her stomach. Patient found to have decreased renal function on labs with mild elevation in calcium and a urinary tract infection. After being treated in the emergency room patient stated that she is feeling much better. Patient currently without altered mentation. 16:33 This 70 yrs old Female presents to ER via EMS with complaints of rn nausea/vomiting/diarrhea. 16:33 The patient presents to the emergency department with nausea, vomiting, diarrhea. rn Onset: The symptoms/episode began/occurred 2 day(s) ago. Possible causes: unknown. The symptoms are aggravated by nothing. The symptoms are alleviated by nothing. Associated signs and symptoms: Pertinent positives: diarrhea, nausea, vomiting, Pertinent negatives: fever, GI bleeding. Severity of symptoms: At their worst the symptoms were mild in the emergency department the symptoms are unchanged. The patient has not experienced similar symptoms in the past. The patient has been recently seen by a physician:. Reports 2 days of nausea/vomiting/diarrhea, generalized weakness. Reports recent surgery for gout left great toe, and given "medication for gout". Not sure if side effect of meds, but reports vomiting today. No headache. Reports had brief sob earlier, no chest pain. Allergies Sulfa (Sulfonamide Antibiotics) [Sulfa(Sulfonamide Antibiotics)] Allergy (Mild, Verified 08/27/20 00:21) Hives/Rash Home medications list reviewed: Yes Home Medications: Acetaminophen [Tylenol Extra Strength] 1 tab PO Q4H PRN 08/27/20 Allopurinol 100 mg PO DAILY 08/27/20 Ezetimibe 10 mg PO DAILY 08/27/20 Gabapentin 600 mg PO BID 08/27/20 LORazepam [Lorazepam] 2 mg PO BEDTIME 08/27/20 Magnesium Oxide [Mag 0X*] 1 tab PO DAILY 08/27/20 Sertraline [Zoloft*] 100 mg PO BID 08/27/20 - Past Medical/Surgical History Diabetic: No -: HTN -: Hypothyroidism -: Nephrolithiasis -: Sciatic nerve -: Heart murmur -: High Cholesterol -: Anxiety -: Depression -: Gout -: Herniated disc -: 3 buldging disc -: Toe surgery -: Partial hysterectomy -: Breast reduction -: Left knee scope - Family History Sister Medical History: Diabetes Father Medical History: Cancer Mother Medical History: Heart disease Brother Medical History: Hypertension - Social History Smoking Status: Never smoker Alcohol use: No CD- Drugs: No Caffeine use: Yes Place of Residence: Home Review of Systems 10-point ROS is otherwise unremarkable General: Weakness, Malaise Musculoskeletal: Foot Pain Neurological: Weakness Physical Examination Temp Pulse Resp BP Pulse Ox 97.5 F 88 16 140/66 99 08/27/20 04:00 08/27/20 04:00 08/27/20 04:00 08/27/20 04:00 08/27/20 04:00 General: In no apparent distress, Oriented x3, Cooperative HEENT: Atraumatic Neck: Supple Respiratory: Clear to auscultation bilaterally Cardiovascular: No edema Gastrointestinal: Soft and benign, Non-distended Musculoskeletal: No clubbing, No contractures, Tenderness Integumentary: No rashes, No cyanosis Neurological: Normal speech Laboratory Data (last 24 hrs) 08/26/20 16:49: Sodium 138, Potassium 4.1, BUN 27 H, Creatinine 1.99 H, Glucose 114 H 08/26/20 16:49: WBC 5.9, Hgb 10.2 L, Hct 31.3 L, Plt Count 289 Imagings Data: EXAM DESCRIPTION: CT - Abdomen Pelvis Wo Contrast - 08/26/2020 4:30 pm CLINICAL HISTORY: Abdominal pain vomiting COMPARISON: March 2020 TECHNIQUE: Computed axial tomography of the abdomen and pelvis was obtained. IV and oral contrast were not requested. All CT scans are performed using dose optimization technique as appropriate and may include automated exposure control or mA/KV adjustment according to patient size. FINDINGS: The evaluation of solid organs, vessels and bowel is limited sec ondary to the lack of contrast administration. Small bilateral renal calculi. No hydronephrosis. Cortical thinning likely secondary to prior inflammation. Hysterectomy. The liver, spleen, and adrenals appear grossly normal. Atrophic pancreas There is no evidence of diverticulitis. The appendix appears normal 27 millimeter complex cystic structure right ovary unchanged. Spondylosis lumbar spine resulting in spinal stenosis IMPRESSION: Small nonobstructing bilateral renal calculi 27 millimeter complex cystic structure right ovary likely benign. Follow-up ultrasound in 1 year recommended Conclusions/Impression: A/ AJ likely due to hypovolemia CKD III in the setting of HTN & NSAIDs HTN with CKD Anemia in chronic illness Primary HyperPTH Hypercalcemia Vitamin D3 Deficiency Nephrolithiasis Primary gout with tophus P/ Continue current POC and Medications Change IVF 1/2NS. Start Coreg BID. Start Vitamin D3. Recommend Uloric due to intolerance of Allopurinol. No NSAIDs. AM labs. Daily weight. Thank you kindly for the consultation. Case reviewed with Antoni Tolentino.
[2020-08-27] MEDS: CEFTRIAXONE/SWI 1gm 1 GM/10 ML SYR IV SCH ×2 (09:14→22:00)
[2020-08-27] MEDS: HYDRALAZINE HCL 20 MG/ML VIAL IV PRN (10:14)
--- NOTE | 2020-08-27 14:14 | P.PN ---
Date of Service: 08/27/20 Patient seen and examined. She is complaining of pain in the right toe. She has gouty tophi on the right big toe. Serum creatinine and calcium are trending down. Patient seen by nephrology. Plan: Continue IV Rocephin. Follow urine culture. Gout medications per nephrology. Pain management as needed.
--- NOTE | 2020-08-27 15:56 | RAD REPORT ---
EXAM DESCRIPTION: CT - Head Brain Wo Cont - 08/27/2020 3:50 pm CLINICAL HISTORY: ams Headache, drowsiness COMPARISON: Head Brain Wo Cont dated 07/17/2019; Head Brain Wo Cont dated 01/31/2018 TECHNIQUE: All CT scans are performed using dose optimization technique as appropriate and may inclu de automated exposure control or mA/KV adjustment according to patient size. FINDINGS: No intracranial hemorrhage, hydrocephalus or extra-axial fluid collection.Mild periventric ular and deep white matter chronic microvascular ischemic changes.No areas of brain edema or evidence of midline shift. Mild vertebral artery atherosclerosis. The paranasal sinuses and mastoids are clear. The calvarium is intact. IMPRESSION: No acute intracranial abnormality.
--- NOTE | 2020-08-27 18:10 | P.PN ---
Subjective Date of Service: 08/27/20 Primary Care Provider: Dr. Solano Chief Complaint: UTI, Acute on chronic kidney failure, AMS Patient reporting some confusion and hallucination. She also reports pain in her right big toe. Her serum creatinine has trended down. She appears anxious and concerned about the confusion. Physical Examination - Vital Signs Temperature: 98.5 F Blood Pressure: 176/77 Pulse: 84 Respirations: 15 Pulse Ox (%): 99 - Physical Exam General: In no apparent distress, Oriented x3 HEENT: Mucous membr. moist/pink, Sclerae nonicteric Neck: Supple, JVD not distended Respiratory: Clear to auscultation bilaterally, Normal air movement Cardiovascular: No edema, Regular rate/rhythm, Normal S1 S2 Gastrointestinal: Normal bowel sounds, Soft and benign, No tenderness Musculoskeletal: Other (Gouty tophi-right big toe) Integumentary: No rashes, No erythema Neurological: Normal speech, Normal strength at 5/5 x4 extr, Cranial nerves 3-12 intact - Studies Laboratory Data (last 24 hrs) 08/26/20 16:49: Sodium 138, Potassium 4.1, BUN 27 H, Creatinine 1.99 H, Glucose 114 H Microbiology Data (last 24 hrs): 08/26/20 17:04 Nasopharnyx Influenza Type A Antigen Screen - Final 08/26/20 17:04 Nasopharnyx Influenza Type B Antigen Screen - Final Assessment And Plan - Current Problems (Diagnosis) (1) Metabolic encephalopathy Current Visit: Yes Status: Acute (2) Acute renal failure superimposed on stage 3 chronic kidney disease Current Visit: Yes Status: Acute (3) Hypercalcemia Current Visit: Yes Status: Acute (4) Urinary tract infection Current Visit: Yes Status: Acute Qualifiers: Urinary tract infection type: acute cystitis Hematuria presence: with hematuria Qualified Code(s): N30.01 - Acute cystitis with hematuria (5) Gout tophi Current Visit: Yes Status: Acute - Plan Continue IV Rocephin. IV hydration. Patient seen by nephrology. Case discussed with Dr. Arango will plans to start patient on Uloric. Uloric is not on formulary. Patient started on oral prednisone for acute gout. Head CT requested given her confusion and it shows no acute disease. Urine culture is pending. Monitor renal function. Pain management as needed. Ativan and Haldol p.r.n. for confusion and hallucination.
[2020-08-27] MEDS: LORAZEPAM 1 MG TABLET PO PRN (20:35)
[2020-08-27] MEDS: VITAMIN D 5,000 UNIT CAP PO SCH (20:35)
[2020-08-27] MEDS: carvediloL 6.25 MG TAB PO SCH (21:59)
[2020-08-27] MEDS: NACHLORIDE 0.45% 1,000 ML IV SCH (22:00)
[2020-08-28] MEDS: NACHLORIDE 0.45% 1,000 ML IV SCH ×2 (04:48→15:24)
[2020-08-28 05:54] LABS: Absolute Lymphocytes (CBC) 1.3 K/uL (0.7-4.9); Basophils % 0.6 % (0-1.3); Lymphocytes % 27.3 % (15.3-44.8); MPV 7.2 fL (7.6-11.3); RBC Red Blood Cell Count 3.38 M/uL (3.86-4.86)
[2020-08-28 06:49] LABS: Folic Acid, (Folate) 7.1 ng/mL (3.1-17.5); Phosphorus 2.7 mg/dL (2.5-4.9); Potassium 3.8 mmol/L (3.5-5.1); Uric Acid 8.9 mg/dL (2.6-6.0)
[2020-08-28 06:52] LABS: Magnesium 1.4 mg/dL (1.8-2.4)
[2020-08-28] MEDS ORDERED: Magnesium Sulfate 2gm IVPB 2 G/50 ML BAG IV ONE (06:54)
[2020-08-28] MEDS: HYDRALAZINE HCL 20 MG/ML VIAL IV PRN (08:15)
[2020-08-28] MEDS: LORAZEPAM 1 MG TABLET PO PRN (08:17)
[2020-08-28] MEDS: VITAMIN D 5,000 UNIT CAP PO SCH (08:17)
[2020-08-28] MEDS: carvediloL 6.25 MG TAB PO SCH (08:18)
[2020-08-28] MEDS: CEFTRIAXONE/SWI 1gm 1 GM/10 ML SYR IV SCH (08:18)
[2020-08-28] MEDS ORDERED: predniSONE 20 MG TAB PO SCH (09:00)
[2020-08-28] MEDS ORDERED: predniSONE 10 MG TAB PO SCH (09:00)
[2020-08-28 16:04] VITALS: BP 138/65; TEMP 97.6
[2020-08-28 16:09] LABS: Urine Appearance CLEAR; Urine Bilirubin NEGATIVE (NEG); Urine Blood NEGATIVE (NEG); Urine Color YELLOW; Urine Glucose NEGATIVE (NEG); Urine Protein NEGATIVE (NEG); Urine Urobilinogen 0.2 mg/dL (0.2-1.0)
[2020-08-28 16:16] LABS: Urine Protein/Creatinine Ratio 0.23 ratio (<0.15)
[2020-08-28 16:26] LABS: Urine Bacteria <20 /HPF (<20); Urine Culture Reflex Order NOT NEEDED; Urine RBC <5 /HPF (NONE SEEN); Urine Urothelial Cells <5 /HPF (NONE SEEN)
--- NOTE | 2020-08-28 17:13 | P.DS ---
Admission Date: 08/26/20 Discharge Date: 08/28/20 Primary Care Provider: Dr. Solano Disposition: ROUTINE DISCHARGE Discharge Condition: FAIR Reason for Admission: UTI, Acute on chronic kidney failure, AMS - Problems (1) Metabolic encephalopathy Current Visit: Yes Status: Acute (2) Acute renal failure superimposed on stage 3 chronic kidney disease Current Visit: Yes Status: Acute (3) Hypercalcemia Current Visit: Yes Status: Acute (4) Urinary tract infection Current Visit: Yes Status: Acute Qualifiers: Urinary tract infection type: acute cystitis Hematuria presence: with hematuria Qualified Code(s): N30.01 - Acute cystitis with hematuria (5) Gout tophi Current Visit: Yes Status: Acute (6) Hyperparathyroidism Current Visit: Yes Status: Acute Brief History of Present Illness: 70-year-old woman with a history of gout, hyperlipidemia, depression, GERD was brought to the emergency department with a concern for altered mental status. Patient was also experiencing nausea and vomiting and diarrhea. She had a surgery on her left big toe for gout and was started on allopurinol but it appears patient was not tolerating the allopurinol and was experiencing stomach upset. She therefore stopped taking it. Her serum creatinine was elevated in the ED. UA suggested the presence of UTI. Blood work also demonstrated hypercalcemia. Patient was hospitalized for further management. Hospital Course: Patient place under observation and hydrated with IV fluids. Her serum creatinine improved with IV fluids. She was also treated for UTI with Rocephin. Urine culture is growing Gram negative rods. She had a brief episode of hallucination which was managed with Haldol and Ativan. Her serum PTH was elevated indicating patient has hyperparathyroidism. Vitamin-D levels were ordered and results are pending. He was also treated for acute gouty flare with oral prednisone. Patient was seen by Dr. Arango who recommended Uloric instead of allopurinol for maintenance gout treatment. Patient has clinically improved. She was seen by PT and she was able to ambulate independently. Patient will be discharged to follow with Dr. Arango regarding further evaluation for hyperparathyroidism. He is prescribed Uloric and oral prednisone for gout. She is also prescribed Omnicef to continue treatment for the UTI. She was on gabapentin which has been discontinued for now given her renal insufficiency and complaint of altered mental status. Vital Signs/Physical Exam: Temp Pulse Resp BP Pulse Ox 97.6 F 75 17 138/65 98 08/28/20 16:00 08/28/20 16:00 08/28/20 16:00 08/28/20 16:00 08/28/20 16:00 General: Alert, In no apparent distress HEENT: PERRLA, Mucous membr. moist/pink, EOMI, Sclerae nonicteric Neck: Supple, JVD not distended Respiratory: Clear to auscultation bilaterally, Normal air movement Cardiovascular: No edema, Regular rate/rhythm, Normal S1 S2 Gastrointestinal: Normal bowel sounds, Soft and benign, No tenderness Musculoskeletal: No swelling, No tenderness Integumentary: No rashes, No erythema Neurological: Normal speech, Normal strength at 5/5 x4 extr, Cranial nerves 3-12 intact Laboratory Data at Discharge: WBC 4.7 K/uL (4.3-10.9) 08/28/20 05:33 Hgb 8.8 g/dL (12.0-15.0) L 08/28/20 05:33 Hct 27.0 % (36.0-45.0) L 08/28/20 05:33 Plt Count 219 K/uL (152-406) 08/28/20 05:33 Sodium 139 mmol/L (136-145) 08/28/20 05:33 Potassium 3.8 mmol/L (3.5-5.1) 08/28/20 05:33 BUN 25 mg/dL (7-18) H 08/28/20 05:33 Creatinine 1.62 mg/dL (0.55-1.3) H 08/28/20 05:33 Glucose 100 mg/dL (74-106) 08/28/20 05:33 Uric Acid 8.9 mg/dL (2.6-6.0) H 08/28/20 05:33 Phosphorus 2.7 mg/dL (2.5-4.9) 08/28/20 05:33 Magnesium 2.3 mg/dL (1.8-2.4) D 08/28/20 15:24 Home Medications: Acetaminophen [Tylenol Extra Strength] 1 tab PO Q4H PRN 08/27/20 Ezetimibe 10 mg PO DAILY 08/27/20 LORazepam [Lorazepam] 2 mg PO BEDTIME 08/27/20 Magnesium Oxide [Mag 0X*] 1 tab PO DAILY 08/27/20 Sertraline [Zoloft*] 100 mg PO BID 08/27/20 Cefdinir [Omnicef] 300 mg PO BID #10 capsule 08/28/20 Cholecalciferol (Vitamin D3) [Vitamin D 5,000 IU Cap*] 10,000 unit PO DAILY #60 cap 08/28/20 Febuxostat [Uloric] 40 mg PO DAILY #30 tablet 08/28/20 carvediloL [Coreg*] 6.25 mg PO BID #60 tab 08/28/20 predniSONE [Deltasone*] 30 mg PO DAILY #7 tab 08/28/20 New Medications: carvediloL [Coreg*] 6.25 mg PO BID #60 tab predniSONE [Deltasone*] 30 mg PO DAILY #7 tab Cefdinir [Omnicef] 300 mg PO BID #10 capsule Febuxostat [Uloric] 40 mg PO DAILY #30 tablet Cholecalciferol (Vitamin D3) [Vitamin D 5,000 IU Cap*] 10,000 unit PO DAILY #60 cap Diet: AHA Activity: Ad liz Followup: NONE,NONE [Primary Care Provider] - 1-2 Weeks Jose Arango DO [ACTIVE - CAN ADMIT] - 1 Week
--- NOTE | 2020-08-28 22:13 | P.PN ---
Date of Service: 08/28/20 Vital Signs Temp Pulse Resp BP Pulse Ox 97.6 F 75 17 138/65 98 08/28/20 16:00 08/28/20 16:00 08/28/20 16:00 08/28/20 16:00 08/28/20 16:00 Microbiology Results 08/26/20 18:13 Catheterized Urine Willard Count - Preliminary >100,000 CFU/ML. 08/26/20 18:13 Catheterized Urine - Preliminary 08/26/20 17:04 Nasopharnyx Influenza Type A Antigen Screen - Final 08/26/20 17:04 Nasopharnyx Influenza Type B Antigen Screen - Final Assessment/ Plan: Nephrology CPS stable without CP or SOB. No acute events overnight. Feeling better with improved appetite. No N/V. Vitals, medications, blood work and imaging reviewed in the chart. General: In no apparent distress, Oriented x3, Cooperative HEENT: Atraumatic Neck: Supple Respiratory: Clear to auscultation bilaterally Cardiovascular: No edema Gastrointestinal: Soft and benign, Non-distended Musculoskeletal: No clubbing, No contractures, Tenderness Integumentary: No rashes, No cyanosis Neurological: Normal speech Laboratory Data (last 24 hrs) 08/26/20 16:49: Sodium 138, Potassium 4.1, BUN 27 H, Creatinine 1.99 H, Glucose 114 H 08/26/20 16:49: WBC 5.9, Hgb 10.2 L, Hct 31.3 L, Plt Count 289 Imagings Data: EXAM DESCRIPTION: CT - Abdomen Pelvis Wo Contrast - 08/26/2020 4:30 pm CLINICAL HISTORY: Abdominal pain vomiting COMPARISON: March 2020 TECHNIQUE: Computed axial tomography of the abdomen and pelvis was obtained. IV and oral contrast were not requested. All CT scans are performed using dose optimization technique as appropriate and may include automated exposure control or mA/KV adjustment according to patient size. FINDINGS: The evaluation of solid organs, vessels and bowel is limited secondary to the lack of contrast administration. Small bilateral renal calculi. No hydronephrosis. Cortical thinning likely secondary to prior inflammation. Hysterectomy. The liver, spleen, and adrenals appear grossly normal. Atrophic pancreas There is no evidence of diverticulitis. The appendix appears normal 27 millimeter complex cystic structure right ovary unchanged. Spondylosis lumbar spine resulting in spinal stenosis IMPRESSION: Small nonobstructing bilateral renal calculi 27 millimeter complex cystic structure right ovary likely benign. Follow-up ultrasound in 1 year recommended Conclusions/Impression: A/ AJ likely due to hypovolemia CKD III in the setting of HTN & NSAIDs HTN with CKD Anemia in chronic illness Primary HyperPTH Hypercalcemia Vitamin D3 Deficiency Nephrolithiasis Primary gout with tophus P/ Continue current POC and Medications DC IVF. Continue Coreg BID. Continue Vitamin D3. Recommend Uloric due to intolerance of Allopurinol. No NSAIDs. AM labs prn. Daily weight.
[2020-09-01 10:29] LABS: Vitamin D 1,25-Dihydroxy Total 16 pg/mL (18-72); Vitamin D,1,25-OH2, D2 <8 pg/mL
== END 2020-08-28 19:08 | disposition home or self-care (01) ==
LOC: ER 15:42 → ERHOLD 19:11 → 2ND 23:42
PROVIDERS: ADMIT Internal Medicine; ATTEND Internal Medicine
DX: N17.9 Acute kidney failure, unspecified (principal); N30.01 Acute cystitis with hematuria; G93.41 Metabolic encephalopathy; I12.9 Hypertensive chronic kidney disease with stage 1 through stage 4 chronic kidney disease, or unspecified chronic kidney disease; N18.4 Chronic kidney disease, stage 4 (severe); M1A.0711 Idiopathic chronic gout, right ankle and foot, with tophus (tophi); Z20.828 Contact with and (suspected) exposure to other viral communicable diseases; E78.5 Hyperlipidemia, unspecified; F32.9 Major depressive disorder, single episode, unspecified; K21.9 Gastro-esophageal reflux disease without esophagitis; R94.31 Abnormal electrocardiogram [ECG] [EKG]; R44.3 Hallucinations, unspecified; F41.9 Anxiety disorder, unspecified; E03.9 Hypothyroidism, unspecified; E78.00 Pure hypercholesterolemia, unspecified; D63.1 Anemia in chronic kidney disease; M1A.0721 Idiopathic chronic gout, left ankle and foot, with tophus (tophi); E21.0 Primary hyperparathyroidism
CPT/HCPCS: 96361; 93005; 87088; 85025 ×3; 81001; 87086; 80048 ×3; 36415 ×2; 83735 ×2; 84100; 84550 ×2; 82652; 84443; 87077; 87186; 82570; 84484; 84439; 82746; 82607; 83540; 83970; 84145; 84156; 84466; 87804 ×2; 70450; 74176; 71045; 97116; 97161; 51702; 96374; 99285; U0003; J0360 ×2; J3475; J0696 ×4; J7040; J7030 ×2; G0378 ×3; 81003; 81015; J7512

== ENCOUNTER 2020-10-13 09:23 | Day surgery (SDC) | payer BC, OTHER ==
--- NOTE | 2020-10-12 11:21 | RAD REPORT ---
EXAM DESCRIPTION: RAD - Chest Pa And Lat (2 Views) - 10/12/2020 11:16 am CLINICAL HISTORY: pre op Chest pain. COMPARISON: Chest Single View dated 08/26/2020; Chest Pa And Lat (2 Views) dated 07/22/2020; Chest P a And Lat (2 Views) dated 06/05/2020; Chest Single View dated 06/03/2020 FINDINGS: Mild interstitial pulmonary edema. The heart is mildly enlarged in size. No displaced frac tures. IMPRESSION: Mild CHF.
[2020-10-12 11:55] LABS: Absolute Lymphocytes (CBC) 1.3 K/uL (0.7-4.9); Basophils % 0.4 % (0-1.3); Hematocrit 27.5 % (36.0-45.0); MPV 7.2 fL (7.6-11.3); Protime INR 1.16
[2020-10-12 12:13] LABS: Potassium 4.3 mmol/L (3.5-5.1)
--- NOTE | 2020-10-13 08:19 | EKG ---
Test Date: 2020-10-12 Test Time: 10:47:23 Manager Integrated: CARL MEASUREMENT RESULTS: Intervals: Rate: 71 WI: 154 QRSD: 76 QT: 352 QTc: 382 [place]: P: 53 WI: 154 QRS: 33 T: 18 INTERPRETIVE STATEMENTS: Normal sinus rhythm Normal ECG Compared to ECG 08/26/2020 16:54:11 ST (T wave) deviation no longer present Electronically Signed On 10-13-20 08:17:30 CAMPAIGN WORKER by Keyur Gaffney
[~2020-10-13 09:23] MED LIST: HEPA 1000U/500MLS 2,000 UNIT/1,000 ML BAG IV ONE
--- OUTSIDE RECORDS SUMMARY | 2020-10-13 09:24 | XMS REPORT | Continuity of Care Document ---
:1950 Author Organization [facility] t Address [address] [place] [address] Care Team Providers Name Role Phone Srikanth [...] Department ID 2019-11-08 2020-03-23 Office YEIMI [facility] [phone] [id number] 10:19:22 13:04:[address] [facility] [id number] Surgical [id number] Specialti [phone] [address] [place] Results This patient has no known results.
[2020-10-13] MEDS ORDERED: NA CHLORIDE 0.9% 500 ML ONE (09:33)
[2020-10-13] MEDS ORDERED: ATROPINE SULF 1 MG/10 ML SYR IV ONE (10:14)
[2020-10-13] MEDS ORDERED: MIDAZOLAM HCL 2 MG/2 ML INJ ONE ×2 (10:14→10:29)
[2020-10-13] MEDS ORDERED: FENTANYL CITR 100 MCG/2 ML ONE (10:14)
[2020-10-13] MEDS ORDERED: HEPARIN 5000 UNIT/ML 1 ML VIAL ONE (10:14)
[2020-10-13] MEDS ORDERED: FLUMAZENIL 0.1 MG/ML (5 mL VIAL) IV ONE (10:18)
[2020-10-13 11:20] VITALS: TEMP 96.8
[2020-10-13 13:15] VITALS: BP 125/67; O2SAT 97
--- NOTE | 2020-10-15 19:13 | OP ---
Date of Procedure: 10/13/2020 Surgeon: Keyur Gaffney MD Banquet Server: Danyel Anthony. Procedure: Abdominal angiogram with runoff. Indication: Claudication and abnormal arterial Doppler. Indication: Ms. Figueroa is a 70-year-old woman who was brought to the [facility] as an outpatient on because of abnormal arterial Doppler and claudication and multiple cardiac risk factors and vascular risk factors. She was prepped and draped in the routine sterile fashion. She was given Mamta sed and fentanyl for sedation. A 6-[place] sheath was introduced using the Seldinger technique in the right common femoral artery successfully after 10 cc of xylocaine. A pigtail catheter was advanced above the renals. Abdominal angiogram with runoff revealed some dcda-do-hakeyhfs plaquing below the knee in the anterior tibial and popliteal region. The right SFA and left SFA were normal otherwise. The right lower extremity was normal. Renals were normal. The aorta was normal and sore. The angelo cs and the common femorals. There were no complications. Patient tolerated the procedure well. Estimated Blood Loss: 5 mL. Anesthesia: Total conscious sedation was 45 minutes. Final Diagnoses: Mild peripheral arterial disease. We will select medical therapy. The patient hailey l be at bedrest for 2 hours and then she can go home and follow up with me in 2 weeks. Angio-Seal wa s used to close the case. Case was discussed with the family and the patient. TARIQ/MANGO Voice ID: [id number] Report ID: [id number]
== END 2020-10-13 12:58 | disposition home or self-care (01) ==
LOC: CCL 09:23
DX: I70.213 Atherosclerosis of native arteries of extremities with intermittent claudication, bilateral legs (principal); I25.10 Atherosclerotic heart disease of native coronary artery without angina pectoris; I13.0 Hypertensive heart and chronic kidney disease with heart failure and stage 1 through stage 4 chronic kidney disease, or unspecified chronic kidney disease; I50.32 Chronic diastolic (congestive) heart failure; N18.30 Chronic kidney disease, stage 3 unspecified; Z20.822 Contact with and (suspected) exposure to COVID-19; I65.23 Occlusion and stenosis of bilateral carotid arteries; E78.5 Hyperlipidemia, unspecified; E78.2 Mixed hyperlipidemia
CPT/HCPCS: 93005; 85025; 80048; 36415; 85610; 85730; 71046; 36200; 75630; U0002; C1893; C1760; J2250 ×2; J3010; J7040; J1644

== ENCOUNTER 2021-11-09 13:31 | Emergency (ER) | payer OTHER ==
--- OUTSIDE RECORDS SUMMARY | 2021-11-09 13:41 | XMS REPORT | Continuity of Care Document ---
:1950 Author Organization [facility] t Address 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 8-23 ity of foot, foot, 00:00: [place] Great Toe Great Toe 00 Medi kalani Branch Left hip Left hip Disease Active Unive rs pain pain 7-19 ity of 00:00: [place] 00 Medical Branch Allergies, Adverse Reactions, Alerts Allergy Allergy Status Severity Reaction(s) Onset Inactive Treating Comm ents Source Name Type Date Date Clinician Sulfa Propensi Active Rash Univers (Sulfona ty to 7-19 ity of mide adverse 00:00: [place] Antibiot reaction 00 Medica l ics) s Branch SULFA Drug Active Rash Univers (SULFONA Class 7-19 ity of MIDE 00:00: [place] ANTIBIOT 00 Medical ICS) Branch Social History Social Habit Start Date Stop Date Quantity Comments Source Exposure to SARS-CoV-2 Not sure [facility] [place] (event[facility] [place] [facility] Smoking Status Start Date Stop Date Source Never smoker [facility] Medications Ordered Filled Start Stop Current Ordering Indication Dosage Frequency Signature Comments Components Source Medication Medication Date Date Medication? Clinician (SIG) Name Name methylPREDN 2020-0 Yes [id number] 84mg Take 21 Univers ISolone 5-22 9107 tablets by ity of (MEDROL, 00:00: mouth [place] HELDER,) 4 mg 00 SEE-INSTRU Med ical tablets CTIONS. Branch follow package directions methylPREDN 2020-0 Yes [id number] 84mg Take 21 Univers ISolone 5-22 9107 tablets by ity of (MEDROL, 00:00: mouth [place] HELDER,) 4 mg 00 SEE-INSTRU Med ical tablets CTIONS. Branch follow package directions methylPREDN 2020-0 Yes [id number] 84mg Take 21 Univers ISolone 5-22 9107 tablets by ity of (MEDROL, 00:00: mouth [place] HELDER,) 4 mg 00 SEE-INSTRU Med ical tablets CTIONS. Branch follow package directions triamcinolo 2020-0 2020- No 80mg Unive rs ne 11-08 ity of acetonide 18:45: 17:36 [place] (KENALOG) 00 :00 Medical injection Branch 80 mg triamcinolo 2020-0 2020- No 80mg 80 mg, Uni vers ne 11-08 Intra-riaz ity of acetonide 18:45: 17:36 [place] (KENALOG) 00 :00 ONCE, 1 Medical injection dose, Fri Branc h 80 mg 11/08/19 at 1245, Routine CLINDAMYCIN 2019-0 Yes Take by Un g[facility]by HCL ORAL - mouth. ity of 16:36: [address] CLINDAMYCIN 2020-0 Yes Take by Un [facility] HCL ORAL - mouth. ity of 16:36: [address] CLINDAMYCIN 2020-0 Yes Take by Un [facility] HCL ORAL - mouth. ity of 16:36: [address] CLINDAMYCIN 2020-0 Yes Take by Un [facility] HCL ORAL - mouth. ity of 16:36: [address] CLINDAMYCIN 2020-0 Yes Take by Un [facility] HCL ORAL - mouth. ity of 16:36: [address] CLINDAMYCIN 2020-0 Yes Take by Un [facility] HCL ORAL - mouth. ity of 16:36: [address] diclofenac 2020-0 Yes [id number] 75mg Take 1 U nivers 75 mg EC 1-31 tablet by ity of tablet 00:00: mouth 2 (two) Medical times Branch daily with meals. diclofenac 2020-0 Yes [id number] 75mg Take 1 U nivers 75 mg EC 1-31 tablet by ity of tablet 00:00: mouth 2 (two) Medical times Branch daily with meals. diclofenac 2020-0 Yes [id number] 75mg Take 1 U nivers 75 mg EC 1-31 tablet by ity of tablet 00:00: mouth 2 (two) Medical times Branch daily with meals. diclofenac 2020-0 Yes [id number] 75mg Take 1 U nivers 75 mg EC 1-31 tablet by ity of tablet 00:00: mouth 2 (two) Medical times Branch daily with meals. diclofenac 2020-0 Yes [id number] 75mg Take 1 U nivers 75 mg EC 1-31 tablet by ity of tablet 00:00: mouth 2 (two) Medical times Branch daily with meals. diclofenac 2020-0 Yes [id number] 75mg Take 1 U nivers 75 mg EC 1-31 tablet by ity of tablet 00:00: mouth 2 (two) Medical times Branch daily with meals. LEVOTHYROXI 0 Yes Take by Un gabby NE SODIUM 5-04 mouth. ity of (LEVOTHYROX 16:28: [place] INE ORAL) 45 Medical Branch LEVOTHYROXI 0 Yes Take by Un g[facility]by NE SODIUM 5-04 mouth. ity of (LEVOTHYROX 16:28: [place] INE ORAL) 45 Medical Branch LEVOTHYROXI 0 Yes Take by Un g[facility] NE SODIUM 5-04 mouth. ity of (LEVOTHYROX 16:28: [place] INE ORAL) 45 Medical Branch LEVOTHYROXI 0 Yes Take by Un [facility] NE SODIUM 5-04 mouth. ity of (LEVOTHYROX 16:28: [place] INE ORAL) 45 Medical Branch LEVOTHYROXI 0 Yes Take by Un [facility] NE SODIUM 5-04 mouth. ity of (LEVOTHYROX 16:28: [place] INE ORAL) 45 Medical Branch LEVOTHYROXI 0 Yes Take by Un [facility] NE SODIUM 5-04 mouth. ity of (LEVOTHYROX 16:28: [place] INE ORAL) 45 Medical Branch LEVOTHYROXI 2018-0 Yes Take by Un [facility] NE SODIUM 5-04 mouth. ity of (LEVOTHYROX 16:28: [place] INE ORAL) 45 Medical Branch LEVOTHYROXI Yes Take by Un [facility] NE SODIUM 5-04 mouth. ity of (LEVOTHYROX 16:28: [place] INE ORAL) 45 Medical Branch LEVOTHYROXI Yes Take by Un [facility] NE SODIUM 5-04 mouth. ity of (LEVOTHYROX 16:28: [place] INE ORAL) 45 Medical Branch LEVOTHYROXI Yes Take by Un g[facility] NE SODIUM 5-04 mouth. ity of (LEVOTHYROX 16:28: [place] INE ORAL) 45 Medical Branch LEVOTHYROXI Yes Take by Un g[facility] NE SODIUM 5-04 mouth. ity of (LEVOTHYROX 16:28: [place] INE ORAL) 45 Medical Branch LEVOTHYROXI Yes Take by Un [facility] NE SODIUM 5-04 mouth. ity of (LEVOTHYROX 16:28: [place] INE ORAL) 45 Medical Branch LEVOTHYROXI Yes Take by Un [facility] NE SODIUM 5-04 mouth. ity of (LEVOTHYROX 16:28: [place] INE ORAL) 45 Medical Branch LEVOTHYROXI Yes Take by Un [facility] NE SODIUM 5-04 mouth. ity of (LEVOTHYROX 16:28: [place] INE ORAL) 45 Medical Branch LEVOTHYROXI Yes Take by Un [facility] NE SODIUM 5-04 mouth. ity of (LEVOTHYROX 16:28: [place] INE ORAL) 45 Medical Branch LEVOTHYROXI Yes Take by Un g[facility] NE SODIUM 5-04 mouth. ity of (LEVOTHYROX 16:28: [place] INE ORAL) 45 Medical Branch LEVOTHYROXI Yes Take by Un g[facility] NE SODIUM 5-04 mouth. ity of (LEVOTHYROX 16:28: [place] INE ORAL) 45 Medical Branch LEVOTHYROXI Yes Take by Un g[facility] NE SODIUM 5-04 mouth. ity of (LEVOTHYROX 16:28: [place] INE ORAL) 45 Medical Branch LEVOTHYROXI Yes Take by Un g[facility] NE SODIUM 5-04 mouth. ity of (LEVOTHYROX 16:28: [place] INE ORAL) 45 Medical Branch ezetimibe Yes TK 1 T PO Uni vers 10 mg 5-01 QD ity of tablet 00:00: [place] [facility] Branch gabapentin 2018-0 Yes TK 1 T PO Un g[facility]by 600 mg 5-01 BID ity of tablet 00:00: [place] [facility] ezetimibe 2018-0 Yes TK 1 T PO Uni vers 10 mg 5-01 QD ity of tablet 00:00: [place] [facility] Branch gabapentin 2018-0 Yes TK 1 T PO Un g[facility] 600 mg 5-01 BID ity of tablet 00:00: [place] [facility] Branch ezetimibe 2018-0 Yes TK 1 T PO Uni vers 10 mg 5-01 QD ity of tablet 00:00: [place] [facility] gabapentin 2018-0 Yes TK 1 T PO Un g[facility]by 600 mg 5-01 BID ity of tablet 00:00: [place] [facility] ezetimibe 2018- Yes TK 1 T PO Uni vers 10 mg 5-01 QD ity of tablet 00:00: [place] [facility] ezetimibe 2018- Yes TK 1 T PO Uni vers 10 mg 5-01 QD ity of tablet 00:00: [place] [facility] Branch gabapentin 2018-0 Yes TK 1 T PO Un g[facility] 600 mg 5-01 BID ity of tablet 00:00: [place] [facility] Branch gabapentin 2018-0 Yes TK 1 T PO Un [facility] 600 mg 5-01 BID ity of tablet 00:00: [place] [facility] ezetimibe 2018- Yes TK 1 T PO Uni vers 10 mg 5-01 QD ity of tablet 00:00: [place] [facility] Branch gabapentin 2018-0 Yes TK 1 T PO Un [facility] 600 mg 5-01 BID ity of tablet 00:00: [place] [facility] ezetimibe 2018-0 Yes TK 1 T PO Uni vers 10 mg 5-01 QD ity of tablet 00:00: [place] [facility] gabapentin 2018-0 Yes TK 1 T PO Un [facility] 600 mg 5-01 BID ity of tablet 00:00: [place] [facility] ezetimibe 2018-0 Yes TK 1 T PO Uni vers 10 mg 5-01 QD ity of tablet 00:00: [place] [facility] gabapentin 2018-0 Yes TK 1 T PO Un [facility] 600 mg 5-01 BID ity of tablet 00:00: [place] [facility] ezetimibe 2018-0 Yes TK 1 T PO Uni vers 10 mg 5-01 QD ity of tablet 00:00: [place] [facility] gabapentin 2018-0 Yes TK 1 T PO Un [facility] 600 mg 5-01 BID ity of tablet 00:00: [place] [facility] ezetimibe 2018-0 Yes TK 1 T PO Uni vers 10 mg 5-01 QD ity of tablet 00:00: [place] [facility] gabapentin 2018-0 Yes TK 1 T PO Un [facility] 600 mg 5-01 BID ity of tablet 00:00: [place] [facility] ezetimibe 2018-0 Yes TK 1 T PO Uni vers 10 mg 5-01 QD ity of tablet 00:00: [place] [facility] gabapentin 2018-0 Yes TK 1 T PO Un [facility] 600 mg 5-01 BID ity of tablet 00:00: [place] [facility] ezetimibe 2018- Yes TK 1 T PO Uni vers 10 mg 5-01 QD ity of tablet 00:00: [address] Branch gabapentin 2018-0 Yes TK 1 T PO Un [facility] 600 mg 5-01 BID ity of tablet 00:00: [place] [facility] ezetimibe 2018-0 Yes TK 1 T PO Uni vers 10 mg 5-01 QD ity of tablet 00:00: [address] Branch gabapentin 2018-0 Yes TK 1 T PO Un [facility] 600 mg 5-01 BID ity of tablet 00:00: [place] [facility] ezetimibe 2018-0 Yes TK 1 T PO Uni vers 10 mg 5-01 QD ity of tablet 00:00: [place] [address] Medical Branch gabapentin 2018-0 Yes TK 1 T PO Un g[facility] 600 mg 5-01 BID ity of tablet 00:00: [place] [facility] ezetimibe 2018-0 Yes TK 1 T PO Uni vers 10 mg 5-01 QD ity of tablet 00:00: [place] [facility] gabapentin 2018-0 Yes TK 1 T PO Un [facility] 600 mg 5-01 BID ity of tablet 00:00: [place] [facility] ezetimibe 2018-0 Yes TK 1 T PO Uni vers 10 mg 5-01 QD ity of tablet 00:00: [address] Branch gabapentin 2018-0 Yes TK 1 T PO Un [facility] 600 mg 5-01 BID ity of tablet 00:00: [place] [facility] ezetimibe 2018-0 Yes TK 1 T PO Uni vers 10 mg 5-01 QD ity of tablet 00:00: [place] [facility] gabapentin Yes TK 1 T PO Un [facility] 600 mg 5-01 BID ity of tablet 00:00: [facility] ezetimibe Yes TK 1 T PO Uni vers 10 mg 5-01 QD ity of tablet 00:00: [place] [facility] gabapentin Yes TK 1 T PO Un [facility] 600 mg 5-01 BID ity of tablet 00:00: [place] [facility] ezetimibe Yes TK 1 T PO Uni vers 10 mg 5-01 QD ity of tablet 00:00: [place] [facility] gabapentin Yes TK 1 T PO Un [facility] 600 mg 5-01 BID ity of tablet 00:00: [place] [facility] valsartan Yes TK 1 T PO Uni vers 40 mg 3-25 QD ity of tablet 00:00: [place] [facility] valsartan Yes TK 1 T PO Uni vers 40 mg 3-25 QD ity of tablet 00:00: [place] [facility] valsartan Yes TK 1 T PO Uni vers 40 mg 3-25 QD ity of tablet 00:00: [place] [facility] valsartan Yes TK 1 T PO Uni vers 40 mg 3-25 QD ity of tablet 00:00: [place] [facility] valsartan Yes TK 1 T PO Uni vers 40 mg 3-25 QD ity of tablet 00:00: [place] [facility] valsartan Yes TK 1 T PO Uni vers 40 mg 3-25 QD ity of tablet 00:00: [place] [facility] valsartan Yes TK 1 T PO Uni vers 40 mg 3-25 QD ity of tablet 00:00: [place] [facility] valsartan Yes TK 1 T PO Uni vers 40 mg 3-25 QD ity of tablet 00:00: [place] [facility] valsartan Yes TK 1 T PO Uni vers 40 mg 3-25 QD ity of tablet 00:00: [place] [facility] valsartan Yes TK 1 T PO Uni vers 40 mg 3-25 QD ity of tablet 00:00: [place] [facility] valsartan Yes TK 1 T PO Uni vers 40 mg 3-25 QD ity of tablet 00:00: [facility] valsartan Yes TK 1 T PO Uni vers 40 mg 3-25 QD ity of tablet 00:00: [place] [facility] valsartan Yes TK 1 T PO Uni vers 40 mg 3-25 QD ity of tablet 00:00: [place] [facility] valsartan Yes TK 1 T PO Uni vers 40 mg 3-25 QD ity of tablet 00:00: [place] [facility] valsartan Yes TK 1 T PO Uni vers 40 mg 3-25 QD ity of tablet 00:00: [place] [facility] valsartan Yes TK 1 T PO Uni vers 40 mg 3-25 QD ity of tablet 00:00: [place] [facility] valsartan Yes TK 1 T PO Uni vers 40 mg 3-25 QD ity of tablet 00:00: [place] [facility] valsartan Yes TK 1 T PO Uni vers 40 mg 3-25 QD ity of tablet 00:00: [place] [facility] valsartan Yes TK 1 T PO Uni vers 40 mg 3-25 QD ity of tablet 00:00: [place] [facility] atorvastati Yes TK 1 T PO U nivers n 80 mg 3-17 QD ity of tablet 00:00: [place] [facility] atorvastati Yes TK 1 T PO U nivers n 80 mg 3-17 QD ity of tablet 00:00: [place] [facility] atorvastati Yes TK 1 T PO U nivers n 80 mg 3-17 QD ity of tablet 00:00: [facility] atorvastati Yes TK 1 T PO U nivers n 80 mg 3-17 QD ity of tablet 00:00: [place] [facility] atorvastati Yes TK 1 T PO U nivers n 80 mg 3-17 QD ity of tablet 00:00: [facility] atorvastati Yes TK 1 T PO U nivers n 80 mg 3-17 QD ity of tablet 00:00: [place] [facility] atorvastati Yes TK 1 T PO U nivers n 80 mg 3-17 QD ity of tablet 00:00: [place] [facility] Branch atorvastati 2018-0 Yes TK 1 T PO U nivers n 80 mg 3-17 QD ity of tablet 00:00: [place] [facility] atorvastati 2018-0 Yes TK 1 T PO U nivers n 80 mg 3-17 QD ity of tablet 00:00: [place] [facility] atorvastati 2018-0 Yes TK 1 T PO U nivers n 80 mg 3-17 QD ity of tablet 00:00: [place] [facility] atorvastati 2018-0 Yes TK 1 T PO U nivers n 80 mg 3-17 QD ity of tablet 00:00: [place] [facility] atorvastati 2018-0 Yes TK 1 T PO U nivers n 80 mg 3-17 QD ity of tablet 00:00: [place] [facility] atorvastati 2018-0 Yes TK 1 T PO U nivers n 80 mg 3-17 QD ity of tablet 00:00: [place] [facility] atorvastati 2018-0 Yes TK 1 T PO U nivers n 80 mg 3-17 QD ity of tablet 00:00: [place] [facility] atorvastati 2018-0 Yes TK 1 T PO U nivers n 80 mg 3-17 QD ity of tablet 00:00: [place] [facility] atorvastati 2018-0 Yes TK 1 T PO U nivers n 80 mg 3-17 QD ity of tablet 00:00: [place] [facility] atorvastati 2018-0 Yes TK 1 T PO U nivers n 80 mg 3-17 QD ity of tablet 00:00: [place] [facility] atorvastati 2018-0 Yes TK 1 T PO U nivers n 80 mg 3-17 QD ity of tablet 00:00: [place] [facility] atorvastati 2018-0 Yes TK 1 T PO U nivers n 80 mg 3-17 QD ity of tablet 00:00: [place] [facility] HYDROcodone 2017-0 Yes TK 1 T PO U nivers -acetaminop 7-07 Q 6 H PRN ity of hen 10-325 00:00: P [place] mg tablet [facility] HYDROcodone 2017-0 Yes TK 1 T PO U nivers -acetaminop 7-07 Q 6 H PRN ity of hen 10-325 00:00: P [place] mg tablet [facility] HYDROcodone Yes TK 1 T PO U nivers -acetaminop 7-07 Q 6 H PRN ity of hen 10-325 00:00: P [place] mg tablet [facility] HYDROcodone Yes TK 1 T PO U nivers -acetaminop 7-07 Q 6 H PRN ity of hen 10-325 00:00: P [place] mg tablet 00 [facility] HYDROcodone Yes TK 1 T PO U nivers -acetaminop 7-07 Q 6 H PRN ity of hen 10-325 00:00: P [place] mg tablet 00 [facility] HYDROcodone Yes TK 1 T PO U nivers -acetaminop 7-07 Q 6 H PRN ity of hen 10-325 00:00: P [place] mg tablet [facility] HYDROcodone Yes TK 1 T PO U nivers -acetaminop 7-07 Q 6 H PRN ity of hen 10-325 00:00: P [place] mg tablet [facility] HYDROcodone Yes TK 1 T PO U nivers -acetaminop 7-07 Q 6 H PRN ity of hen 10-325 00:00: P [place] mg tablet [facility] HYDROcodone Yes TK 1 T PO U nivers -acetaminop 7-07 Q 6 H PRN ity of hen 10-325 00:00: P [place] mg tablet [facility] HYDROcodone Yes TK 1 T PO U nivers -acetaminop 7-07 Q 6 H PRN ity of hen 10-325 00:00: P [place] mg tablet [facility] HYDROcodone Yes TK 1 T PO U nivers -acetaminop 7-07 Q 6 H PRN ity of hen 10-325 00:00: P [place] mg tablet [facility] HYDROcodone Yes TK 1 T PO U nivers -acetaminop 7-07 Q 6 H PRN ity of hen 10-325 00:00: P [place] mg tablet [facility] HYDROcodone Yes TK 1 T PO U nivers -acetaminop 7-07 Q 6 H PRN ity of hen 10-325 00:00: P [place] mg tablet [facility] HYDROcodone Yes TK 1 T PO U nivers -acetaminop 7-07 Q 6 H PRN ity of hen 10-325 00:00: P [place] mg tablet 00 [facility] HYDROcodone Yes TK 1 T PO U nivers -acetaminop 7-07 Q 6 H PRN ity of hen 10-325 00:00: P [place] mg tablet [facility] HYDROcodone Yes TK 1 T PO U nivers -acetaminop 7-07 Q 6 H PRN ity of hen 10-325 00:00: P [place] mg tablet [facility] HYDROcodone Yes TK 1 T PO U nivers -acetaminop 7-07 Q 6 H PRN ity of hen 10-325 00:00: P [place] mg tablet [facility] HYDROcodone Yes TK 1 T PO U nivers -acetaminop 7-07 Q 6 H PRN ity of hen 10-325 00:00: P [place] mg tablet [facility] HYDROcodone Yes TK 1 T PO U nivers -acetaminop 7-07 Q 6 H PRN ity of hen 10-325 00:00: P [place] mg tablet [facility] acyclovir Yes TK 1 T PO Uni vers 400 mg 7-05 Q 6 H ity of tablet 00:00: [facility] acyclovir Yes TK 1 T PO Uni vers 400 mg 7-05 Q 6 H ity of tablet 00:00: [facility] acyclovir Yes TK 1 T PO Uni vers 400 mg 7-05 Q 6 H ity of tablet 00:00: [facility] acyclovir Yes TK 1 T PO Uni vers 400 mg 7-05 Q 6 H ity of tablet 00:00: [facility] acyclovir Yes TK 1 T PO Uni vers 400 mg 7-05 Q 6 H ity of tablet 00:00: [facility] acyclovir Yes TK 1 T PO Uni vers 400 mg 7-05 Q 6 H ity of tablet 00:00: [facility] acyclovir Yes TK 1 T PO Uni vers 400 mg 7-05 Q 6 H ity of tablet 00:00: [facility] acyclovir Yes TK 1 T PO Uni vers 400 mg 7-05 Q 6 H ity of tablet 00:00: Medical Branch acyclovir Yes TK 1 T PO Uni vers 400 mg 7-05 Q 6 H ity of tablet 00:00: [place] [facility] acyclovir 2017 Yes TK 1 T PO Uni vers 400 mg 7-05 Q 6 H ity of tablet 00:00: [place] [facility] acyclovir Yes TK 1 T PO Uni vers 400 mg 7-05 Q 6 H ity of tablet 00:00: [place] [facility] acyclovir Yes TK 1 T PO Uni vers 400 mg 7-05 Q 6 H ity of tablet 00:00: [place] [facility] acyclovir Yes TK 1 T PO Uni vers 400 mg 7-05 Q 6 H ity of tablet 00:00: [place] [facility] acyclovir Yes TK 1 T PO Uni vers 400 mg 7-05 Q 6 H ity of tablet 00:00: [place] [facility] acyclovir Yes TK 1 T PO Uni vers 400 mg 7-05 Q 6 H ity of tablet 00:00: [place] [facility] acyclovir Yes TK 1 T PO Uni vers 400 mg 7-05 Q 6 H ity of tablet 00:00: [place] [facility] acyclovir Yes TK 1 T PO Uni vers 400 mg 7-05 Q 6 H ity of tablet 00:00: [place] [facility] acyclovir Yes TK 1 T PO Uni vers 400 mg 7-05 Q 6 H ity of tablet 00:00: [place] [facility] Branch acyclovir Yes TK 1 T PO Uni vers 400 mg 7-05 Q 6 H ity of tablet 00:00: [place] [facility] acetaminoph Yes TK 1 T PO U nivers en-codeine 6-30 BID ity of 300-30 mg 00:00: [place] tablet Medical Branch acetaminoph Yes TK 1 T PO U nivers en-codeine 6-30 BID ity of 300-30 mg 00:00: [place] tablet [facility] [place] acetaminoph Yes TK 1 T PO U nivers en-codeine 6-30 BID ity of 300-30 mg 00:00: [place] tablet Medical [place] acetaminoph Yes TK 1 T PO U nivers en-codeine 6-30 BID ity of 300-30 mg 00:00: [place] tablet 00 Medical Branch acetaminoph 2017-0 Yes TK 1 T PO U nivers en-codeine 6-30 BID ity of 300-30 mg 00:00: [place] tablet Medical Branch acetaminoph 2017-0 Yes TK 1 T PO U nivers en-codeine 6-30 BID ity of 300-30 mg 00:00: [place] tablet Medical Branch acetaminoph 2017-0 Yes TK 1 T PO U nivers en-codeine 6-30 BID ity of 300-30 mg 00:00: [place] tablet Medical Branch acetaminoph [id number] Yes TK 1 T PO U nivers en-codeine 6-30 BID ity of 300-30 mg 00:00: [place] tablet Medical Branch acetaminoph [id number] Yes TK 1 T PO U nivers en-codeine 6-30 BID ity of 300-30 mg 00:00: [place] tablet Medical Branch acetaminoph 2017-0 Yes TK 1 T PO U nivers en-codeine 6-30 BID ity of 300-30 mg 00:00: [place] tablet Medical Branch acetaminoph [id number] Yes TK 1 T PO U nivers en-codeine 6-30 BID ity of 300-30 mg 00:00: [place] tablet Medical Branch acetaminoph 2017-0 Yes TK 1 T PO U nivers en-codeine 6-30 BID ity of 300-30 mg 00:00: [place] tablet Medical Branch acetaminoph 2017-0 Yes TK 1 T PO U nivers en-codeine 6-30 BID ity of 300-30 mg 00:00: [place] tablet Medical Branch acetaminoph 2017-0 Yes TK 1 T PO U nivers en-codeine 6-30 BID ity of 300-30 mg 00:00: [place] tablet 00 Medical Branch acetaminoph 2017-0 Yes TK 1 T PO U nivers en-codeine 6-30 BID ity of 300-30 mg 00:00: [place] tablet Medical Branch acetaminoph 2017-0 Yes TK 1 T PO U nivers en-codeine 6-30 BID ity of 300-30 mg 00:00: [place] tablet Medical Branch acetaminoph 2017-0 Yes TK 1 T PO U nivers en-codeine 6-30 BID ity of 300-30 mg 00:00: [place] tablet 00 Medical Branch acetaminoph 2017-0 Yes TK 1 T PO U nivers en-codeine 6-30 BID ity of 300-30 mg 00:00: [place] tablet 00 Medical Branch acetaminoph 2017-0 Yes TK 1 T PO U nivers en-codeine 6-30 BID ity of 300-30 mg 00:00: [place] tablet 00 Medical Branch methocarbam 2017- Yes TAKE 2 Univ ers ol 500 mg 6-27 TABLET PO ity o f tablet 00:00: Q 6 HOURS [place] 00 PRN FOR Medical MUSCLE Branch SPASMS methocarbam 2017 Yes TAKE 2 Univ ers ol 500 mg 6-27 TABLET PO ity o f tablet 00:00: Q 6 HOURS PRN FOR Medical MUSCLE Branch SPASMS methocarbam Yes TAKE 2 Univ ers ol 500 mg 6-27 TABLET PO ity o f tablet 00:00: Q 6 HOURS PRN FOR Medical MUSCLE Branch SPASMS methocarbam Yes TAKE 2 Univ ers ol 500 mg 6-27 TABLET PO ity o f tablet 00:00: Q 6 HOURS PRN FOR Medical MUSCLE Branch SPASMS methocarbam Yes TAKE 2 Univ ers ol 500 mg 6-27 TABLET PO ity o f tablet 00:00: Q 6 HOURS PRN FOR Medical MUSCLE Branch SPASMS methocarbam Yes TAKE 2 Univ ers ol 500 mg 6-27 TABLET PO ity o f tablet 00:00: Q 6 HOURS 00 PRN FOR Medical MUSCLE Branch SPASMS methocarbam Yes TAKE 2 Univ ers ol 500 mg 6-27 TABLET PO ity o f tablet 00:00: Q 6 HOURS PRN FOR Medical MUSCLE Branch SPASMS methocarbam Yes TAKE 2 Univ ers ol 500 mg 6-27 TABLET PO ity o f tablet 00:00: Q 6 HOURS PRN FOR Medical MUSCLE Branch SPASMS methocarbam Yes TAKE 2 Univ ers ol 500 mg 6-27 TABLET PO ity o f tablet 00:00: Q 6 HOURS PRN FOR Medical MUSCLE Branch SPASMS methocarbam Yes TAKE 2 Univ ers ol 500 mg 6-27 TABLET PO ity o f tablet 00:00: Q 6 HOURS PRN FOR Medical MUSCLE Branch SPASMS methocarbam Yes TAKE 2 Univ ers ol 500 mg 6-27 TABLET PO ity o f tablet 00:00: Q 6 HOURS 00 PRN FOR Medical MUSCLE Branch SPASMS methocarbam Yes TAKE 2 Univ ers ol 500 mg 6-27 TABLET PO ity o f tablet 00:00: Q 6 HOURS 00 PRN FOR Medical MUSCLE Branch SPASMS methocarbam Yes TAKE 2 Univ ers ol 500 mg 6-27 TABLET PO ity o f tablet 00:00: Q 6 HOURS 00 PRN FOR Medical MUSCLE Branch SPASMS methocarbam Yes TAKE 2 Univ ers ol 500 mg 6-27 TABLET PO ity o f tablet 00:00: Q 6 HOURS PRN FOR Medical MUSCLE Branch SPASMS methocarbam Yes TAKE 2 Univ ers ol 500 mg 6-27 TABLET PO ity o f tablet 00:00: Q 6 HOURS 00 PRN FOR Medical MUSCLE Branch SPASMS methocarbam Yes TAKE 2 Univ ers ol 500 mg 6-27 TABLET PO ity o f tablet 00:00: Q 6 HOURS 00 PRN FOR Medical MUSCLE Branch SPASMS methocarbam Yes TAKE 2 Univ ers ol 500 mg 6-27 TABLET PO ity o f tablet 00:00: Q 6 HOURS [place] 00 PRN FOR Medical MUSCLE Branch SPASMS methocarbam Yes TAKE 2 Univ ers ol 500 mg 6-27 TABLET PO ity o f tablet 00:00: Q 6 HOURS 00 PRN FOR Medical MUSCLE Branch SPASMS methocarbam Yes TAKE 2 Univ ers ol 500 mg 6-27 TABLET PO ity o f tablet 00:00: Q 6 HOURS [place] 00 PRN FOR Medical MUSCLE Branch SPASMS MAGOX 400 Yes TK 1 T PO Uni vers mg tablet 6-12 BID ity of 00:00: [place] 00 [facility] Branch MAGOX 400 Yes TK 1 T PO Uni vers mg tablet 6-12 BID ity of 00:00: [place] 00 [facility] Branch MAGOX 400 Yes TK 1 T PO Uni vers mg tablet 6-12 BID ity of 00:00: [place] 00 Medical Branch MAGOX 400 Yes TK 1 T PO Uni vers mg tablet 6-12 BID ity of 00:00: [place] 00 Medical Branch MAGOX 400 Yes TK 1 T PO Uni vers mg tablet 6-12 BID ity of 00:00: [place] [facility] MAGOX 400 Yes TK 1 T PO Uni vers mg tablet 6-12 BID ity of 00:00: [place] [facility] MAGOX 400 Yes TK 1 T PO Uni vers mg tablet 6-12 BID ity of 00:00: [place] [facility] MAGOX 400 Yes TK 1 T PO Uni vers mg tablet 6-12 BID ity of 00:00: [place] [facility] MAGOX 400 Yes TK 1 T PO Uni vers mg tablet 6-12 BID ity of 00:00: [place] [facility] MAGOX 400 Yes TK 1 T PO Uni vers mg tablet 6-12 BID ity of 00:00: [place] [facility] MAGOX 400 Yes TK 1 T PO Uni vers mg tablet 6-12 BID ity of 00:00: [place] [facility] MAGOX 400 Yes TK 1 T PO Uni vers mg tablet 6-12 BID ity of 00:00: [place] [facility] MAGOX 400 Yes TK 1 T PO Uni vers mg tablet 6-12 BID ity of 00:00: [place] [facility] MAGOX 400 Yes TK 1 T PO Uni vers mg tablet 6-12 BID ity of 00:00: [place] [facility] MAGOX 400 Yes TK 1 T PO Uni vers mg tablet 6-12 BID ity of 00:00: [place] [facility] MAGOX 400 Yes TK 1 T PO Uni vers mg tablet 6-12 BID ity of 00:00: [place] [facility] MAGOX 400 Yes TK 1 T PO Uni vers mg tablet 6-12 BID ity of 00:00: [place] [facility] MAGOX 400 Yes TK 1 T PO Uni vers mg tablet 6-12 BID ity of 00:00: [place] [facility] MAGOX 400 Yes TK 1 T PO Uni vers mg tablet 6-12 BID ity of 00:00: [address] Branch omeprazole Yes TK 1 C PO Un gabby 20 mg 5-08 QD AC ity of capsule 00:00: [place] [address] Medical Branch SERTraline Yes TK 1 T PO Un gabby 100 mg 5-08 BID ity of tablet 00:00: [address] Branch omeprazole Yes TK 1 C PO Un gabby 20 mg 5-08 QD AC ity of capsule 00:00: [place] [facility] omeprazole 2017 Yes TK 1 C PO Un gabby 20 mg 5-08 QD AC ity of capsule 00:00: [place] [facility] SERTraline 2017 Yes TK 1 T PO Un gabby 100 mg 5-08 BID ity of tablet 00:00: [place] [facility] SERTraline Yes TK 1 T PO Un gabby 100 mg 5-08 BID ity of tablet 00:00: [place] [facility] omeprazole 2017 Yes TK 1 C PO Un gabby 20 mg 5-08 QD AC ity of capsule 00:00: [place] [facility] SERTraline Yes TK 1 T PO Un gabby 100 mg 5-08 BID ity of tablet 00:00: [place] [facility] omeprazole 2017 Yes TK 1 C PO Un gabby 20 mg 5-08 QD AC ity of capsule 00:00: [place] [facility] SERTraline Yes TK 1 T PO Un gabby 100 mg 5-08 BID ity of tablet 00:00: [place] [facility] omeprazole Yes TK 1 C PO Un gabby 20 mg 5-08 QD AC ity of capsule 00:00: [place] [facility] SERTraline Yes TK 1 T PO Un gabby 100 mg 5-08 BID ity of tablet 00:00: [place] [facility] omeprazole 2017 Yes TK 1 C PO Un gabby 20 mg 5-08 QD AC ity of capsule 00:00: [place] [facility] SERTraline Yes TK 1 T PO Un gabby 100 mg 5-08 BID ity of tablet 00:00: [place] [facility] omeprazole 2017 Yes TK 1 C PO Un gabby 20 mg 5-08 QD AC ity of capsule 00:00: [place] [facility] SERTraline Yes TK 1 T PO Un gabby 100 mg 5-08 BID ity of tablet 00:00: [place] [facility] omeprazole 2017 Yes TK 1 C PO Un gabby 20 mg 5-08 QD AC ity of capsule 00:00: [place] [facility] SERTraline Yes TK 1 T PO Un gabby 100 mg 5-08 BID ity of tablet 00:00: [place] [facility] omeprazole 2017- Yes TK 1 C PO Un gabby 20 mg 5-08 QD AC ity of capsule 00:00: [place] [facility] SERTraline 2017- Yes TK 1 T PO Un gabby 100 mg 5-08 BID ity of tablet 00:00: [place] [facility] omeprazole 2017 Yes TK 1 C PO Un gabby 20 mg 5-08 QD AC ity of capsule 00:00: [place] [facility] SERTraline 2017- Yes TK 1 T PO Un gabby 100 mg 5-08 BID ity of tablet 00:00: [place] [facility] omeprazole 2017 Yes TK 1 C PO Un gabby 20 mg 5-08 QD AC ity of capsule 00:00: [place] [facility] omeprazole 2017 Yes TK 1 C PO Un gabby 20 mg 5-08 QD AC ity of capsule 00:00: [place] [facility] SERTraline 2017 Yes TK 1 T PO Un gabby 100 mg 5-08 BID ity of tablet 00:00: [place] [facility] SERTraline 2017 Yes TK 1 T PO Un gabby 100 mg 5-08 BID ity of tablet 00:00: [place] [facility] omeprazole 2017 Yes TK 1 C PO Un gabby 20 mg 5-08 QD AC ity of capsule 00:00: [place] [facility] SERTraline 2017 Yes TK 1 T PO Un gabby 100 mg 5-08 BID ity of tablet 00:00: [place] [facility] omeprazole 2017- Yes TK 1 C PO Un gabby 20 mg 5-08 QD AC ity of capsule 00:00: [place] [facility] SERTraline 2017 Yes TK 1 T PO Un gabby 100 mg 5-08 BID ity of tablet 00:00: [place] [facility] omeprazole 2017- Yes TK 1 C PO Un gabby 20 mg 5-08 QD AC ity of capsule 00:00: [place] [facility] SERTraline 2017 Yes TK 1 T PO Un gabby 100 mg 5-08 BID ity of tablet 00:00: [place] [facility] omeprazole 2017 Yes TK 1 C PO Un gabby 20 mg 5-08 QD AC ity of capsule 00:00: [place] [facility] SERTraline 2017- Yes TK 1 T PO Un gabby 100 mg 5-08 BID ity of tablet 00:00: [place] [facility] omeprazole Yes TK 1 C PO Un gabby 20 mg 5-08 QD AC ity of capsule 00:00: [place] [facility] SERTraline Yes TK 1 T PO Un gabby 100 mg 5-08 BID ity of tablet 00:00: [place] [facility] omeprazole Yes TK 1 C PO Un gabby 20 mg 5-08 QD AC ity of capsule 00:00: [place] [facility] SERTraline Yes TK 1 T PO Un gabby 100 mg 5-08 BID ity of tablet 00:00: [place] [facility] Vital Signs Vital Name Observation Time Observation Value Comments Source Systolic blood 2019-11-08 16:38:00 145 mm[Hg] [facility]iver [facility] Diastolic blood 2019-11-08 16:38:00 84 mm[Hg] Unive rs[facility] Heart rate 2019-11-08 16:38:00 66 /min Universi ty [facility] Body height 2019-11-08 16:34:00 154.9 cm Universi ty [facility] Body weight 2019-11-08 16:34:00 86.183 kg Universi ty [facility] BMI 2019-11-08 16:34:00 35.90 kg/m2 Universi ty [facility] Systolic blood 2019-11-08 16:38:00 145 mm[Hg] [facility]iver [facility] Diastolic blood 2019-11-08 16:38:00 84 mm[Hg] [facility]ive [facility] Heart rate 2019-11-08 16:38:00 66 /min Universi ty [facility] Body height 2019-11-08 16:34:00 154.9 cm Universi ty [facility] Body weight 2019-11-08 16:34:00 86.183 kg Universi ty [facility] BMI 2019-11-08 16:34:00 35.90 kg/m2 Universi ty [facility] Systolic blood 2020-02-28 14:53:00 171 mm[Hg] Univer sity of pressure [facility] Diastolic blood 2020-02-28 14:53:00 93 mm[Hg] Unive [facility] of [facility] Heart rate 2020-02-28 14:53:00 88 /min [facility] [place] [facility] Body temperature 2020-02-28 14:49:00 37 [place] Univ ers[facility] [place] [facility] Body height 2020-02-28 14:49:00 154.9 cm [facility] [place] [facility] Body weight 2020-02-28 14:49:00 86.183 kg [facility] [place] [facility] BMI 2020-02-28 14:49:00 35.90 kg/m2 [facility] [place] [facility] Systolic blood 2019-06-19 19:13:00 128 mm[Hg] Univer sity of pressure [place] [facility] Diastolic blood 2019-06-19 19:13:00 66 mm[Hg] Unive rsity of pressure [place] [facility] Heart rate 2019-06-19 19:13:00 86 /min [facility] [place] [facility] Respiratory rate 2019-06-19 19:13:00 18 /min Univ ersity of [facility] Oxygen saturation in 2019-06-19 19:13:00 93 /min University of Arterial blood by [facility] Pulse oximetry Branch Systolic blood 2019-06-07 15:14:00 145 mm[Hg] Univer sity of pressure [place] [facility] Diastolic blood 2019-06-07 15:14:00 71 mm[Hg] Unive rsity of pressure [place] [facility] Heart rate 2019-06-07 15:14:00 73 /min [facility]i [facility] [place] [facility] Respiratory rate 2019-06-07 15:14:00 18 /min Univ ersity of [facility] Branch Body height 2019-06-07 15:14:00 154.9 cm [facility]i [facility] [place] [facility] Body weight 2019-06-07 15:14:00 83.915 kg [facility] [place] [facility] BMI 2019-06-07 15:14:00 34.96 kg/m2 [facility] [place] [facility] Systolic blood 2019-05-31 15:45:00 152 mm[Hg] Univer sity of pressure [place] [facility] Diastolic blood 2019-05-31 15:45:00 70 mm[Hg] Unive rsity of pressure [place] [facility] Heart rate 2019-05-31 15:45:00 82 /min [facility]i [facility] [place] [facility] Respiratory rate 2019-05-31 15:45:00 18 /min Univ ers[facility] [place] [facility] Body height 2019-05-31 15:45:00 154.9 cm [facility] Body weight 2019-05-31 15:45:00 83.915 kg [facility] BMI 2019-05-31 15:45:00 34.96 kg/m2 [facility] Procedures Procedure Date / Time Performed Performing Clinician Elana e XR FOOT <3 VW RIGHT 2020-02-28 14:51:28 Ace Acosta [facility] EKG-12 LEAD 2019-05-31 18:13:41 Doctor Unassigned, No Univer [facility] XR CHEST 2 VW 2019-05-31 17:58:09 Verito [facility] NOTICE OF PRIVACY 2019-05-31 17:07:28 Doctor Unassigned, No [facility] 2019-05-31 17:07:04 Doctor Unassigned, No [facility] TREATMENT ASSIGNMENT OF BENEFITS 2019-05-31 17:06:16 Doctor Unassigned, No [facility] Encounters Start End Encounter Admission Attending Care Care Encounter Source Date/Time Date/Time Type Type Clinicians Facility Department ID 2019-11-08 2020-03-23 Office Srikanth [facility] [id number] 10:19:22 13:04:36 Visit Verito Amilcar [facility] [id number] Surgical [id number] Specialti [id number] es [address] [place] 2019-11-08 2020-03-23 Office Srikanth MDTAYLA [id number] Univers 10:19:22 13:04:36 Visit Verito Fitzgerald [facility] [id number] it y of Surgical [id number] Guilherme as Specialti [id number] Hi dical es 198 [facility] 2020-02-28 2020-02-28 Outpatient R TOM[facility]Z [facility] [id number] Univers 09:51:27 23:59:00 ACE loco [facility] 2020-02-28 2020-02-28 [facility] YEIMI Acosta [id number] [facility] 09:51:00 23:59:00 Encounter Ace Ratliff [id number] ity of Surgical [id number] Guilherme as Specialti [id number] Hi dical es 809 [facility] 2020-02-28 2020-02-28 [facility] [id number] Univers 09:38:42 09:53:42 Visit Ace Ratliff [id number] it y of Surgical [id number] Guilherme as Specialti [id number] Hi dical es 198 [facility] 2020-02-28 2020-02-28 Outpatient R [facility] [id number] Univers 09:30:00 09:30:00 ACE [id number] ity of [facility] 2019-11-08 2019-11-08 [facility] [id number] Univers 10:42:00 23:59:00 Encounter Verito [facility] [id number] ity of Surgical [id number] Guilherme as Specialti [id number] Hi dical es 809 [facility] 2019-11-08 2019-11-08 Outpatient [facility] [id number] Univers 10:38:48 10:41:00 VERITO ity of [facility] 2019-11-08 2019-11-08 [facility] [id number] Univers 10:38:00 10:41:00 Encounter Verito [facility] [id number] ity of Surgical [id number] Guilherme as Specialti [id number] Hi dical es 809 [facility] 2019-06-19 2019-06-19 Office [facility] [id number] Univers 13:51:11 14:06:11 Visit Ace [facility] [id number] it y of Surgical [id number] Guilherme as Specialti [id number] Hi dical es 198 [facility] 2019-06-19 2019-06-19 Letter [facility] [id number] Univers 00:00:00 00:00:00 (Out) Ace [facility] [id number] it y of Surgical [id number] Guilherme as Specialti [id number] Hi dical es 198 [facility] 2019-06-07 2019-06-07 Office Tomasz [facility] [id number] Univers 10:13:02 10:48:25 Visit Ace [facility] [id number] it y of Surgical [id number] Guilherme as Specialti [id number] Hi dical es 198 [facility] 2019-05-31 2019-05-31 [facility] [id number] [facility] 12:18:17 23:59:00 Encounter Verito Domínguez [id number] ity of [place] 4.2.7.2.686 [facility] [id number] [facility] [address] [place] 2019-05-31 2019-05-31 Office [facility] [id number] Univers 10:44:00 14:09:42 Visit Verito Ratliff [id number] it y of Surgical [id number] Guilherme as Specialti [id number] Hi dicmi es 198 [facility] 2019-05-31 2019-05-31 Zoning Technician 1, [facility] [id number] Univers 12:12:29 12:27:29 Visit Verito [facility] [id number] ity of [place] 4.2.7.2.686 [facility] [id number] [facility] [address] [place] 2019-05-31 2019-05-31 [facility] Verito Duke [facility] [id number] [id number] Univers 12:14:13 12:17:00 Encounter Station, [facility] [place] [id number] .10 ity of [place] 4.2.7.2.686 [facility] [id number] 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 Lungs: The lungs are clear. No pleural effusion or pneumothorax isidentified. Heart/Mediastinum: The cardiomediastinal silhouette is normal fortechnique. Bones: No acute osseous abnormality is seen. [facility], Radiant Results Inft User - 05/31/2019 1:24 PM CDT* * * * * * * * ORIGINAL REPORT * * * * * * * *EXAM: XR CHEST 2 VWCOMPARISON: None availableHISTORY: Preop examination FINDINGS:Lines/Tubes: None.Lungs: The lungs are clear. No pleural effusion or pneumothorax isidentified.Heart/Me diastinum: The cardiomediastinal silhouette is normal fortechnique.Bones: No acute osseous abnormality is seen.IMPRESSION1. No acute cardiopulmonary abnormality.
[2021-11-09] MEDS ORDERED: FUROSEMIDE 40 MG/4 ML VIAL ONE (14:48)
[2021-11-09 15:15] LABS: Urine Blood Negative (Negative); Urine Glucose Negative (Negative); Urine Protein Negative (Negative); Urine pH 6.5 (5.0-7.0)
--- NOTE | 2021-11-09 15:31 | RAD REPORT ---
EXAM DESCRIPTION: RAD - Chest Single View - 11/09/2021 3:20 pm CLINICAL HISTORY: Cough;Dyspnea Chest pain. COMPARISON: Chest Pa And Lat (2 Views) dated 10/12/2020; Chest Single View dated 08/26/2020; Chest Pa And Lat (2 Views) dated 07/22/2020; Chest Pa And Lat (2 Views) dated 06/05/2020 FINDINGS: Portable technique limits examination quality. Interstitial opacities are present bilaterally likely representing mild pulmonary edema. The heart is mildly prominent size. No displaced fractures. IMPRESSION: Mild CHF.
[2021-11-09 15:39] LABS: Absolute Lymphocytes (CBC) 1.9 K/uL (0.7-4.9); Hematocrit 35.9 % (36.0-45.0); Lymphocytes % 31.3 % (15.3-44.8); MPV 7.6 fL (7.6-11.3); RBC Red Blood Cell Count 4.32 M/uL (3.86-4.86)
[2021-11-09 15:44] LABS: Protime INR 0.91
[2021-11-09 15:47] LABS: ALT/SGPT 21 U/L (12-78); AST/SGOT 15 U/L (15-37); Albumin 3.4 g/dL (3.4-5.0); Alkaline Phosphatase 128 U/L (45-117); BUN Blood Urea Nitrogen 35 mg/dL (7-18); Bicarbonate 24 mmol/L (21-32); Bilirubin Direct < 0.1 mg/dL (0-0.2); Bilirubin Total 0.4 mg/dL (0.2-1.0); Glucose Level 97 mg/dL (74-106); Lipase 46 U/L (73-393); NT PRO-BNP 587 pg/mL (<125); Potassium 4.4 mmol/L (3.5-5.1); Protein, Total 7.8 g/dL (6.4-8.2); Sodium Level 137 mmol/L (136-145)
[2021-11-09 16:26] LABS: SARS-COV-2 RT PCR NEGATIVE (NEGATIVE)
--- NOTE | 2021-11-09 18:16 | EDPHYS ---
Physician Documentation [facility] Name: Catherine Figueroa Age: 71 yrs Sex: Female : 1950 Arrival Date: 11/09/2021 Time: 13:35 Bed 13 Private MD: Lubna Solano H ED Physician Benji Godwin HPI: 11/09 16:07 This 71 yrs old Female presents to ER via Wheelchair with complaints of rn Breathing Difficulty. 16:07 The patient has shortness of breath at rest, with light activity. Onset: The rn symptoms/episode began/occurred 3 day(s) ago. Duration: The symptoms are intermittent. The patient's shortness of breath is aggravated by exertion, light activity, is alleviated by rest. Associated signs and symptoms: Pertinent positives: non-productive cough, Pertinent negatives: fever, hemoptysis. Severity of symptoms: At their worst the symptoms were moderate in the emergency department the symptoms are unchanged. The patient has experienced similar episodes in the past. The patient has not recently seen a physician. Patient reports 3 days of shortness of breath, worse with exertion fever, positive for bilateral ear pain and congestion. No diarrhea or vomiting. No trauma.. Historical: - Allergies: 13:51 Sulfa (Sulfonamide Antibiotics); ld1 - PMHx: 13:51 Anxiety; Depression; GERD; High Cholesterol; hypomagnesium; Hypertension; ld1 Hypothyroidism; Kidney stones; - PSHx: 13:51 Hysterectomy; section; ld1 - Immunization history:: Adult Immunizations up to date, Client reports receiving the 2nd dose of the Covid vaccine. - Social history:: Smoking status: Patient denies any tobacco usage or history of. Patient/guardian denies using alcohol. - Family history:: not pertinent. - Hospitalizations: : No recent hospitalization is reported. ROS: 16:07 Constitutional: Negative for fever, chills, and weight loss, Eyes: Negative for injury, rn pain, redness, and discharge, ENT: Positive for congestion Neck: Negative for injury, pain, and swelling, Cardiovascular: Negative for chest pain, palpitations Respiratory: Positive for shortness of breath Abdomen/GI: Negative for abdominal pain, nausea, vomiting, diarrhea, and constipation, Back: Negative for injury and pain, : Negative for injury, bleeding, discharge, and swelling, MS/Extremity: Negative for injury and deformity, Skin: Negative for injury, rash, and discoloration, Neuro: Negative for headache, weakness, numbness, tingling, and seizure. Exam: 16:07 Constitutional: This is a well developed, well nourished patient who is awake, alert, rn and in no acute distress. Head/Face: Normocephalic, atraumatic. Eyes: Periorbital areas with no swelling, redness, or edema. ENT: No stridor Cardiovascular: Regular rate and rhythm. No pulse deficits. Respiratory: Mild tachypnea, no retractions Abdomen/GI: Soft, non-tender Skin: Warm, dry MS/ Extremity: Pulses equal, no cyanosis. Neurovascular intact. Full, normal range of motion. Equal circumference. Neuro: Awake and alert, GCS 15 Vital Signs: 13:51 BP 152 / 66; Pulse 71; Resp 18; Temp 98.6(O); Pulse Ox 100% on R/A; Weight 86.18 kg; ld1 Height 5 ft. 1 in. (154.94 cm); Pain 0/10; 13:51 Body Mass Index 35.90 (86.18 kg, 154.94 cm) ld1 MDM: 14:30 Patient medically screened. rn 18:13 Differential diagnosis: Anemia Anxiety Reaction CHF exacerbation, pneumonia, rn Pneumothorax pulmonary edema. Data reviewed: vital signs, nurses notes, lab test result(s), EKG, radiologic studies, plain films, and as a result, I will discharge patient. Data interpreted: fibrous wallboard inspector: rate is 71 beats/min, rhythm is normal sinus rhythm, regular, with no ectopy, Interpretation: normal rate, normal rhythm, Pulse oximetry: on room air is 100 %. Interpretation: normal. Counseling: I had a detailed discussion with the patient and/or guardian regarding: the historical points, exam findings, and any diagnostic results supporting the discharge/admit diagnosis, lab results, radiology results, the need for outpatient follow up, to return to the emergency department if symptoms worsen or persist or if there are any questions or concerns that arise at home. Response to treatment: the patient's symptoms have markedly improved after treatment, and as a result, I will discharge patient. Special discussion: I discussed with the patient/guardian in detail that at this point there is no indication for admission to the hospital. It is understood, however, that if the symptoms persist or worsen the patient needs to return immediately for re-evaluation. ED course: Patient with signs of mild congestive heart failure pulmonary edema. No oxygen requirement. Improved after Lasix. Upon medication review patient does not seem to be on Lasix at home. Patient states she remembers being on Lasix at one time. Will not give full prescription but may be for 5 days or so of Lasix with PCP follow-up given chronic kidney disease. Covid negative and flu negative. Chest x-ray shows mild pulmonary edema.. 11/09 14:37 Order name: BMP; Complete Time: 16:07 rn 11/09 14:37 Order name: Blood Culture Adult (2) rn 11/09 14:37 Order name: CBC with Diff; Complete Time: 16: rn 11/09 14:37 Order name: Hepatic Function; Complete Time: 16: rn 11/09 14:37 Order name: Lipase; Complete Time: 16: rn 11/09 14:37 Order name: NT PRO-BNP; Complete Time: 16: rn 11/09 14:37 Order name: PT-INR; Complete Time: 16: rn 11/09 14:37 Order name: Ptt, Activated; Complete Time: 16: rn 11/09 14:37 Order name: XRAY CXR (1 view); Complete Time: 15:44 rn 11/09 14:37 Order name: COVID-19/FLU A+B (Document "Date of Onset" if Symptomatic); Complete Time: rn 17:30 11/09 14:38 Order name: Procalcitonin; Complete Time: 17:30 rn 11/09 15:15 Order name: Urine Dipstick-Ancillary; Complete Time: 15:44 EDNV 11/09 14:37 Order name: EKG; Complete Time: 14:54 rn 11/09 14:37 Order name: Cardiac monitoring; Complete Time: 15:16 rn 11/09 14:37 Order name: EKG - Nurse/Tech; Complete Time: 16:08 rn 11/09 14:37 Order name: IV Saline Lock; Complete Time: 15:16 rn 11/09 14:37 Order name: Labs collected and sent; Complete Time: 15:16 rn 11/09 14:37 Order name: O2 Per Protocol; Complete Time: 15:16 rn 11/09 14:37 Order name: O2 Sat Monitoring; Complete Time: 15:16 rn Administered Medications: 15:00 Drug: Lasix (furosemide) 40 mg Route: IVP; Site: right antecubital; bp 16:08 Follow up: Response: No adverse reaction bp 18:30 Drug: Lasix (furosemide) 20 mg Route: IVP; Site: right antecubital; bp Disposition Summary: 11/09/21 18:15 Discharge Ordered Location: Home rn Problem: an ongoing problem rn Symptoms: have improved rn Condition: Stable rn Diagnosis - Unspecified combined systolic (congestive) and diastolic (congestive) heart failure rn Followup: rn - With: Private Physician - When: As needed - Reason: Recheck today's complaints, Re-evaluation by your physician Discharge Instructions: - Discharge Summary Sheet rn - Heart Failure Medicines rn Forms: - Medication Reconciliation Form rn - Thank You Letter rn - Antibiotic rn postpartum - Prescription Opioid Use rn Prescriptions: - Lasix 40 mg Oral Tablet - take 1 tablet by ORAL route once daily for 5 days; 5 tablet; Refills: 0, rn Product Selection Permitted Signatures: Dispatcher [employer] EDBenji Browne MD MD rn Peltier, Brian, RN RN bp Eli Peña RN RN ld1 Corrections: (The following items were deleted from the chart) 13:52 13:51 PSHx: None; ld1 ld1
--- NOTE | 2021-11-09 18:16 | ER ---
[facility] Name: Catherine Figueroa Age: 71 yrs Sex: Female : 1950 Arrival Date: 11/09/2021 Time: 13:35 Bed 13 Private MD: Lubna Solano H Diagnosis: Unspecified combined systolic (congestive) and diastolic (congestive) heart failure Presentation: 11/09 13:51 Chief complaint: Patient states: SOB - 2 days. Pt reports having CHF. Coronavirus ld1 screen: At this time, the client does not indicate any symptoms associated with coronavirus-19. Ebola Screen: No symptoms or risks identified at this time. Initial Sepsis Screen: Does the patient meet any 2 criteria? No. Patient's initial sepsis screen is negative. Does the patient have a suspected source of infection? No. Patient's initial sepsis screen is negative. Risk Assessment: Do you want to hurt yourself or someone else? Patient reports no desire to harm self or others. Onset of symptoms was November 09, 2021. 13:51 Method Of Arrival: Wheelchair ld1 13:51 Acuity: MARCELLA 3 ld1 Triage Assessment: 13:51 General: Appears in no apparent distress. uncomfortable, Behavior is cooperative, ld1 appropriate for age, anxious. Pain: Denies pain. Neuro: Level of Consciousness is awake, alert, obeys commands, Oriented to person, place, time, situation. Cardiovascular: Capillary refill < 3 seconds Patient's skin is warm and dry. Respiratory: Reports shortness of breath cough that is Airway is patent Respiratory effort is even, unlabored, Respiratory pattern is regular, symmetrical, Onset: The symptoms/episode began/occurred gradually, the patient has mild shortness of breath. Historical: - Allergies: 13:51 Sulfa (Sulfonamide Antibiotics); ld1 - PMHx: 13:51 Anxiety; Depression; GERD; High Cholesterol; hypomagnesium; Hypertension; ld1 Hypothyroidism; Kidney stones; - PSHx: 13:51 Hysterectomy; section; ld1 - Immunization history:: Adult Immunizations up to date, Client reports receiving the 2nd dose of the Covid vaccine. - Social history:: Smoking status: Patient denies any tobacco usage or history of. Patient/guardian denies using alcohol. - Family history:: not pertinent. - Hospitalizations: : No recent hospitalization is reported. Screenin:00 Abuse screen: Denies threats or abuse. Denies injuries from another. Nutritional bp screening: No deficits noted. Tuberculosis screening: No symptoms or risk factors identified. Fall Risk None identified. Assessment: 14:00 General: SEE TRIAGE NOTE. bp 18:38 Respiratory: Airway is patent Breath sounds with crackles bilaterally. ld1 Vital Signs: 13:51 BP 152 / 66; Pulse 71; Resp 18; Temp 98.6(O); Pulse Ox 100% on R/A; Weight 86.18 kg; ld1 Height 5 ft. 1 in. (154.94 cm); Pain 0/10; 13:51 Body Mass Index 35.90 (86.18 kg, 154.94 cm) ld1 ED Course: 13:35 Patient arrived in ED. mr 13:35 Lubna Solano DO is Private Physician. mr 13:51 Arm band placed on right wrist. ld1 13:53 Triage completed. ld1 14:14 George Leung, RN is Primary Nurse. bp 14:16 Patient has correct armband on for positive identification. Bed in low position. Call bp light in reach. Side rails up X2. Adult w/ patient. 14:30 Benji Godwin MD is Attending Physician. rn 15:20 XRAY CXR (1 view) In Process Unspecified. EDMS 18:37 No provider procedures requiring assistance completed. IV discontinued, intact, ld1 bleeding controlled, No redness/swelling at site. Administered Medications: 15:00 Drug: Lasix (furosemide) 40 mg Route: IVP; Site: right antecubital; bp 16:08 Follow up: Response: No adverse reaction bp 18:30 Drug: Lasix (furosemide) 20 mg Route: IVP; Site: right antecubital; bp Outcome: 18:15 Discharge ordered by . rn 18:37 Discharged to home ambulatory. ld1 18:37 Condition: stable 18:37 Discharge instructions given to patient, Instructed on discharge instructions, follow up and referral plans. Demonstrated understanding of instructions, follow-up care, medications. 18:38 Patient left the ED. ld1 Signatures: Dispatcher [employer] EDHI TreadwellLorin mr Godwin, Benji, MD MD rn Xochitl, George, RN RN bp Dibbern, Eli, RN RN ld1 Corrections: (The following items were deleted from the chart) 13:52 13:51 PSHx: None; ld1 ld1
[2021-11-09] MEDS ORDERED: FUROSEMIDE 20 MG/ 2ML VIAL ONE (18:27)
[2021-11-09 20:09] VITALS: BP 152/66; TEMP 98.6; O2SAT 100
--- NOTE | 2021-11-10 13:05 | EKG ---
Test Date: 2021-11-09 Test Time: 17:03:07 Grinder Set Up Operator Internal: MEASUREMENT RESULTS: Intervals: Rate: 59 MS: 146 QRSD: 88 QT: 412 QTc: 407 [place]: P: 56 MS: 146 QRS: 39 T: 17 INTERPRETIVE STATEMENTS: Sinus bradycardia Otherwise normal ECG Compared to ECG 10/12/2020 10:47:23 Sinus rhythm no longer present Electronically Signed On 11-10-21 13:03:07 STEM ROLLER by Keyur Gaffney
== END 2021-11-09 18:38 | disposition home or self-care (01) ==
LOC: ER 13:31
DX: I50.40 Unspecified combined systolic (congestive) and diastolic (congestive) heart failure (principal); I10 Essential (primary) hypertension; Z88.2 Allergy status to sulfonamides; Z20.822 Contact with and (suspected) exposure to COVID-19
CPT/HCPCS: 93005; 87040 ×2; 85025; 80048; 36415; 87205 ×2; 85610; 80076; 85730; 87077 ×2; 87186 ×2; 81003; 83690; 84145; 83880; 0240U; 71045; 96374; 99283; J1940 ×2

== ENCOUNTER 2022-11-17 12:05 | Day surgery (SDC) | payer OTHER ==
--- NOTE | 2022-11-15 15:39 | RAD REPORT ---
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 COMPARISON: Chest Single View dated 11/09/2021; Chest Pa And Lat (2 Views) dated 10/12/2020; Chest Singl e View dated 08/26/2020; Chest Pa And Lat (2 Views) dated 07/22/2020 FINDINGS: Mild interstitial pulmonary edema. The heart is moderately enlarged in size. No displaced fractures. IMPRESSION: Mild CHF.
[2022-11-15 15:40] LABS: Absolute Lymphocytes (CBC) 1.9 K/uL (0.7-4.9); Lymphocytes % 36.5 % (15.3-44.8); MCV 83.6 fL (80-100); MPV 6.8 fL (7.6-11.3); RBC Red Blood Cell Count 4.19 M/uL (3.86-4.86)
[2022-11-15 15:43] LABS: Protime INR 0.95
[2022-11-15 15:56] LABS: Potassium 4.6 mmol/L (3.5-5.1)
--- NOTE | 2022-11-17 08:00 | EKG ---
Test Date: 2022-11-15 Test Time: 15:04:10 Cardiology Nurse Practitioner: JASMEET MEASUREMENT RESULTS: Intervals: Rate: 73 MI: 160 QRSD: 76 QT: 356 QTc: 392 [place]: P: 52 MI: 160 QRS: 54 T: 32 INTERPRETIVE STATEMENTS: Normal sinus rhythm Low voltage QRS Borderline ECG Compared to ECG 11/09/2021 17:03:07 Low QRS voltage now present Sinus bradycardia no longer present Electronically Signed On 11-17-22 07:55:49 CRACKING UNIT OPERATOR by Carl Carmona
[2022-11-17] MEDS ORDERED: NA CHLORIDE 0.9% 500 ML ONE (12:29)
[2022-11-17] MEDS ORDERED: HEPA 1000U/500MLS 2,000 UNIT/1,000 ML BAG IV ONE (13:38)
[2022-11-17] MEDS ORDERED: FENTANYL CITR 100 MCG/2 ML ONE (13:39)
[2022-11-17] MEDS ORDERED: MIDAZOLAM HCL 2 MG/2 ML INJ ONE (13:39)
[2022-11-17] MEDS ORDERED: ATROPINE SULF 1 MG/10 ML SYR IV ONE (13:39)
[2022-11-17 16:44] VITALS: O2SAT 97
[2022-11-17 17:45] VITALS: BP 155/51
== END 2022-11-17 17:48 | disposition home or self-care (01) ==
LOC: PRE 12:05 → CCL 17:48
PROVIDERS: ATTEND Internal Medicine
DX: I65.23 Occlusion and stenosis of bilateral carotid arteries (principal); I25.10 Atherosclerotic heart disease of native coronary artery without angina pectoris; I13.0 Hypertensive heart and chronic kidney disease with heart failure and stage 1 through stage 4 chronic kidney disease, or unspecified chronic kidney disease; N18.30 Chronic kidney disease, stage 3 unspecified; I50.32 Chronic diastolic (congestive) heart failure; I70.223 Atherosclerosis of native arteries of extremities with rest pain, bilateral legs; E78.2 Mixed hyperlipidemia; Z79.899 Other long term (current) drug therapy; Z88.2 Allergy status to sulfonamides; Z91.041 Radiographic dye allergy status
CPT/HCPCS: 93005; 85025; 80048; 36415; 85610; 85730; 71046; 36222; 76937; C1893; C1760; G0269; J2250; J3010; J7040; J1644; J0461

== ENCOUNTER 2023-04-19 11:31 | Inpatient (IN) | payer OTHER ==
--- OUTSIDE RECORDS SUMMARY | 2023-04-19 11:36 | XMS REPORT | Continuity of Care Document ---
:1950 Author Organization [facility] t Address [address] [place] [address] [place] [id number] Care Team Providers Name Role Phone YA MURPHY Primary Care Physician Unavailable Verito Duke MD Attending Clinician ACE ACOSTA Attending Clinician Unavailable Ace Steve Attending Clinician VERITO DUKE Attending Clinician Unavailable 1, [facility] Attending Clinician Unavailable [place], [facility] Attending Clinician Unavailable Payers Payer Name [...] Exposure to SARS-CoV-2 Not sure Un iversity [facility] (event) Medical Branch Sex Assigned At [facility] [place] [facility] Smoking Status Start Date Stop Date Source Never smoker [facility] Medical Branch Medications Ordered Filled Start Stop Current Ordering Indication Dosage Frequency Signature Comments Components Source Medication Medication Date Date Medication? Clinician (SIG) Name Name methylPREDN 2020-0 Yes [id number] 84mg Take 21 Univers ISolone 5-22 9107 tablets by ity of (MEDROL, 00:00: mouth [place] HELDER,) 4 mg 00 SEE-INSTRU Med ical tablets CTIONS. Branch follow package directions methylPREDN 2020-0 Yes [id number] 84mg Take 21 [facility] ISolone 5-22 9107 tablets by ity of (MEDROL, 00:00: mouth [place] HELDER,) 4 mg 00 SEE-INSTRU Med ical tablets CTIONS. Branch follow package directions methylPREDN 2020-0 Yes [id number] 84mg Take 21 [facility] ISolone 5-22 9107 tablets by ity of (MEDROL, 00:00: mouth [place] HELDER,) 4 mg 00 SEE-INSTRU Med ical tablets CTIONS. Branch follow package directions triamcinolo 2020-0 2020- No 80mg Unive rs ne 11-08 ity of acetonide 18:45: 17:36 [place] (KENALOG) 00 :00 Medical injection Branch 80 mg triamcinolo 2020-0 2020- No 80mg 80 mg, Uni vers ne 11-08 Intra-riaz ity of acetonide 18:45: 17:[facility] [place] (KENALOG) 00 :00 ONCE, 1 Medical injection dose, Fri Bran h 80 mg 11/08/19 at 1245, Routine CLINDAMYCIN 2019-0 Yes Take by Uni vers HCL ORAL - mouth. ity of 16:36: [address] CLINDAMYCIN 2020-0 Yes Take by Uni vers HCL ORAL - mouth. ity of 16:36: [address] CLINDAMYCIN 2020-0 Yes Take by Uni vers HCL ORAL - mouth. ity of 16:36: [address] CLINDAMYCIN 2020-0 Yes Take by Uni vers HCL ORAL -31 mouth. ity of 16:36: [address] CLINDAMYCIN 2020-0 Yes Take by Uni vers HCL ORAL - mouth. ity of 16:36: [address] CLINDAMYCIN 2020-0 Yes Take by Uni vers HCL ORAL -31 mouth. ity of 16:36: [place] 17 Medical Branch diclofenac 2020-0 Yes [id number] 75mg Take 1 U nivers 75 mg EC 1-31 tablet by ity of tablet 00:00: mouth 2 [place] (two) Medical times Branch daily with meals. diclofenac 2020-0 Yes [id number] 75mg Take 1 U nivers 75 mg EC 1-31 tablet by ity of tablet 00:00: mouth 2 [place] (two) Medical times Branch daily with meals. diclofenac 2020-0 Yes [id number] 75mg Take 1 U nivers 75 mg EC 1-31 tablet by ity of tablet 00:00: mouth 2 (two) Medical times Branch daily with meals. diclofenac 2020-0 Yes [id number] 75mg Take 1 U nivers 75 mg EC 1-31 tablet by ity of tablet 00:00: mouth 2 [place] (two) Medical times Branch daily with meals. diclofenac 2020-0 Yes [id number] 75mg Take 1 U nivers 75 mg EC 1-31 tablet by ity of tablet 00:00: mouth 2 [place] (two) Medical times Branch daily with meals. diclofenac 2020-0 Yes [id number] 75mg Take 1 U nivers 75 mg EC 1-31 tablet by ity of tablet 00:00: mouth 2 [place] (two) Medical times Branch daily with meals. LEVOTHYROXI 0 Yes Take by Uni vers NE SODIUM 5-04 mouth. ity of (LEVOTHYROX 16:28: [place] INE ORAL) Medical Branch LEVOTHYROXI Yes Take by Uni vers NE SODIUM 5-04 mouth. ity of (LEVOTHYROX 16:28: [place] INE ORAL) Medical Branch LEVOTHYROXI Yes Take by Uni vers NE SODIUM 5-04 mouth. ity of (LEVOTHYROX 16:28: [place] INE ORAL) Medical Branch LEVOTHYROXI Yes Take by Uni vers NE SODIUM 5-04 mouth. ity of (LEVOTHYROX 16:28: [place] INE ORAL) Medical Branch LEVOTHYROXI 0 Yes Take by Uni vers NE SODIUM 5-04 mouth. ity of (LEVOTHYROX 16:28: [place] INE ORAL) Medical Branch LEVOTHYROXI Yes Take by Uni vers NE SODIUM 5-04 mouth. ity of (LEVOTHYROX 16:28: [place] INE ORAL) Medical Branch LEVOTHYROXI Yes Take by Uni vers NE SODIUM 5-04 mouth. ity of (LEVOTHYROX 16:28: [place] INE ORAL) 45 Medical Branch LEVOTHYROXI Yes Take by Uni vers NE SODIUM 5-04 mouth. ity of (LEVOTHYROX 16:28: [place] INE ORAL) 45 Medical Branch LEVOTHYROXI Yes Take by Uni vers NE SODIUM 5-04 mouth. ity of (LEVOTHYROX 16:28: [place] INE ORAL) 45 Medical Branch LEVOTHYROXI Yes Take by Uni vers NE SODIUM 5-04 mouth. ity of (LEVOTHYROX 16:28: [place] INE ORAL) 45 Medical Branch LEVOTHYROXI Yes Take by Uni vers NE SODIUM 5-04 mouth. ity of (LEVOTHYROX 16:28: [place] INE ORAL) 45 Medical Branch LEVOTHYROXI Yes Take by Uni vers NE SODIUM 5-04 mouth. ity of (LEVOTHYROX 16:28: [place] INE ORAL) 45 Medical Branch LEVOTHYROXI Yes Take by Uni vers NE SODIUM 5-04 mouth. ity of (LEVOTHYROX 16:28: [place] INE ORAL) 45 Medical Branch LEVOTHYROXI Yes Take by Uni vers NE SODIUM 5-04 mouth. ity of (LEVOTHYROX 16:28: [place] INE ORAL) 45 Medical Branch LEVOTHYROXI Yes Take by Uni vers NE SODIUM 5-04 mouth. ity of (LEVOTHYROX 16:28: [place] INE ORAL) 45 Medical Branch LEVOTHYROXI Yes Take by Uni vers NE SODIUM 5-04 mouth. ity of (LEVOTHYROX 16:28: [place] INE ORAL) 45 Medical Branch LEVOTHYROXI Yes Take by Uni vers NE SODIUM 5-04 mouth. ity of (LEVOTHYROX 16:28: [place] INE ORAL) 45 Medical Branch LEVOTHYROXI Yes Take by Uni vers NE SODIUM 5-04 mouth. ity of (LEVOTHYROX 16:28: [place] INE ORAL) 45 Medical Branch LEVOTHYROXI Yes Take by Uni vers NE SODIUM 5-04 mouth. ity of (LEVOTHYROX 16:28: [place] INE ORAL) 45 Medical Branch ezetimibe Yes TK 1 T PO Uni vers 10 mg 5-01 QD ity of tablet 00:00: [place] [facility] gabapentin 2018-0 Yes TK 1 T PO Un gabby 600 mg 5-01 BID ity of tablet 00:00: [place] [facility] ezetimibe 2018-0 Yes TK 1 T PO Uni vers 10 mg 5-01 QD ity of tablet 00:00: [place] [facility] gabapentin 2018-0 Yes TK 1 T PO Un gabby 600 mg 5-01 BID ity of tablet 00:00: [place] [facility] ezetimibe 2018-0 Yes TK 1 T PO Uni vers 10 mg 5-01 QD ity of tablet 00:00: [place] [facility] gabapentin 2018-0 Yes TK 1 T PO Un gabby 600 mg 5-01 BID ity of tablet 00:00: [place] [facility] ezetimibe 2018-0 Yes TK 1 T PO Uni vers 10 mg 5-01 QD ity of tablet 00:00: [place] [facility] ezetimibe 2018- Yes TK 1 T PO Uni vers 10 mg 5-01 QD ity of tablet 00:00: [place] [facility] gabapentin 2018-0 Yes TK 1 T PO Un gabby 600 mg 5-01 BID ity of tablet 00:00: [address] Branch gabapentin 2018-0 Yes TK 1 T PO Un gabby 600 mg 5-01 BID ity of tablet 00:00: [place] [facility] ezetimibe 2018-0 Yes TK 1 T PO Uni vers 10 mg 5-01 QD ity of tablet 00:00: [address] Branch gabapentin 2018-0 Yes TK 1 T PO Un gabby 600 mg 5-01 BID ity of tablet 00:00: [place] [facility] ezetimibe 2018-0 Yes TK 1 T PO Uni vers 10 mg 5-01 QD ity of tablet 00:00: [place] [facility] gabapentin 2018-0 Yes TK 1 T PO Un gabby 600 mg 5-01 BID ity of tablet 00:00: [address] Branch ezetimibe 2018-0 Yes TK 1 T PO Uni vers 10 mg 5-01 QD ity of tablet 00:00: [address] Branch gabapentin 2018-0 Yes TK 1 T PO Un gabby 600 mg 5-01 BID ity of tablet 00:00: [place] [facility] ezetimibe 2018-0 Yes TK 1 T PO Uni vers 10 mg 5-01 QD ity of tablet 00:00: [place] [facility] gabapentin 2018-0 Yes TK 1 T PO Un gabby 600 mg 5-01 BID ity of tablet 00:00: [place] [facility] ezetimibe 2018-0 Yes TK 1 T PO Uni vers 10 mg 5-01 QD ity of tablet 00:00: [place] [facility] gabapentin 2018-0 Yes TK 1 T PO Un gabby 600 mg 5-01 BID ity of tablet 00:00: [place] [facility] ezetimibe 2018-0 Yes TK 1 T PO Uni vers 10 mg 5-01 QD ity of tablet 00:00: [place] [facility] gabapentin 2018- Yes TK 1 T PO Un gabby 600 mg 5-01 BID ity of tablet 00:00: [place] [facility] ezetimibe 2018- Yes TK 1 T PO Uni vers 10 mg 5-01 QD ity of tablet 00:00: [place] [facility] gabapentin 2018- Yes TK 1 T PO Un gabby 600 mg 5-01 BID ity of tablet 00:00: [place] [facility] ezetimibe 2018- Yes TK 1 T PO Uni vers 10 mg 5-01 QD ity of tablet 00:00: [place] [facility] gabapentin 2018- Yes TK 1 T PO Un gabby 600 mg 5-01 BID ity of tablet 00:00: [place] [facility] ezetimibe 2018-0 Yes TK 1 T PO Uni vers 10 mg 5-01 QD ity of tablet 00:00: [place] [facility] gabapentin 2018-0 Yes TK 1 T PO Un gabby 600 mg 5-01 BID ity of tablet 00:00: [place] [facility] ezetimibe 2018-0 Yes TK 1 T PO Uni vers 10 mg 5-01 QD ity of tablet 00:00: [place] [facility] gabapentin 2018-0 Yes TK 1 T PO Un gabby 600 mg 5-01 BID ity of tablet 00:00: [place] [facility] ezetimibe 2018-0 Yes TK 1 T PO Uni vers 10 mg 5-01 QD ity of tablet 00:00: [place] [facility] gabapentin 2018-0 Yes TK 1 T PO Un gabby 600 mg 5-01 BID ity of tablet 00:00: [place] [facility] ezetimibe 2018-0 Yes TK 1 T PO Uni vers 10 mg 5-01 QD ity of tablet 00:00: [address] gabapentin Yes TK 1 T PO Un gabby 600 mg 5-01 BID ity of tablet 00:00: [place] [facility] ezetimibe Yes TK 1 T PO Uni vers 10 mg 5-01 QD ity of tablet 00:00: [place] [facility] gabapentin Yes TK 1 T PO Un gabby 600 mg 5-01 BID ity of tablet 00:00: [place] [facility] ezetimibe Yes TK 1 T PO Uni vers 10 mg 5-01 QD ity of tablet 00:00: [place] [facility] gabapentin Yes TK 1 T PO Un gabby 600 mg 5-01 BID ity of tablet 00:00: [place] [facility] valsartan Yes TK 1 T PO Uni vers 40 mg 3-25 QD ity of tablet 00:00: [place] [facility] valsartan Yes TK 1 T PO Uni vers 40 mg 3-25 QD ity of tablet 00:00: [place] [facility] valsartan Yes TK 1 T PO Uni vers 40 mg 3-25 QD ity of tablet 00:00: [place] [facility] valsartan Yes TK 1 T PO Uni vers 40 mg 3-25 QD ity of tablet 00:00: [address] valsartan Yes TK 1 T PO Uni vers 40 mg 3-25 QD ity of tablet 00:00: [place] [facility] valsartan Yes TK 1 T PO Uni vers 40 mg 3-25 QD ity of tablet 00:00: [place] [facility] valsartan Yes TK 1 T PO Uni vers 40 mg 3-25 QD ity of tablet 00:00: [place] [facility] valsartan Yes TK 1 T PO Uni vers 40 mg 3-25 QD ity of tablet 00:00: [address] valsartan Yes TK 1 T PO Uni vers 40 mg 3-25 QD ity of tablet 00:00: [address] valsartan Yes TK 1 T PO Uni vers 40 mg 3-25 QD ity of tablet 00:00: [address] valsartan Yes TK 1 T PO Uni vers 40 mg 3-25 QD ity of tablet 00:00: [facility] val[facility] Yes TK 1 T PO Uni vers 40 mg 3-25 QD ity of tablet 00:00: [facility] valsartan Yes TK 1 T PO Uni vers 40 mg 3-25 QD ity of tablet 00:00: [place] [facility] valsartan Yes TK 1 T PO Uni vers 40 mg 3-25 QD ity of tablet 00:00: [place] [facility] valsartan Yes TK 1 T PO Uni vers 40 mg 3-25 QD ity of tablet 00:00: [place] [facility] valsartan Yes TK 1 T PO Uni vers 40 mg 3-25 QD ity of tablet 00:00: [place] [facility] valsartan Yes TK 1 T PO Uni vers 40 mg 3-25 QD ity of tablet 00:00: [place] [facility] valsartan Yes TK 1 T PO Uni vers 40 mg 3-25 QD ity of tablet 00:00: [place] [facility] valsartan Yes TK 1 T PO Uni vers 40 mg 3-25 QD ity of tablet 00:00: [place] [facility] atorvastati Yes TK 1 T PO U nivers n 80 mg 3-17 QD ity of tablet 00:00: [place] [facility] atorvastati Yes TK 1 T PO U nivers n 80 mg 3-17 QD ity of tablet 00:00: [place] [facility] atorvastati Yes TK 1 T PO U nivers n 80 mg 3-17 QD ity of tablet 00:00: [place] [facility] atorvastati Yes TK 1 T PO U nivers n 80 mg 3-17 QD ity of tablet 00:00: [place] [facility] atorvastati Yes TK 1 T PO U nivers n 80 mg 3-17 QD ity of tablet 00:00: [place] [facility] atorvastati Yes TK 1 T PO U nivers n 80 mg 3-17 QD ity of tablet 00:00: [place] [facility] atorvastati Yes TK 1 T PO U nivers n 80 mg 3-17 QD ity of tablet 00:00: [place] [facility] atorvastati 2018-0 Yes TK 1 T PO U nivers n 80 mg 3-17 QD ity of tablet 00:00: [place] [facility] atorvastati 2018-0 Yes TK 1 T PO U nivers n 80 mg 3-17 QD ity of tablet 00:00: [place] [facility] atorvastati 2018-0 Yes TK 1 T PO U nivers n 80 mg 3-17 QD ity of tablet 00:00: [place] [facility] atorvastati 2018-0 Yes TK 1 T PO U nivers n 80 mg 3-17 QD ity of tablet 00:00: [place] [facility] atorvastati 2018-0 Yes TK 1 T PO U nivers n 80 mg 3-17 QD ity of tablet 00:00: [place] [facility] atorvastati 2018-0 Yes TK 1 T PO U nivers n 80 mg 3-17 QD ity of tablet 00:00: [place] [facility] atorvastati 2018-0 Yes TK 1 T PO U nivers n 80 mg 3-17 QD ity of tablet 00:00: [place] [facility] atorvastati 2018-0 Yes TK 1 T PO U nivers n 80 mg 3-17 QD ity of tablet 00:00: [place] [facility] atorvastati 2018-0 Yes TK 1 T PO U nivers n 80 mg 3-17 QD ity of tablet 00:00: [place] [facility] atorvastati 2018-0 Yes TK 1 T PO U nivers n 80 mg 3-17 QD ity of tablet 00:00: [place] [facility] atorvastati 2018-0 Yes TK 1 T PO U nivers n 80 mg 3-17 QD ity of tablet 00:00: [place] [facility] atorvastati 2018-0 Yes TK 1 T PO U nivers n 80 mg 3-17 QD ity of tablet 00:00: [place] [facility] HYDROcodone 2017-0 Yes TK 1 T PO U nivers -acetaminop 7-07 Q 6 H PRN ity of hen 10-325 00:00: P [place] mg tablet [facility] HYDROcodone 2017-0 Yes TK 1 T PO U nivers -acetaminop 7-07 Q 6 H PRN ity of hen 10-325 00:00: P [place] mg tablet [facility] HYDROcodone 2017-0 Yes TK 1 T PO U nivers -acetaminop 7-07 Q 6 H PRN ity of hen 10-325 00:00: P [place] mg tablet [facility] HYDROcodone Yes TK 1 T PO U nivers -acetaminop 7-07 Q 6 H PRN ity of hen 10-325 00:00: P [place] mg tablet 00 [facility] HYDROcodone Yes TK 1 T PO U nivers -acetaminop 7-07 Q 6 H PRN ity of hen 10-325 00:00: P [place] mg tablet [facility] HYDROcodone Yes TK 1 T PO U nivers -acetaminop 7-07 Q 6 H PRN ity of hen 10-325 00:00: P [place] mg tablet [facility] HYDROcodone Yes TK 1 T PO U nivers -acetaminop 7-07 Q 6 H PRN ity of hen 10-325 00:00: P [place] mg tablet [facility] HYDROcodone Yes TK 1 T PO U nivers -acetaminop 7-07 Q 6 H PRN ity of hen 10-325 00:00: P [place] mg tablet [facility] HYDROcodone Yes TK 1 T PO U nivers -acetaminop 7-07 Q 6 H PRN ity of hen 10-325 00:00: P [place] mg tablet [facility] HYDROcodone Yes TK 1 T PO U nivers -acetaminop 7-07 Q 6 H PRN ity of hen 10-325 00:00: P [place] mg tablet [facility] HYDROcodone Yes TK 1 T PO U nivers -acetaminop 7-07 Q 6 H PRN ity of hen 10-325 00:00: P [place] mg tablet [facility] HYDROcodone Yes TK 1 T PO U nivers -acetaminop 7-07 Q 6 H PRN ity of hen 10-325 00:00: P [place] mg tablet [facility] HYDROcodone Yes TK 1 T PO U nivers -acetaminop 7-07 Q 6 H PRN ity of hen 10-325 00:00: P [place] mg tablet 00 [facility] HYDROcodone Yes TK 1 T PO U nivers -acetaminop 7-07 Q 6 H PRN ity of hen 10-325 00:00: P [place] mg tablet 00 [facility] HYDROcodone Yes TK 1 T PO U nivers -acetaminop 7-07 Q 6 H PRN ity of hen 10-325 00:00: P [place] mg tablet 00 [facility] HYDROcodone Yes TK 1 T PO U nivers -acetaminop 7-07 Q 6 H PRN ity of hen 10-325 00:00: P [place] mg tablet [facility] HYDROcodone Yes TK 1 T PO U nivers -acetaminop 7-07 Q 6 H PRN ity of hen 10-325 00:00: P [place] mg tablet 00 [facility] HYDROcodone Yes TK 1 T PO U nivers -acetaminop 7-07 Q 6 H PRN ity of hen 10-325 00:00: P [place] mg tablet [facility] HYDROcodone Yes TK 1 T PO U nivers -acetaminop 7-07 Q 6 H PRN ity of hen 10-325 00:00: P [place] mg tablet [facility] acyclovir Yes TK 1 T PO Uni vers 400 mg 7-05 Q 6 H ity of tablet 00:00: [facility] acyclovir Yes TK 1 T PO Uni vers 400 mg 7-05 Q 6 H ity of tablet 00:00: [facility] acyclovir Yes TK 1 T PO Uni vers 400 mg 7-05 Q 6 H ity of tablet 00:00: [facility] acyclovir Yes TK 1 T PO Uni vers 400 mg 7-05 Q 6 H ity of tablet 00:00: [facility] acyclovir Yes TK 1 T PO Uni vers 400 mg 7-05 Q 6 H ity of tablet 00:00: [facility] acyclovir Yes TK 1 T PO Uni vers 400 mg 7-05 Q 6 H ity of tablet 00:00: [facility] acyclovir Yes TK 1 T PO Uni vers 400 mg 7-05 Q 6 H ity of tablet 00:00: [facility] acyclovir Yes TK 1 T PO Uni vers 400 mg 7-05 Q 6 H ity of tablet 00:00: [facility] acyclovir Yes TK 1 T PO Uni vers 400 mg 7-05 Q 6 H ity of tablet 00:00: [place] [facility] acyclovir 2017 Yes TK 1 T PO Uni vers 400 mg 7-05 Q 6 H ity of tablet 00:00: [place] [facility] acyclovir Yes TK 1 T PO Uni vers 400 mg 7-05 Q 6 H ity of tablet 00:00: [place] [facility] acyclovir Yes TK 1 T PO Uni vers 400 mg 7-05 Q 6 H ity of tablet 00:00: [place] [facility] acyclovir Yes TK 1 T PO Uni vers 400 mg 7-05 Q 6 H ity of tablet 00:00: [place] [facility] acyclovir Yes TK 1 T PO Uni vers 400 mg 7-05 Q 6 H ity of tablet 00:00: [place] [facility] acyclovir Yes TK 1 T PO Uni vers 400 mg 7-05 Q 6 H ity of tablet 00:00: [place] [facility] acyclovir Yes TK 1 T PO Uni vers 400 mg 7-05 Q 6 H ity of tablet 00:00: [place] [facility] acyclovir Yes TK 1 T PO Uni vers 400 mg 7-05 Q 6 H ity of tablet 00:00: [place] [facility] acyclovir Yes TK 1 T PO Uni vers 400 mg 7-05 Q 6 H ity of tablet 00:00: [place] [facility] acyclovir Yes TK 1 T PO Uni vers 400 mg 7-05 Q 6 H ity of tablet 00:00: [place] [facility] acetaminoph Yes TK 1 T PO U nivers en-codeine 6-30 BID ity of 300-30 mg 00:00: [place] tablet Medical Branch acetaminoph Yes TK 1 T PO U nivers en-codeine 6-30 BID ity of 300-30 mg 00:00: [place] tablet Medical Branch acetaminoph Yes TK 1 T PO U nivers en-codeine 6-30 BID ity of 300-30 mg 00:00: [place] tablet Medical Branch acetaminoph Yes TK 1 T PO U nivers en-codeine 6-30 BID ity of 300-30 mg 00:00: [place] tablet Medical Branch acetaminoph 2017-0 Yes TK [...] mg 00:00: [place] tablet Medical Branch acetaminoph 2017- Yes TK 1 T PO U nivers en-codeine 6-30 BID ity of 300-30 mg 00:00: [place] tablet 00 Medical Branch acetaminoph 2017- Yes TK 1 T PO U nivers en-codeine 6-30 BID ity of 300-30 mg 00:00: [place] tablet 00 Medical Branch methocarbam Yes TAKE 2 Univ ers ol [...] o f tablet 00:00: Q 6 HOURS [place] PRN FOR Medical MUSCLE Branch SPASMS methocarbam Yes TAKE 2 Univ ers ol 500 mg 6-27 TABLET PO ity o f tablet 00:00: Q 6 HOURS [place] PRN FOR Medical MUSCLE Branch SPASMS methocarbam Yes TAKE 2 Univ ers ol 500 mg 6-27 TABLET PO ity o f tablet 00:00: Q 6 HOURS [place] PRN FOR Medical MUSCLE Branch SPASMS methocarbam Yes TAKE 2 Univ ers ol 500 mg 6-27 TABLET PO ity o f tablet 00:00: Q 6 HOURS [place] [id number] PRN FOR Medical MUSCLE Branch SPASMS methocarbam Yes TAKE 2 Univ ers ol 500 mg 6-27 TABLET PO ity o f tablet 00:00: Q 6 HOURS [place] [address] PRN FOR Medical MUSCLE Branch SPASMS methocarbam Yes TAKE 2 Univ ers ol 500 mg 6-27 TABLET PO ity o f tablet 00:00: Q 6 HOURS [place] [id number] PRN FOR Medical MUSCLE Branch SPASMS methocarbam Yes TAKE 2 Univ ers ol 500 mg 6-27 TABLET PO ity o f tablet 00:00: Q 6 HOURS [place] [address] PRN FOR Medical MUSCLE Branch SPASMS MAGOX 400 Yes TK 1 T PO Uni vers mg tablet 6-12 BID ity of 00:00: [place] 00 Medical Branch MAGOX 400 Yes TK 1 T PO Uni vers mg tablet 6-12 BID ity of 00:00: [place] [facility] MAGOX 400 Yes TK 1 T PO Uni vers mg tablet 6-12 BID ity of 00:00: [place] [facility] MAGOX 400 Yes TK 1 T PO Uni vers mg tablet 6-12 BID ity of 00:00: [place] 00 Medical Branch MAGOX 400 Yes TK 1 T PO Uni vers mg tablet 6-12 BID ity of 00:00: Medical Branch MAGOX 400 Yes TK 1 T PO Uni vers mg tablet 6-12 BID ity of 00:00: [place] [facility] MAGOX 400 Yes TK 1 T PO Uni vers mg tablet 6-12 BID ity of 00:00: [place] [facility] MAGOX 400 Yes TK 1 T PO Uni vers mg tablet 6-12 BID ity of 00:00: [place] [facility] MAGOX 400 Yes TK 1 T PO Uni vers mg tablet 6-12 BID ity of 00:00: [place] [facility] MAGOX 400 Yes TK 1 T PO Uni vers mg tablet 6-12 BID ity of 00:00: [place] [facility] MAGOX 400 Yes TK 1 T PO Uni vers mg tablet 6-12 BID ity of 00:00: [place] [facility] MAGOX 400 Yes TK 1 T PO Uni vers mg tablet 6-12 BID ity of 00:00: [place] [facility] MAGOX 400 Yes TK 1 T PO Uni vers mg tablet 6-12 BID ity of 00:00: [place] [facility] MAGOX 400 Yes TK 1 T PO Uni vers mg tablet 6-12 BID ity of 00:00: [place] [facility] MAGOX 400 Yes TK 1 T PO Uni vers mg tablet 6-12 BID ity of 00:00: [place] [facility] MAGOX 400 Yes TK 1 T PO Uni vers mg tablet 6-12 BID ity of 00:00: [place] [facility] MAGOX 400 Yes TK 1 T PO Uni vers mg tablet 6-12 BID ity of 00:00: [place] [facility] MAGOX 400 Yes TK 1 T PO Uni vers mg tablet 6-12 BID ity of 00:00: [place] [facility] MAGOX 400 Yes TK 1 T PO Uni vers mg tablet 6-12 BID ity of 00:00: [place] [facility] omeprazole Yes TK 1 C PO Un gabby 20 mg 5-08 QD AC ity of capsule 00:00: [place] [facility] SERTraline Yes TK 1 T PO Un gabby 100 mg 5-08 BID ity of tablet 00:00: [place] [facility] omeprazole 2017-0 Yes TK 1 C PO Un gabby 20 mg 5-08 QD AC ity of capsule 00:00: [facility] omep[facility]ole 2017-0 Yes TK 1 C PO Un gabby 20 mg 5-08 QD AC ity of capsule 00:00: [place] [facility] SERTraline 2017 Yes TK 1 T PO Un gabby 100 mg 5-08 BID ity of tablet 00:00: [facility] SERTraline 2017 Yes TK 1 T PO Un gabby 100 mg 5-08 BID ity of tablet 00:00: [place] [facility] omeprazole 2017 Yes TK 1 C PO Un gabby 20 mg 5-08 QD AC ity of capsule 00:00: [facility] SERTraline 2017 Yes TK 1 T PO Un gabby 100 mg 5-08 BID ity of tablet 00:00: [place] [facility] omeprazole 2017 Yes TK 1 C PO Un gabby 20 mg 5-08 QD AC ity of capsule 00:00: [facility] SERTraline 2017 Yes TK 1 T PO Un gabby 100 mg 5-08 BID ity of tablet 00:00: [facility] omeprazole 2017 Yes TK 1 C PO Un gabby 20 mg 5-08 QD AC ity of capsule 00:00: [facility] SERTraline 2017 Yes TK 1 T PO Un gabby 100 mg 5-08 BID ity of tablet 00:00: [facility] omeprazole 2017 Yes TK 1 C PO Un gabby 20 mg 5-08 QD AC ity of capsule 00:00: [facility] SERTraline 2017 Yes TK 1 T PO Un gabby 100 mg 5-08 BID ity of tablet 00:00: [facility] omeprazole 2017 Yes TK 1 C PO Un gabby 20 mg 5-08 QD AC ity of capsule 00:00: [facility] SERTraline 2017 Yes TK 1 T PO Un gabby 100 mg 5-08 BID ity of tablet 00:00: [place] [facility] omeprazole 2017 Yes TK 1 C PO Un gabby 20 mg 5-08 QD AC ity of capsule 00:00: [facility] SERTraline 2017 Yes TK 1 T PO Un gabby 100 mg 5-08 BID ity of tablet 00:00: [place] [facility] omeprazole 2017 Yes TK 1 C PO Un gabby 20 mg 5-08 QD AC ity of capsule 00:00: [place] [facility] SERTraline 2017 Yes TK 1 T PO Un gabby 100 mg 5-08 BID ity of tablet 00:00: [place] [facility] omeprazole 2017 Yes TK 1 C PO Un gabby 20 mg 5-08 QD AC ity of capsule 00:00: [place] [facility] SERTraline 2017 Yes TK 1 T PO Un gabby 100 mg 5-08 BID ity of tablet 00:00: [place] [facility] omeprazole 2017 Yes TK 1 C PO Un gabby 20 mg 5-08 QD AC ity of capsule 00:00: [place] [facility] omeprazole 2017 Yes TK 1 C PO Un gabby 20 mg 5-08 QD AC ity of capsule 00:00: [facility] SERTraline 2017 Yes TK 1 T PO Un gabby 100 mg 5-08 BID ity of tablet 00:00: [facility] SERTraline 2017 Yes TK 1 T PO Un gabby 100 mg 5-08 BID ity of tablet 00:00: [facility] omeprazole 2017 Yes TK 1 C PO Un gabby 20 mg 5-08 QD AC ity of capsule 00:00: [facility] SERTraline 2017 Yes TK 1 T PO Un gabby 100 mg 5-08 BID ity of tablet 00:00: [facility] omeprazole 2017 Yes TK 1 C PO Un gabby 20 mg 5-08 QD AC ity of capsule 00:00: [facility] SERTraline 2017 Yes TK 1 T PO Un gabby 100 mg 5-08 BID ity of tablet 00:00: [facility] omeprazole 2017 Yes TK 1 C PO Un gabby 20 mg 5-08 QD AC ity of capsule 00:00: [facility] SERTraline Yes TK 1 T PO Un gabby 100 mg 5-08 BID ity of tablet 00:00: [facility] omeprazole 2017 Yes TK 1 C PO Un gabby 20 mg 5-08 QD AC ity of capsule 00:00: [facility] SERTraline Yes TK 1 T PO Un gabby 100 mg 5-08 BID ity of tablet 00:00: [facility] omeprazole Yes TK 1 C PO Un gabby 20 mg 5-08 QD AC ity of capsule 00:00: [facility] SERTraline Yes TK 1 T PO Un gabby 100 mg 5-08 BID ity of tablet 00:00: [facility] omeprazole Yes TK 1 C PO Un gabby 20 mg 5-08 QD AC ity of capsule 00:00: [facility] SERTraline Yes TK 1 T PO Un gabby 100 mg 5-08 BID ity of tablet 00:00: [facility] Vital Signs Vital Name Observation Time Observation Value Comments Source Systolic blood 2019-11-08 16:38:00 145 mm[Hg] Univer sity of pressure [facility] Diastolic blood 2019-11-08 16:38:00 84 mm[Hg] Unive rsity of pressure [facility] Heart rate 2019-11-08 16:38:00 66 /min Universi ty [facility] Body height 2019-11-08 16:34:00 154.9 cm Universi ty [facility] Body weight 2019-11-08 16:34:00 86.183 kg Universi ty [facility] BMI 2019-11-08 16:34:00 35.90 kg/m2 [facility] Systolic blood 2019-11-08 16:38:00 145 mm[Hg] Univer sity of [email or web address] Diastolic blood 2019-11-08 16:38:00 84 mm[Hg] Unive rsity of pressure [facility] Heart rate 2019-11-08 16:38:00 66 /min Universi ty [facility] Body height 2019-11-08 16:34:00 154.9 cm Universi ty [facility] Body weight 2019-11-08 16:34:00 86.183 kg Universi ty [facility] BMI 2019-11-08 16:34:00 35.90 kg/m2 Universi ty [facility] Systolic blood 2020-02-28 14:53:00 171 mm[Hg] Univer sity of pressure [facility] Diastolic blood 2020-02-28 14:53:00 93 mm[Hg] Unive rsity of pressure [facility] Heart rate 2020-02-28 14:53:00 88 /min Universi ty of [facility] Body temperature 2020-02-28 14:49:00 37 [place] Univ ersity of [facility] Body height 2020-02-28 14:49:00 154.9 cm Universi ty [facility] Body weight 2020-02-28 14:49:00 86.183 kg Universi ty [facility] BMI 2020-02-28 14:49:00 35.90 kg/m2 [facility] Systolic blood 2019-06-19 19:13:00 128 mm[Hg] Univer sity of pressure [facility] Diastolic blood 2019-06-19 19:13:00 66 mm[Hg] Unive rsity of pressure [facility] Heart rate 2019-06-19 19:13:00 86 /min Universi ty of [facility] Respiratory rate 2019-06-19 19:13:00 18 /min Univ ersity of [facility] Oxygen saturation in 2019-06-19 19:13:00 93 /min University of Arterial blood by [facility] Pulse oximetry Branch Systolic blood 2019-06-07 15:14:00 145 mm[Hg] Univer sity of pressure [facility] Diastolic blood 2019-06-07 15:14:00 71 mm[Hg] Unive rsity of pressure [facility] Heart rate 2019-06-07 15:14:00 73 /min Universi ty of [facility] Respiratory rate 2019-06-07 15:14:00 18 /min Univ ersity of [facility] Body height 2019-06-07 15:14:00 154.9 cm Universi ty of [facility] Body weight 2019-06-07 15:14:00 83.915 kg Universi ty [facility] BMI 2019-06-07 15:14:00 34.96 kg/m2 Universi ty [facility] Systolic blood 2019-05-31 15:45:00 152 mm[Hg] Univer sity of pressure [facility] Diastolic blood 2019-05-31 15:45:00 70 mm[Hg] Unive rsity of pressure [facility] Heart rate 2019-05-31 15:45:00 82 /min Universi ty of [facility] Respiratory rate 2019-05-31 15:45:00 18 /min Univ ersity of [facility] Body height 2019-05-31 15:45:00 154.9 cm [facility] Body weight 2019-05-31 15:45:00 83.915 kg [facility] BMI 2019-05-31 15:45:00 34.96 kg/m2 [facility] Procedures Procedure Date / Time Performed Performing Clinician Sourc e XR FOOT <3 VW RIGHT 2020-02-28 14:51:28 Ace Acosta [facility] EKG-12 LEAD 2019-05-31 18:13:41 Doctor Unassigned, No Univer [facility] XR CHEST 2 VW 2019-05-31 17:58:09 Verito Duke [facility] NOTICE OF PRIVACY 2019-05-31 17:07:28 Doctor Unassigned, No Univ [facility] CONSENT/REFUSAL FOR 2019-05-31 17:07:04 Doctor Unassigned, No [facility] TREATMENT ASSIGNMENT OF BENEFITS 2019-05-31 17:06:16 Doctor Unassigned, No [facility] Encounters Start End Encounter Admission Attending Care Care Encounter Source Date/Time Date/Time Type Type Clinicians Facility Department ID 2019-11-08 2020-03-23 Office Srikanth [facility] [id number] 10:19:22 13:04:36 Visit Verito L [facility] [id number] Surgical [id number] Specialti [id number] es [address] [place] 2019-11-08 2020-03-23 Office Srikanth NDTAYLA [id number] [facility] 10:19:22 13:04:36 Visit Verito Fitzgerald [facility] [id number] it y of Surgical [id number] Guilherme as Specialti [id number] Ny dical es [address] [place] 2020-02-28 2020-02-[address] [facility] [id number] Univers 09:51:27 23:59:00 ACE loco [facility] 2020-02-28 2020-02-28 [facility] YEIMI Acosta [id number] Univers 09:51:00 23:59:00 Encounter Ace Ratliff [id number] ity of Surgical [id number] Ugilherme as Specialti [id number] Me dical es 809 [facility] 2020-02-28 2020-02-28 [facility] [id number] Univers 09:38:42 09:53:42 Visit Ace Cordova [facility] [id number] it y of Surgical [id number] Guilherme as Specialti [id number] Ny dical es 198 [facility] 2019-11-08 2019-11-08 [facility] [id number] Univers 10:42:00 23:59:00 Encounter Verito Ratliff [id number] ity of Surgical [id number] Guilherme as Specialti [id number] Ny dical es 809 [facility] 2019-11-08 2019-11-08 [facility] [id number] Univers 10:38:48 10:41:00 VERITO ity of [facility] 2019-11-08 2019-11-08 [facility] [id number] Univers 10:38:00 10:41:00 Encounter Verito Fitzgerald [facility] [employer] [facility] [id number] ity of Surgical [id number] Guilherme as Specialti [id number] Ny dical es 809 [facility] 2019-06-19 2019-06-19 Office [facility] [id number] Univers 13:51:11 14:06:11 Visit Ace Cordova [facility] [id number] it y of Surgical [id number] Guilherme as Specialti [id number] Ny dical es 198 [facility] 2019-06-19 2019-06-19 Letter [facility] [id number] Univers 00:00:00 00:00:00 (Out) Ace [facility] [id number] it y of Surgical [id number] Guilherme as Specialti [id number] Ny dical es 198 [facility] 2019-06-07 2019-06-07 Office Tomasz [facility] [id number] Univers 10:13:02 10:48:25 Visit Ace [facility] [id number] it y of Surgical [id number] Guilherme as Specialti [id number] Ny dical es 198 [facility] 2019-05-31 2019-05-31 [facility] Srikanth [facility] [id number] [facility] 12:18:17 23:59:00 Encounter Verito Domínguez [id number] ity of [place] [id number] [facility] [id number] [facility] [address] [place] 2019-05-31 2019-05-31 Office Srikanth [facility] [id number] Univers 10:44:00 14:09:42 Visit Verito Ratliff [id number] it y of Surgical [id number] Guilherme as Specialti [id number] Ny dical es 198 [facility] 2019-05-31 2019-05-31 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 1, [facility] [id number] Univers 12:12:29 12:27:29 Visit Verito Duke [id number] ity of [place] [id number] [facility] [id number] [facility] [address] [place] 2019-05-31 2019-05-31 [facility] Verito Duke [facility] 1.2.840 .114 [id number] Univers 12:14:13 12:17:00 Encounter Station, [facility] Sang 350.1.13 .10 ity of [place] 4.2.7.2.686 [facility] [id number] [facility] [address] [place] 2019-05-31 2019-05-31 [facility] Srikanth [facility] [id number] Univers 11:06:10 12:13:00 Encounter Verito [facility] [id number] ity of Surgical [id number] Guilherme as Specialti [id number] Ny dical es 809 [facility] Results Test Description Test Time Test Comments Results Result [facility] e Comments XR FOOT <3 VW 2020-02-08 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
[2023-04-19 12:10] LABS: Absolute Lymphocytes (CBC) 1.9 K/uL (0.7-4.9); Hematocrit 32.4 % (36.0-45.0); Lymphocytes % 31.7 % (15.3-44.8); MCV 83.6 fL (80-100); RBC Red Blood Cell Count 3.88 M/uL (3.86-4.86)
[2023-04-19 12:16] LABS: Protime INR 1.03
--- NOTE | 2023-04-19 12:17 | RAD REPORT ---
EXAM DESCRIPTION: RADChest Single View04/19/2023 12:11 pm CLINICAL HISTORY: DYSPNEA COMPARISON: Chest Pa And Lat (2 Views) dated 11/15/2022; Chest Single View dated 11/09/2021; Chest Pa An d Lat (2 Views) dated 10/12/2020; Chest Single View dated 08/26/2020 TECHNIQUE: Portable AP view of the chest. FINDINGS: Central interstitial prominence and fluffy bibasilar opacities, progressive since the prio r exam. No pneumothorax or effusion. The cardiomediastinal contours are unremarkable. IMPRESSION: Central congestion versus patchy bibasilar airspace disease.
[2023-04-19 12:27] LABS: Albumin 3.5 g/dL (3.4-5.0); Bilirubin Direct 0.1 mg/dL (0-0.2); Bilirubin Indirect, Calculated 0.3 mg/dL (0.2-0.8); Bilirubin Total 0.4 mg/dL (0.2-1.0); C-Reactive Protein 10.2 mg/L (<3.00); Potassium 5.2 mEq/L (3.5-5.1); Protein, Total 7.5 g/dL (6.4-8.2); Troponin High Sensitivity 8.3 pg/mL (<58.9)
[2023-04-19] MEDS ORDERED: NA CHLORIDE 0.9% 1,000 ML ONE (12:33)
[2023-04-19] MEDS ORDERED: FAMOTIDINE 20 MG/2 ML VIAL IV ONE (12:33)
[2023-04-19] MEDS ORDERED: AZITHROMYCIN 250 MG TAB ONE (12:33)
--- NOTE | 2023-04-19 13:30 | RAD REPORT ---
EXAM DESCRIPTION: CT - Thorax Wo Con - 04/19/2023 1:21 pm CLINICAL HISTORY: pneumonia COMPARISON: Chest For Pe Angio dated 06/03/2020; Thorax Wo Con dated 09/30/2016 FINDINGS: Chest Wall: No suspicious thyroid nodules or pathologic lymphadenopathy. Lungs: 4 mm right lower lobe pulmonary nodule is unchanged and benign. 6 mm left lower lobe pulmonary nodule is unchanged and benign. These nodules are unchanged since 2016 . Pleura: No significant effusions or pneumothorax. Mediastinum/nallely: No pathologic lymphadenopathy. Pulmonary arteries/Aorta: Limited evaluation without contrast. No aortic aneurysm. Heart: No significant pericardial effusion. Normal heart size. Aortic root calcifications. Coronary a rtery calcifications. Upper abdomen: Pancreatic atrophy. Bones: No acute abnormality. Multilevel degenerative changes are present in the spine. All CT scans are performed using dose optimization technique as appropriate and may include automated exposure control or mA/KV adjustment according to patient size. IMPRESSION: No acute findings within the chest. Benign pulmonary nodules noted.
--- NOTE | 2023-04-19 13:31 | RAD REPORT ---
EXAM DESCRIPTION: US - Extrem Venous W Compress Delio - 04/19/2023 1:17 pm CLINICAL HISTORY: Pain;Swelling COMPARISON: EXT VENOUS UNI LTD dated 11/10/2015 TECHNIQUE: Real-time sonographic evaluation of the lower extremity deep venous systems was performed using color Doppler, grayscale, and compression. FINDINGS: Bilateral lower extremities. Normal compressibility, flow augmentation, phasic flow and spontaneous flow is identified in both the left and right lower extremity deep venous systems. No intraluminal filling defects seen. IMPRESSION: No DVT in either lower extremity.
--- NOTE | 2023-04-19 13:47 | ER ---
Nurse's Notes [facility] Name: Catherine Figueroa Age: 72 yrs Sex: Female : 1950 Arrival Date: 04/19/2023 Time: 11:31 Bed 6 Private MD: Lubna Solano H Diagnosis: Hypoxemia;Cough;Pneumonia due to SARS-associated coronavirus;Chronic kidney disease, stage 4 (severe);Hyperkalemia Presentation: 04/19 11:46 Chief complaint: Patient states: Covid positive for 2 weeks. Started having SOB for 1 ll1 week. No fever. Coronavirus screen: Vaccine status: Patient reports receiving the 2nd dose of the covid vaccine. Client denies travel out of the [place] in the last 14 days. cough unrelated to allergies, difficulty breathing, fatigue, shortness of breath, Client presents with at least one sign or symptom that may indicate coronavirus-19. Standard/surgical mask placed on the client. Ebola Screen: Patient denies travel to an Ebola-affected area in the 21 days before illness onset. Initial Sepsis Screen: Does the patient meet any 2 criteria? No. Patient's initial sepsis screen is negative. Does the patient have a suspected source of infection? Yes: Productive cough/pneumonia. Risk Assessment: Do you want to hurt yourself or someone else? Patient reports no desire to harm self or others. Onset of symptoms was April 05, 2023. 11:46 Method Of Arrival: Ambulatory ll1 11:46 Acuity: MARCELLA 2 ll1 Triage Assessment: 11:47 General: Appears ill, Behavior is calm, cooperative, appropriate for age. Pain: ll1 Complains of pain in chest. Respiratory: Reports shortness of breath pain with respiration. 17:06 Respiratory: Onset: The symptoms/episode began/occurred the patient has mild shortness iw of breath. Historical: - Allergies: 11:45 Sulfa (Sulfonamide Antibiotics); ll1 11:45 shrimp/seafood; ll1 11:45 Iodine; ll1 - PMHx: 11:45 Anxiety; Depression; GERD; High Cholesterol; Hypertension; hypomagnesium; ll1 Hypothyroidism; Kidney stones; Gallbladder 35% function; - PSHx: 11:45 section; hysterectomy; ll1 - Immunization history:: Client reports receiving the 2nd dose of the Covid vaccine. - Social history:: Smoking status: Patient denies any tobacco usage or history of. Screenin:44 [facility] ED Fall Risk Assessment (Adult) History of falling in the last 3 months, iw including since admission No falls in past 3 months (0 pts) Score/Fall Risk Level 0 - 2 = Low Risk. Abuse screen: Denies threats or abuse. Denies injuries from another. Nutritional screening: No deficits noted. Tuberculosis screening: No symptoms or risk factors identified. Assessment: 13:43 General: Appears in no apparent distress. Behavior is calm, cooperative. General: iw Reports feeling ill for fatigue for. Pain: Denies pain. Neuro: Level of Consciousness is awake, alert, obeys commands, Oriented to person, place, time, situation, Moves all extremities. Full function. Cardiovascular: Rhythm is regular. Respiratory: Airway is patent Respiratory effort is even, labored, Breath sounds with wheezes bilaterally. Respiratory: Reports shortness of breath cough that is. GI: Abdomen is non-distended. Derm: Skin is intact, is healthy with good turgor. Musculoskeletal: Range of motion: intact in all extremities. 15:33 Reassessment: Patient appears in no apparent distress at this time. Patient and/or me1 family updated on plan of care and expected duration. Pain level reassessed. Patient is alert, oriented x 3, equal unlabored respirations, skin warm/dry/pink. Vital Signs: 11:46 BP 142 / 77; Pulse 83; Resp 20; Temp 98.2; Pulse Ox 91% on R/A; Weight 81.65 kg; Height ll1 5 ft. 1 in. ; Pain 8/10; 15:31 BP 148 / 81; Pulse 69; Resp 20; Pulse Ox 98% on R/A; Pain 0/10; me1 11:46 Body Mass Index 34.01 (81.65 kg, 154.94 cm) ll1 11:46 Pain Scale: Adult ll1 15:31 Pain Scale: Adult me1 ED Course: 11:32 Patient arrived in ED. am2 11:32 Lubna Solano DO is Private Physician. am2 11:37 Alfredo Rosado MD is Attending Physician. harriett 11:45 Arm band placed on Patient placed in an exam room, on a stretcher. ll1 11:47 Triage completed. ll1 11:47 Finesse, Lory, RN is Primary Nurse. iw 12:02 Inserted saline lock: 22 gauge in left antecubital area, using aseptic technique. Blood mb4 collected. 12:02 Initial lab(s) drawn, by me, sent to lab. mb4 12:13 XRAY Chest (1 view) In Process Unspecified. EDMS 13:19 US Extremity Venous W Compression Delio In Process Unspecified. EDMS 13:23 Thorax Wo Con In Process Unspecified. EDMS 13:42 Inserted saline lock: 22 gauge in right hand, using aseptic technique. iw 13:45 Yash Reynaga MD is Hospitalizing Provider. harriett 15:26 SARS-COV-2 RT PCR Sent. me1 15:33 Patient has correct armband on for positive identification. Bed in low position. Call me1 light in reach. Side rails up X2. Provided Education on: Admission. 15:33 No provider procedures requiring assistance completed. Patient admitted, IV remains in me1 place. Administered Medications: 12:37 Drug: NS 0.9% IV 500 ml Route: IV; Rate: bolus; Site: left antecubital; iw 15:00 Follow up: IV Status: Completed infusion me1 12:37 Drug: Famotidine IVP 40 mg Route: IVP; Site: left antecubital; iw 15:26 Follow up: Response: No adverse reaction me1 12:37 Drug: AZITHromycin PO 500 mg Route: PO; iw 15:26 Follow up: Response: No adverse reaction me1 14:20 Drug: Lovenox Sub-Q 40 mg Route: Sub-Q; Site: left lower abdomen; me1 15:24 Follow up: Response: No adverse reaction me1 14:32 Drug: Rocephin IV 1 grams Route: IV; Rate: per protocol; Site: right hand; iw 14:35 Follow up: IV Status: Completed infusion me1 14:32 Drug: MethylPrednisoLONE IVP 125 mg Route: IVP; Site: right hand; iw 15:24 Follow up: Response: No adverse reaction me1 14:32 Drug: DuoNeb Nebulize (2.5 mg - 0.5 mg) 3 ml Route: Nebulizer; iw 15:24 Follow up: Response: No adverse reaction me1 14:34 Drug: NS 0.9% IV 1000 ml Route: IV; Rate: 125 ml/hr; Site: left antecubital; iw 17:00 Follow up: IV Status: Infusion continued upon admission iw Medication: 15:33 VIS not applicable for this client. me1 Outcome: 13:46 Decision to Hospitalize by Provider. harriett 17:06 Admitted to Med/surg accompanied by lauren, room 417. iw 17:06 Condition: good 17:06 Discharge instructions given to patient, Instructed on the need for admit. 17:22 Patient left the ED. iw Signatures: Dispatcher [employer] EDAlfredo Darby MD MD cha Williams, Irene, RN RN Ina Mitchell Mackenzie mb4 Anne Antony RN RN ll1 Veronica Chan RN RN me1
--- NOTE | 2023-04-19 13:47 | EDPHYS ---
Physician Documentation [facility] Name: Catherine Figueroa Age: 72 yrs Sex: Female : 1950 Arrival Date: 04/19/2023 Time: 11:31 Bed 6 Private MD: Lubna Solano H ED Physician Alfredo Rosado HPI: 04/19 13:40 This 72 yrs old Female presents to ER via Ambulatory with complaints of harriett Cough, Breathing Difficulty, covid+. 13:40 The patient or guardian reports cough, difficulty breathing, flu symptoms, arthralgias, harriett low-grade fever, myalgias. Onset: The symptoms/episode began/occurred 2 week(s) ago. Severity of symptoms: At their worst the symptoms were moderate, in the emergency department the symptoms are actually worse, mildly. Modifying factors: The symptoms are alleviated by cool environment, the symptoms are aggravated by exertion, smoke. Associated signs and symptoms: Pertinent positives: rhinorrhea. The patient has experienced similar episodes in the past, a few times. Historical: - Allergies: 11:45 Sulfa (Sulfonamide Antibiotics); ll1 11:45 shrimp/seafood; ll1 11:45 Iodine; ll1 - PMHx: 11:45 Anxiety; Depression; GERD; High Cholesterol; Hypertension; hypomagnesium; ll1 Hypothyroidism; Kidney stones; Gallbladder 35% function; - PSHx: 11:45 section; hysterectomy; ll1 - Immunization history:: Client reports receiving the 2nd dose of the Covid vaccine. - Social history:: Smoking status: Patient denies any tobacco usage or history of. ROS: 13:42 Constitutional: Negative for fever, chills, and weight loss, Eyes: Negative for injury, harriett pain, redness, and discharge, ENT: Negative for injury, pain, and discharge, Neck: Negative for injury, pain, and swelling, Cardiovascular: Negative for chest pain, palpitations, and edema, Abdomen/GI: Negative for abdominal pain, nausea, vomiting, diarrhea, and constipation, Back: Negative for injury and pain, : Negative for injury, bleeding, discharge, and swelling, MS/Extremity: Negative for injury and deformity, Skin: Negative for injury, rash, and discoloration, Neuro: Negative for headache, weakness, numbness, tingling, and seizure, Psych: Negative for depression, anxiety, suicide ideation, homicidal ideation, and hallucinations, Allergy/Immunology: Negative for hives, rash, and allergies, Endocrine: Negative for neck swelling, polydipsia, polyuria, polyphagia, and marked weight changes, Hematologic/Lymphatic: Negative for swollen nodes, abnormal bleeding, and unusual bruising. 13:42 Respiratory: Positive for cough, shortness of breath, at rest. Exam: 13:42 Constitutional: This is a well developed, well nourished patient who is awake, alert, harriett and in no acute distress. Head/Face: Normocephalic, atraumatic. Eyes: Pupils equal round and reactive to light, extra-ocular motions intact. Lids and lashes normal. Conjunctiva and sclera are non-icteric and not injected. Cornea within normal limits. Periorbital areas with no swelling, redness, or edema. ENT: Nares patent. No nasal discharge, no septal abnormalities noted. Tympanic membranes are normal and external auditory canals are clear. Oropharynx with no redness, swelling, or masses, exudates, or evidence of obstruction, uvula midline. Mucous membranes moist. Neck: Trachea midline, no thyromegaly or masses palpated, and no cervical lymphadenopathy. Supple, full range of motion without nuchal rigidity, or vertebral point tenderness. No Meningismus. Chest/axilla: Normal chest wall appearance and motion. Nontender with no deformity. No lesions are appreciated. Cardiovascular: Regular rate and rhythm with a normal S1 and S2. No gallops, murmurs, or rubs. Normal PMI, no JVD. No pulse deficits. Abdomen/GI: Soft, non-tender, with normal bowel sounds. No distension or tympany. No guarding or rebound. No evidence of tenderness throughout. Back: No spinal tenderness. No costovertebral tenderness. Full range of motion. Female : Normal external genitalia. Skin: Warm, dry with normal turgor. Normal color with no rashes, no lesions, and no evidence of cellulitis. MS/ Extremity: Pulses equal, no cyanosis. Neurovascular intact. Full, normal range of motion. Neuro: Awake and alert, GCS 15, oriented to person, place, time, and situation. Cranial nerves II-XII grossly intact. Motor strength 5/5 in all extremities. Sensory grossly intact. Cerebellar exam normal. Normal gait. Psych: Awake, alert, with orientation to person, place and time. Behavior, mood, and affect are within normal limits. 13:42 Respiratory: mild respiratory distress is noted, Respirations: labored breathing, that is mild, Breath sounds: bronchial sounds, rhonchi, wheezing: expiratory is scattered, Respiratory rate: 24 Vital Signs: 11:46 BP 142 / 77; Pulse 83; Resp 20; Temp 98.2; Pulse Ox 91% on R/A; Weight 81.65 kg; Height ll1 5 ft. 1 in. ; Pain 8/10; 15:31 BP 148 / 81; Pulse 69; Resp 20; Pulse Ox 98% on R/A; Pain 0/10; me1 11:46 Body Mass Index 34.01 (81.65 kg, 154.94 cm) ll1 11:46 Pain Scale: Adult ll1 15:31 Pain Scale: Adult me1 MDM: 11:37 Patient medically screened. harriett 14:46 Differential diagnosis: Anemia Bronchitis CHF exacerbation, Chronic Obstructive harriett Pulmonary Disease obstructed airway, tracheal injury, bronchitis, flu, URI, pneumonia, pulmonary edema, reactive airway disease, Sepsis. Antibiotic administration: Rocephin and Zithromax given. Differential Diagnosis: Obstructed Airway Bronchitis Influenza Upper Respiratory Infection Sinusitis Pharyngitis Viral Syndrome. Immunization status: Pneumococcal vaccine: within last 5 years. Influenza vaccine: within last 5 years. Data reviewed: vital signs, nurses notes, lab test result(s), EKG, radiologic studies, CT scan, plain films. Consideration of Admission/Observation Escalation of care including admission/observation considered. I considered the following discharge prescriptions or medication management in the emergency department Medications were administered in the Emergency Department. See MAR. Independent interpretation of the following test(s) in the Emergency Department EKG: See my EKG interpretation above. Test considered but Not performed: Ultrasound NO 2D ECHO. 04/19 11:40 Order name: Basic Metabolic Panel; Complete Time: 12:30 [facility] 04/19 11:40 Order name: CBC with Diff; Complete Time: 12:30 [facility] 04/19 11:40 Order name: D-Dimer; Complete Time: 12:30 [facility] 04/19 11:40 Order name: LFT's; Complete Time: 12:30 [facility] 04/19 11:40 Order name: Magnesium; Complete Time: 12:30 [facility] 04/19 11:40 Order name: NT PRO-BNP; Complete Time: 12:30 [facility] 04/19 11:40 Order name: PT-INR; Complete Time: 12:30 [facility] 04/19 11:40 Order name: Troponin HS; Complete Time: 12:30 [facility] 04/19 11:40 Order name: CRP; Complete Time: 12:30 [facility] 04/19 12:31 Order name: Blood Culture Adult (2) [facility] 04/19 12:31 Order name: Lactate w/ 2H reflex if indic.; Complete Time: 15:10 [facility] 04/19 13:39 Order name: SARS-COV-2 RT PCR [facility] 04/19 14:50 Order name: Basic Metabolic Panel [facility] 04/19 15:42 Order name: Magnesium [facility] 04/19 15:42 Order name: Phosphorus [facility] 04/19 15:42 Order name: T4 Free [facility] 04/19 15:42 Order name: Thyroid Stimulating Hormone [facility] 04/19 15:42 Order name: Urinalysis w/ reflexes [facility] 04/19 15:42 Order name: Basic Metabolic Panel [facility] 04/19 15:42 Order name: Basic Metabolic Panel [facility] 04/19 15:42 Order name: CBC with Automated Diff [facility] 04/19 15:42 Order name: CBC with Automated Diff [facility] 04/19 15:42 Order name: Lipid Profile [facility] 04/19 15:42 Order name: Lipid Profile [facility] 04/19 15:42 Order name: NT PRO-BNP [facility] 04/19 15:42 Order name: NT PRO-BNP [facility] 04/19 11:40 Order name: XRAY Chest (1 view); Complete Time: 12:30 [facility] 04/19 12:32 Order name: US Extremity Venous W Compression Delio; Complete Time: 13:35 [facility] 04/19 13:07 Order name: CT Chest W/ Con [facility] 04/19 13:08 Order name: CT Chest Wo Con [facility] 04/19 13:18 Order name: Thorax Wo Con; Complete Time: 13:35 [facility] 04/19 11:40 Order name: EKG; Complete Time: 11:40 [facility] 04/19 11:40 Order name: Cardiac monitoring; Complete Time: 15:24 [facility] 04/19 11:40 Order name: EKG - Nurse/Tech; Complete Time: 15:24 [facility] 04/19 11:40 Order name: IV Saline Lock; Complete Time: 12:37 harriett 04/19 11:40 Order name: Labs collected and sent; Complete Time: 12:38 harriett 04/19 11:40 Order name: O2 Per Protocol; Complete Time: 12:38 harriett 04/19 11:40 Order name: O2 Sat Monitoring; Complete Time: 12:38 harriett Administered Medications: 12:37 Drug: NS 0.9% IV 500 ml Route: IV; Rate: bolus; Site: left antecubital; iw 15:00 Follow up: IV Status: Completed infusion me1 12:37 Drug: Famotidine IVP 40 mg Route: IVP; Site: left antecubital; iw 15:26 Follow up: Response: No adverse reaction me1 12:37 Drug: AZITHromycin PO 500 mg Route: PO; iw 15:26 Follow up: Response: No adverse reaction me1 14:20 Drug: Lovenox Sub-Q 40 mg Route: Sub-Q; Site: left lower abdomen; me1 15:24 Follow up: Response: No adverse reaction me1 14:32 Drug: Rocephin IV 1 grams Route: IV; Rate: per protocol; Site: right hand; iw 14:35 Follow up: IV Status: Completed infusion me1 14:32 Drug: MethylPrednisoLONE IVP 125 mg Route: IVP; Site: right hand; iw 15:24 Follow up: Response: No adverse reaction me1 14:32 Drug: DuoNeb Nebulize (2.5 mg - 0.5 mg) 3 ml Route: Nebulizer; iw 15:24 Follow up: Response: No adverse reaction me1 14:34 Drug: NS 0.9% IV 1000 ml Route: IV; Rate: 125 ml/hr; Site: left antecubital; iw 17:00 Follow up: IV Status: Infusion continued upon admission iw Disposition Summary: 04/19/23 13:46 Hospitalization Ordered Hospitalization Status: Inpatient Admission harriett Provider: Yash Reynaga cha Location: Telemetry/[facility] (Inpatient) harriett Condition: Stable harriett Problem: new harriett Symptoms: have improved harriett Bed/Room Type: Standard harriett Room Assignment: 417(04/19/23 15:58) dw Diagnosis - Hypoxemia harriett - Cough harriett - Pneumonia due to SARS-associated coronavirus harriett - Chronic kidney disease, stage 4 (severe) harriett - Hyperkalemia harriett Forms: - Medication Reconciliation Form harriett - SBAR form harriett Signatures: Dispatcher [employer] Salma Vines RN RN Alfredo Anna MD MD cha Williams, Irene, RN RN iw Lewis, Lynsay, RN RN 1 Veronica Chan RN RN me1 Corrections: (The following items were deleted from the chart) 15:58 13:46 harriett deras
[2023-04-19] MEDS ORDERED: CEFTRIAXONE 1000 MG/VIAL ONE (14:22)
[2023-04-19] MEDS ORDERED: METHYLPREDNISOLONE 125 MG INJ ONE (14:22)
[2023-04-19] MEDS ORDERED: ENOXAPARIN 40 MG/0.4 ML SQ ONE (14:23)
[2023-04-19] MEDS ORDERED: ALBUTEROL 2.5 MG/3 ML NEB SOL ONE (14:23)
[2023-04-19] MEDS ORDERED: IPRATROPIUM BROM 0.5MG/2.5ML ONE (14:23)
[2023-04-19] MEDS ORDERED: HYDRALAZINE HCL 20 MG/ML VIAL IV PRN (15:27)
[2023-04-19] MEDS ORDERED: ACETAMINOPHEN 325 MG TABLET PO PRN (15:28)
[2023-04-19] MEDS ORDERED: TRAMADOL HCL 50 MG TAB PO PRN (15:28)
[2023-04-19] MEDS ORDERED: ONDANSETRON 4 MG/2 ML VIAL IV PRN (15:39)
--- NOTE | 2023-04-19 16:00 | P.HP ---
Certification for Inpatient Patient admitted to: Inpatient With expected LOS: >2 Midnights Patient will require the following post-hospital care: None Practitioner: I am a practitioner with admitting privileges, knowledge of patient current condition, hospital course, and medical plan of care. Services: Services provided to patient in accordance with Admission requirements found in Title 42 Section 412.3 of the Code of Federal Regulations Patient History Date of Service: 04/19/23 Reason for admission: SOB, Cough History of Present Illness: Patient is a 72-year-old female with a past medical history significant for anxiety disorder, depression, GERD, hyperlipidemia, hypertension, hypothyroidism who presents with complaint of intractable coughing and shortness of breath that has been ongoing for the past 2 weeks. Patient reported that she was diagnosed with COVID-19 infection 2 weeks ago and has not had any treatment for her symptoms. Patient reported that she experiences chest pain whenever she coughs. Patient reported associated signs and symptoms of generalized body aches, sore throat, rhinorrhea, chills, generalized malaise and fatigue. Patient denies any other signs and symptoms. Symptoms are aggravated or relieved by nothing. Patient decided to present to the hospital due to worsening symptoms. Patient reported that she was diagnosed with a malfunctioning gallbladder with an EF of 36% however was supposed to have surgery last week but could not do that due to her COVID infection. Patient also reported that she has been having episodes of nausea and vomiting related to her gallbladder issues but patient currently denies any episode of nausea or vomiting. Allergies Sulfa (Sulfonamide Antibiotics) [Sulfa(Sulfonamide Antibiotics)] Allergy (Mild, Verified 11/15/22 14:36) Hives/Rash iodine Allergy (Verified 11/15/22 15:04) Rash Home Medications: Acetaminophen [Tylenol Extra Strength] 1 tab PO Q4H PRN 08/27/20 Ezetimibe 10 mg PO DAILY 08/27/20 LORazepam [Lorazepam] 2 mg PO BEDTIME 08/27/20 Magnesium Oxide [Mag 0X*] 1 tab PO DAILY 08/27/20 Sertraline [Zoloft*] 100 mg PO BID 08/27/20 Cefdinir [Omnicef] 300 mg PO BID #10 capsule 08/28/20 Cholecalciferol (Vitamin D3) [Vitamin D 5,000 IU Cap*] 10,000 unit PO DAILY #60 cap 08/28/20 Febuxostat [Uloric] 40 mg PO DAILY #30 tablet 08/28/20 carvediloL [Coreg*] 6.25 mg PO BID #60 tab 08/28/20 predniSONE [Deltasone*] 30 mg PO DAILY #7 tab 08/28/20 - Past Medical/Surgical History Diabetic: No -: HTN -: Hypothyroidism -: Nephrolithiasis -: Sciatic nerve -: Heart murmur -: High Cholesterol -: Anxiety -: Depression -: Gout -: Herniated disc -: 3 buldging disc -: Toe surgery -: Partial hysterectomy -: Breast reduction -: Left knee scope - Family History Sister -: Diabetes Father -: Cancer Mother -: Heart disease Brother -: Hypertension - Social History Smoking Status: Never smoker Alcohol use: No CD- Drugs: No Caffeine use: Yes Place of Residence: Home Review of Systems General: Weakness, Malaise, Other (generalized body aches, fatigue) Eyes: Other (Rhinorrhea) ENT: Throat Pain, Unremarkable Respiratory: Cough, Shortness of Breath Cardiovascular: Chest Pain Gastrointestinal: Unremarkable Genitourinary: Unremarkable Musculoskeletal: Unremarkable Integumentary: Unremarkable Neurological: Weakness Lymphatics: Unremarkable Physical Examination - Physical Exam General: Alert, Oriented x3, Cooperative, Mild distress HEENT: Atraumatic, PERRLA, Mucous membr. moist/pink, EOMI, Sclerae nonicteric Neck: Supple, 2+ carotid pulse no bruit, No LAD, Without JVD or thyroid abnormality Respiratory: Diminished Cardiovascular: No edema, Regular rate/rhythm, Normal S1 S2 Capillary refill: <2 Seconds Gastrointestinal: Normal bowel sounds, Soft and benign, No tenderness Musculoskeletal: No clubbing, No swelling, No tenderness Integumentary: No rashes, No breakdown, No significant lesion Neurological: Normal speech, Normal tone, Normal affect Lymphatics: No axilla or inguinal lymphadenopathy - Studies Laboratory Data (last 24 hrs) 04/19/23 12:02: PT 11.3, INR 1.03 04/19/23 12:02: WBC 6.10, Hgb 10.6 L, Hct 32.4 L, Plt Count 192 04/19/23 12:02: Sodium 137, Potassium 5.2 H, BUN 29 H, Creatinine 1.66 H, Glucose 120 H, Magnesium 2.0, Total Bilirubin 0.4, AST 23, ALT 25, Alkaline P hosphatase 124 H Assessment and Plan - Plan --COVID-[address] chest indicates No acute findings within the chest. Benign pulmonary nodules noted. Patient noted with persistent cough. Patient placed on antitussives. Pulmonology consulted. We will await further recommendations. --Acute on chronic diastolic CHF exacerbation. BNP-553. Echocardiogram pending to LV\valvular function and wall motion. Continue diuresis with Lasix. Daily weight and strict I/O. --Chest pain. Likely atypical. Patient only experiences chest pain when she coughs profusely. Continue guaifenesin with codeine. Troponin level negative. Continue supportive care. -- Anxiety disorder\depression. Continue home medications. --Hyperlipidemia. Continue home medication. --GERD. Continue Protonix --Hypothyroidism. Continue home medication --Hypertension. Poorly controlled. Continue medication hydralazine as needed -- Anemia of chronic disease. H&H stable. We will continue to monitor hemoglobin and transfuse if less than 7. -- Elevated D-dimer. CT PE protocol negative for PE. Continue supportive care. -- CKD 3B. Stable. Patient follows up with an outpatient toilet attendant. We will continue to monitor renal functions. -- DVT prophylaxis with Lovenox subQ. Discharge Plan: Home Plan to discharge in: Greater than 2 days - Advance Directives Does patient have a Living Will: No Does patient have a Durable POA for Healthcare: No - Code Status/Comfort Care Code Status Assessed: Yes Physician Review: Patient Assessed, Agree with Above Assessment and Plan Critical Care: No
[2023-04-19] MEDS ORDERED: SODIUM CHLORIDE 0.9% 10ML INJ IV PRN (16:50)
[2023-04-19] MEDS ORDERED: FUROSEMIDE 40 MG/4 ML VIAL IV SCH (17:00)
[2023-04-19 17:08] LABS: Phosphorus 2.3 mg/dL (2.5-4.9); Potassium 5.2 mEq/L (3.5-5.1); Thyroid Stimulating Hormone 0.985 uIU/mL (0.358-3.740)
[2023-04-19 17:28] VITALS: O2SAT 98
[2023-04-19] MEDS: ENOXAPARIN 30 MG/0.3 ML SQ SCH (17:43)
[2023-04-19 17:48] VITALS: BMI 34.0
[2023-04-19] MEDS ORDERED: PANTOPRAZOLE 40 MG INJ IVP SCH (18:00)
[2023-04-19] MEDS: GUAIFENESIN/CODEINE 5ML UCUP PO PRN (19:38)
[2023-04-19 20:40] LABS: Specific Gravity 1.006 (1.005-1.030); Urine Bilirubin NEGATIVE (Negative); Urine Blood Negative (Negative); Urine Clarity Clear (Clear); Urine Color Colorless (Yellow); Urine Glucose NEGATIVE (Negative); Urine Protein NEGATIVE (Negative); Urine Urobilinogen Normal (Normal)
[2023-04-19] MEDS ORDERED: ALBUTEROL 2.5 MG/3 ML NEB SOL NEB PRN (21:59)
[2023-04-19] MEDS ORDERED: IPRATROPIUM BROM 0.5MG/2.5ML NEB PRN (21:59)
[2023-04-20] MEDS: dexAMETHasone 4 MG/ML VIAL IV SCH ×3 (00:38→21:07)
[2023-04-20 05:34] LABS: Absolute Lymphocytes (CBC) 0.7 K/uL (0.7-4.9); Hematocrit 33.4 % (36.0-45.0); Lymphocytes % 8.2 % (15.3-44.8); MCV 84.2 fL (80-100); MPV 6.9 fL (7.6-11.3); RBC Red Blood Cell Count 3.96 M/uL (3.86-4.86)
[2023-04-20 06:06] LABS: Magnesium 1.9 mg/dL (1.6-2.4); Potassium 5.1 mEq/L (3.5-5.1)
[2023-04-20] MEDS: GUAIFENESIN/CODEINE 5ML UCUP PO PRN (06:19)
[2023-04-20] MEDS: LEVOTHYROXINE SOD 0.125 MG TAB PO SCH (06:21)
[2023-04-20 06:29] LABS: Phosphorus 1.4 mg/dL (2.5-4.9)
[2023-04-20] MEDS: BUDESONIDE 0.5 MG/2 ML NEB NEB SCH ×2 (08:42→19:45)
[2023-04-20] MEDS: ALBUTEROL 2.5 MG/3 ML NEB SOL NEB SCH ×3 (08:42→19:45)
[2023-04-20] MEDS: IPRATROPIUM BROM 0.5MG/2.5ML NEB SCH ×3 (08:42→19:45)
--- NOTE | 2023-04-20 08:49 | P.CNS ---
Date of Consult: 04/20/23 Reason for Consult: COVID Chief Complaint: SOB, Cough History of Present Illness: Age 72 Aw severe cough and congestion/tested pos for COVID Never smoked Body aches Allergies Sulfa (Sulfonamide Antibiotics) [Sulfa(Sulfonamide Antibiotics)] Allergy (Mild, Verified 11/15/22 14:36) Hives/Rash iodine Allergy (Verified 11/15/22 15:04) Rash Home Medications: Ezetimibe 10 mg PO DAILY 08/27/20 LORazepam [Lorazepam] 2 mg PO BEDTIME PRN 08/27/20 Sertraline [Zoloft*] 100 mg PO BID 08/27/20 carvediloL [Coreg*] 6.25 mg PO BID #60 tab 08/28/20 Gabapentin 600 mg PO BID 04/19/23 Levothyroxine [Synthroid*] 0.125 mg PO DAILY 04/19/23 Magnesium Oxide [Mag-Oxide] 500 mg PO BID 04/19/23 - Past Medical/Surgical History Diabetic: No -: HTN -: Hypothyroidism -: Nephrolithiasis -: Sciatic nerve -: Heart murmur -: High Cholesterol -: Anxiety -: Depression -: Gout -: Herniated disc -: 3 buldging disc -: Toe surgery -: Partial hysterectomy -: Breast reduction -: Left knee scope - Family History Sister Medical History: Diabetes Father Medical History: Cancer Mother Medical History: Heart disease Brother Medical History: Hypertension - Social History Smoking Status: Never smoker Alcohol use: No CD- Drugs: No Caffeine use: Yes Place of Residence: Home Review of Systems 10-point ROS is otherwise unremarkable General: Weakness Respiratory: Cough, Shortness of Breath Physical Examination Temp Pulse Resp BP Pulse Ox 98.4 F 95 H 18 156/65 H 94 04/20/23 04:00 04/20/23 04:00 04/20/23 04:00 04/20/23 04:00 04/20/23 04:00 General: Alert, Oriented x3 HEENT: Atraumatic Neck: Supple Respiratory: Clear to auscultation bilaterally, Diminished, Friction rub Cardiovascular: Regular rate/rhythm, Normal S1 S2 Gastrointestinal: Normal bowel sounds, Soft and benign Laboratory Data (last 24 hrs) 04/19/23 12:02: PT 11.3, INR 1.03 04/19/23 12:02: WBC 6.10, Hgb 10.6 L, Hct 32.4 L, Plt Count 192 04/19/23 12:02: Sodium 137, Potassium 5.2 H, BUN 29 H, Creatinine 1.66 H, Glucose 120 H, Magnesium 2.0, Total Bilirubin 0.4, AST 23, ALT 25, Alkaline Phosphatase 124 H - Problems (1) COVID-19 Current Visit: Yes Status: Acute Plan: Age 72 AW COVID infection and severe COUGH. CT scna neg. add nebs CW steroids, zithromax, PAxlovid, cough suppression. Labs rev CRF/ Poss DC Am. NE of covid pneumonia. ALbs and Ct reviewed
[2023-04-20] MEDS ORDERED: IPRATROPIUM BROM 0.5MG/2.5ML NEB PRN (08:51)
[2023-04-20] MEDS ORDERED: carvediloL 6.25 MG TAB PO SCH (09:00)
[2023-04-20] MEDS ORDERED: FUROSEMIDE 40 MG/4 ML VIAL IV SCH (09:00)
[2023-04-20] MEDS: NIRMATRELVIR/RITONAVIR TABLET PO SCH ×2 (09:45→21:08)
[2023-04-20] MEDS: PROMETHAZINE-DM 5 ML OSYR PO SCH ×3 (09:46→21:07)
[2023-04-20] MEDS: ENOXAPARIN 30 MG/0.3 ML SQ SCH (09:46)
[2023-04-20] MEDS: SERTRALINE HCL 100 MG TAB PO SCH ×2 (09:47→21:07)
[2023-04-20] MEDS: GABAPENTIN 300 MG CAP PO SCH ×2 (09:47→21:07)
[2023-04-20] MEDS: AZITHROMYCIN 250 MG TAB PO SCH (09:47)
[2023-04-20] MEDS: POTASS/SODIUM PHOSPHATE 1 PKT POWD.PACK PO SCH ×3 (09:47→11:03)
[2023-04-20] MEDS ORDERED: SODIUM PHOSPHATE 30 MM in NA CHLORIDE 0.9% 500 ML IV ONE (10:00)
--- NOTE | 2023-04-20 11:04 | P.CNS ---
Date of Consult: 04/20/23 Reason for Consult: AJ/ CKD Requesting Physician: Yash Reynaga Primary Care Provider: Dr. Solano Chief Complaint: SOB, Cough History of Present Illness: Patient is a 72-year-old female with a past medical history significant for anxiety disorder, depression, GERD, hyperlipidemia, hypertension, hypothyroidism who presents with complaint of intractable coughing and shortness of breath that has been ongoing for the past 2 weeks. Patient reported that she was diagnosed with COVID-19 infection 2 weeks ago and has not had any treatment for her symptoms. Patient reported that she experiences chest pain whenever she coughs. Patient reported associated signs and symptoms of generalized body aches, sore throat, rhinorrhea, chills, generalized malaise and fatigue. Patient denies any other signs and symptoms. Symptoms are aggravated or relieved by nothing. Patient decided to present to the hospital due to worsening symptoms. Patient reported that she was diagnosed with a malfunctioning gallbladder with an EF of 36% however was supposed to have surgery last week but could not do that due to her COVID infection. Patient also reported that she has been having episodes of nausea and vomiting related to her gallbladder issues but patient currently denies any episode of nausea or vomiting. 13:40 This 72 yrs old Female presents to ER via Ambulatory with complaints of harriett Cough, Breathing Difficulty, covid+. 13:40 The patient or guardian reports cough, difficulty breathing, flu symptoms, arthralgias, harriett low-grade fever, myalgias. Onset: The symptoms/episode began/occurred 2 week(s) ago. Severity of symptoms: At their worst the symptoms were moderate, in the emergency department the symptoms are actually worse, mildly. Modifying factors: The symptoms are alleviated by cool environment, the symptoms are aggravated by exertion, smoke. Associated signs and symptoms: Pertinent positives: rhinorrhea. The patient has experienced similar episodes in the past, a few times. Allergies Sulfa (Sulfonamide Antibiotics) [Sulfa(Sulfonamide Antibiotics)] Allergy (Mild, Verified 11/15/22 14:36) Hives/Rash iodine Allergy (Verified 11/15/22 15:04) Rash Home medications list reviewed: Yes Home Medications: Ezetimibe 10 mg PO DAILY 08/27/20 LORazepam [Lorazepam] 2 mg PO BEDTIME PRN 08/27/20 Sertraline [Zoloft*] 100 mg PO BID 08/27/20 carvediloL [Coreg*] 6.25 mg PO BID #60 tab 08/28/20 Gabapentin 600 mg PO BID 04/19/23 Levothyroxine [Synthroid*] 0.125 mg PO DAILY 04/19/23 Magnesium Oxide [Mag-Oxide] 500 mg PO BID 04/19/23 - Past Medical/Surgical History Diabetic: No -: HTN -: Hypothyroidism -: Nephrolithiasis -: Sciatic nerve -: Diastolic CHF/ Heart murmur/ Hx SOLEDAD -: HLD -: CKD III (Dr. Arango) -: Anxiety/ Depression -: Gout -: Herniated disc/ 3 buldging disc -: Anemia/ Iron Deficiency/ B12 Deficiency -: PreDM -: Toe surgery -: Partial hysterectomy -: Breast reduction -: Left knee scope - Family History Sister Medical History: Diabetes Father Medical History: Cancer Mother Medical History: Heart disease Brother Medical History: Hypertension - Social History Smoking Status: Never smoker Alcohol use: No CD- Drugs: No Caffeine use: Yes Place of Residence: Home Review of Systems 10-point ROS is otherwise unremarkable Respiratory: Cough, SOB with Excertion Physical Examination Temp Pulse Resp BP Pulse Ox 98.4 F 95 H 18 156/65 H 94 04/20/23 04:00 04/20/23 04:00 04/20/23 04:00 04/20/23 04:00 04/20/23 04:00 General: In no apparent distress, Oriented x3, Cooperative HEENT: Atraumatic Neck: Supple Respiratory: Normal air movement Cardiovascular: No edema, Regular rate/rhythm Gastrointestinal: Soft and benign, Non-distended Musculoskeletal: No clubbing, No contractures Integumentary: No rashes, No cyanosis Neurological: Normal speech Laboratory Data (last 24 hrs) 04/19/23 12:02: PT 11.3, INR 1.03 04/19/23 12:02: WBC 6.10, Hgb 10.6 L, Hct 32.4 L, Plt Count 192 04/19/23 12:02: Sodium 137, Potassium 5.2 H, BUN 29 H, Creatinine 1.66 H, Glucose 120 H, Magnesium 2.0, Total Bilirubin 0.4, AST 23, ALT 25, Alkaline Phosphatase 124 H Imagings Data: EXAM DESCRIPTION: CT - Thorax Wo Con - 04/19/2023 1:21 pm CLINICAL HISTORY: pneumonia COMPARISON: Chest For Pe Angio dated 06/03/2020; Thorax Wo Con dated 09/30/2016 FINDINGS: Chest Wall: No suspicious thyroid nodules or pathologic lymphadenopathy. Lungs: 4 mm right lower lobe pulmonary nodule is unchanged and benign. 6 mm left lower lobe pulmonary nodule is unchanged and benign. These nodules are unchanged since 2016 . Pleura: No significant effusions or pneumothorax. Mediastinum/nallely: No pathologic lymphadenopathy. Pulmonary arteries/Aorta: Limited evaluation without contrast. No aortic aneurysm. Heart: No significant pericardial effusion. Normal heart size. Aortic root calcifications. Coronary artery calcifications. Upper abdomen: Pancreatic atrophy. Bones: No acute abnormality. Multilevel degenerative changes are present in the spine. All CT scans are performed using dose optimization technique as appropriate and may include automated exposure control or mA/KV adjustment according to patient size. IMPRESSION: No acute findings within the chest. Benign pulmonary nodules noted. EXAM DESCRIPTION: RADChest Single View04/19/2023 12:11 pm CLINICAL HISTORY: DYSPNEA COMPARISON: Chest Pa And Lat (2 Views) dated 11/15/2022; Chest Single View dated 11/09/2021; Chest Pa And Lat (2 Views) dated 10/12/2020; Chest Single View dated 08/26/2020 TECHNIQUE: Portable AP view of the chest. FINDINGS: Central interstitial prominence and fluffy bibasilar opacities, progressive since the prior exam. No pneumothorax or effusion. The cardiomediastinal contours are unremarkable. IMPRESSION: Central congestion versus patchy bibasilar airspace disease. EXAM DESCRIPTION: US - Extrem Venous W Compress Delio - 04/19/2023 1:17 pm CLINICAL HISTORY: Pain;Swelling COMPARISON: EXT VENOUS UNI LTD dated 11/10/2015 TECHNIQUE: Real-time sonographic evaluation of the lower extremity deep venous systems was performed using color Doppler, grayscale, and compression. FINDINGS: Bilateral lower extremities. Normal compressibility, flow augmentation, phasic flow and spontaneous flow is identified in both the left and right lower extremity deep venous systems. No intraluminal filling defects seen. IMPRESSION: No DVT in either lower extremity. Conclusions/Impression: Stage I AJ in the setting of diuresis CKD III with Proteinuria in the setting of HTN -No NSAIDs -Hold diuretic therapy at this time Hyperkalemia -Low potassium diet HTN with CKD/ CHF -Discontinue non-selective beta marnie, carvedilol -Metoprolol prn -Hydralazine prn Diastolic CHF, chronic -Daily weight -Low sodium diet Anemia in chronic illness Hx iron deficiency Hx B12 deficiency -Monitor H&H CKD MBD/ HyperPTH Hypercalcemia Hypophosphatemia -Replete PO4 as ordered COVID Bronchitis -Continue Paxlovid & Dexamethasone Thank you kindly for the consultation
[2023-04-20 11:07] LABS: Potassium 4.8 mEq/L (3.5-5.1)
--- NOTE | 2023-04-20 15:46 | EKG ---
Test Date: 2023-04-19 Test Time: 14:43:39 Second Language Tutor: MEASUREMENT RESULTS: Intervals: Rate: 69 TX: 162 QRSD: 76 QT: 354 QTc: 379 Ronco: P: 36 TX: 162 QRS: 13 T: 8 INTERPRETIVE STATEMENTS: Normal sinus rhythm Normal ECG Compared to ECG 11/15/2022 15:04:10 No significant changes Electronically Signed On 04-20-23 15:44:29 CDT by Carl Carmona
[2023-04-20] MEDS: ATORVASTATIN 40 MG TAB PO SCH (21:07)
[2023-04-20] MEDS: CYANOCOBALAMIN 1000MCG/ML INJ SQ SCH (21:12)
[2023-04-21] MEDS: ALBUTEROL 2.5 MG/3 ML NEB SOL NEB SCH ×4 (01:50→20:35)
[2023-04-21] MEDS: IPRATROPIUM BROM 0.5MG/2.5ML NEB SCH ×3 (01:50→13:05)
[2023-04-21] MEDS: PROMETHAZINE-DM 5 ML OSYR PO SCH ×4 (02:16→21:02)
[2023-04-21 05:08] LABS: Absolute Lymphocytes (CBC) 0.8 K/uL (0.7-4.9); Hematocrit 33.7 % (36.0-45.0); Lymphocytes % 7.5 % (15.3-44.8); RBC Red Blood Cell Count 4.01 M/uL (3.86-4.86)
[2023-04-21 05:25] LABS: Albumin 3.3 g/dL (3.4-5.0); Bilirubin Total 0.3 mg/dL (0.2-1.0); Phosphorus 3.8 mg/dL (2.5-4.9); Potassium 4.9 mEq/L (3.5-5.1); Protein, Total 7.5 g/dL (6.4-8.2); Uric Acid 11.2 mg/dL (2.6-6.0)
[2023-04-21] MEDS: LEVOTHYROXINE SOD 0.125 MG TAB PO SCH (05:32)
[2023-04-21] MEDS: BUDESONIDE 0.5 MG/2 ML NEB NEB SCH ×2 (07:32→20:35)
[2023-04-21] MEDS: AZITHROMYCIN 250 MG TAB PO SCH (09:34)
[2023-04-21] MEDS: GABAPENTIN 300 MG CAP PO SCH ×2 (09:34→21:03)
[2023-04-21] MEDS: CYANOCOBALAMIN 1000MCG/ML INJ SQ SCH (09:35)
[2023-04-21] MEDS: dexAMETHasone 4 MG/ML VIAL IV SCH ×2 (09:35→21:01)
[2023-04-21] MEDS: ENOXAPARIN 30 MG/0.3 ML SQ SCH (09:36)
[2023-04-21] MEDS: NIRMATRELVIR/RITONAVIR TABLET PO SCH ×2 (09:36→21:01)
[2023-04-21] MEDS: SERTRALINE HCL 100 MG TAB PO SCH ×2 (09:36→21:03)
[2023-04-21] MEDS ORDERED: HYDROCODONE/CHLORPHEN 5 ML/OSYR PO ONE (11:25)
[2023-04-21] MEDS ORDERED: GUAIFENESIN/CODEINE 5ML UCUP PO PRN (11:26)
--- NOTE | 2023-04-21 11:41 | P.PN ---
(S) Pt still with some cough and congestion but no acute complaints, reports N/V better, not on O2 when seen. (O) Vitals reviewed in the EMR General: In no apparent distress, HEENT: Atraumatic,, sclera anicteric, not on O2 Neck: Supple Respiratory: Normal air movement, non tachypnec Cardiovascular: No edema, Regular rate/rhythm Gastrointestinal: Soft and benign, obese Musculoskeletal: No contractures Integumentary: No rashes Neurological: Normal speech, awake, alert, non focal Laboratory Data (last 24 hrs) Reviewed in the EMR Imagings Data: EXAM DESCRIPTION: CT - Thorax Wo Con - 04/19/2023 1:21 pm CLINICAL HISTORY: pneumonia COMPARISON: Chest For Pe Angio dated 06/03/2020; Thorax Wo Con dated 09/30/2016 FINDINGS: Chest Wall: No suspicious thyroid nodules or pathologic lymphadenopathy. Lungs: 4 mm right lower lobe pulmonary nodule is unchanged and benign. 6 mm left lower lobe pulmonary nodule is unchanged and benign. These nodules are unchanged since 2016 . Pleura: No significant effusions or pneumothorax. Mediastinum/nallely: No pathologic lymphadenopathy. Pulmonary arteries/Aorta: Limited evaluation without contrast. No aortic aneurysm. Heart: No significant pericardial effusion. Normal heart size. Aortic root calcifications. Coronary artery calcifications. Upper abdomen: Pancreatic atrophy. Bones: No acute abnormality. Multilevel degenerative changes are present in the spine. All CT scans are performed using dose optimization technique as appropriate and may include automated exposure control or mA/KV adjustment according to patient size. IMPRESSION: No acute findings within the chest. Benign pulmonary nodules noted. EXAM DESCRIPTION: US - Extrem Venous W Compress Delio - 04/19/2023 1:17 pm CLINICAL HISTORY: Pain;Swelling COMPARISON: EXT VENOUS UNI LTD dated 11/10/2015 TECHNIQUE: Real-time sonographic evaluation of the lower extremity deep venous systems was performed using color Doppler, grayscale, and compression. FINDINGS: Bilateral lower extremities. Normal compressibility, flow augmentation, phasic flow and spontaneous flow is identified in both the left and right lower extremity deep venous systems. No intraluminal filling defects seen. IMPRESSION: No DVT in either lower extremity. Conclusions/Impression: Stage I AJ possible pre-renal component, underlying CKD III unspecified with Proteinuria in the setting of HTN/other -Cont to monitor renal function closely Hyperuricemia -In the setting of recent diuretic use, other. Monitor, check fractional excretion of uric acid if remains elevated Diastolic CHF, chronic -No overt pulm edema or effusions, ok to hold scheduled diuretics currently Hypercalcemia Hypophosphatemia Hyperparathyroidism unspecified. -While there may be some secondary hyperparathyroidism due to CKD, PTH > 1000, pt can get parathyroid scan as OP to eval for adenoma, hypertrophy or other. Pt has a hx of kidney stones Will place on low dose Sensipar and f/u as OP Jama Culver MD, ANTONIO
--- NOTE | 2023-04-21 12:04 | P.PN ---
Subjective Date of Service: 04/21/23 Primary Care Provider: Dr. Solano Chief Complaint: COVID infection Subjective: Improving (Patient is improving still complaining of cough) Review of Systems General: Weakness Respiratory: Cough Physical Examination - Vital Signs Temperature: 98 F Blood Pressure: 139/61 Pulse: 64 Respirations: 18 Pulse Ox (%): 95 - Physical Exam General: Alert, In no apparent distress, Oriented x3 Respiratory: Clear to auscultation bilaterally, Diminished Assessment And Plan - Current Problems (Diagnosis) (1) COVID-19 Current Visit: Yes Status: Acute Plan: Patient admitted with COVID infections doing well saturations satisfactory still complaining of a cough signs all stable blood pressure satisfactory and has no fever stable for discharge low-dose Decadron inhaler with Romack cough suppressant Physician Review: Patient Assessed, Agree with Above Assessment and Plan
[2023-04-21] MEDS: NA CHLORIDE 0.9% 1,000 ML IV SCH ×2 (12:42→21:00)
[2023-04-21] MEDS: CINACALCET HCL 30 MG TAB PO SCH (12:42)
[2023-04-21] MEDS ORDERED: IPRATROPIUM BROM 0.5MG/2.5ML NEB PRN (17:00)
[2023-04-21] MEDS: ATORVASTATIN 40 MG TAB PO SCH (21:03)
[2023-04-22] MEDS: ALBUTEROL 2.5 MG/3 ML NEB SOL NEB SCH ×3 (02:40→14:00)
[2023-04-22] MEDS: PROMETHAZINE-DM 5 ML OSYR PO SCH ×3 (03:00→14:21)
[2023-04-22 04:57] LABS: Hematocrit 33.8 % (36.0-45.0); Lymphocytes % 8.9 % (15.3-44.8); MCV 84.8 fL (80-100); MPV 7.1 fL (7.6-11.3); RBC Red Blood Cell Count 3.99 M/uL (3.86-4.86)
[2023-04-22 05:18] LABS: Magnesium 1.9 mg/dL (1.6-2.4); Phosphorus 3.4 mg/dL (2.5-4.9)
[2023-04-22 05:19] LABS: Albumin 3.2 g/dL (3.4-5.0); Bilirubin Total 0.3 mg/dL (0.2-1.0); Protein, Total 7.2 g/dL (6.4-8.2)
[2023-04-22 05:24] VITALS: TEMP 97.1
[2023-04-22] MEDS: BUDESONIDE 0.5 MG/2 ML NEB NEB SCH (07:26)
[2023-04-22] MEDS: ENOXAPARIN 30 MG/0.3 ML SQ SCH (08:07)
[2023-04-22] MEDS: dexAMETHasone 4 MG/ML VIAL IV SCH (08:07)
[2023-04-22] MEDS: AZITHROMYCIN 250 MG TAB PO SCH (08:08)
[2023-04-22] MEDS: SERTRALINE HCL 100 MG TAB PO SCH (08:08)
[2023-04-22] MEDS: CYANOCOBALAMIN 1000MCG/ML INJ SQ SCH (08:08)
[2023-04-22] MEDS: GABAPENTIN 300 MG CAP PO SCH (08:08)
[2023-04-22] MEDS: LEVOTHYROXINE SOD 0.125 MG TAB PO SCH (08:08)
--- NOTE | 2023-04-22 08:49 | RAD REPORT ---
EXAM DESCRIPTION: RAD - Chest Single View - 04/22/2023 8:34 am CLINICAL HISTORY: pneumonia Chest pain. COMPARISON: Chest Single View dated 04/19/2023; Chest Pa And Lat (2 Views) dated 11/15/2022; Chest Sing le View dated 11/09/2021; Chest Pa And Lat (2 Views) dated 10/12/2020 FINDINGS: Portable technique limits examination quality. Moderate bilateral pulmonary opacities favor to represent pulmonary edema. The heart is moderately en larged. No displaced fractures. IMPRESSION: Mild to moderate CHF.
[2023-04-22] MEDS: NIRMATRELVIR/RITONAVIR TABLET PO SCH (09:00)
[2023-04-22] MEDS: CINACALCET HCL 30 MG TAB PO SCH (09:01)
[2023-04-22] MEDS ORDERED: FUROSEMIDE 40 MG/4 ML VIAL IV ONE (11:39)
[2023-04-22 12:11] VITALS: BP 139/64
[2023-04-22] MEDS ORDERED: NIRMATRELVIR/RITONAVIR TABLET PO SCH (14:45)
--- NOTE | 2023-04-22 22:20 | P.PN ---
Date of Service: 04/22/23 Vital Signs Temp Pulse Resp BP Pulse Ox 97.1 F 61 18 139/64 98 04/22/23 08:00 04/22/23 08:00 04/22/23 08:00 04/22/23 12:15 04/22/23 08:00 Microbiology Results 04/19/23 13:55 Blood - Blood Aerobic Blood Culture - Preliminary No growth in 24 hours. 04/19/23 13:55 Blood - Blood Anaerobic Blood Culture - Preliminary No growth in 24 hours. 04/19/23 13:35 Blood - Blood Aerobic Blood Culture - Preliminary No growth in 24 hours. 04/19/23 13:35 Blood - Blood Anaerobic Blood Culture - Preliminary No growth in 24 hours. Assessment/ Plan: Nephrology No dyspnea No chest pain Cough Feeling better No acute events overnight Vitals, medications, blood work and imaging reviewed in the chart. General: In no apparent distress, Oriented x3, Cooperative HEENT: Atraumatic Neck: Supple Respiratory: Normal air movement Cardiovascular: No edema, Regular rate/rhythm Gastrointestinal: Soft and benign, Non-distended Musculoskeletal: No clubbing, No contractures Integumentary: No rashes, No cyanosis Neurological: Normal speech Laboratory Data (last 24 hrs) 04/19/23 12:02: PT 11.3, INR 1.03 04/19/23 12:02: WBC 6.10, Hgb 10.6 L, Hct 32.4 L, Plt Count 192 04/19/23 12:02: Sodium 137, Potassium 5.2 H, BUN 29 H, Creatinine 1.66 H, Glucose 120 H, Magnesium 2.0, Total Bilirubin 0.4, AST 23, ALT 25, Alkaline Phosphatase 124 H Imagings Data: EXAM DESCRIPTION: CT - Thorax Wo Con - 04/19/2023 1:21 pm CLINICAL HISTORY: pneumonia COMPARISON: Chest For Pe Angio dated 06/03/2020; Thorax Wo Con dated 09/30/2016 FINDINGS: Chest Wall: No suspicious thyroid nodules or pathologic lymphadenopathy. Lungs: 4 mm right lower lobe pulmonary nodule is unchanged and benign. 6 mm left lower lobe pulmonary nodule is unchanged and benign. These nodules are unchanged since 2016 . Pleura: No significant effusions or pneumothorax. Mediastinum/nallely: No pathologic lymphadenopathy. Pulmonary arteries/Aorta: Limited evaluation without contrast. No aortic aneurysm. Heart: No significant pericardial effusion. Normal heart size. Aortic root calcifications. Coronary artery calcifications. Upper abdomen: Pancreatic atrophy. Bones: No acute abnormality. Multilevel degenerative changes are present in the spine. All CT scans are performed using dose optimization technique as appropriate and may include automated exposure control or mA/KV adjustment according to patient size. IMPRESSION: No acute findings within the chest. Benign pulmonary nodules noted. EXAM DESCRIPTION: RADChest Single View04/19/2023 12:11 pm CLINICAL HISTORY: DYSPNEA COMPARISON: Chest Pa And Lat (2 Views) dated 11/15/2022; Chest Single View dated 11/09/2021; Chest Pa And Lat (2 Views) dated 10/12/2020; Chest Single View dated 08/26/2020 TECHNIQUE: Portable AP view of the chest. FINDINGS: Central interstitial prominence and fluffy bibasilar opacities, progressive since the prior exam. No pneumothorax or effusion. The cardiomediastinal contours are unremarkable. IMPRESSION: Central congestion versus patchy bibasilar airspace disease. EXAM DESCRIPTION: US - Extrem Venous W Compress Delio - 04/19/2023 1:17 pm CLINICAL HISTORY: Pain;Swelling COMPARISON: EXT VENOUS UNI LTD dated 11/10/2015 TECHNIQUE: Real-time sonographic evaluation of the lower extremity deep venous systems was performed using color Doppler, grayscale, and compression. FINDINGS: Bilateral lower extremities. Normal compressibility, flow augmentation, phasic flow and spontaneous flow is identified in both the left and right lower extremity deep venous systems. No intraluminal filling defects seen. IMPRESSION: No DVT in either lower extremity. Conclusions/Impression: Stage I AJ in the setting of diuresis CKD III with Proteinuria in the setting of HTN -No NSAIDs Hyperkalemia -Low potassium diet HTN with CKD/ CHF -Discontinue non-selective beta marnie, carvedilol -Metoprolol prn -Hydralazine prn Diastolic CHF, chronic -Daily weight -Low sodium diet Anemia in chronic illness Hx iron deficiency Hx B12 deficiency -Monitor H&H CKD MBD/ HyperPTH 1752 Vitamin D3 Deficiency 21 Hypercalcemia Hypophosphatemia -Replete PO4 as ordered COVID Bronchitis -Continue Paxlovid & Dexamethasone
--- NOTE | 2023-04-24 14:04 | ECHO ---
HEIGHT: 5 ft 1 in WEIGHT: 179 lb 0 oz DATE OF STUDY: 04/21/[address]: Anoop Clinton 2-DIMENSIONAL: YES M.MODE: YES DOPPLER: YES COLOR FLOW: YES TDS: PORTABLE: YES DEFINITY: BUBBLE STUDY: DIAGNOSIS: CONGESTIVE HEART FAILURE CARDIAC HISTORY: CATHERIZATION: YES SURGERY: NO PROSTHETIC VALVE: NO PACEMAKER: NO MEASUREMENTS (cm) DIASTOLIC (NORMALS) SYSTOLIC (NORMALS) IVSd 1.1 (0.6-1.2) LA Diam 3.6 (1.9-4.0) LVEF 66% LVIDd 4.3 (3.5-5.7) LVIDs 2.7 (2.0-3.5) %FS 36% LVPWd 1.2 (0.6-1.2) Ao Diam 2.3 (2.0-3.7) 2 DIMENSIONAL ASSESSMENT: RIGHT ATRIUM: NORMAL LEFT ATRIUM: NORMAL RIGHT VENTRICLE: NORMAL LEFT VENTRICLE: NORMAL TRICUSPID VALVE: MILD TRICUSPID REGURGITATION MITRAL VALVE: MILD MITRAL REGURGITATION PULMONIC VALVE: NORMAL AORTIC VALVE: NORMAL PERICARDIAL EFFUSION: NONE AORTIC ROOT: NORMAL LEFT VENTRICULAR WALL MOTION: NORMAL DOPPLER/COLOR FLOW: SEE BELOW COMMENTS: 1. NORMAL LEFT VENTRICULAR EJECTION FRACTION 60-65% WITH NORMAL WALL MOTION 2. MODERATE DIASTOLIC DYSFUNCTION 3. MILD TRICUSPID REGURGITATION 4. MILD MITRAL REGURGITATION TECHNOLOGIST: ESVIN ARELLANO
== END 2023-04-22 15:58 | disposition home or self-care (01) | DRG 177 ==
LOC: ER 11:31 → ERHOLD 15:37 → 4TH 16:50
PROVIDERS: ADMIT Hospitalist; ATTEND Hospitalist
DX: U07.1 COVID-19 (principal); I50.33 Acute on chronic diastolic (congestive) heart failure; J12.82 Pneumonia due to coronavirus disease 2019; N18.4 Chronic kidney disease, stage 4 (severe); I13.0 Hypertensive heart and chronic kidney disease with heart failure and stage 1 through stage 4 chronic kidney disease, or unspecified chronic kidney disease; N17.9 Acute kidney failure, unspecified; E87.5 Hyperkalemia; E03.9 Hypothyroidism, unspecified; K21.9 Gastro-esophageal reflux disease without esophagitis; E78.00 Pure hypercholesterolemia, unspecified; M10.9 Gout, unspecified; F41.9 Anxiety disorder, unspecified; F32.A Depression, unspecified; D63.1 Anemia in chronic kidney disease; E21.3 Hyperparathyroidism, unspecified; Z88.1 Allergy status to other antibiotic agents; Z79.52 Long term (current) use of systemic steroids; Z91.013 Allergy to seafood; Z90.710 Acquired absence of both cervix and uterus; Z79.890 Hormone replacement therapy; Z91.048 Other nonmedicinal substance allergy status; Z79.899 Other long term (current) drug therapy
CPT/HCPCS: 36415; 71045; 71250; 80048; 80053; 80061; 80076; 81003; 82306; 82330; 82784; 82947; 83605; 83735; 83880; 83970; 84100; 84165; 84439; 84443; 84484; 84550; 85025; 85379; 85610; 86140; 87040; 87635; 93005; 93306; 93970; 94640; 96372; 99285; C9113; J0360; J0696; J1100; J1650; J1940; J2930; J3420; J7030; J7040; J7613; J7626; J7644

== ENCOUNTER 2023-05-31 07:09 | Day surgery (SDC) | payer OTHER ==
[2023-05-30 12:27] LABS: Absolute Lymphocytes (CBC) 1.5 K/uL (0.7-4.9); Hematocrit 35.4 % (36.0-45.0); Lymphocytes % 32.7 % (15.3-44.8); MCV 85.4 fL (80-100); MPV 6.9 fL (7.6-11.3); Platelets 148 thou/uL (152-406); RBC Red Blood Cell Count 4.14 M/uL (3.86-4.86)
[2023-05-30 12:43] LABS: Albumin 3.6 g/dL (3.4-5.0); Bilirubin Direct 0.2 mg/dL (0-0.2); Bilirubin Indirect, Calculated 0.5 mg/dL (0.2-0.8); Bilirubin Total 0.7 mg/dL (0.2-1.0); Potassium 4.3 mEq/L (3.5-5.1); Protein, Total 7.2 g/dL (6.4-8.2)
[2023-05-31] MEDS ORDERED: Ringers Lactate 1,000 ML IV ONE (07:39)
[2023-05-31] MEDS: CEFOXITIN SODIUM 1 GM/VIAL ONE ×2 (07:43→08:21)
[2023-05-31] MEDS ORDERED: propofoL 200 MG/20 ML VIAL IV ONE (07:48)
[2023-05-31] MEDS ORDERED: FENTANYL CITR 100 MCG/2 ML ONE ×2 (07:48→10:00)
[2023-05-31] MEDS ORDERED: ONDANSETRON 4 MG/2 ML VIAL ONE ×3 (07:49→10:31)
[2023-05-31] MEDS ORDERED: ROCURONIUM 50 MG/5 ML VIAL IV ONE (07:49)
[2023-05-31] MEDS ORDERED: LIDOCAINE 2% MPF 5 ML VIAL ONE (07:52)
[2023-05-31] MEDS: NA CHLORIDE 0.9% 1,000 ML ONE ×2 (08:21→09:06)
--- NOTE | 2023-05-31 09:05 | P.BOP ---
Preoperative diagnosis: biliary dyskinesia, RUQ abd pain Postoperative diagnosis: same Primary procedure: Laparoscopic cholecystectomy Switch Adjuster: WILLIS ARMENTA (REAL ESTATE ADMINISTRATOR) Estimated blood loss: <10cc Specimen: gb Findings: as above Anesthesia: General Complications: None Transferred to: Recovery Room Condition: Good
[2023-05-31] MEDS ORDERED: NEOSTIGMINE 1 MG/ML -10 ML VIAL ONE (09:22)
[2023-05-31] MEDS ORDERED: GLYCOPYRROLATE 0.2 MG/ML SYR ONE (09:25)
[2023-05-31] MEDS: HYDROMORPHONE HCL 1 MG/ML INJ ONE ×2 (09:30→09:40)
[2023-05-31 10:45] VITALS: TEMP 97.1
[2023-05-31] MEDS ORDERED: CODEINE 30MG/APAP 300MG TAB ONE (11:15)
[2023-05-31] MEDS ORDERED: ONDANSETRON 4 MG (ODT) TAB ONE (12:30)
[2023-05-31 14:03] VITALS: BP 134/57; O2SAT 98
--- NOTE | 2023-05-31 20:15 | OP ---
Date of Procedure: 05/31/2023 Surgeon: Alirio Mcguire MD Skid Wrapper: DANICA Mullins Preoperative Diagnoses: Biliary dyskinesia, right upper quadrant abdominal pain. Postoperative Diagnoses: Biliary dyskinesia, right upper quadrant abdominal pain. Procedure: Laparoscopic cholecystectomy. Estimated Blood Loss: Less than 10 cc. Specimen: Gallbladder. Finding: As above. Anesthesia: General plus local. Complications: None. Indications: This is the case of a female, who comes to us with recurrent abdominal pain. She had e xtensive workup done by the GI and primary doctors, found to have biliary dyskinesia sent to my offic e for cholecystectomy. The benefits, alternatives, and risks of laparoscopic, possible open cholecys tectomy was fully explained, which include, but not limited to infection, bleeding, damage to adjacen t structures, anesthesia complication, choledocholithiasis, bile leak, pancreatitis, [place], and even destiney th. She also understands this may not relieve the symptoms. She might need more than one surgical i ntervention. She understood, signed a consent. Description Of Procedure: Patient was brought to the operating room, placed in supine position. Ane sthesia was done without complication. Abdominal area was prepped and draped in the usual sterile fa shion. Marcaine 0.5% was injected for local anesthetic followed by sharp incision of the skin in the supraumbilical region. Incision was carried down to fascia, which was opened under direct vision. Peritoneum was encountered, opened under direct vision. Vicryl #1 placed inside the fascia. Rosaura trocar was carefully introduced. Pneumoperitoneum was obtained. I placed 3 more trocars, 5 mm each one of them, 1 in epigastric area, 2 in the right upper quadrant using same technique, which consiste d of local anesthetic, sharp incision of the skin, introduction of the trocars under direct vision. This allowed me to put a grasper in the fundus of the gallbladder, another grasper in the infundibulu m, retracting the gallbladder in the inferolateral fashion exposing the triangle of Calot, obtaining critical view. Cystic duct and cystic artery were clearly isolated, freed circumferentially and a co nnection between those and the gallbladder were clearly identified. I proceeded to ligate those by u sing at least 3 clips proximal, 1 clip distal, ligation in middle. Same was done with the abhijit rae. No bile leak, no bleeding. The gallbladder was removed from liver using Bovie cauterizer and r emoved from abdominal cavity using an EndoCatch through the umbilical incision. The area was inspect ed once again. No bleeding, no bile leak. At that moment, I proceeded to remove the trocars under d irect vision. Closed the pneumoperitoneum. Closed the fascia with #1 Vicryl. Area was irrigated wi th subcutaneous tissue, closed with 3-0 chromic and skin with 3-0 chromic. Sponge count and instrume nt counts were correct. Patient tolerated the procedure well. Patient was sent to recovery in stabl e condition. MINA/MANGO Voice ID: [id number] Report ID: [id number]
--- NOTE | 2023-06-01 04:34 | DS ---
Date of Discharge: 05/31/2023 Diagnoses: Biliary dyskinesia, right upper quadrant abdominal pain. Procedure: Laparoscopic cholecystectomy. Disposition: Home. Activity: As tolerated. No heavy lifting, Followup: In my office in 1 week. Call for appointment [phone]. Plan: Keep area dry for 48 hours, then may shower. Keep Steri-Strips intact. RANDALL Voice ID: [id number] Report ID: [id number]
== END 2023-05-31 12:37 | disposition home or self-care (01) ==
LOC: OR 07:09
PROVIDERS: ATTEND Surgery
PROC: 0FT44ZZ Resection of Gallbladder, Percutaneous Endoscopic Approach (ICD-10-PCS; principal; 2023-05-31 08:45)
DX: R10.11 Right upper quadrant pain (principal); K82.8 Other specified diseases of gallbladder; R93.2 Abnormal findings on diagnostic imaging of liver and biliary tract
CPT/HCPCS: 93005; 85025; 80048; 36415; 80076; 88304; 83690; 47562; Q0162; J2704; J2710; J2001; J3010 ×2; J1170; J0694; J2405 ×2; J7120; J7030

== ENCOUNTER 2023-07-19 06:40 | Day surgery (SDC) | payer OTHER ==
[2023-07-19] MEDS ORDERED: Ringers Lactate 1,000 ML IV ONE (07:15)
[2023-07-19] MEDS ORDERED: LIDOCAINE 1% MPF 5 ML VIAL ONE (07:45)
[2023-07-19] MEDS ORDERED: propofoL 200 MG/20 ML VIAL IV ONE (07:45)
[2023-07-19 08:44] VITALS: BP 137/63; TEMP 98.3; O2SAT 99
== END 2023-07-19 09:28 | disposition home or self-care (01) ==
LOC: OR 06:40
PROVIDERS: ATTEND Surgery
PROC: 0DJD8ZZ Inspection of Lower Intestinal Tract, Via Natural or Artificial Opening Endoscopic (ICD-10-PCS; principal; 2023-07-19 07:30)
DX: Z12.11 Encounter for screening for malignant neoplasm of colon (principal); K57.30 Diverticulosis of large intestine without perforation or abscess without bleeding; K64.8 Other hemorrhoids; K64.4 Residual hemorrhoidal skin tags; I13.0 Hypertensive heart and chronic kidney disease with heart failure and stage 1 through stage 4 chronic kidney disease, or unspecified chronic kidney disease; I50.9 Heart failure, unspecified; N18.30 Chronic kidney disease, stage 3 unspecified; K21.9 Gastro-esophageal reflux disease without esophagitis; E07.9 Disorder of thyroid, unspecified; F32.A Depression, unspecified; E66.9 Obesity, unspecified; Z68.34 Body mass index [BMI] 34.0-34.9, adult; Z88.2 Allergy status to sulfonamides
CPT/HCPCS: J2001; J2704; J7120

== ENCOUNTER 2023-09-18 13:19 | Emergency (ER) | payer OTHER ==
--- OUTSIDE RECORDS SUMMARY | 2023-09-18 13:24 | XMS REPORT | Continuity of Care Document ---
Author Name Unknown Address [address] [facility] [address]. [address] [id number] [facility] thconnect Address [address] [facility]. [address] [place] [address] Care Team Providers Care Snack Bar Attendant Name Role Phone MURPHYBRYSON RichterJOSE LUISLORA Primary Care Physician Unavailab maria de jesus [email or web address] Attending Clinician Unavaila Verito Yu MD Attending Clinician [phone] ACE ACOSTA Attending Clinician Unavailable Ace Steve Attending Clinician [phone] VERITO DUKE Attending Clinician Unavailabl e 1, [facility] Attending Clinician Unavailable [facility], [facility] Attending Clinician Unavailab maria de jesus [email or web address] Admitting Clinician Serg tomlinson Payers Payer Name Policy Type Policy Number Effective Date Expirati on Date Source Problems Condition Name Condition Details Condition Category Status Onset Date Resolution Date Last Treatment Date Treating Clinician Comments Source Mass of right foot, Great Toe Mass of right foot, [place] Toe Disease Active 05-31 00:00: 00 [facility] Left hip pain Left hip pain Disease Active 04-26 00:00: 00 [facility] Allergies, Adverse Reactions, Alerts Allergy Name Allergy Type Status Severity Reaction(s) Onset Date Inactive Date Treating Clinician Comments Source Sulfa (Sulfona mide Antibiot ics) Propensi ty to adverse reaction s Active Rash 04-26 00:00: 00 [facility] SULFA (SULFONA MIDE ANTIBIOT ICS) Drug Class Active Rash 04-26 00:00: 00 [facility] Social History Social Habit Start Date Stop Date Quantity Comments Source Exposure to SARS-CoV-2 (event) Not sure [facility] Sex Assigned At [facility] Smoking Status Start Date Stop Date Source Never smoker [facility] Medications Ordered Medication Name Filled Medication Name Start Date Stop Date Current Medication? Ordering Clinician Indication Dosage Frequency Signature (SIG) Comments Components Source methylPREDN ISolone (MEDROL, HELDER,) 4 mg tablets 02-27 00:00: 00 Yes [id number] 84mg Take 21 tablets by mouth SEE-INSTRU CTIONS. follow package directions [facility] methylPREDN ISolone (MEDROL, HELDER,) 4 mg tablets 02-27 00:00: 00 Yes [id number] 84mg Take 21 tablets by mouth SEE-INSTRU CTIONS. follow package directions [facility] methylPREDN ISolone (MEDROL, HELDER,) 4 mg tablets 02-27 00:00: 00 Yes [id number] 84mg Take 21 tablets by mouth SEE-INSTRU CTIONS. follow package directions [facility] triamcinolo ne acetonide (KENALOG) injection 80 mg 11-08 18:45: 00 11-08 17:36 :00 No 80mg [facility] triamcinolo ne acetonide (KENALOG) injection 80 mg 11-08 18:45: 00 11-08 17:36 :00 No 80mg 80 mg, Intra-riaz cular, ONCE, 1 dose, 11/08/19 at 1245, Routine [facility] CLINDAMYCIN HCL ORAL 11-08 16:36: 17 Yes Take by mouth. [facility] CLINDAMYCIN HCL ORAL 11-08 16:36: 17 Yes Take by mouth. [facility] CLINDAMYCIN HCL ORAL 11-08 16:36: 17 Yes Take by mouth. [facility] CLINDAMYCIN HCL ORAL 11-08 16:36: 17 Yes Take by mouth. [facility] CLINDAMYCIN HCL ORAL 11-08 16:36: 17 Yes Take by mouth. [facility] CLINDAMYCIN HCL ORAL 11-08 16:36: 17 Yes Take by mouth. [facility] diclofenac 75 mg EC tablet 11-08 00:00: 00 Yes [id number] 75mg Take 1 tablet by mouth 2 (two) times daily with meals. [facility] diclofenac 75 mg EC tablet 11-08 00:00: 00 Yes [id number] 75mg Take 1 tablet by mouth 2 (two) times daily with meals. [facility] diclofenac 75 mg EC tablet 11-08 00:00: 00 Yes [id number] 75mg Take 1 tablet by mouth 2 (two) times daily with meals. [facility] diclofenac 75 mg EC tablet 11-08 00:00: 00 Yes [id number] 75mg Take 1 tablet by mouth 2 (two) times daily with meals. [facility] diclofenac 75 mg EC tablet 11-08 00:00: 00 Yes [id number] 75mg Take 1 tablet by mouth 2 (two) times daily with meals. [facility] diclofenac 75 mg EC tablet 11-08 00:00: 00 Yes [id number] 75mg Take 1 tablet by mouth 2 (two) times daily with meals. [facility] LEVOTHYROXI NE SODIUM (LEVOTHYROX INE ORAL) 02-09 16:28: 45 Yes Take by mouth. [facility] LEVOTHYROXI NE SODIUM (LEVOTHYROX INE ORAL) 02-09 16:28: 45 Yes Take by mouth. [facility] LEVOTHYROXI NE SODIUM (LEVOTHYROX INE ORAL) 02-09 16:28: 45 Yes Take by mouth. [facility] LEVOTHYROXI NE SODIUM (LEVOTHYROX INE ORAL) 02-09 16:28: 45 Yes Take by mouth. [facility] LEVOTHYROXI NE SODIUM (LEVOTHYROX INE ORAL) 02-09 16:28: 45 Yes Take by mouth. [facility] LEVOTHYROXI NE SODIUM (LEVOTHYROX INE ORAL) 02-09 16:28: 45 Yes Take by mouth. [facility] LEVOTHYROXI NE SODIUM (LEVOTHYROX INE ORAL) 02-09 16:28: 45 Yes Take by mouth. [facility] LEVOTHYROXI NE SODIUM (LEVOTHYROX INE ORAL) 02-09 16:28: 45 Yes Take by mouth. [facility] LEVOTHYROXI NE SODIUM (LEVOTHYROX INE ORAL) 02-09 16:28: 45 Yes Take by mouth. [facility] LEVOTHYROXI NE SODIUM (LEVOTHYROX INE ORAL) 02-09 16:28: 45 Yes Take by mouth. [facility] LEVOTHYROXI NE SODIUM (LEVOTHYROX INE ORAL) 02-09 16:28: 45 Yes Take by mouth. [facility] LEVOTHYROXI NE SODIUM (LEVOTHYROX INE ORAL) 02-09 16:28: 45 Yes Take by mouth. [facility] LEVOTHYROXI NE SODIUM (LEVOTHYROX INE ORAL) 02-09 16:28: 45 Yes Take by mouth. [facility] LEVOTHYROXI NE SODIUM (LEVOTHYROX INE ORAL) 02-09 16:28: 45 Yes Take by mouth. [facility] LEVOTHYROXI NE SODIUM (LEVOTHYROX INE ORAL) 02-09 16:28: 45 Yes Take by mouth. [facility] LEVOTHYROXI NE SODIUM (LEVOTHYROX INE ORAL) 02-09 16:28: 45 Yes Take by mouth. [facility] LEVOTHYROXI NE SODIUM (LEVOTHYROX INE ORAL) 02-09 16:28: 45 Yes Take by mouth. [facility] LEVOTHYROXI NE SODIUM (LEVOTHYROX INE ORAL) 02-09 16:28: 45 Yes Take by mouth. [facility] LEVOTHYROXI NE SODIUM (LEVOTHYROX INE ORAL) 02-09 16:28: 45 Yes Take by mouth. [facility] ezetimibe 10 mg tablet 02-06 00:00: 00 Yes TK 1 T PO QD [facility] gabapentin 600 mg tablet 02-06 00:00: 00 Yes TK 1 T PO BID [facility] ezetimibe 10 mg tablet 02-06 00:00: 00 Yes TK 1 T PO QD [facility] gabapentin 600 mg tablet 02-06 00:00: 00 Yes TK 1 T PO BID [facility] ezetimibe 10 mg tablet 02-06 00:00: 00 Yes TK 1 T PO QD [facility] gabapentin 600 mg tablet 02-06 00:00: 00 Yes TK 1 T PO BID [facility] ezetimibe 10 mg tablet 02-06 00:00: 00 Yes TK 1 T PO QD [facility] ezetimibe 10 mg tablet 02-06 00:00: 00 Yes TK 1 T PO QD [facility] gabapentin 600 mg tablet 02-06 00:00: 00 Yes TK 1 T PO BID [facility] gabapentin 600 mg tablet 02-06 00:00: 00 Yes TK 1 T PO BID [facility] ezetimibe 10 mg tablet 02-06 00:00: 00 Yes TK 1 T PO QD [facility] gabapentin 600 mg tablet 02-06 00:00: 00 Yes TK 1 T PO BID [facility] ezetimibe 10 mg tablet 02-06 00:00: 00 Yes TK 1 T PO QD [facility] gabapentin 600 mg tablet 02-06 00:00: 00 Yes TK 1 T PO BID [facility] ezetimibe 10 mg tablet 02-06 00:00: 00 Yes TK 1 T PO QD [facility] gabapentin 600 mg tablet 02-06 00:00: 00 Yes TK 1 T PO BID [facility] ezetimibe 10 mg tablet 02-06 00:00: 00 Yes TK 1 T PO QD [facility] gabapentin 600 mg tablet 02-06 00:00: 00 Yes TK 1 T PO BID [facility] ezetimibe 10 mg tablet 02-06 00:00: 00 Yes TK 1 T PO QD [facility] gabapentin 600 mg tablet 02-06 00:00: 00 Yes TK 1 T PO BID [facility] ezetimibe 10 mg tablet 02-06 00:00: 00 Yes TK 1 T PO QD [facility] gabapentin 600 mg tablet 02-06 00:00: 00 Yes TK 1 T PO BID [facility] ezetimibe 10 mg tablet 02-06 00:00: 00 Yes TK 1 T PO QD [facility] gabapentin 600 mg tablet 02-06 00:00: 00 Yes TK 1 T PO BID [facility] ezetimibe 10 mg tablet 02-06 00:00: 00 Yes TK 1 T PO QD [facility] gabapentin 600 mg tablet 02-06 00:00: 00 Yes TK 1 T PO BID [facility] ezetimibe 10 mg tablet 02-06 00:00: 00 Yes TK 1 T PO QD [facility] gabapentin 600 mg tablet 02-06 00:00: 00 Yes TK 1 T PO BID [facility] ezetimibe 10 mg tablet 02-06 00:00: 00 Yes TK 1 T PO QD [facility] gabapentin 600 mg tablet 02-06 00:00: 00 Yes TK 1 T PO BID [facility] ezetimibe 10 mg tablet 02-06 00:00: 00 Yes TK 1 T PO QD [facility] gabapentin 600 mg tablet 02-06 00:00: 00 Yes TK 1 T PO BID [facility] ezetimibe 10 mg tablet 02-06 00:00: 00 Yes TK 1 T PO QD [facility] gabapentin 600 mg tablet 02-06 00:00: 00 Yes TK 1 T PO BID [facility] ezetimibe 10 mg tablet 02-06 00:00: 00 Yes TK 1 T PO QD [facility] gabapentin 600 mg tablet 02-06 00:00: 00 Yes TK 1 T PO BID [facility] ezetimibe 10 mg tablet 02-06 00:00: 00 Yes TK 1 T PO QD [facility] gabapentin 600 mg tablet 02-06 00:00: 00 Yes TK 1 T PO BID [facility] valsartan 40 mg tablet 12-31 00:00: 00 Yes TK 1 T PO QD [facility] valsartan 40 mg tablet 12-31 00:00: 00 Yes TK 1 T PO QD [facility] valsartan 40 mg tablet 12-31 00:00: 00 Yes TK 1 T PO QD [facility] valsartan 40 mg tablet 12-31 00:00: 00 Yes TK 1 T PO QD [facility] valsartan 40 mg tablet 12-31 00:00: 00 Yes TK 1 T PO QD [facility] valsartan 40 mg tablet 12-31 00:00: 00 Yes TK 1 T PO QD [facility] valsartan 40 mg tablet 12-31 00:00: 00 Yes TK 1 T PO QD [facility] valsartan 40 mg tablet 12-31 00:00: 00 Yes TK 1 T PO QD [facility] valsartan 40 mg tablet 12-31 00:00: 00 Yes TK 1 T PO QD [facility] valsartan 40 mg tablet 12-31 00:00: 00 Yes TK 1 T PO QD [facility] valsartan 40 mg tablet 12-31 00:00: 00 Yes TK 1 T PO QD [facility] valsartan 40 mg tablet 12-31 00:00: 00 Yes TK 1 T PO QD [facility] valsartan 40 mg tablet 12-31 00:00: 00 Yes TK 1 T PO QD [facility] valsartan 40 mg tablet 12-31 00:00: 00 Yes TK 1 T PO QD [facility] valsartan 40 mg tablet 12-31 00:00: 00 Yes TK 1 T PO QD [facility] valsartan 40 mg tablet 12-31 00:00: 00 Yes TK 1 T PO QD [facility] valsartan 40 mg tablet 12-31 00:00: 00 Yes TK 1 T PO QD [facility] valsartan 40 mg tablet 12-31 00:00: 00 Yes TK 1 T PO QD [facility] valsartan 40 mg tablet 12-31 00:00: 00 Yes TK 1 T PO QD [facility] atorvastati n 80 mg tablet 12-23 00:00: 00 Yes TK 1 T PO QD [facility] atorvastati n 80 mg tablet 12-23 00:00: 00 Yes TK 1 T PO QD [facility] atorvastati n 80 mg tablet 12-23 00:00: 00 Yes TK 1 T PO QD [facility] atorvastati n 80 mg tablet 12-23 00:00: 00 Yes TK 1 T PO QD [facility] atorvastati n 80 mg tablet 12-23 00:00: 00 Yes TK 1 T PO QD [facility] atorvastati n 80 mg tablet 12-23 00:00: 00 Yes TK 1 T PO QD [facility] atorvastati n 80 mg tablet 12-23 00:00: 00 Yes TK 1 T PO QD [facility] atorvastati n 80 mg tablet 12-23 00:00: 00 Yes TK 1 T PO QD [facility] atorvastati n 80 mg tablet 12-23 00:00: 00 Yes TK 1 T PO QD [facility] atorvastati n 80 mg tablet 12-23 00:00: 00 Yes TK 1 T PO QD [facility] atorvastati n 80 mg tablet 12-23 00:00: 00 Yes TK 1 T PO QD [facility] atorvastati n 80 mg tablet 12-23 00:00: 00 Yes TK 1 T PO QD [facility] atorvastati n 80 mg tablet 12-23 00:00: 00 Yes TK 1 T PO QD [facility] atorvastati n 80 mg tablet 12-23 00:00: 00 Yes TK 1 T PO QD [facility] atorvastati n 80 mg tablet 12-23 00:00: 00 Yes TK 1 T PO QD [facility] atorvastati n 80 mg tablet 12-23 00:00: 00 Yes TK 1 T PO QD [facility] atorvastati n 80 mg tablet 12-23 00:00: 00 Yes TK 1 T PO QD [facility] atorvastati n 80 mg tablet 12-23 00:00: 00 Yes TK 1 T PO QD [facility] atorvastati n 80 mg tablet 12-23 00:00: 00 Yes TK 1 T PO QD [facility] HYDROcodone -acetaminop hen 10-325 mg tablet 04-14 00:00: 00 Yes TK 1 T PO Q 6 H PRN P [facility] HYDROcodone -acetaminop hen 10-325 mg tablet 04-14 00:00: 00 Yes TK 1 T PO Q 6 H PRN P [facility] HYDROcodone -acetaminop hen 10-325 mg tablet 04-14 00:00: 00 Yes TK 1 T PO Q 6 H PRN P [facility] HYDROcodone -acetaminop hen 10-325 mg tablet 04-14 00:00: 00 Yes TK 1 T PO Q 6 H PRN P [facility] HYDROcodone -acetaminop hen 10-325 mg tablet 04-14 00:00: 00 Yes TK 1 T PO Q 6 H PRN P [facility] HYDROcodone -acetaminop hen 10-325 mg tablet 04-14 00:00: 00 Yes TK 1 T PO Q 6 H PRN P [facility] HYDROcodone -acetaminop hen 10-325 mg tablet 04-14 00:00: 00 Yes TK 1 T PO Q 6 H PRN P [facility] HYDROcodone -acetaminop hen 10-325 mg tablet 04-14 00:00: 00 Yes TK 1 T PO Q 6 H PRN P [facility] HYDROcodone -acetaminop hen 10-325 mg tablet 04-14 00:00: 00 Yes TK 1 T PO Q 6 H PRN P [facility] HYDROcodone -acetaminop hen 10-325 mg tablet 04-14 00:00: 00 Yes TK 1 T PO Q 6 H PRN P [facility] HYDROcodone -acetaminop hen 10-325 mg tablet 04-14 00:00: 00 Yes TK 1 T PO Q 6 H PRN P [facility] HYDROcodone -acetaminop hen 10-325 mg tablet 04-14 00:00: 00 Yes TK 1 T PO Q 6 H PRN P [facility] HYDROcodone -acetaminop hen 10-325 mg tablet 04-14 00:00: 00 Yes TK 1 T PO Q 6 H PRN P [facility] HYDROcodone -acetaminop hen 10-325 mg tablet 04-14 00:00: 00 Yes TK 1 T PO Q 6 H PRN P [facility] HYDROcodone -acetaminop hen 10-325 mg tablet 04-14 00:00: 00 Yes TK 1 T PO Q 6 H PRN P [facility] HYDROcodone -acetaminop hen 10-325 mg tablet 04-14 00:00: 00 Yes TK 1 T PO Q 6 H PRN P [facility] HYDROcodone -acetaminop hen 10-325 mg tablet 04-14 00:00: 00 Yes TK 1 T PO Q 6 H PRN P [facility] HYDROcodone -acetaminop hen 10-325 mg tablet 04-14 00:00: 00 Yes TK 1 T PO Q 6 H PRN P [facility] HYDROcodone -acetaminop hen 10-325 mg tablet 04-14 00:00: 00 Yes TK 1 T PO Q 6 H PRN P [facility] acyclovir 400 mg tablet 04-12 00:00: 00 Yes TK 1 T PO Q 6 H [facility] acyclovir 400 mg tablet 04-12 00:00: 00 Yes TK 1 T PO Q 6 H [facility] acyclovir 400 mg tablet 04-12 00:00: 00 Yes TK 1 T PO Q 6 H [facility] acyclovir 400 mg tablet 04-12 00:00: 00 Yes TK 1 T PO Q 6 H [facility] acyclovir 400 mg tablet 04-12 00:00: 00 Yes TK 1 T PO Q 6 H [facility] acyclovir 400 mg tablet 04-12 00:00: 00 Yes TK 1 T PO Q 6 H [facility] acyclovir 400 mg tablet 04-12 00:00: 00 Yes TK 1 T PO Q 6 H [facility] acyclovir 400 mg tablet 04-12 00:00: 00 Yes TK 1 T PO Q 6 H [facility] acyclovir 400 mg tablet 04-12 00:00: 00 Yes TK 1 T PO Q 6 H [facility] acyclovir 400 mg tablet 04-12 00:00: 00 Yes TK 1 T PO Q 6 H [facility] acyclovir 400 mg tablet 04-12 00:00: 00 Yes TK 1 T PO Q 6 H [facility] acyclovir 400 mg tablet 04-12 00:00: 00 Yes TK 1 T PO Q 6 H [facility] acyclovir 400 mg tablet 04-12 00:00: 00 Yes TK 1 T PO Q 6 H [facility] acyclovir 400 mg tablet 04-12 00:00: 00 Yes TK 1 T PO Q 6 H [facility] acyclovir 400 mg tablet 04-12 00:00: 00 Yes TK 1 T PO Q 6 H [facility] acyclovir 400 mg tablet 04-12 00:00: 00 Yes TK 1 T PO Q 6 H [facility] acyclovir 400 mg tablet 04-12 00:00: 00 Yes TK 1 T PO Q 6 H [facility] acyclovir 400 mg tablet 04-12 00:00: 00 Yes TK 1 T PO Q 6 H [facility] acyclovir 400 mg tablet 04-12 00:00: 00 Yes TK 1 T PO Q 6 H [facility] acetaminoph en-codeine 300-30 mg tablet 04-07 00:00: 00 Yes TK 1 T PO BID [facility] acetaminoph en-codeine 300-30 mg tablet 04-07 00:00: 00 Yes TK 1 T PO BID [facility] acetaminoph en-codeine 300-30 mg tablet 04-07 00:00: 00 Yes TK 1 T PO BID [facility] acetaminoph en-codeine 300-30 mg tablet 04-07 00:00: 00 Yes TK 1 T PO BID [facility] acetaminoph en-codeine 300-30 mg tablet 04-07 00:00: 00 Yes TK 1 T PO BID [facility] acetaminoph en-codeine 300-30 mg tablet 04-07 00:00: 00 Yes TK 1 T PO BID [facility] acetaminoph en-codeine 300-30 mg tablet 04-07 00:00: 00 Yes TK 1 T PO BID [facility] acetaminoph en-codeine 300-30 mg tablet 04-07 00:00: 00 Yes TK 1 T PO BID [facility] acetaminoph en-codeine 300-30 mg tablet 04-07 00:00: 00 Yes TK 1 T PO BID [facility] acetaminoph en-codeine 300-30 mg tablet 04-07 00:00: 00 Yes TK 1 T PO BID [facility] acetaminoph en-codeine 300-30 mg tablet 04-07 00:00: 00 Yes TK 1 T PO BID [facility] acetaminoph en-codeine 300-30 mg tablet 04-07 00:00: 00 Yes TK 1 T PO BID [facility] acetaminoph en-codeine 300-30 mg tablet 04-07 00:00: 00 Yes TK 1 T PO BID [facility] acetaminoph en-codeine 300-30 mg tablet 04-07 00:00: 00 Yes TK 1 T PO BID [facility] acetaminoph en-codeine 300-30 mg tablet 04-07 00:00: 00 Yes TK 1 T PO BID [facility] acetaminoph en-codeine 300-30 mg tablet 04-07 00:00: 00 Yes TK 1 T PO BID [facility] acetaminoph en-codeine 300-30 mg tablet 04-07 00:00: 00 Yes TK 1 T PO BID [facility] acetaminoph en-codeine 300-30 mg tablet 04-07 00:00: 00 Yes TK 1 T PO BID [facility] acetaminoph en-codeine 300-30 mg tablet 04-07 00:00: 00 Yes TK 1 T PO BID [facility] methocarbam ol 500 mg tablet 04-04 00:00: 00 Yes TAKE 2 TABLET PO Q 6 HOURS PRN FOR MUSCLE SPASMS [facility] methocarbam ol 500 mg tablet 04-04 00:00: 00 Yes TAKE 2 TABLET PO Q 6 HOURS PRN FOR MUSCLE SPASMS [facility] methocarbam ol 500 mg tablet 04-04 00:00: 00 Yes TAKE 2 TABLET PO Q 6 HOURS PRN FOR MUSCLE SPASMS [facility] methocarbam ol 500 mg tablet 04-04 00:00: 00 Yes TAKE 2 TABLET PO Q 6 HOURS PRN FOR MUSCLE SPASMS [facility] methocarbam ol 500 mg tablet 04-04 00:00: 00 Yes TAKE 2 TABLET PO Q 6 HOURS PRN FOR MUSCLE SPASMS [facility] methocarbam ol 500 mg tablet 04-04 00:00: 00 Yes TAKE 2 TABLET PO Q 6 HOURS PRN FOR MUSCLE SPASMS [facility] methocarbam ol 500 mg tablet 04-04 00:00: 00 Yes TAKE 2 TABLET PO Q 6 HOURS PRN FOR MUSCLE SPASMS [facility] methocarbam ol 500 mg tablet 04-04 00:00: 00 Yes TAKE 2 TABLET PO Q 6 HOURS PRN FOR MUSCLE SPASMS [facility] methocarbam ol 500 mg tablet 04-04 00:00: 00 Yes TAKE 2 TABLET PO Q 6 HOURS PRN FOR MUSCLE SPASMS [facility] methocarbam ol 500 mg tablet 04-04 00:00: 00 Yes TAKE 2 TABLET PO Q 6 HOURS PRN FOR MUSCLE SPASMS [facility] methocarbam ol 500 mg tablet 04-04 00:00: 00 Yes TAKE 2 TABLET PO Q 6 HOURS PRN FOR MUSCLE SPASMS [facility] methocarbam ol 500 mg tablet 04-04 00:00: 00 Yes TAKE 2 TABLET PO Q 6 HOURS PRN FOR MUSCLE SPASMS [facility] methocarbam ol 500 mg tablet 04-04 00:00: 00 Yes TAKE 2 TABLET PO Q 6 HOURS PRN FOR MUSCLE SPASMS [facility] methocarbam ol 500 mg tablet 04-04 00:00: 00 Yes TAKE 2 TABLET PO Q 6 HOURS PRN FOR MUSCLE SPASMS [facility] methocarbam ol 500 mg tablet 04-04 00:00: 00 Yes TAKE 2 TABLET PO Q 6 HOURS PRN FOR MUSCLE SPASMS [facility] methocarbam ol 500 mg tablet 04-04 00:00: 00 Yes TAKE 2 TABLET PO Q 6 HOURS PRN FOR MUSCLE SPASMS [facility] methocarbam ol 500 mg tablet 04-04 00:00: 00 Yes TAKE 2 TABLET PO Q 6 HOURS PRN FOR MUSCLE SPASMS [facility] methocarbam ol 500 mg tablet 04-04 00:00: 00 Yes TAKE 2 TABLET PO Q 6 HOURS PRN FOR MUSCLE SPASMS [facility] methocarbam ol 500 mg tablet 04-04 00:00: 00 Yes TAKE 2 TABLET PO Q 6 HOURS PRN FOR MUSCLE SPASMS [facility] MAGOX 400 mg tablet 03-20 00:00: 00 Yes TK 1 T PO BID [facility] MAGOX 400 mg tablet 03-20 00:00: 00 Yes TK 1 T PO BID [facility] MAGOX 400 mg tablet 03-20 00:00: 00 Yes TK 1 T PO BID [facility] MAGOX 400 mg tablet 03-20 00:00: 00 Yes TK 1 T PO BID [facility] MAGOX 400 mg tablet 03-20 00:00: 00 Yes TK 1 T PO BID [facility] MAGOX 400 mg tablet 03-20 00:00: 00 Yes TK 1 T PO BID [facility] MAGOX 400 mg tablet 03-20 00:00: 00 Yes TK 1 T PO BID [facility] MAGOX 400 mg tablet 03-20 00:00: 00 Yes TK 1 T PO BID [facility] MAGOX 400 mg tablet 03-20 00:00: 00 Yes TK 1 T PO BID [facility] MAGOX 400 mg tablet 03-20 00:00: 00 Yes TK 1 T PO BID [facility] MAGOX 400 mg tablet 03-20 00:00: 00 Yes TK 1 T PO BID [facility] MAGOX 400 mg tablet 03-20 00:00: 00 Yes TK 1 T PO BID [facility] MAGOX 400 mg tablet 03-20 00:00: 00 Yes TK 1 T PO BID [facility] MAGOX 400 mg tablet 03-20 00:00: 00 Yes TK 1 T PO BID [facility] MAGOX 400 mg tablet 03-20 00:00: 00 Yes TK 1 T PO BID [facility] MAGOX 400 mg tablet 03-20 00:00: 00 Yes TK 1 T PO BID [facility] MAGOX 400 mg tablet 03-20 00:00: 00 Yes TK 1 T PO BID [facility] MAGOX 400 mg tablet 03-20 00:00: 00 Yes TK 1 T PO BID [facility] MAGOX 400 mg tablet 03-20 00:00: 00 Yes TK 1 T PO BID [facility] omeprazole 20 mg capsule 02-13 00:00: 00 Yes TK 1 C PO QD AC [facility] SERTraline 100 mg tablet 02-13 00:00: 00 Yes TK 1 T PO BID [facility] omeprazole 20 mg capsule 02-13 00:00: 00 Yes TK 1 C PO QD AC [facility] omeprazole 20 mg capsule 02-13 00:00: 00 Yes TK 1 C PO QD AC [facility] SERTraline 100 mg tablet 02-13 00:00: 00 Yes TK 1 T PO BID [facility] SERTraline 100 mg tablet 02-13 00:00: 00 Yes TK 1 T PO BID [facility] omeprazole 20 mg capsule 02-13 00:00: 00 Yes TK 1 C PO QD AC [facility] SERTraline 100 mg tablet 02-13 00:00: 00 Yes TK 1 T PO BID [facility] omeprazole 20 mg capsule 02-13 00:00: 00 Yes TK 1 C PO QD AC [facility] SERTraline 100 mg tablet 02-13 00:00: 00 Yes TK 1 T PO BID [facility] omeprazole 20 mg capsule 02-13 00:00: 00 Yes TK 1 C PO QD AC [facility] SERTraline 100 mg tablet 02-13 00:00: 00 Yes TK 1 T PO BID [facility] omeprazole 20 mg capsule 02-13 00:00: 00 Yes TK 1 C PO QD AC [facility] SERTraline 100 mg tablet 02-13 00:00: 00 Yes TK 1 T PO BID [facility] omeprazole 20 mg capsule 02-13 00:00: 00 Yes TK 1 C PO QD AC [facility] SERTraline 100 mg tablet 02-13 00:00: 00 Yes TK 1 T PO BID [facility] omeprazole 20 mg capsule 02-13 00:00: 00 Yes TK 1 C PO QD AC [facility] SERTraline 100 mg tablet 02-13 00:00: 00 Yes TK 1 T PO BID [facility] omeprazole 20 mg capsule 02-13 00:00: 00 Yes TK 1 C PO QD AC [facility] SERTraline 100 mg tablet 02-13 00:00: 00 Yes TK 1 T PO BID [facility] omeprazole 20 mg capsule 02-13 00:00: 00 Yes TK 1 C PO QD AC [facility] SERTraline 100 mg tablet 02-13 00:00: 00 Yes TK 1 T PO BID [facility] omeprazole 20 mg capsule 02-13 00:00: 00 Yes TK 1 C PO QD AC [facility] omeprazole 20 mg capsule 02-13 00:00: 00 Yes TK 1 C PO QD AC [facility] SERTraline 100 mg tablet 02-13 00:00: 00 Yes TK 1 T PO BID [facility] SERTraline 100 mg tablet 02-13 00:00: 00 Yes TK 1 T PO BID [facility] omeprazole 20 mg capsule 02-13 00:00: 00 Yes TK 1 C PO QD AC [facility] SERTraline 100 mg tablet 02-13 00:00: 00 Yes TK 1 T PO BID [facility] omeprazole 20 mg capsule 02-13 00:00: 00 Yes TK 1 C PO QD AC [facility] SERTraline 100 mg tablet 02-13 00:00: 00 Yes TK 1 T PO BID [facility] omeprazole 20 mg capsule 02-13 00:00: 00 Yes TK 1 C PO QD AC [facility] SERTraline 100 mg tablet 02-13 00:00: 00 Yes TK 1 T PO BID [facility] omeprazole 20 mg capsule 02-13 00:00: 00 Yes TK 1 C PO QD AC [facility] SERTraline 100 mg tablet 02-13 00:00: 00 Yes TK 1 T PO BID [facility] omeprazole 20 mg capsule 02-13 00:00: 00 Yes TK 1 C PO QD AC [facility] SERTraline 100 mg tablet 02-13 00:00: 00 Yes TK 1 T PO BID [facility] omeprazole 20 mg capsule 02-13 00:00: 00 Yes TK 1 C PO QD AC [facility] SERTraline 100 mg tablet 02-13 00:00: 00 Yes TK 1 T PO BID [facility] Vital Signs Vital Name Observation Time Observation Value Comments S ource Systolic blood pressure 2019-11-08 16:38:00 145 mm[Hg] [facility] Diastolic blood pressure 2019-11-08 16:38:00 84 mm[Hg] [facility] Heart rate 2019-11-08 16:38:00 66 /min [facility] Body height 2019-11-08 16:34:00 154.9 cm [facility] Body weight 2019-11-08 16:34:00 86.183 kg [facility] BMI 2019-11-08 16:34:00 35.90 kg/m2 [facility] Systolic blood pressure 2019-11-08 16:38:00 145 mm[Hg] [facility] Diastolic blood pressure 2019-11-08 16:38:00 84 mm[Hg] [facility] Heart rate 2019-11-08 16:38:00 66 /min [facility] Body height 2019-11-08 16:34:00 154.9 cm [facility] Body weight 2019-11-08 16:34:00 86.183 kg [facility] BMI 2019-11-08 16:34:00 35.90 kg/m2 [facility] Systolic blood pressure 2020-02-28 14:53:00 171 mm[Hg] [facility] Diastolic blood pressure 2020-02-28 14:53:00 93 mm[Hg] [facility] Heart rate 2020-02-28 14:53:00 88 /min [facility] Body temperature 2020-02-28 14:49:00 37 [place] [facility] Body height 2020-02-28 14:49:00 154.9 cm [facility] Body weight 2020-02-28 14:49:00 86.183 kg [facility] BMI 2020-02-28 14:49:00 35.90 kg/m2 [facility] Systolic blood pressure 2019-06-19 19:13:00 128 mm[Hg] [facility] Diastolic blood pressure 2019-06-19 19:13:00 66 mm[Hg] [facility] Heart rate 2019-06-19 19:13:00 86 /min [facility] Respiratory rate 2019-06-19 19:13:00 18 /min [facility] Oxygen saturation in Arterial blood by Pulse oximetry 2019-06-19 19:13:00 93 /min [facility] Systolic blood pressure 2019-06-07 15:14:00 145 mm[Hg] [facility] Diastolic blood pressure 2019-06-07 15:14:00 71 mm[Hg] [facility] Heart rate 2019-06-07 15:14:00 73 /min [facility] Respiratory rate 2019-06-07 15:14:00 18 /min [facility] Body height 2019-06-07 15:14:00 154.9 cm [facility] Body weight 2019-06-07 15:14:00 83.915 kg [facility] BMI 2019-06-07 15:14:00 34.96 kg/m2 [facility] Systolic blood pressure 2019-05-31 15:45:00 152 mm[Hg] [place] [facility] Diastolic blood pressure 2019-05-31 15:45:00 70 mm[Hg] [place] [facility] Heart rate 2019-05-31 15:45:00 82 /min [facility] Res[facility] rate 2019-05-31 15:45:00 18 /min [facility] Body height 2019-05-31 15:45:00 154.9 cm [facility] Body weight 2019-05-31 15:45:00 83.915 kg [facility] BMI 2019-05-31 15:45:00 34.96 kg/m2 [facility] Procedures Procedure Date / Time Performed Performing Clinicia n Source XR FOOT <3 VW RIGHT 2020-02-28 14:51:28 Ace Acosta [facility] EKG-12 LEAD 2019-05-31 18:13:41 Doctor Unass igned, [place] [facility] XR CHEST 2 VW 2019-05-31 17:58:09 Ver[facility] NOTICE OF PRIVACY PRACTICES 2019-05-31 17:07:28 Doctor Unassigned, [place] [facility] CONSENT/REFUSAL FOR DIAGNOSIS AND TREATMENT 2019-05-31 17:07:04 Doctor Unassigned, [place] [facility] ASSIGNMENT OF BENEFITS 2019-05-31 17:06:16 Docto r Unassigned, [place] [facility] Encounters Start Date/Time End Date/Time Encounter Type Admission Type Attending Clinicians Care Facility Care Department Encounter ID Source 2023-08-04 00:00:00 2023-08-04 00:00:00 Outpatient [id number] [facility]IV [facility] [id number] [facility] 2019-11-08 10:19:22 2020-03-23 13:04:36 Office Visit Verito [facility] [id number] [id number] [id number] [id number] 2019-11-08 10:19:22 2020-03-23 13:04:36 Office Visit [facility]ito [facility] [place] 1.2.840.114 350.1.13.10 [id number] [id number] [facility] 2020-02-28 09:51:27 2020-02-28 23:59:00 Outpatient R ACE ACOSTA [facility] [id number] [facility] 2020-02-28 09:51:00 2020-02-28 23:59:00 Hospital Encounter Ace Ac[facility] [place] 1.2.840.114 350.1.13.10 [id number] [id number] [facility] 2020-02-28 09:38:42 2020-02-28 09:53:42 Office Visit Ace Acosta [facility] neym[place] [id number] 350.1.13.10 [id number] [id number] [facility] 2019-11-08 10:42:00 2019-11-08 23:59:00 Hospital Encounter [facility] [place] 1.2.840.114 350.1.13.10 4.2.7.2.686 [id number] [facility] 2019-11-08 10:38:48 2019-11-08 10:41:00 Outpatient VERITO DUKE [facility] [id number] [facility] 2019-11-08 10:38:00 2019-11-08 10:41:00 Hospital Encounter [facility]ito [facility] [place] 1.2.840.114 350.1.13.10 4.2.7.2.686 [id number] [facility] 2019-06-19 13:51:11 2019-06-19 14:06:11 Office Visit Ace Acosta [facility] Special[facility] Dom[facility] 1.2.840.114 350.1.13.10 4.2.7.2.686 [id number] [facility] 2019-06-19 00:00:00 2019-06-19 00:00:00 Letter (Out) Ace Acosta [facility] 1.2.840.114 350.1.13.10 4.2.7.2.686 [id number] [facility] 2019-06-07 10:13:02 2019-06-07 10:48:25 Office Visit Ace Acosta [facility] Bettye Domíng[place] 1.2.840.114 350.1.13.10 4.2.7.2.686 [id number] [facility] 2019-05-31 12:18:17 2019-05-31 23:59:00 Hospital Encounter Verito Duke [facility] 1.2.840.114 350.1.13.10 4.2.7.2.686 [id number] [facility] 2019-05-31 10:44:00 2019-05-31 14:09:42 Office Visit Verito Duke [facility] 1.2.840.114 350.1.13.10 4.2.7.2.686 [id number] [facility] 2019-05-31 12:12:29 2019-05-31 12:27:29 Credentials Specialist Visit 1, [facility] Verito Duke [facility] 1.2.840.114 350.1.13.10 4.2.7.2.686 [id number] [facility] 2019-05-31 12:14:13 2019-05-31 12:17:00 Hospital Encounter [place] 1.2.840.114 350.1.13.10 4.2.7.2.686 [id number] [facility] 2019-05-31 11:06:10 2019-05-31 12:13:00 Hospital Encounter Verito Duke [facility] 1.2.840.114 350.1.13.10 [id number] [id number] [facility] Results Test Description Test Time Test Comments Results Resul t Comments Source XR FOOT <3 VW RIGHT 2020-02-08 2 15:02:51 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 Lungs: The lungs are clear. No pleural effusion or pneumothorax isidentified. Heart/Mediastinum: The cardiomediastinal silhouette is normal fortechnique. Bones: No acute osseous abnormality is seen. [facility], Radiant Results Inft User - 05/31/2019 1:24 PM CDT* * * * * * * * ORIGINAL REPORT * * * * * * * *EXAM: XR CHEST 2 VWCOMPARISON: None availableHISTORY: Preop examination FINDINGS:Lines/Tubes: None.Lungs: The lungs are clear. No pleural effusion or pneumothorax isidentified.Heart/Me diastinum: The cardiomediastinal silhouette is normal fortechnique.Bones: No acute osseous abnormality is seen.IMPRESSION1. No acute cardiopulmonary abnormality. [facility]
--- NOTE | 2023-09-18 14:35 | RAD REPORT ---
EXAM DESCRIPTION: Charity Pa And Lat (2 Views)09/18/2023 2:23 pm CLINICAL HISTORY: Shortness of breath COMPARISON: April 2023 FINDINGS: Mild chronic appearing lung opacities. Heart is mildly enlarged IMPRESSION: No acute abnormalities displayed
[2023-09-18 16:29] LABS: Absolute Lymphocytes (CBC) 1.2 K/uL (0.7-4.9); Lymphocytes % 40.9 % (15.3-44.8); MCV 83.7 fL (80-100); MPV 7.6 fL (7.6-11.3); Platelets 108 thou/uL (152-406); RBC Red Blood Cell Count 4.54 M/uL (3.86-4.86)
[2023-09-18 16:48] LABS: Albumin 3.8 g/dL (3.4-5.0); Bilirubin Total 0.6 mg/dL (0.2-1.0); Potassium 4.4 mEq/L (3.5-5.1); Protein, Total 8.2 g/dL (6.4-8.2)
--- NOTE | 2023-09-18 17:13 | EDPHYS ---
Physician Documentation [facility] Name: Catherine Figueroa Age: 73 yrs Sex: Female : 1950 Arrival Date: 09/18/2023 Time: 13:19 Bed DX5 Private MD: Lubna Solano H ED Physician Kip Leggett HPI: 09/18 15:17 This 73 yrs old Female presents to ER via Wheelchair with complaints of Covid+. ms3 15:17 73-year-old female past medical history of anxiety, depression, GERD, hyperlipidemia, ms3 hypertension, gallbladder dysfunction presents to the emergency department 3 days after a positive COVID test at home. Patient states her body aches have become worse. Patient rates her discomfort a 10/10. Patient denies alleviating or inciting factors. Patient denies taking medications for her symptoms. Historical: - Allergies: 13:35 Sulfa (Sulfonamide Antibiotics); cm10 13:35 shrimp/seafood; cm10 13:35 Iodine; cm10 - PMHx: 13:35 Anxiety; Depression; Gallbladder 35% function; GERD; High Cholesterol; Hypertension; cm10 hypomagnesium; Hypothyroidism; Kidney stones; Congestive heart failure; Kidney disease; stage 3; - PSHx: 13:35 section; hysterectomy; cm10 - Immunization history:: Adult Immunizations up to date. - Social history:: Smoking status: Patient denies any tobacco usage or history of. ROS: 15:17 Constitutional: Negative for fever, and chills. Neck: Negative for injury, pain, and ms3 swelling, Cardiovascular: Negative for chest pain, and palpitations. Abdomen/GI: Negative for abdominal pain, nausea, vomiting, diarrhea, and constipation, MS/Extremity: Negative for injury and deformity, Skin: Negative for injury, rash, and discoloration, 15:17 Respiratory: Positive for cough, 15:17 All other systems are negative, Exam: 15:17 Constitutional: This is a well developed, well nourished patient who is awake, alert, ms3 and in no acute distress. Head/Face: Normocephalic, atraumatic. Neck: Trachea midline, no cervical lymphadenopathy. Supple, full range of motion without nuchal rigidity, or vertebral point tenderness. No Meningismus. Chest/axilla: Normal chest wall appearance and motion. Nontender with no deformity. Cardiovascular: Regular rate and rhythm with a normal S1 and S2. No gallops, murmurs, or rubs. Normal PMI, no JVD. No pulse deficits. Respiratory: Lungs have equal breath sounds bilaterally, clear to auscultation and percussion. No rales, rhonchi or wheezes noted. No increased work of breathing, no retractions or nasal flaring. Abdomen/GI: Soft, non-tender, with normal bowel sounds. No distension or tympany. No guarding or rebound. No evidence of tenderness throughout. Skin: Warm, dry with normal turgor. Normal color with no rashes, no lesions, and no evidence of cellulitis. MS/ Extremity: Pulses equal, no cyanosis. Neurovascular intact. Full, normal range of motion. Vital Signs: 13:37 BP 154 / 77; Pulse 88; Resp 16; Temp 97.3; Pulse Ox 100% on R/A; Weight 83.91 kg; cm10 Height 5 ft. 1 in. ; Pain 10/10; 17:40 BP 132 / 57; Pulse 69; Resp 16; Pulse Ox 98% on R/A; cm10 13:37 Body Mass Index 34.96 (83.91 kg, 154.94 cm) cm10 13:37 Pain Scale: Adult cm10 MDM: 13:40 Patient medically screened. ms3 17:13 Differential Diagnosis: Upper Respiratory Infection Other COVID vs anemia vs viral ms3 illness. Data reviewed: vital signs, nurses notes, lab test result(s), radiologic studies, and as a result, I will discharge patient. Care significantly affected by the following chronic conditions: Hypertension, Chronic Kidney Disease, HLD. Counseling: I had a detailed discussion with the patient and/or guardian regarding the historical points, exam findings, and any diagnostic results supporting the discharge/admit diagnosis, lab results, radiology results, the need for outpatient follow up, to return to the emergency department if symptoms worsen or persist or if there are any questions or concerns that arise at home. Special discussion: I discussed with the patient/guardian in detail that at this point there is no indication for admission to the hospital. It is understood, however, that if the symptoms persist or worsen the patient needs to return immediately for re-evaluation. ED course: Discussed labs and x-ray results with patient. Patient to follow-up with primary care physician 2 to 3 days. Patient understands and agrees with plan. All questions were answered. Return precautions discussed include worsening symptoms, or any other concerns. On reevaluation patient is alert and oriented x 4, no apparent distress, nontoxic-appearing, speaking full sentences. 09/18 13:40 Order name: CBC with Diff ms3 09/18 13:40 Order name: CMP; Complete Time: 17:05 ms3 09/18 13:40 Order name: Chest Pa And Lat (2 Views) XRAY; Complete Time: 14:51 ms3 Administered Medications: No medications were administered Disposition Summary: 09/18/23 17:12 Discharge Ordered Notes: Location: Home ms3 Condition: Stable ms3 Diagnosis - SARS-associated coronavirus as the cause of diseases classified elsewhere ms3 - Leukopenia ms3 Followup: ms3 - With: Lubna Solano DO - When: 2 - 3 days - Reason: Recheck today's complaints Discharge Instructions: - Discharge Summary Sheet ms3 - COVID-19 ms3 - Viral Illness, Adult ms3 Forms: - Medication Reconciliation Form ms3 - Thank You Letter ms3 - Antibiotic Education ms3 - Prescription Opioid Use ms3 - Patient Portal Instructions ms3 - Leadership Thank You Letter ms3 Signatures: Dispatcher [employer] Kip Pak DO DO ms3 Latonya Mcguire, RN RN cm10
--- NOTE | 2023-09-18 17:13 | ER ---
Nurse's Notes [facility] Name: Catherine Figueroa Age: 73 yrs Sex: Female : 1950 Arrival Date: 09/18/2023 Time: 13:19 Bed DX5 Private MD: Lubna Solano H Diagnosis: SARS-associated coronavirus as the cause of diseases classified elsewhere;Leukopenia Presentation: 09/18 13:37 Chief complaint: Patient states: Took an at home COVID test 3 days ago and was positive cm10 for COVID. pt states that today she has been feeling worse and having body aches and dizziness. Coronavirus screen: Vaccine status: Patient reports receiving the 2nd dose of the covid vaccine. Client denies travel out of the [place] in the last 14 days. Ebola Screen: Patient denies travel to an Ebola-affected area in the 21 days before illness onset. No symptoms or risks identified at this time. Initial Sepsis Screen: Does the patient meet any 2 criteria? No. Patient's initial sepsis screen is negative. Does the patient have a suspected source of infection? No. Patient's initial sepsis screen is negative. Risk Assessment: Do you want to hurt yourself or someone else? Patient reports no desire to harm self or others. Onset of symptoms was September 18, 2023. 13:37 Method Of Arrival: Wheelchair cm10 13:37 Acuity: MARCELLA 3 cm10 Triage Assessment: 13:40 General: Appears in no apparent distress. comfortable, Behavior is calm, cooperative. cm10 Pain: Denies pain. Neuro: No deficits noted. Level of Consciousness is awake, alert, Oriented to person, place, time, situation. Respiratory: No deficits noted. Airway is patent Respiratory effort is even, unlabored, Respiratory pattern is regular, symmetrical. Derm: No deficits noted. Skin is intact, Skin is pink, warm \T\ dry. Musculoskeletal: No deficits noted. Range of motion: intact in all extremities. Historical: - Allergies: 13:35 Sulfa (Sulfonamide Antibiotics); cm10 13:35 shrimp/seafood; cm10 13:35 Iodine; cm10 - PMHx: 13:35 Anxiety; Depression; Gallbladder 35% function; GERD; High Cholesterol; Hypertension; cm10 hypomagnesium; Hypothyroidism; Kidney stones; Congestive heart failure; Kidney disease; stage 3; - PSHx: 13:35 section; hysterectomy; cm10 - Immunization history:: Adult Immunizations up to date. - Social history:: Smoking status: Patient denies any tobacco usage or history of. Screenin:40 [facility] ED Fall Risk Assessment (Adult) History of falling in the last 3 months, cm10 including since admission No falls in past 3 months (0 pts) Confusion or Disorientation No (0 pts) Intoxicated or Sedated No (0 pts) Impaired Gait No (0 pts) Mobility Assist Device Used Yes (1 pt) Altered Elimination No (0 pt) Score/Fall Risk Level 0 - 2 = Low Risk Oriented to surroundings, Maintained a safe environment, Hourly rounding (assess needs \T\ fall precautionary measures) done. Abuse screen: Denies threats or abuse. Denies injuries from another. Nutritional screening: No deficits noted. Tuberculosis screening: No symptoms or risk factors identified. Vital Signs: 13:37 BP 154 / 77; Pulse 88; Resp 16; Temp 97.3; Pulse Ox 100% on R/A; Weight 83.91 kg; cm10 Height 5 ft. 1 in. ; Pain 10/10; 17:40 BP 132 / 57; Pulse 69; Resp 16; Pulse Ox 98% on R/A; cm10 13:37 Body Mass Index 34.96 (83.91 kg, 154.94 cm) cm10 13:37 Pain Scale: Adult cm10 ED Course: 13:22 Patient arrived in ED. mr 13:22 Lubna Solano DO is Private Physician. mr 13:24 Kip Leggett DO is Attending Physician. ms3 13:38 Triage completed. cm10 13:38 Arm band placed on Patient placed in waiting room. cm10 13:40 Patient has correct armband on for positive identification. Provided Education on: ER cm10 process and procedures. . 14:22 Chest Pa And Lat (2 Views) XRAY In Process Unspecified. EDMS 16:10 CMP Sent. cm10 16:10 CBC with Diff Sent. cm10 16:11 Initial lab(s) drawn, by me, sent to lab. Inserted saline lock: 20 gauge in right cm10 antecubital area, using aseptic technique. Blood collected. 17:11 Lubna Solano DO is Referral Physician. ms3 17:40 No provider procedures requiring assistance completed. IV discontinued, intact, cm10 bleeding controlled, No redness/swelling at site. Pressure dressing applied. Administered Medications: No medications were administered Medication: 13:40 VIS not applicable for this client. cm10 Outcome: 17:12 Discharge ordered by . ms3 17:42 Discharged to home via wheelchair, cm10 17:42 Condition: good 17:42 Discharge instructions given to patient, Instructed on discharge instructions, follow up and referral plans. Demonstrated understanding of instructions, follow-up care, 17:42 Patient left the ED. cm10 Signatures: Dispatcher [employer] EDMS Lorin Treadwell, Reg Reg mr Kip Leggett, DO DO ms3 Latonya Mcguire, RN RN cm10
[2023-09-18 17:51] VITALS: TEMP 97.3
[2023-09-18 18:00] VITALS: BP 132/57; O2SAT 98
[2023-09-18 19:26] LABS: Blood Morphology Comment NOT SEEN (NOT SEEN); Platelet Estimate DECR
== END 2023-09-18 17:42 | disposition home or self-care (01) ==
LOC: ER 13:19
DX: U07.1 COVID-19 (principal); D72.819 Decreased white blood cell count, unspecified; I13.0 Hypertensive heart and chronic kidney disease with heart failure and stage 1 through stage 4 chronic kidney disease, or unspecified chronic kidney disease; N18.30 Chronic kidney disease, stage 3 unspecified; I50.9 Heart failure, unspecified; Z88.2 Allergy status to sulfonamides; Z91.013 Allergy to seafood; Z91.048 Other nonmedicinal substance allergy status
CPT/HCPCS: 36415; 71046; 80053; 85025; 99283

== ENCOUNTER 2025-08-05 14:51 | Emergency (ER) | payer OTHER ==
[2025-08-05 15:50] LABS: Absolute Lymphocytes (CBC) 1.8 K/uL (0.7-4.9); Hematocrit 36.6 % (36.0-45.0); Hemoglobin 12.1 g/dL (12.0-15.0); MCH 27.5 pg (27.0-35.0); MCHC 33.0 g/dL (32.0-36.0); MCV 83.1 fL (80-100); MPV 6.9 fL (7.6-11.3); Nucleated RBC Absolute Count 0.0 (0-0); Nucleated Red Blood Cells % 0.0 % (0-0); RBC Red Blood Cell Count 4.41 M/uL (3.86-4.86); White Blood Count 4.60 thou/uL (4.3-10.9)
--- NOTE | 2025-08-05 15:50 | RAD REPORT ---
EXAMINATION: Head Brain Wo Cont CLINICAL INDICATION: Female, 75 years old.HEADACHE TECHNIQUE: Axial CT images from the skull base to the vertex without intravenous contrast. Coronal an d sagittal reformatted images were created from the data set. One or more of the following dose reduction techniques were used: Automated exposure control, adjustment of the mA and/or kV according to patient size, and/or iterative reconstruction. Unless otherwise specified, incidental findings do not require dedicated imaging follow-up. [id number]. COMPARISON: 08/27/2020 FINDINGS: INTRACRANIAL: No acute intracranial hemorrhage. No acute large vascular territory infarct. No hydro cephalus. No mass effect or midline shift. Mild chronic small vessel ischemic changes. VASCULATURE: No visualized abnormalities in the arteries or dural venous sinuses. SCALP/SKULL: No calvarial fracture identified. No acute soft tissue abnormality. SINUSES: The visualized paranasal sinuses are mostly clear. No significant mastoid fluid. IMPRESSION: No acute intracranial abnormality.
--- NOTE | 2025-08-05 15:55 | RAD REPORT ---
EXAM: Chest Single View HISTORY: 75 years Female CHEST PAIN COMPARISON: 03/11/2025 FINDINGS: LUNGS/PLEURA: The lungs are clear. No pleural effusions or pneumothorax. No pulmonary edema. CARDIAC/MEDIASTINUM: The cardiac silhouette is within normal limits. UPPER ABDOMEN: No significant abnormality. BONES: No acute abnormality. LINES/TUBES/OTHER: N/A IMPRESSION: No evidence of acute cardiopulmonary disease.
[2025-08-05 15:57] LABS: PT Prothrombin Time 12.5 SECONDS (10-13.0); Protime INR 1.11
[2025-08-05] MEDS ORDERED: METOCLOPRAMIDE 10 MG/2mL INJ ONE (16:00)
[2025-08-05] MEDS ORDERED: NA CHLORIDE 0.9% 50 ML ONE (16:00)
[2025-08-05] MEDS ORDERED: KETOROLAC 30 MG/ML INJ ONE (16:00)
[2025-08-05] MEDS ORDERED: DIPHENHYDRAMINE 50 MG/ML VIAL ONE (16:00)
[2025-08-05 16:12] LABS: ALT/SGPT 25.0 U/L (13-56); AST/SGOT 17.0 U/L (15-37); Albumin 3.8 g/dL (3.4-5.0); Albumin/Globulin Ratio 1.1 (1.1-1.8); Alkaline Phosphatase 127.0 U/L (45-117); Anion Gap 8.0 mEq/L (5.0-15.0); BUN Blood Urea Nitrogen 31.0 mg/dL (7-18); Bilirubin Indirect, Calculated 0.6 mg/dL (0.2-0.8); Globulin 3.5 g/dL (2.3-3.5); Glucose Level 98.0 mg/dL (74-106); Magnesium 1.6 mg/dL (1.6-2.4); NT PRO-BNP 1007.0 pg/mL (<450); Potassium 4.0 mEq/L (3.5-5.1); Troponin High Sensitivity 10.7 pg/mL (<58.9)
[2025-08-05] MEDS ORDERED: NA CHLORIDE 0.9% 250 ML ONE (16:28)
--- NOTE | 2025-08-05 16:55 | ER ---
Nurse's Notes [facility] Name: Catherine Figueroa Age: 75 yrs Sex: Female : 1950 Arrival Date: 08/05/2025 Time: 14:51 Bed 4 Private MD: Diagnosis: Headache;Anxiety disorder, unspecified Presentation: 08/05 15:12 Chief complaint: EMS states: toned out for headache and SOB, no chest pain. Coronavirus zm screen: Vaccine status: Patient reports receiving the 2nd dose of the covid vaccine. Client denies travel out of the [place] in the last 14 days. At this time, the client does not indicate any symptoms associated with coronavirus-19. Ebola Screen: Patient denies travel to an Ebola-affected area in the 21 days before illness onset. No symptoms or risks identified at this time. Initial Sepsis Screen: Does the patient meet any 2 criteria? No. Patient's initial sepsis screen is negative. Does the patient have a suspected source of infection? No. Patient's initial sepsis screen is negative. Risk Assessment: Do you want to hurt yourself or someone else? Patient reports no desire to harm self or others. Onset of symptoms was August 05, 2025. 15:12 Method Of Arrival: EMS: [facility] 15:12 Acuity: MARCELLA 3 zm Triage Assessment: 15:15 Headache History: Denies prior headaches. General: Appears in no apparent distress. zm uncomfortable, Behavior is cooperative, anxious, crying. Pain: Complains of pain in left buddhist Pain currently is 9 out of 10 on a pain scale. Pain began 1 day ago. Is intermittent, Also complains of dizziness. Neuro: Level of Consciousness is awake, alert, obeys commands, Oriented to person, place, time, situation. Cardiovascular: Patient's skin is warm and dry. Respiratory: Airway is patent Respiratory effort is even, unlabored, Respiratory pattern is regular, symmetrical. Historical: - Allergies: 15:15 Iodine; zm 15:15 shrimp/seafood; zm 15:15 Sulfa (Sulfonamide Antibiotics); zm - PMHx: 15:15 Anxiety; Congestive heart failure; Depression; Gallbladder 35% function; GERD; High zm Cholesterol; Hypertension; hypomagnesium; Hypothyroidism; kidney disease; stage 3; Kidney stones; - PSHx: 15:15 section; hysterectomy; zm - Immunization history:: Adult Immunizations up to date. - Infectious Disease History:: Denies. - Social history:: Smoking status: Patient denies any tobacco usage or history of. Patient/guardian denies using alcohol. Screenin:18 [facility] ED Fall Risk Assessment (Adult) History of falling in the last 3 months, zm including since admission No falls in past 3 months (0 pts) Confusion or Disorientation No (0 pts) Intoxicated or Sedated No (0 pts) Impaired Gait No (0 pts) Mobility Assist Device Used No (0 pt) Altered Elimination No (0 pt) Score/Fall Risk Level 0 - 2 = Low Risk Oriented to surroundings, Maintained a safe environment, Educated pt \T\ family on fall prevention, incl call for assistance when getting out of bed, Assessed \T\ reinforced patient's understanding of fall precautions, Hourly rounding (assess needs \T\ fall precautionary measures) done, Used ambulatory aids as needed (educated on \T\ assisted with), Used gait belt as appropriate. Abuse screen: Denies threats or abuse. Denies injuries from another. Nutritional screening: No deficits noted. Tuberculosis screening: No symptoms or risk factors identified. Assessment: 15:18 Reassessment: see triage assessment. Pain: Pain currently is 9 out of 10 on a pain zm scale. 16:32 Reassessment: Patient appears in no apparent distress at this time. Patient and/or family updated on plan of care and expected duration. Pain level reassessed. Patient is alert, oriented x 3, equal unlabored respirations, skin warm/dry/pink. 17:20 Reassessment: Patient appears in no apparent distress at this time. No changes from zm previously documented assessment. Patient and/or family updated on plan of care and expected duration. Pain level reassessed. Patient is alert, oriented x 3, equal unlabored respirations, skin warm/dry/pink. Vital Signs: 15:12 BP 171 / 73; Pulse 65; Resp 20; Temp 98; Pulse Ox 100% on R/A; Pain 9/10; zm 16:31 BP 165 / 55; Pulse 62; Resp 18; Pulse Ox 100% on R/A; zm 17:20 BP 163 / 44; Pulse 61; Resp 16; Temp 98.1; Pulse Ox 100% on R/A; Pain 0/10; zm 15:12 Pain Scale: Adult zm 17:20 Pain Scale: Adult zm Sheri Coma Score: 16:56 Eye Response: spontaneous(4). Motor Response: obeys commands(6). Verbal Response: zm oriented(5). Total: 15. 17:20 Eye Response: spontaneous(4). Motor Response: obeys commands(6). Verbal Response: zm oriented(5). Total: 15. 17:31 Eye Response: spontaneous(4). Motor Response: obeys commands(6). Verbal Response: sb4 oriented(5). Total: 15. ED Course: 14:54 Patient arrived in ED. sb4 14:54 Alethea George PA-C is [facility]. sb4 14:54 Kip Leggett DO is Attending Physician. sb4 15:05 Latrice Mcguire, RN is Primary Nurse. zm 15:15 Triage completed. zm 15:15 Arm band placed on right wrist. zm 15:18 Patient has correct armband on for positive identification. Bed in low position. Call zm light in reach. Side rails up X 1. Provided Education on: call light use. Client placed on continuous cardiac and pulse oximetry monitoring. NIBP monitoring applied. pvc monitor on. Noise minimized. Lights dimmed. Warm blanket given. Verbal reassurance given. 15:23 Head Brain Wo Cont CT In Process Unspecified. EDMS 15:28 XRAY Chest (1 view) In Process Unspecified. EDMS 15:40 Inserted saline lock: 20 gauge in right antecubital area, using aseptic technique. zm Blood collected. Flushed with 10 mL NS. 15:40 Initial lab(s) drawn, by ny, sent to lab. zm 15:46 Troponin HS Sent. zm 15:46 PT-INR Sent. zm 15:46 NT PRO-BNP Sent. zm 15:47 Magnesium Sent. zm 15:47 LFT's Sent. zm 15:47 CBC with Diff Sent. zm 15:47 Basic Metabolic Panel Sent. zm 15:47 EKG done, by marketing technology coordinator. reviewed by Alethea George PA-C. ts3 17:20 No provider procedures requiring assistance completed. IV discontinued, intact, zm bleeding controlled, No redness/swelling at site. Pressure dressing applied. Administered Medications: 16:15 Drug: diphenhydrAMINE IVP 25 mg IVP once Route: IVP; Site: right antecubital; zm 17:22 Follow up: Response: No adverse reaction zm 16:19 Drug: Ketorolac IVP 15 mg IVP once Route: IVP; Site: right antecubital; zm 17:22 Follow up: Response: No adverse reaction zm 16:23 Drug: metoCLOPramide IVP 10 mg IVP once; over 1 to 2 minutes Route: IVP; Site: right zm antecubital; 17:22 Follow up: Response: No adverse reaction zm 16:35 Drug: NS 0.9% IV 250 ml IV at bolus once; to be given as a bolus over 30 minutes Route: zm IV; Rate: bolus; Site: right antecubital; 17:22 Follow up: Response: No adverse reaction; IV Status: Completed infusion; IV Intake: zm 250ml Medication: 15:18 VIS not applicable for this client. zm Intake: 17:22 IV: 250ml; Total: 250ml. Outcome: 16:54 Discharge ordered by MD. fink 17:20 Discharged to home ambulatory, 17:20 Condition: stable 17:20 Discharge instructions given to patient, Instructed on discharge instructions, follow up and referral plans. safety practices, Demonstrated understanding of instructions, follow-up care, 17:23 Patient left the ED. Signatures: Dispatcher [employer] Latrice Oliva RN RN zm Brown, Sophia, PA-C PA-C Mary Aviles ts3 Corrections: (The following items were deleted from the chart) 16:58 16:56 BP 165 / 55; Pulse 61bpm; Resp 16bpm; Pulse Ox 98% RA; Temp 98.2F; zm zm
--- NOTE | 2025-08-05 16:55 | EDPHYS ---
Physician Documentation [facility] Name: Catherine Figueroa Age: 75 yrs Sex: Female : 1950 Arrival Date: 08/05/2025 Time: 14:51 Bed 4 Private MD: ED Physician Kip Leggett HPI: 08/05 17:30 This 75 yrs old Female presents to ER via EMS with complaints of Headache. sb4 17:30 Patient reports today with complaints of headache, bilateral ear pain, generalized sb4 weakness, anxiety. States that she has a history of headaches. Also reports a history of hypertension but does not take her medications. Denies any chest pain or shortness of breath. No dizziness. Denies any trauma to the head. Historical: - Allergies: 15:15 Iodine; zm 15:15 shrimp/seafood; zm 15:15 Sulfa (Sulfonamide Antibiotics); zm - PMHx: 15:15 Anxiety; Congestive heart failure; Depression; Gallbladder 35% function; GERD; High zm Cholesterol; Hypertension; hypomagnesium; Hypothyroidism; kidney disease; stage 3; Kidney stones; - PSHx: 15:15 section; hysterectomy; zm - Immunization history:: Adult Immunizations up to date. - Infectious Disease History:: Denies. - Social history:: Smoking status: Patient denies any tobacco usage or history of. Patient/guardian denies using alcohol. ROS: 17:30 Constitutional: Negative for fever, chills, and weight loss, sb4 17:30 ENT: Positive for ear pain, 17:30 Neuro: Positive for headache, weakness, 17:30 All other systems are negative, Exam: 17:30 Constitutional: This is a well developed, well nourished patient who is awake, alert, sb4 and in no acute distress. Head/Face: Normocephalic, atraumatic. Eyes: Extra-ocular motions intact. Periorbital areas with no swelling, redness, or edema. ENT: Mucous membranes moist. Cardiovascular: Regular rate and rhythm with a normal S1 and S2. Respiratory: No increased work of breathing, no retractions or nasal flaring. Abdomen/GI: Soft, non-tender, no distension. Skin: Warm, dry with normal turgor. Normal color with no rashes, no lesions, and no evidence of cellulitis. 17:30 ENT: TM's: are normal, no acute changes, bulging, is not appreciated, decreased mobility, is not appreciated, dullness, is not appreciated, Vital Signs: 15:12 BP 171 / 73; Pulse 65; Resp 20; Temp 98; Pulse Ox 100% on R/A; Pain 9/10; zm 16:31 BP 165 / 55; Pulse 62; Resp 18; Pulse Ox 100% on R/A; zm 17:20 BP 163 / 44; Pulse 61; Resp 16; Temp 98.1; Pulse Ox 100% on R/A; Pain 0/10; zm 15:12 Pain Scale: Adult zm 17:20 Pain Scale: Adult zm Taiban Coma Score: 16:56 Eye Response: spontaneous(4). Motor Response: obeys commands(6). Verbal Response: zm oriented(5). Total: 15. 17:20 Eye Response: spontaneous(4). Motor Response: obeys commands(6). Verbal Response: zm oriented(5). Total: 15. 17:31 Eye Response: spontaneous(4). Motor Response: obeys commands(6). Verbal Response: sb4 oriented(5). Total: 15. MDM: 14:54 Medical Screening Exam initiated sb4 17:31 Differential diagnosis: cluster headache, hypertensive headache, hypoglycemia, sb4 hyponatremia, migraine, neoplasm, otitis, sinusitis, tension headache. Data reviewed: vital signs, nurses notes, EMS record, lab test result(s), EKG, radiologic studies, and as a result, I will discharge patient. Care significantly affected by the following chronic conditions: Hypertension, Congestive Heart Failure. Counseling: I had a detailed discussion with the patient and/or guardian regarding the historical points, exam findings, and any diagnostic results supporting the discharge/admit diagnosis, the presence of at least one elevated blood pressure reading (>120/80) during this emergency department visit, lab results, radiology results, the need for outpatient follow up, for definitive care, to return to the emergency department if symptoms worsen or persist or if there are any questions or concerns that arise at home. 08/05 15:00 Order name: Basic Metabolic Panel; Complete Time: 16:13 sb4 08/05 15:00 Order name: CBC with Diff; Complete Time: 15:52 sb4 08/05 15:00 Order name: LFT's; Complete Time: 16:13 sb4 08/05 15:00 Order name: Magnesium; Complete Time: 16:13 sb4 08/05 15:00 Order name: NT PRO-BNP; Complete Time: 16:13 sb4 08/05 15:00 Order name: PT-INR; Complete Time: 16:01 sb4 08/05 15:00 Order name: Troponin HS; Complete Time: 16:13 sb4 08/05 15:00 Order name: XRAY Chest (1 view); Complete Time: 15:56 sb4 08/05 15:00 Order name: Head Brain Wo Cont CT; Complete Time: 15:52 sb4 08/05 15:00 Order name: Cardiac monitoring; Complete Time: 15:46 sb4 08/05 15:00 Order name: EKG - Nurse/Tech; Complete Time: 15:46 sb4 08/05 15:00 Order name: IV Saline Lock; Complete Time: 15:46 sb4 08/05 15:00 Order name: Labs collected and sent; Complete Time: 15:46 sb4 08/05 15:00 Order name: O2 Per Protocol; Complete Time: 15:20 sb4 08/05 15:00 Order name: O2 Sat Monitoring; Complete Time: 15:20 sb4 EC:46 Rate is 57 beats/min. Rhythm is regular, Normal Sinus Rhythm. [place] interval is normal at sb4 165 msec. QRS interval is normal at 80 msec. QT interval is normal at 372 msec. No Q waves. T waves are Normal. No ST changes noted. Clinical impression: Sinus bradycardia. Interpreted by me. Reviewed by me. Administered Medications: 16:15 Drug: diphenhydrAMINE IVP 25 mg IVP once Route: IVP; Site: right antecubital; zm 17:22 Follow up: Response: No adverse reaction zm 16:19 Drug: Ketorolac IVP 15 mg IVP once Route: IVP; Site: right antecubital; zm 17:22 Follow up: Response: No adverse reaction zm 16:23 Drug: metoCLOPramide IVP 10 mg IVP once; over 1 to 2 minutes Route: IVP; Site: right zm antecubital; 17:22 Follow up: Response: No adverse reaction zm 16:35 Drug: NS 0.9% IV 250 ml IV at bolus once; to be given as a bolus over 30 minutes Route: zm IV; Rate: bolus; Site: right antecubital; 17:22 Follow up: Response: No adverse reaction; IV Status: Completed infusion; IV Intake: zm 250ml Disposition: 18:27 I was immediately available on-site in the Emergency Department for consultation in the ms3 care of the patient. Disposition Summary: 08/05/25 16:54 Discharge Ordered Notes: Location: Home sb4 Problem: new sb4 Symptoms: have improved sb4 Condition: Stable sb4 Diagnosis - Headache sb4 - Anxiety disorder, unspecified sb4 Followup: sb4 - With: Emergency Department - When: As needed - Reason: Trouble breathing, Worsening of condition Discharge Instructions: - Discharge Summary Sheet sb4 - General Headache Without Cause sb4 - Migraine Headache, Kamy-lc-Henr sb4 - Managing Anxiety, Adult sb4 Forms: - Patient Portal Instructions sb4 - Leadership Thank You Letter sb4 Signatures: Dispatcher [employer] EDVelia Zamudio Marcus, DO DO ms3 Latrice Mcguire RN RN Alethea Kimbrough PAJamal PA-Don sb4 Corrections: (The following items were deleted from the chart) 15:01 15:01 Head Brain Wo Cont+CT.RAD.BRZ ordered. EDMS EDMS 15:51 15:27 Labs - recollect needed ordered. loyd harp
[2025-08-06 00:24] VITALS: O2SAT 100
[2025-08-06 00:26] VITALS: BP 163/44; TEMP 98.1
== END 2025-08-05 17:23 | disposition home or self-care (01) ==
LOC: ER 14:51
DX: R51.9 Headache, unspecified (principal); F41.9 Anxiety disorder, unspecified; I10 Essential (primary) hypertension
CPT/HCPCS: 96365; 93005; 85025; 80048; 36415; 83735; 85610; 80076; 84484; 83880; 70450; 71045; 96375; 99285; J1885; J2765; J1200; J7050